=== PATIENT | male | born 1960 | race American Indian/Alaskan Native ===

== ENCOUNTER 2016-12-14 02:53 | Inpatient (IN) | payer OTHER ==
[2016-12-14] MEDS ORDERED: D50W (25GM) IV ONE ×6 (04:00→11:00)
[2016-12-14 04:47] LABS: Basophils % (Auto) 0.6 % (0.0-1.8); Hematocrit 39.7 % (35.5-45.6); Hemoglobin 13.3 gm/dl (11.8-15.2); Mean Corpuscular HGB Conc 34 % (32-34); Mean Corpuscular Hemoglobin 31 pg (28-32); Mean Corpuscular Volume 92 fl (84-94); Platelet Count 100 K/mm3 (140-440); Red Cell Distribution Width 12.9 % (13.2-15.2)
[2016-12-14 05:03] LABS: Alanine Aminotransferase 97 units/L (7-56); Albumin 4.2 g/dL (3.9-5); Albumin/Globulin Ratio 1.2 %; Alkaline Phosphatase 64 units/L (35-129); Anion Gap 17 mmol/L; BUN/Creatinine Ratio 17.14; Blood Urea Nitrogen 12 mg/dL (9-20); Calcium 9.1 mg/dL (8.4-10.2); Carbon Dioxide 26 mmol/L (22-30); Chloride 97.9 mmol/L (98-107); Glucose 283 mg/dL (75-100); Lipase 20 units/L (13-60); Potassium 3.3 mmol/L (3.6-5.0); Sodium 138 mmol/L (137-145); Total Protein 7.8 g/dL (6.3-8.2)
[2016-12-14] MEDS ORDERED: K-DUR PO ONE (06:15)
[2016-12-14] MEDS ORDERED: NACL 0.9% 1000 ML 1,000 ML IV ONE (06:30)
[2016-12-14] MEDS ORDERED: MORPHINE IV ONE (06:30)
--- NOTE | 2016-12-14 06:38 | Emergency Department Report ---
HPI - General Chief Complaint: Abdominal Pain Time Seen by Provider: 12/14/16 06:14 - HPI HPI: This is a 56-year-old -[place] male who presents to the emergency department with complaint of generalized abdominal pain has been going on for the past few weeks, "since I left the cancer center." The patient has some paperwork from the cancer center that shows that he has a PSA of 8 and is currently being worked up for possible prostate cancer. He says he has not yet been diagnosed with that. He has a past medical history of hepatitis C, insulin dependent diabetes and HIV. Patient presented with some mild hypoglycemia and was given an amp of D50. He denies any significant nausea, vomiting. He denies any problems with bowel or bladder, numbness or paresthesias, fever. He used to be on oxycodone for pain medication for his generalized abdominal discomfort. No recent travel or sick contacts at home. ED Past Medical Hx - Past Medical History Previous Medical History?: Yes Hx Diabetes: Yes Hx Liver Disease: Yes (hep C, hepatomegaly) Hx HIV: Yes - Surgical History Past Surgical History?: No - Social History Smoking Status: Light Tobacco Smoker Substance Use Type: Alcohol - Medications Home Medications: Home Medications Medication Instructions Recorded Confirmed Last Taken Type Unobtainable 12/14/16 12/14/16 Unknown History ED Review of Systems ROS: Stated complaint: STOMACH PAIN Other details as noted in HPI Comment: All other systems reviewed and negative Constitutional: denies: chills, fever Eyes: denies: eye pain, eye discharge, vision change ENT: denies: ear pain, throat pain Respiratory: denies: cough, shortness of breath, wheezing Cardiovascular: denies: chest pain, palpitations Gastrointestinal: abdominal pain. denies: nausea, diarrhea Genitourinary: denies: urgency, dysuria Musculoskeletal: denies: back pain, joint swelling, arthralgia Skin: denies: rash, lesions Neurological: denies: headache, weakness, paresthesias Physical Exam - Physical Exam Vital Signs: Vital Signs 12/14/16 12/14/16 12/14/16 03:43 05:20 05:26 Temperature 98.1 F Pulse Rate 73 71 Respiratory 18 14 9 L Rate Blood Pressure 96/63 134/73 O2 Sat by Pulse 98 95 99 Oximetry 12/14/16 12/14/16 05:30 06:00 Temperature Pulse Rate 76 76 Respiratory 9 L 16 Rate Blood Pressure 107/61 118/62 O2 Sat by Pulse 99 99 Oximetry Physical Exam: GENERAL: The patient is well-developed well-nourished. HEENT: Normocephalic. Atraumatic. Extraocular motions are intact. Patient has moist mucous membranes. Pupils equal reactive to light bilaterally. NECK: Supple. Trachea is midline. CHEST/LUNGS: Clear to auscultation. There is no respiratory distress noted. HEART/CARDIOVASCULAR: Regular. There is no tachycardia. There is no gallop rub or murmur. ABDOMEN: Abdomen is soft. Generalized tenderness to palpation of the abdomen. No guarding rebound tenderness. Patient has normal bowel sounds. There is no abdominal distention. SKIN: There is no rash. There is no edema. There is no diaphoresis. NEURO: The patient is awake, alert, and oriented. The patient is cooperative. The patient has no focal neurologic deficits. The patient has normal speech. MUSCULOSKELETAL: There is no tenderness or deformity. There is no limitation range of motion. There is no evidence of acute injury. ED Course Vital Signs 12/14/16 12/14/16 12/14/16 03:43 05:20 05:26 Temperature 98.1 F Pulse Rate 73 71 Respiratory 18 14 9 L Rate Blood Pressure 96/63 134/73 O2 Sat by Pulse 98 95 99 Oximetry 12/14/16 12/14/16 05:30 06:00 Temperature Pulse Rate 76 76 Respiratory 9 L 16 Rate Blood Pressure 107/61 118/62 O2 Sat by Pulse 99 99 Oximetry ED Medical Decision Making - Lab Data Result diagrams: 12/14/16 04:21 12/14/16 04:21 - Radiology Data Radiology results: report reviewed PROCEDURE: CT ABDOMEN PELVIS W CON TECHNIQUE: Computerized axial tomography of the abdomen and pelvis was performed after the IV injection of iodinated nonionic contrast. HISTORY: Abd pain COMPARISON: No prior studies are available for comparison. FINDINGS: Visualized lower thorax: Suspect mild COPD with minimal dependent atelectasis.. Liver: Moderately enlarged liver with diffuse fatty infiltration and areas of Edd transhepatic attenuation differences may reflect areas of fatty infiltration and sparing. No focal definitive lesions suspected at this time. Streak artifact related to EKG leads. Spleen: Mildly enlarged spleen. Gallbladder and biliary system: Moderately distended gallbladder without significant wall thickening. Common hepatic duct mildly prominent at 9 millimeters. Distal common bile duct 4 millimeters distal pancreatic duct 3 millimeters. Possible medium attenuated sludge material distal common bile duct with indeterminate sub millimeter calculus near the ampulla axial 57 through 60. Consider MRCP if warranted.. Pancreas: Normal. Adrenals: Normal. Kidneys: Normal. GI tract: No oral contrast. Diffuse stool content consistent with constipation. Much crowding of the bowel.. Indeterminate thickening of the distal sigmoid and rectal region with infiltrative pathology not excludable. This is indeterminate due to incomplete distension and no oral contrast. Possible normal caliber appendix obscured by large bowel no convincing evidence of acute appendicitis.. Difficult bowel evaluation due to extensive stool content paucity of mesenteric adipose tissue and particularly the lack of oral contrast. An underlying infiltrative pathologic process including malignancy is not excludable. Defer to colonoscopy or followup study with oral contrast. There is apparent spasm of the proximal sigmoid colon. There is sigmoid diverticulosis with possible thickening of the bowel in that location. Somewhat cobblestone appearance of the sigmoid colon with redundant distal sigmoid. Sigmoid colitis or minimal diverticulitis not entirely excludable. Followup advised as warranted Lymph nodes and mesentery: Mild pre portal adenopathy with scattered mild retroperitoneal adenopathy suspected in the 1-1.5 centimeter range retroperitoneum pre celiac below the renal veins periaortic. Vasculature: Arterial atherosclerosis ulcerative plaque formation in the right internal iliac artery. Bladder: Significantly distended bladder. Reproductive organs: Normal. Peritoneum: No free fluid. Musculoskeletal structures: Moderate degenerative changes of the hips. Mild osteitis pubis. Moderate sacroiliitis. Severe disc disease at the L3-4 level degeneration. Moderate broad disc bulging and degeneration at L4-5. Moderate broad disc bulge L5-S1. Defer to MRI lumbar spine evaluation. Other: None. IMPRESSION: Distended gallbladder with possible sludge accumulation in the distal common bile duct and tiny 1 millimeter calcification near the ampulla. Consider MRCP evaluation. Limited bowel evaluation as described. Diffuse constipation. Possible sigmoid cobblestone thickening and mucosal colitis. Sigmoid diverticulosis moderate bilateral sacroiliitis. Normal caliber appendix McBurney's point. Consider followup examination with oral contrast. Mild adenopathy as described EXAM: US ABDOMEN LIMITED HISTORY: RUQ abd pain TECHNIQUE: Ultrasound of the right upper quadrant. PRIORS: None FINDINGS: Normal appearance of the pancreas. Proximal aorta is nonaneurysmal. Proximal IVC appears normal. Right kidney measures 10.9 x 4.3 x 5.8 cm. Right renal cortex measures 1.3 cm. There are 2 right renal calculi, largest is 5.1 mm in the upper pole. 4.2 mm calculus in the lower pole. Homogeneous-appearing liver. No liver lesion identified. Gallbladder appears normal. Common bile duct is dilated measuring 8.8 mm. No intrahepatic biliary tree dilatation. IMPRESSION: 1. Dilated common bile duct. Recommend MRCP. 2. Renal calculi. - Medical Decision Making 56-year-old male with history of HIV, hepatitis C and elevated PSA with possible new prostate cancer presents with prolonged abdominal discomfort. His labs show some mild transaminitis and he went from having hypoglycemia to hyperglycemia and back to hypoglycemia again while being in the emergency department. Abdominal ultrasound shows concern for biliary ductal dilatation but there is no signs of cholecystitis. No cholelithiasis but concern for gallbladder sludge. Due to his history a CT of the abdomen and pelvis with IV contrast was also done and it just confirmed the ductal dilation. However the patient continues to have discomfort, has labile blood sugar, and the plan will be to admit the patient to the hospital for further evaluation, pain control. Patient accepted for admission by the hospitalist. - Differential Diagnosis malignancy, colitis, diverticulitis, cholecystitis, cholangitis, hepatitis Critical Care Time: No Critical care attestation.: If time is entered above; I have spent that time in minutes in the direct care of this critically ill patient, excluding procedure time. ED Disposition Clinical Impression: Common bile duct dilatation, Hypoglycemia Abdominal pain Qualifiers: Abdominal location: generalized Qualified Code(s): R10.84 - Generalized abdominal pain Disposition: OP ADMITTED IP TO THIS HOSP Is pt being admited?: Yes Condition: Stable Referrals: PRIMARY CARE, [Primary Care Provider] - 3-5 Days Time of Disposition: 12:22
[2016-12-14] MEDS ORDERED: NACL ONE (06:43)
--- NOTE | 2016-12-14 08:17 | Cat Scan Report ---
FINAL REPORT PROCEDURE: CT ABDOMEN PELVIS W CON TECHNIQUE: Computerized axial tomography of the abdomen and pelvis was performed after the IV injection of iodinated nonionic contrast. HISTORY: Abd pain COMPARISON: No prior studies are available for comparison. FINDINGS: Visualized lower thorax: Suspect mild COPD with minimal dependent atelectasis.. Liver: Moderately enlarged liver with diffuse fatty infiltration and areas of Edd transhepatic attenuation differences may reflect areas of fatty infiltration and sparing. No focal definitive lesions suspected at this time. Streak artifact related to EKG leads. Spleen: Mildly enlarged spleen. Gallbladder and biliary system: Moderately distended gallbladder without significant wall thickening. Common hepatic duct mildly prominent at 9 millimeters. Distal common bile duct 4 millimeters distal pancreatic duct 3 millimeters. Possible medium attenuated sludge material distal common bile duct with indeterminate sub millimeter calculus near the ampulla axial 57 through 60. Consider MRCP if warranted.. Pancreas: Normal. Adrenals: Normal. Kidneys: Normal. GI tract: No oral contrast. Diffuse stool content consistent with constipation. Much crowding of the bowel.. Indeterminate thickening of the distal sigmoid and rectal region with infiltrative pathology not excludable. This is indeterminate due to incomplete distension and no oral contrast. Possible normal caliber appendix obscured by large bowel no convincing evidence of acute appendicitis.. Difficult bowel evaluation due to extensive stool content paucity of mesenteric adipose tissue and particularly the lack of oral contrast. An underlying infiltrative pathologic process including malignancy is not excludable. Defer to colonoscopy or followup study with oral contrast. There is apparent spasm of the proximal sigmoid colon. There is sigmoid diverticulosis with possible thickening of the bowel in that location. Somewhat cobblestone appearance of the sigmoid colon with redundant distal sigmoid. Sigmoid colitis or minimal diverticulitis not entirely excludable. Followup advised as warranted Lymph nodes and mesentery: Mild pre portal adenopathy with scattered mild retroperitoneal adenopathy suspected in the 1-1.5 centimeter range retroperitoneum pre celiac below the renal veins periaortic. Vasculature: Arterial atherosclerosis ulcerative plaque formation in the right internal iliac artery. Bladder: Significantly distended bladder. Reproductive organs: Normal. Peritoneum: No free fluid. Musculoskeletal structures: Moderate degenerative changes of the hips. Mild osteitis pubis. Moderate sacroiliitis. Severe disc disease at the L3-4 level degeneration. Moderate broad disc bulging and degeneration at L4-5. Moderate broad disc bulge L5-S1. Defer to MRI lumbar spine evaluation. Other: None. IMPRESSION: Distended gallbladder with possible sludge accumulation in the distal common bile duct and tiny 1 millimeter calcification near the ampulla. Consider MRCP evaluation. Limited bowel evaluation as described. Diffuse constipation. Possible sigmoid cobblestone thickening and mucosal colitis. Sigmoid diverticulosis moderate bilateral sacroiliitis. Normal caliber appendix McBurney's point. Consider followup examination with oral contrast. Mild adenopathy as described Followup advised as warranted
--- NOTE | 2016-12-14 09:57 | Ultrasound Report ---
FINAL REPORT EXAM: US ABDOMEN LIMITED HISTORY: RUQ abd pain TECHNIQUE: Ultrasound of the right upper quadrant. PRIORS: None FINDINGS: Normal appearance of the pancreas. Proximal aorta is nonaneurysmal. Proximal IVC appears normal. Right kidney measures 10.9 x 4.3 x 5.8 cm. Right renal cortex measures 1.3 cm. There are 2 right renal calculi, largest is 5.1 mm in the upper pole. 4.2 mm calculus in the lower pole. Homogeneous-appearing liver. No liver lesion identified. Gallbladder appears normal. Common bile duct is dilated measuring 8.8 mm. No intrahepatic biliary tree dilatation. IMPRESSION: 1. Dilated common bile duct. Recommend MRCP. 2. Renal calculi.
[2016-12-14 10:11] LABS: Bilirubin,Urine NEG (Negative); Blood,Urine MOD (Negative); Ketones,Urine NEG (Negative); Leukocyte Esterase,Urine NEG (Negative); Mucus,Urine FEW /HPF; Nitrite,Urine NEG (Negative); Urobilinogen,Urine < 2.0 mg/dL (<2.0)
--- NOTE | 2016-12-14 11:18 | History and Physical Report ---
<ANGELICA VOSS S - Last Filed: 12/14/16 13:58> History of Present Illness Date of examination: 12/14/16 Date of admission: 12/14/16 Chief complaint: Abdominal Pain History of present illness: 56-year-old -German male presented to the ED via EMS from home with complaints of sharp abdomen pain that started over a week ago and got worse yesterday. Patient reported the pain is constant and nothing aggravates it or relieves it, its there all the time. Patient also reported his last bowel movement was yesterday morning and it was normal. Patient denies fever, chills , nausea, vomiting, bleeding. Patient also reported he has been to a cancer Center and he was told that his PSA level is 8 and he is being worked up for prostate cancer. Patient verbalized he has a history of hepatitis C with hepatomegaly and he is NOT on any medicine for it. In addition, he verbalized, HIV positive and he takes his med every day. Patient's PMHX: Diabetes, Hep C ( hepatomegaly), HIV positive and smoker. Past History Past Medical History: diabetes, hepatitis (Hep C with Hepatomegaly), HIV/AIDS Past Surgical History: No surgical history Social history: single, Lives alone (at a Facility), smoking, alcohol abuse, full code Family history: other (Pt verbalized he does not know) Medications and Allergies Allergies Allergy/AdvReac Type Severity Reaction Status Date / Time No Known Allergies Allergy Unverified 12/14/16 03:43 Home Medications Medication Instructions Recorded Confirmed Last Taken Type Unobtainable 12/14/16 12/14/16 Unknown History Review of Systems Constitutional: no fever, no chills, no sweats Ears, nose, mouth and throat: no nasal congestion, no headache Cardiovascular: no chest pain, no palpitations, no shortness of breath Respiratory: no cough with sputum, no congestion, no wheezing Gastrointestinal: abdominal pain, no nausea, no vomiting, no diarrhea, no constipation Genitourinary Male: no dysuria, no hematuria Rectal: no pain Musculoskeletal: no low back pain, no leg numbness/tingling Neurological: no seizures, no tremors, no headaches Psychiatric: depression, no anxiety, no suicidal ideation Endocrine: no fatigue Exam - Constitutional Vitals: Temp Pulse Resp BP Pulse Ox 98.1 F 82 16 118/62 98 12/14/16 03:43 12/14/16 07:00 12/14/16 07:00 12/14/16 07:00 12/14/16 07:00 General appearance: Present: no acute distress Results - Labs CBC & Chem 7: 12/14/16 04:21 12/14/16 04:21 Labs: Laboratory Last Values WBC 6.0 K/mm3 (4.5-11.0) 12/14/16 04:21 RBC 4.30 M/mm3 (3.65-5.03) 12/14/16 04:21 Hgb 13.3 gm/dl (11.8-15.2) 12/14/16 04:21 Hct 39.7 % (35.5-45.6) 12/14/16 04:21 MCV 92 fl (84-94) 12/14/16 04:21 MCH 31 pg (28-32) 12/14/16 04:21 MCHC 34 % (32-34) 12/14/16 04:21 RDW 12.9 % (13.2-15.2) L 12/14/16 04:21 Plt Count 100 K/mm3 (140-440) L 12/14/16 04:21 Lymph % (Auto) 45.9 % (13.4-35.0) H 12/14/16 04:21 [place] % (Auto) 6.5 % (0.0-7.3) 12/14/16 04:21 Eos % (Auto) 1.0 % (0.0-4.3) 12/14/16 04:21 Baso % (Auto) 0.6 % (0.0-1.8) 12/14/16 04:21 Lymph # 2.8 K/mm3 (1.2-5.4) 12/14/16 04:21 [place] # 0.4 K/mm3 (0.0-0.8) 12/14/16 04:21 Eos # 0.1 K/mm3 (0.0-0.4) 12/14/16 04:21 Baso # 0.0 K/mm3 (0.0-0.1) 12/14/16 04:21 Seg Neutrophils % 46.0 % (40.0-70.0) 12/14/16 04:21 Seg Neutrophils # 2.8 K/mm3 (1.8-7.7) 12/14/16 04:21 Sodium 138 mmol/L (137-145) 12/14/16 04:21 Potassium 3.3 mmol/L (3.6-5.0) L 12/14/16 04:21 Chloride 97.9 mmol/L (98-107) L 12/14/16 04:21 Carbon Dioxide 26 mmol/L (22-30) 12/14/16 04:21 Anion Gap 17 mmol/L 12/14/16 04:21 BUN 12 mg/dL (9-20) 12/14/16 04:21 Creatinine 0.7 mg/dL (0.8-1.5) L 12/14/16 04:21 Estimated GFR > 60 ml/min 12/14/16 04:21 BUN/Creatinine Ratio 17.14 % 12/14/16 04:21 Glucose 283 mg/dL (75-100) H 12/14/16 04:21 POC Glucose 52 (70-105) L 12/14/16 10:43 Lactic Acid 0.70 mmol/L (0.7-2.0) 12/14/16 04:21 Calcium 9.1 mg/dL (8.4-10.2) 12/14/16 04:21 Total Bilirubin 0.60 mg/dL (0.1-1.2) 12/14/16 04:21 AST 86 units/L (5-40) H 12/14/16 04:21 ALT 97 units/L (7-56) H 12/14/16 04:21 Alkaline Phosphatase 64 units/L (35-129) 12/14/16 04:21 Ammonia 19.0 umol/L (25-60) L 12/14/16 04:21 Total Protein 7.8 g/dL (6.3-8.2) 12/14/16 04:21 Albumin 4.2 g/dL (3.9-5) 12/14/16 04:21 Albumin/Globulin Ratio 1.2 % 12/14/16 04:21 Lipase 20 units/L (13-60) 12/14/16 04:21 Urine Color Yellow (Yellow) 12/14/16 09:42 Urine Turbidity Clear (Clear) 12/14/16 09:42 Urine pH 5.0 (5.0-7.0) 12/14/16 09:42 Ur Specific [place] 1.042 (1.003-1.030) H 12/14/16 09:42 Urine Protein 30 mg/dl mg/dL (Negative) 12/14/16 09:42 Urine Glucose (UA) >=500 mg/dL (Negative) 12/14/16 09:42 Urine Ketones Neg mg/dL (Negative) 12/14/16 09:42 Urine Blood Mod (Negative) 12/14/16 09:42 Urine Nitrite Neg (Negative) 12/14/16 09:42 Urine Bilirubin Neg (Negative) 12/14/16 09:42 Urine Urobilinogen < 2.0 mg/dL (<2.0) 12/14/16 09:42 Ur Leukocyte Esterase Neg (Negative) 12/14/16 09:42 Urine WBC (Auto) 4.0 /HPF (0.0-6.0) 12/14/16 09:42 Urine RBC (Auto) 22.0 /HPF (0.0-6.0) 12/14/16 09:42 Urine Mucus Few /HPF 12/14/16 09:42 Distended gallbladder with possible sludge accumulation in the distal common bile duct and tiny 1 millimeter calcification near the ampulla. Consider MRCP evaluation. Limited bowel evaluation as described. Diffuse constipation. Possible sigmoid cobblestone thickening and mucosal colitis. Sigmoid diverticulosis moderate bilateral sacroiliitis. Normal caliber appendix McBurney's point. Consider followup examination with oral contrast. Mild adenopathy as described - Imaging and Cardiology CT scan - abdomen: report reviewed Assessment and Plan Assessment and plan: 56-year-old -German male presented to the ED via EMS from home with complaints of sharp abdomen pain that started over a week ago and got worse yesterday. Patient reported the pain (8 of 10 on scale 0/10) is constant and nothing aggravates it or relieves it, it was there all the time. Patient also reported his last bowel movement was yesterday morning and it was normal. Patient denies fever, chills, nausea, vomiting, bleeding. Patient also reported he has been to a cancer Center and he was told that his PSA level is 8 and he is being worked up for prostate cancer. Patient verbalized he has a history of hepatitis C with hepatomegaly and he is NOT on any medicine for it. In addition, he verbalized, HIV positive and he takes his med every day. Patient's PMHX: Diabetes, Hep C (hepatomegaly), HIV positive and smoker. On exam, patient stated he felt his blood sugar is low, fingerstick resulted BG 52 and 1 amp of D50 given. Pt stated his pain is better (2-3 of 10 on scale 0/10) since receiving morphine while in the ED. Patient denies fever, chills, headache , dizziness, chest pain, difficulty breathing, nausea, vomiting. 1. Acute Biliary Colic - CT ABD/pelvis with contrast, ABD ultrasound obtained in the ED, Admit Pt to med/surg, pain medicine ordered when necessary, supportive care provided 2. DM - Pt currently Hypoglycemic, D50 given and D5 NS IVF ordered, monitor accu-checks, hypoglycemic/hyperglycemic protocol 3. Hypokalemia- Replete Potassium, recheck electrolytes 4. Malnutrition - BMI 16.5 - Consult [employer] 5. Thrombocytopenia - No heparin or Lovenox and will recheck Platelets count tomorrow 6. HIV - continue with home medications 7. Hepatitis C - ??? Pt did not complete a 6 month treatment and not currently on any medications 8. DVT prophylaxis- SCDs ordered Advance Directives: Yes VTE prophylaxis?: Mechanical Contraindication Mechanical VTE Prophylaxis: Contraindicated Plan of care discussed with patient/family: Yes <LEMUEL BARKER - Last Filed: 12/14/16 14:15> History of Present Illness Date of admission: 12/14/16 11:30 Medications and Allergies Active Meds: Active Medications Acetaminophen (Tylenol) 650 mg PO Q4H PRN PRN Reason: Pain MILD(1-3)/Fever >100.5/DUNN Bisacodyl (Dulcolax) 10 mg NE QDAY PRN PRN Reason: Constipation unrelieved by MOM Hydromorphone HCl (Dilaudid) 1 mg IV Q3H PRN PRN Reason: Pain , Severe (7-10) Dextrose/Sodium Chloride (D5ns) 1,000 mls @ 75 mls/hr IV DIRECT LANCE Magnesium Hydroxide (Milk Of Magnesia) 30 ml PO Q4H PRN PRN Reason: Constipation Ondansetron HCl (Zofran) 4 mg IV Q8H PRN PRN Reason: N/V unrelieved by Reglan Exam - Constitutional Vitals: Temp Pulse Resp BP Pulse Ox 98.1 F 77 16 128/78 98 12/14/16 03:43 12/14/16 11:33 12/14/16 11:33 12/14/16 11:33 12/14/16 11:33 Results - Labs CBC & Chem 7: 12/14/16 04:21 12/14/16 04:21 Labs: Laboratory Last Values WBC 6.0 K/mm3 (4.5-11.0) 12/14/16 04:21 RBC 4.30 M/mm3 (3.65-5.03) 12/14/16 04:21 Hgb 13.3 gm/dl (11.8-15.2) 12/14/16 04:21 Hct 39.7 % (35.5-45.6) 12/14/16 04:21 MCV 92 fl (84-94) 12/14/16 04:21 MCH 31 pg (28-32) 12/14/16 04:21 MCHC 34 % (32-34) 12/14/16 04:21 RDW 12.9 % (13.2-15.2) L 12/14/16 04:21 Plt Count 100 K/mm3 (140-440) L 12/14/16 04:21 Lymph % (Auto) 45.9 % (13.4-35.0) H 12/14/16 04:21 [place] % (Auto) 6.5 % (0.0-7.3) 12/14/16 04:21 Eos % (Auto) 1.0 % (0.0-4.3) 12/14/16 04:21 Baso % (Auto) 0.6 % (0.0-1.8) 12/14/16 04:21 Lymph # 2.8 K/mm3 (1.2-5.4) 12/14/16 04:21 [place] # 0.4 K/mm3 (0.0-0.8) 12/14/16 04:21 Eos # 0.1 K/mm3 (0.0-0.4) 12/14/16 04:21 Baso # 0.0 K/mm3 (0.0-0.1) 12/14/16 04:21 Seg Neutrophils % 46.0 % (40.0-70.0) 12/14/16 04:21 Seg Neutrophils # 2.8 K/mm3 (1.8-7.7) 12/14/16 04:21 Sodium 138 mmol/L (137-145) 12/14/16 04:21 Potassium 3.3 mmol/L (3.6-5.0) L 12/14/16 04:21 Chloride 97.9 mmol/L (98-107) L 12/14/16 04:21 Carbon Dioxide 26 mmol/L (22-30) 12/14/16 04:21 Anion Gap 17 mmol/L 12/14/16 04:21 BUN 12 mg/dL (9-20) 12/14/16 04:21 Creatinine 0.7 mg/dL (0.8-1.5) L 12/14/16 04:21 Estimated GFR > 60 ml/min 12/14/16 04:21 BUN/Creatinine Ratio 17.14 % 12/14/16 04:21 Glucose 283 mg/dL (75-100) H 12/14/16 04:21 POC Glucose 197 (70-105) H 12/14/16 11:58 Lactic Acid 0.70 mmol/L (0.7-2.0) 12/14/16 04:21 Calcium 9.1 mg/dL (8.4-10.2) 12/14/16 04:21 Total Bilirubin 0.60 mg/dL (0.1-1.2) 12/14/16 04:21 AST 86 units/L (5-40) H 12/14/16 04:21 ALT 97 units/L (7-56) H 12/14/16 04:21 Alkaline Phosphatase 64 units/L (35-129) 12/14/16 04:21 Ammonia 19.0 umol/L (25-60) L 12/14/16 04:21 Total Protein 7.8 g/dL (6.3-8.2) 12/14/16 04:21 Albumin 4.2 g/dL (3.9-5) 12/14/16 04:21 Albumin/Globulin Ratio 1.2 % 12/14/16 04:21 Lipase 20 units/L (13-60) 12/14/16 04:21 Urine Color Yellow (Yellow) 12/14/16 09:42 Urine Turbidity Clear (Clear) 12/14/16 09:42 Urine pH 5.0 (5.0-7.0) 12/14/16 09:42 Ur Specific [place] 1.042 (1.003-1.030) H 12/14/16 09:42 Urine Protein 30 mg/dl mg/dL (Negative) 12/14/16 09:42 Urine Glucose (UA) >=500 mg/dL (Negative) 12/14/16 09:42 Urine Ketones Neg mg/dL (Negative) 12/14/16 09:42 Urine Blood Mod (Negative) 12/14/16 09:42 Urine Nitrite Neg (Negative) 12/14/16 09:42 Urine Bilirubin Neg (Negative) 12/14/16 09:42 Urine Urobilinogen < 2.0 mg/dL (<2.0) 12/14/16 09:42 Ur Leukocyte Esterase Neg (Negative) 12/14/16 09:42 Urine WBC (Auto) 4.0 /HPF (0.0-6.0) 12/14/16 09:42 Urine RBC (Auto) 22.0 /HPF (0.0-6.0) 12/14/16 09:42 Urine Mucus Few /HPF 12/14/16 09:42 Assessment and Plan Assessment and plan: Patient seen and examined. I believe the CT scan finding are incidential and not really clinically supported, no localized abd pain, no jaundice, not obstructive, no cholangitis, etc... He is very cachetic. He has been off HIV meds more than 1 month. His main issue seems to be severe malnutrition and FTT/ unintentional weight loss and noncompliance and this probable prostate cancer. I ordered MRCP and await GI evaluation-Dr. Barker
[2016-12-14] MEDS ORDERED: ZOFRAN IV PRN (11:30)
[2016-12-14] MEDS ORDERED: MILK OF MAGNESIA PO PRN (11:30)
[2016-12-14] MEDS ORDERED: TYLENOL PO PRN (11:30)
[2016-12-14] MEDS ORDERED: DULCOLAX PR PRN (11:30)
[2016-12-14] MEDS ORDERED: LOVENOX SUB-Q SCH (12:00)
[2016-12-14] MEDS ORDERED: D50W (25GM) IV PRN (14:09)
[2016-12-14] MEDS ORDERED: D5NS 1,000 ML IV SCH (15:00)
[2016-12-14] MEDS: NOVOLOG SUB-Q SCH ×2 (17:26→22:39)
--- NOTE | 2016-12-14 18:06 | Gastroenterology Consultation ---
History of Present Illness - Reason for Consult Consult date: 12/14/16 Abdominal Pain Requesting physician: ANGELICA VOSS - History of Present Illness The patient is a 56 yo male who is new to the area as of the last 2 months. For the last 1 year (per his report) he has been battling chronic abdominal pain. He was recently referred to [facility], and was told he has an elevated PSA (8) and an enlarged spleen. He denies having a PCP, and gets his HIV meds through [facility]. His CD4 is >500 by his report. He has chronic diffuse abdominal pain, without any relief except with narcotics. However, during the interview he was watching TV and eating dinner vigorously without any obvious distress. He denies any prior abdominal surgeries. He admits to constipation ( seen on the CT scan) and has a BM about every 2-3 days, often with straining. There is very rarely a trace of BRBPR. He has never had a colonoscopy. He has a hx of HCV but it was never treated; he denies EtOH overuse or drug use but is a smoker. There is no family hx of abdominal cancer or cirrhosis. The CT and US films are reviewed. Past History Past Medical History: diabetes, hepatitis (Hep C with Hepatomegaly), HIV/AIDS ( Per patient, CD4>500) Past Surgical History: No surgical history Social history: single, Lives alone (at a Facility), smoking, alcohol abuse, full code Family history: other (Pt verbalized he does not know) Medications and Allergies Allergies Allergy/AdvReac Type Severity Reaction Status Date / Time No Known Allergies Allergy Unverified 12/14/16 03:43 Home Medications Medication Instructions Recorded Confirmed Last Taken Type Unobtainable 12/14/16 12/14/16 Unknown History Active Meds: Active Medications Acetaminophen (Tylenol) 650 mg PO Q4H PRN PRN Reason: Pain MILD(1-3)/Fever >100.5/DUNN Bisacodyl (Dulcolax) 10 mg MT QDAY PRN PRN Reason: Constipation unrelieved by MOM Dextrose (D50w (25gm)) 50 ml IV PRN PRN PRN Reason: Hypoglycemia Hydromorphone HCl (Dilaudid) 1 mg IV Q3H PRN PRN Reason: Pain , Severe (7-10) Dextrose/Sodium Chloride (D5ns) 1,000 mls @ 75 mls/hr IV DIRECT LANCE Last Admin: 12/14/16 16:01 Dose: 75 mls/hr Insulin Aspart (Novolog) 0 units SUB-Q ACHS LANCE PRN Reason: Protocol Last Admin: 12/14/16 17:26 Dose: 5 units Magnesium Hydroxide (Milk Of Magnesia) 30 ml PO Q4H PRN PRN Reason: Constipation Ondansetron HCl (Zofran) 4 mg IV Q8H PRN PRN Reason: N/V unrelieved by Reglan Review of Systems - Review of Systems All systems: negative (as noted in the HPI.) Exam - Constitutional Vital Signs: Temp Pulse Resp BP Pulse Ox 98.1 F 68 18 124/73 99 12/14/16 15:00 12/14/16 15:00 12/14/16 15:00 12/14/16 15:00 12/14/16 15:00 General appearance: no acute distress - EENT Eyes: PERRL, EOM intact ENT: hearing intact, clear oral mucosa, no thrush - Neck Neck: supple, normal ROM - Respiratory Respiratory effort: normal Respiratory: bilateral: CTA - Cardiovascular Rhythm: regular Heart Sounds: Present: S1 & S2 Extremities: no ischemia, No edema - Gastrointestinal General gastrointestinal: Present: soft, tender (Subjective guarding), non- distended - Integumentary Integumentary: Present: clear, warm, dry - Neurologic Neurological: alert and oriented x3 - Labs CBC & Chem 7: 12/14/16 04:21 12/14/16 04:21 Lab Results: Laboratory Results - last 24 hr 12/14/16 12/14/16 11:58 15:39 POC Glucose 197 H 411 H Assessment and Plan - Patient Problems (1) Hepatitis C Current Visit: Yes Status: Acute Qualifiers: Viral hepatitis chronicity: V Hepatic coma status: H Plan to address problem: - Will check VL and genotype. - Consider treatment as an outpatient if patient compliant with follow up. (2) HIV (human immunodeficiency virus infection) Current Visit: Yes Status: Acute Plan to address problem: - Will get baseline VL and CD4. (3) Abnormal LFTs Current Visit: Yes Status: Acute Plan to address problem: - Pattern more consistent with Hep C than Gallstones. - Will check MRCP and Hepatitis labs. - ERCP only if confirmed by MRCP. (4) Abdominal pain Current Visit: Yes Status: Acute Qualifiers: Abdominal location: generalized Plan to address problem: - CT scan consistent with moderately severe constipation, and possible abnormal mucosa of colon. - Will start clears in AM, and plan colonoscopy on Friday. - ERCP with removal of stones if confirmed by ERCP (but higher risk; suspect early cirrhosis based on labs).
[2016-12-14] MEDS: SENOKOT S PO SCH (21:35)
[2016-12-15 05:48] LABS: Hemoglobin 12.5 gm/dl (11.8-15.2); Mean Corpuscular HGB Conc 34 % (32-34); Mean Corpuscular Hemoglobin 31 pg (28-32); Mean Corpuscular Volume 93 fl (84-94); Red Cell Distribution Width 12.7 % (13.2-15.2); White Blood Count 4.2 K/mm3 (4.5-11.0)
[2016-12-15 06:04] LABS: Platelet Count 78 K/mm3 (140-440)
[2016-12-15 06:05] LABS: Anion Gap 16 mmol/L; BUN/Creatinine Ratio 14.28; Blood Urea Nitrogen 10 mg/dL (9-20); Calcium 8.6 mg/dL (8.4-10.2); Carbon Dioxide 24 mmol/L (22-30); Sodium 138 mmol/L (137-145); Total Protein 6.5 g/dL (6.3-8.2)
[2016-12-15 06:14] LABS: Potassium 4.4 mmol/L (3.6-5.0)
[2016-12-15 06:57] LABS: Alanine Aminotransferase 78 units/L (7-56); Albumin 3.6 g/dL (3.9-5); Albumin/Globulin Ratio 1.2 %; Alkaline Phosphatase 61 units/L (35-129); Glucose 352 mg/dL (75-100)
--- NOTE | 2016-12-15 07:34 | Progress Note ---
Assessment and Plan Assessment and plan: 56-year-old -[place] male with hx of HIV, DM, Hepatitis C, hepatomegaly , Tobacco abuse, Chronic constipation, presented to the ED via EMS from home with complaints of sharp abdomen pain that started over a week ago and got worse yesterday. Although on further evaluation appears to have chronic pain in the abdomen only relieved by Opioids. No aggravating symptoms noted, has 2-3 BM daily AND tolerates diet fine. Noted minimal BRBPR and has not had colonoscopy. Imaging study concerning for dilated CBD and mildly distended Gallbladder, constipation. Patient also reported he has been to a cancer Center and he was told that his PSA level is 8 and he is being worked up for prostate cancer Patient denies fever, chills, nausea, vomiting, bleeding. He reports complaince with his HAART therapy * Abdominal pain with Transaminitis, Dilated CBD POSSIBLE Cholelithasis, early cirrhosis * Moderate Protein calorie Malnutrition with cachexia * HIV * Uncontrolled DM * Moderate to severe constipation * Hepatitis C PLAN: * GI input noted, MRCP pending, possible ERCP. plan for Colonoscopy on Friday * Adjust insulin therapy for better control, STOP D5W. pt tolerating PO. * Med rec pending. discussed with nursing to update. * pain control * Monitor LFT * Stool softeners-Cautioned patient on pain meds * DVT/GI prophy * VL and genotype for HEP C pending. Recommend outpatient therapy and follow up * Basline VL and CD4 count pending. * Plan of care discussed with patient in detail and he verbalized understanding. History Interval history: Patient seen and examined today in no acute distress continues to have abdominal pain which he states is chronic. He denies any chest pain, nausea vomiting diarrhea. No Other adverse event reported by nursing staff Hospitalist Physical - Physical exam Narrative exam: VITAL SIGNS: Reviewed. GENERAL: The patient appeared well nourished and normally developed. Vital signs as documented. HEAD: No signs of head trauma. EYES: Pupils are equal. Extraocular motions intact. EARS: Hearing grossly intact. MOUTH: Oropharynx is normal. NECK: No adenopathy, no JVD. CHEST: Chest with clear breath sounds bilaterally. No wheezes, rales, or rhonchi. CARDIAC: Regular rate and rhythm. S1 and S2, without murmurs, gallops, or rubs. VASCULAR: No Edema. Peripheral pulses normal and equal in all extremities. ABDOMEN: Soft, generalized tenderness. No sign of distention. No rebound or guarding, and no masses palpated. Bowel Sounds normal. MUSCULOSKELETAL: Good range of motion of all major joints. Extremities without clubbing, cyanosis or edema. NEUROLOGIC EXAM: Alert and oriented x 3. No focal sensory or strength deficits. Speech normal. Follows commands. PSYCHIATRIC: Mood normal. SKIN: No rash or lesions. - Constitutional Vitals: Temp Pulse Resp BP Pulse Ox 98.0 F 70 18 121/69 99 12/15/16 00:00 12/15/16 00:00 12/15/16 00:00 12/15/16 00:00 12/15/16 00:00 General appearance: Present: no acute distress Results - Labs CBC & Chem 7: 12/15/16 05:13 12/15/16 05:13 Labs: Laboratory Last Values WBC 4.2 K/mm3 (4.5-11.0) L 12/15/16 05:13 RBC 4.00 M/mm3 (3.65-5.03) 12/15/16 05:13 Hgb 12.5 gm/dl (11.8-15.2) 12/15/16 05:13 Hct 37.0 % (35.5-45.6) 12/15/16 05:13 MCV 93 fl (84-94) 12/15/16 05:13 MCH 31 pg (28-32) 12/15/16 05:13 MCHC 34 % (32-34) 12/15/16 05:13 RDW 12.7 % (13.2-15.2) L 12/15/16 05:13 Plt Count 78 K/mm3 (140-440) L 12/15/16 05:13 Lymph % (Auto) 45.9 % (13.4-35.0) H 12/14/16 04:21 [place] % (Auto) 6.5 % (0.0-7.3) 12/14/16 04:21 Eos % (Auto) 1.0 % (0.0-4.3) 12/14/16 04:21 Baso % (Auto) 0.6 % (0.0-1.8) 12/14/16 04:21 Lymph # 2.8 K/mm3 (1.2-5.4) 12/14/16 04:21 [place] # 0.4 K/mm3 (0.0-0.8) 12/14/16 04:21 Eos # 0.1 K/mm3 (0.0-0.4) 12/14/16 04:21 Baso # 0.0 K/mm3 (0.0-0.1) 12/14/16 04:21 Seg Neutrophils % 46.0 % (40.0-70.0) 12/14/16 04:21 Seg Neutrophils # 2.8 K/mm3 (1.8-7.7) 12/14/16 04:21 Sodium 138 mmol/L (137-145) 12/15/16 05:13 Potassium 4.4 mmol/L (3.6-5.0) D 12/15/16 05:13 Chloride 102.0 mmol/L (98-107) 12/15/16 05:13 Carbon Dioxide 24 mmol/L (22-30) 12/15/16 05:13 Anion Gap 16 mmol/L 12/15/16 05:13 BUN 10 mg/dL (9-20) 12/15/16 05:13 Creatinine 0.7 mg/dL (0.8-1.5) L 12/15/16 05:13 Estimated GFR > 60 ml/min 12/15/16 05:13 BUN/Creatinine Ratio 14.28 % 12/15/16 05:13 Glucose 352 mg/dL (75-100) H 12/15/16 05:13 POC Glucose 314 (70-105) H 12/14/16 21:35 Hemoglobin A1c 14.2 % (4-6) H 12/14/16 04:21 Lactic Acid 0.70 mmol/L (0.7-2.0) 12/14/16 04:21 Calcium 8.6 mg/dL (8.4-10.2) 12/15/16 05:13 Total Bilirubin 0.50 mg/dL (0.1-1.2) 12/15/16 05:13 AST 64 units/L (5-40) H 12/15/16 05:13 ALT 78 units/L (7-56) H 12/15/16 05:13 Alkaline Phosphatase 61 units/L (35-129) 12/15/16 05:13 Ammonia 19.0 umol/L (25-60) L 12/14/16 04:21 Total Protein 6.5 g/dL (6.3-8.2) 12/15/16 05:13 Albumin 3.6 g/dL (3.9-5) L 12/15/16 05:13 Albumin/Globulin Ratio 1.2 % 12/15/16 05:13 Lipase 20 units/L (13-60) 12/14/16 04:21 Urine Color Yellow (Yellow) 12/14/16 09:42 Urine Turbidity Clear (Clear) 12/14/16 09:42 Urine pH 5.0 (5.0-7.0) 12/14/16 09:42 Ur Specific [place] 1.042 (1.003-1.030) H 12/14/16 09:42 Urine Protein 30 mg/dl mg/dL (Negative) 12/14/16 09:42 Urine Glucose (UA) >=500 mg/dL (Negative) 12/14/16 09:42 Urine Ketones Neg mg/dL (Negative) 12/14/16 09:42 Urine Blood Mod (Negative) 12/14/16 09:42 Urine Nitrite Neg (Negative) 12/14/16 09:42 Urine Bilirubin Neg (Negative) 12/14/16 09:42 Urine Urobilinogen < 2.0 mg/dL (<2.0) 12/14/16 09:42 Ur Leukocyte Esterase Neg (Negative) 12/14/16 09:42 Urine WBC (Auto) 4.0 /HPF (0.0-6.0) 12/14/16 09:42 Urine RBC (Auto) 22.0 /HPF (0.0-6.0) 12/14/16 09:42 Urine Mucus Few /HPF 12/14/16 09:42
[2016-12-15] MEDS: NOVOLOG SUB-Q SCH ×4 (08:00→22:51)
--- NOTE | 2016-12-15 09:26 | Gastroenterology Progress Note ---
Assessment and Plan - Patient Problems (1) Hepatitis C Current Visit: Yes Status: Acute Qualifiers: Viral hepatitis chronicity: V Hepatic coma status: H Plan to address problem: - Will check VL and genotype. - Consider treatment as an outpatient if patient compliant with follow up. (2) HIV (human immunodeficiency virus infection) Current Visit: Yes Status: Acute Plan to address problem: - Will get baseline VL and CD4. (3) Abnormal LFTs Current Visit: Yes Status: Acute Plan to address problem: - Pattern more consistent with Hep C than Gallstones and improved today. - Will check MRCP and Hepatitis labs. - ERCP only if confirmed by MRCP. (4) Abdominal pain Current Visit: Yes Status: Acute Qualifiers: Abdominal location: generalized Qualified Code(s): R10.84 - Generalized abdominal pain Plan to address problem: - CT scan consistent with moderately severe constipation, and possible abnormal mucosa of colon. - Will start clears today, and plan colonoscopy on Friday. - ERCP with removal of stones if confirmed by ERCP (but higher risk; suspect early cirrhosis based on labs). Subjective Date of service: 12/15/16 Principal diagnosis: Abnormal CT, Elevated LFTs Interval history: The patient is tolerating his liquid diet without N/V. He has chronic abdominal pain without acute change. He has not yet had his MRI. No F/C noted overnight. Objective - Constitutional Vitals: Temp Pulse Resp BP Pulse Ox 98.5 F 68 16 125/77 97 12/15/16 08:46 12/15/16 08:46 12/15/16 08:46 12/15/16 08:46 12/15/16 08:46 General appearance: no acute distress - EENT Eyes: PERRL, EOM intact ENT: hearing intact - Respiratory Respiratory effort: normal Respiratory: bilateral: CTA - Cardiovascular Rhythm: regular Heart Sounds: Present: S1 & S2 - Gastrointestinal General gastrointestinal: Present: soft, non-tender, non-distended - Labs CBC & Chem 7: 12/15/16 05:13 12/15/16 05:13 Labs: Laboratory Results - last 24 hr 12/14/16 12/14/16 12/14/16 11:58 15:39 21:35 WBC RBC Hgb Hct MCV MCH MCHC RDW Plt Count Sodium Potassium Chloride Carbon Dioxide Anion Gap BUN Creatinine Estimated GFR BUN/Creatinine Ratio Glucose POC Glucose 197 H 411 H 314 H Calcium Total Bilirubin AST ALT Alkaline Phosphatase Total Protein Albumin Albumin/Globulin Ratio 12/15/16 12/15/16 05:13 05:13 WBC 4.2 L RBC 4.00 Hgb 12.5 Hct 37.0 MCV 93 MCH 31 MCHC 34 RDW 12.7 L Plt Count 78 L Sodium 138 Potassium 4.4 D Chloride 102.0 Carbon Dioxide 24 Anion Gap 16 BUN 10 Creatinine 0.7 L Estimated GFR > 60 BUN/Creatinine Ratio 14.28 Glucose 352 H POC Glucose Calcium 8.6 Total Bilirubin 0.50 AST 64 H ALT 78 H Alkaline Phosphatase 61 Total Protein 6.5 Albumin 3.6 L Albumin/Globulin Ratio 1.2
[2016-12-15] MEDS ORDERED: LOVENOX SUB-Q SCH (10:00)
[2016-12-15] MEDS ORDERED: GOLYTELY PO ONE (10:30)
--- NOTE | 2016-12-15 15:52 | Magnetic Resonance Report ---
FINAL REPORT EXAM: MR ABDOMEN MRCP HISTORY: choledolithiasis TECHNIQUE: MRI abdomen without contrast MRCP PRIORS: Correlated with prior CT abdomen and pelvis and prior abdominal ultrasound of December 14, 2016 FINDINGS: No focal signal abnormality is identified within the liver parenchyma gallbladder is nondistended. No pericholecystic fluid or evidence for edema pattern. No evidence for cholelithiasis the common bile duct is minimally prominent in size centrally measuring 0.59 centimeters measuring 0.35 centimeters distally. Distal duct has a smooth tapered appearance. No filling defects are observed. Pancreatic duct does not appear dilated. No evidence for intrahepatic biliary dilatation. IMPRESSION: No evidence for biliary obstructive process. No evidence for choledocholithiasis or cholelithiasis.
[2016-12-15] MEDS: DILAUDID IV PRN (20:10)
[2016-12-15] MEDS: SENOKOT S PO SCH (22:52)
[2016-12-16 07:35] LABS: Calcium 8.9 mg/dL (8.4-10.2); Chloride 99.1 mmol/L (98-107); Hematocrit 37.2 % (35.5-45.6); Hemoglobin 12.4 gm/dl (11.8-15.2); Mean Corpuscular HGB Conc 34 % (32-34); Mean Corpuscular Hemoglobin 31 pg (28-32); Mean Corpuscular Volume 93 fl (84-94); Potassium 4.8 mmol/L (3.6-5.0); Red Blood Count 3.98 M/mm3 (3.65-5.03); Red Cell Distribution Width 12.7 % (13.2-15.2); Sodium 136 mmol/L (137-145); White Blood Count 5.2 K/mm3 (4.5-11.0)
--- NOTE | 2016-12-16 07:38 | Discharge Summary ---
Providers - Providers Date of Admission: 12/14/16 11:30 Date of discharge: 12/16/16 Attending physician: GREG NARAYANAN MD 12/14/16 13:43 Consult to Dietitian/Nutrition [CONS] Routine Physician Instructions: Reason For Exam: Reason for Consult: Nutrition Recommendations Reason for Consult: Poor oral intake Primary care physician: BIOM[facility] TE[facility] Hospitalization Reason for admission: abdominal pain Condition: Stable Hospital course: 56-year-old -Finnish male with hx of HIV, DM, Hepatitis C, hepatomegaly , Tobacco abuse, Chronic constipation, presented to the ED via EMS from home with complaints of sharp abdomen pain that started over a week ago and got worse yesterday. Although on further evaluation appears to have chronic pain in the abdomen only relieved by Opioids. No aggravating symptoms noted, has 2-3 BM daily AND tolerates diet fine. Noted minimal BRBPR and has not had colonoscopy. Imaging study concerning for dilated CBD and mildly distended Gallbladder, constipation. Patient also reported he has been to a cancer Center and he was told that his PSA level is 8 and he is being worked up for prostate cancer Patient denies fever, chills, nausea, vomiting, bleeding. He reports compliance with his HAART therapy. MRCP was negative patient is for colonoscopy today findings showed There was a silver-anal lesion ~5 mm in size (unclear etiology, possibly HPV related, condyloma acuminatum, infectious, r/o malignancy ). Multiple biopsies were obtained. patient to follow with GI for pathology report and he is aware of this. lab findings and concern for early cirrhosis was discussed with the patient. Also the patient is to follow up with GI for VL and Genotype Hep C. His blood glucose was managed and we did advise strongly due to the constipation to cut down on opioids use. Risk of opioid abuse discussed in detail and patient verbalized understanding. Patient is unsure of the medications he takes, and the facility where he gets it from was closed. 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 GENERAL: The patient appeared well nourished and normally developed. Vital signs as documented. HEAD: No signs of head trauma. EYES: Pupils are equal. Extraocular motions intact. EARS: Hearing grossly intact. MOUTH: Oropharynx is normal. NECK: No adenopathy, no JVD. CHEST: Chest with clear breath sounds bilaterally. No wheezes, rales, or rhonchi. CARDIAC: Regular rate and rhythm. S1 and S2, without murmurs, gallops, or rubs. VASCULAR: No Edema. Peripheral pulses normal and equal in all extremities. ABDOMEN: Soft, generalized tenderness. No sign of distention. No rebound or guarding, and no masses palpated. Bowel Sounds normal. MUSCULOSKELETAL: Good range of motion of all major joints. Extremities without clubbing, cyanosis or edema. NEUROLOGIC EXAM: Alert and oriented x 3. No focal sensory or strength deficits. Speech normal. Follows commands. PSYCHIATRIC: Mood normal. SKIN: No rash or lesions. - Constitutional Vitals: Temp Pulse Resp BP Pulse Ox 97.9 F 68 18 138/86 98 12/15/16 23:00 12/15/16 23:00 12/15/16 23:00 12/15/16 23:00 12/15/16 23:00 Plan Activity: advance as tolerated, fall precautions Diet: diabetic, other (increase fiber) Additional Instructions: follow with PCP and GI for pending labs. Follow up with: PRIMARY MD LEIGH [Primary Care Provider] - 3-5 Days RADHA CANDELARIA MD [Staff Physician] - 14 Days Prescriptions: Sennosides/Docusate [Senokot S] 2 tab PO QHS #30 tablet
--- NOTE | 2016-12-16 07:48 | Anesthesia Consultation ---
<MARGARET WALTERS - Last Filed: 12/16/16 07:48> Anesthesia Consult and Med Hx Date of service: 12/16/16 - Pre-Operative Health Status ASA Pre-Surgery Classification: ASA3 Proposed Anesthetic Plan: MAC - Pulmonary Hx Smoking: Yes Hx Pneumonia: No - Endocrine Hx Renal Disease: Yes (kidney stones) Hx Liver Disease: Yes (hep C, hepatomegaly) Hx Insulin Dependent Diabetes: Yes (uncontrolled) - Hematic Hx Anemia: Yes (HIV +) - Other Systems Hx Alcohol Use: Yes Hx Cancer: Yes (prostate cancer, last level 8, no treatment or meds for condition) - Additional Comments Anesthesia Medical History Comments: Dilated common bile duct. <DOM SMITH - Last Filed: 12/16/16 12:03> Anesthesia Consult and Med Hx - Airway ROM Head & Neck: Adequate Mental/Hyoid Distance: Adequate Mallampati Class: Class II Intubation Access Assessment: Probably Good - Pulmonary Exam CTA: Yes - Cardiac Exam Cardiac Exam: RRR
[2016-12-16 08:05] LABS: Platelet Count 86 K/mm3 (140-440)
[2016-12-16 08:09] LABS: Alanine Aminotransferase 82 units/L (7-56); Albumin 3.6 g/dL (3.9-5); Albumin/Globulin Ratio 1.1 %; Alkaline Phosphatase 58 units/L (35-129); Anion Gap 16 mmol/L; Blood Urea Nitrogen 9 mg/dL (9-20); Carbon Dioxide 26 mmol/L (22-30); Glucose 261 mg/dL (75-100)
[2016-12-16] MEDS: NOVOLOG SUB-Q SCH ×5 (08:22→22:22)
[2016-12-16] MEDS ORDERED: WATER FOR IRRIG STERILE IR ONE ×2 (08:53→11:37)
[2016-12-16] MEDS ORDERED: WATER FOR IRRIG STERILE ONE ×3 (08:53→13:44)
--- NOTE | 2016-12-16 09:13 | Admit Criteria Form ---
Admission Criteria Documentation: ABDOMINAL PAIN Clinical Indications for Admission to Inpatient Care (Place 'X' for any and all applicable criteria): Admission is indicated for ANY ONE of the following(1)(2)(3)(4)(5): [X]I. Inpatient admission required rather than observation care (Also use Abdominal Pain: Observation Care, as appropriate) because of ANY ONE of the following: [X]a) Severe pain requiring acute inpatient management [ ]b) Identification of etiology/finding that requires inpatient care (eg, aortic dissection, free air) [ ]c) Absent bowel sounds with complete ileus(6) [ ]d) Suspected toxic megacolon [ ]e) Severe electrolyte abnormalities requiring inpatient care [ ]f) High fever or infection requiring inpatient admission as indicated by ANY ONE of following(7)(8): [ ] i) Appropriate outpatient or observational care antimicrobial treatment unavailable, not effective, or not feasible [ ] ii) Documented bacteremia [ ] iii) Temperature > 104.9 degrees F (oral) [ ] iv) T >103.1 F (oral) or < 96.8 F(rectal) that does not respond to all emergency treatment measures [ ]g) Signs of intestinal obstruction [B] [ ]h) Hemodynamic instability [ ]i) IV fluid to replace significant ongoing losses (greater than 3 L/m2 per day) (12)(13) [ ]j) Percutaneous or open drainage (eg, abscess, biliary tract ) procedures [ ]k) Parenteral nutrition regimen that must be implemented on inpatient basis [X]l) Other condition,treatment or monitoring requiring inpatient admission. [ ]II. Peritoneal signs present [ ]III. Surgery needed that cannot be performed on an ambulatory basis. [ ]IV. Evaluation requires patient to not eat or drink for extended period ( eg, more than 24 hours). [ ]V. Contraindications and/or Inappropriate clinical situations for Observational Care in patients with abdominal pain, when ANY ONE of the following is required: [ ]a) Thorough evaluation is required to prevent catastrophic events due to delays in diagnosing (e.g.Mesenteric ischemia) 1,3 [ ]b) Patient with severe pathology or with chronic symptoms unlikely to improve in the ED stay (3) [ ]. General contraindications and/or Inappropriate clinical situations for Observational Care in patients with abdominal pain, when ANY ONE of the following is required: [ ]a) Prediction of prolongation of LOS based on ANY ONE of the following may be considered as a contraindication for observational care 2, 3, 4, 5, 6, 7, 8, 9, 10, 11 [ ]i) Age > 65 yrs. [ ]ii) Patient arriving by ambulance [ ]iii) Patient with high acuity [ ]iv) Patient requiring vital sign monitoring [ ]v) Patient on IV medication [ ]b) Systolic blood pressures 180mmHg 3,12 [ ]c) Patient with altered mental status including delirium and other alteration of consciousness, (3) [ ]d) Patient whose discharge disposition will be to a halfway home or rehabilitation home should not be managed in Emergency Department Observation Unit. CMS rule requires 3 days hospital stay before such placement.3,13 [ ]e) Patient with failure to thrive due to broad array of etiologies 3,16,17 [ ]f) Inability to ambulate 3,14 Extended stay beyond goal length of stay may be needed for(2)(3): [ ]a) Persistent abdominal pain with suspected intra-abdominal process [ ]b) Diagnosed condition requiring continued stay (e.g., pancreatitis, complicated diverticulitis) [ ]c) Surgery (e.g., colectomy) The original [employer] content created by [employer] has been revised. The portions of the content which have been revised are identified through the use of italic text or in bold, and [facility] has neither reviewed nor approved the modified material.All other unmodified content is copyright [employer]. Please see references footnoted in the original [employer] edition 2016 Admission Criteria Met: Yes
[2016-12-16] MEDS ORDERED: XYLOCAINE MPF 2% ONE (11:00)
[2016-12-16] MEDS ORDERED: NACL 0.9% 1000 ML 1,000 ML IV SCH (12:00)
--- NOTE | 2016-12-16 12:04 | Anesthesia Day of Surgery ---
Anesthesia Day of Surgery - Day of Surgery Patient Examined: Yes Patient H&P Reviewed: Yes Patient is NPO: Yes
[2016-12-16] MEDS ORDERED: DIPRIVAN 10 MG/ML IV ONE ×2 (12:06)
--- NOTE | 2016-12-16 14:01 | Post Operative Note ---
Pre-op diagnosis: abd pain, abnormal CT scan Post-op diagnosis: other (poor prep, silver-anal lesions (condylomata) Findings: Colonoscopy with biopsies: poor prep throughout the colon, no obvious mucosal abnormalities in the colon however. There was a silver-anal lesion ~5 mm in size (unclear etiology, possibly HPV related, condyloma acuminatum, infectious, r/o malignancy). Multiple biopsies were obtained. Procedure: colonoscopy with biopsies Anesthesia: [facility] [place] Surgeon: SHAHANA MURRAY Estimated blood loss: minimal Pathology: list (Jar A - silver-anal lesioni biopsies) Specimen disposition: to lab Condition: stable Disposition: same day
--- NOTE | 2016-12-16 15:00 | Post Anesthesia Evaluation ---
- Post Anesthesia Evaluation Patient Participated: Yes Airway Patent: Yes Stable Respiratory Function: Yes Nausea/Vomiting: No Temp > 96.8F: Yes Pain Manageable: Yes Adequeate Hydration: Yes Anesthesia Complications: No Block Receding Appropriately: Not Applicable Patient on Ventilator: No
[2016-12-16] MEDS ORDERED: NOVOLOG SUB-Q ONE (18:58)
[2016-12-16] MEDS: DILAUDID IV PRN (19:31)
--- NOTE | 2016-12-16 19:49 | Operative Report ---
PROCEDURE: Colonoscopy. PREOPERATIVE DIAGNOSES: Abdominal pain, abnormal CT findings. POSTOPERATIVE DIAGNOSES: Poor prep, perianal lesion (~5 mm in size) ANESTHESIA: Monitored anesthesia care. COMPLICATIONS: No immediate complications. ESTIMATED BLOOD LOSS: Minimal. DESCRIPTION OF PROCEDURE: After consent was obtained, the patient was placed in left lateral decubitus position. The Fujinon colonoscope was inserted through the anus and advanced into the cecum without difficulty. The quality of the prep was poor. The views of the mucosa were fair/inadequate in various parts of the colon due to solid stool. The patient tolerated the procedure well. FINDINGS: 1. There was a perianal lesion approximately 5 mm in size of unclear etiology. Multiple biopsies were obtained to evaluate for possible infectious or malignant process (HPV, condylomata lesion, rule out malignancy). 2. Large internal hemorrhoids. 3. Poor prep throughout the colon with solid stool in multiple segments of the colon. The procedure was completed; however, the views were limited in certain areas due to the quality of the prep. No obvious mucosal abnormalities or significant lesions seen, although views were suboptimal. IMPRESSION: 1. Perianal lesion of unclear etiology. Multiple biopsies were obtained. 2. Large internal hemorrhoids. 3. Poor prep throughout the colon. No obvious significant mucosal findings or mass lesion seen, although views were limited due to the quality of the prep. RECOMMENDATIONS: 1. Followup pathology. 2. Follow up in GI clinic in 2-3 weeks after discharge. 3. Will need repeat colonoscopy as outpatient in approximately 2 months due to the quality of the prep. 4. Follow up with Infectious Disease for treatment of HIV and viral hepatitis. JOB# [id number] GLEN/ARTUR MCINTYRE
[2016-12-16] MEDS: SENOKOT S PO SCH (22:23)
[2016-12-17 06:01] LABS: Hemoglobin 12.8 gm/dl (11.8-15.2); Mean Corpuscular HGB Conc 34 % (32-34); Mean Corpuscular Hemoglobin 31 pg (28-32); Mean Corpuscular Volume 93 fl (84-94); Red Blood Count 4.07 M/mm3 (3.65-5.03); Red Cell Distribution Width 12.9 % (13.2-15.2); White Blood Count 5.5 K/mm3 (4.5-11.0)
[2016-12-17 06:06] LABS: Platelet Count 96 K/mm3 (140-440)
[2016-12-17] MEDS: NOVOLOG SUB-Q SCH ×2 (07:03→12:11)
[2016-12-17 08:18] VITALS: BP 117/75
[2016-12-17] MEDS ORDERED: XYLOCAINE MPF 2% ONE (09:45)
--- NOTE | 2016-12-17 10:54 | Event Note ---
Date: 12/17/16 Patient was seen and examined. Patient did not leave the hospital due to the following reason: "12/16/16 23:55 - Nurse Note by YANETH FERRARI Num: [id number] : 1960 Patient Age: [address] Campbell regarding pt d/c but refusing to leave tonight states there is no one at home to open the door . Room mate will not be back home until AM. Dr. Campbell gave okay to stay the night and leave in the morning.pt was notified. " Physical Exam unchanged Requesting narcotics ?Drug seeker vs true Cancer pains Has appointment on December 26, 2016 with [facility] Please see discharge summary dated 12/16/16
[2016-12-17] MEDS ORDERED: PERCOCET 5/325 PO PRN (13:32)
[2016-12-18 08:53] LABS: HIV-1 RNA QN PCR 3.78 Log cps/mL (<1.30)
== END 2016-12-17 14:15 | disposition home or self-care (01) | DRG 432 ==
LOC: ED 02:53 → 3A 11:30
PROVIDERS: ADMIT Internal Medicine; ATTEND Internal Medicine
PROC: 0DBP8ZX Excision of Rectum, Via Natural or Artificial Opening Endoscopic, Diagnostic (ICD-10-PCS; principal; 2016-12-16)
DX: K74.60 Unspecified cirrhosis of liver (principal); B20 Human immunodeficiency virus [HIV] disease; Z68.1 Body mass index [BMI] 19.9 or less, adult; E44.0 Moderate protein-calorie malnutrition; R64 Cachexia; K80.50 Calculus of bile duct without cholangitis or cholecystitis without obstruction; E87.6 Hypokalemia; Z60.2 Problems related to living alone; F10.10 Alcohol abuse, uncomplicated; F17.200 Nicotine dependence, unspecified, uncomplicated; D69.6 Thrombocytopenia, unspecified; F32.9 Major depressive disorder, single episode, unspecified; E11.649 Type 2 diabetes mellitus with hypoglycemia without coma; B19.20 Unspecified viral hepatitis C without hepatic coma; G89.29 Other chronic pain; R74.0 Nonspecific elevation of levels of transaminase and lactic acid dehydrogenase [LDH]; E11.65 Type 2 diabetes mellitus with hyperglycemia; K59.00 Constipation, unspecified; Z87.442 Personal history of urinary calculi; Z85.46 Personal history of malignant neoplasm of prostate; K64.8 Other hemorrhoids; K62.9 Disease of anus and rectum, unspecified
CPT/HCPCS: 36415; 74177; 74181; 76705; 80053; 81001; 82024; 82140; 82962; 83036; 83690; 85025; 85027; 87517; 87536; 87902; 88305; 96361; 96372; 96374; 96375; 96376; 99285; 99406; J1170; J1815; J2270; J2704; J7030; J7042; Q9967

== ENCOUNTER 2017-01-21 16:06 | Inpatient (IN) | payer OTHER ==
--- NOTE | 2017-01-21 18:04 | Emergency Department Report ---
Entered by KASSANDRA GAMINO, acting as scribe for JENNA DORANTES PA. Chief Complaint: Skin/Abscess/Foreign Body Stated Complaint: SORES ON BACK Time Seen by Provider: 01/21/17 16:56 - HPI History of Present Illness: 56 year old male with PMHx of DM and HIV presents to the ED with c/o back sores occured 2 days ago. Patient reports back swelling and pain and chronic abd pain but denies nausea and vomiting. Patient is currently IDDM. - ROS Review of Systems: Reports abd pain and back pain. Denies nausea and vomiting. - Exam Vital Signs: Vital Signs 01/21/17 16:30 Temperature 99.8 F H Pulse Rate 105 H Respiratory 18 Rate Blood Pressure 111/79 O2 Sat by Pulse 97 Oximetry Physical Exam: Constitutional: Non toxic appearing, NAD. Cardiovascular: Normal rate and rhythm with normal S1/S2 sounds. Respiratory: No respiratory distress. Lung sounds clear to auscultation bilaterally. Abdomen: Soft, nontender, and nondistended. Positive bowel sounds. No hepatosplenomegaly was noted. No guarding or rebound tenderness, negative Skin: 10cm ulcerated mass left scapular region. MSE screening note: Focused history and physical exam performed. Due to findings the following was ordered: ED Disposition for MSE Condition: Stable This documentation as recorded by the scribe,KASSANDRA GAMINO,accurately reflects the service I personally performed and the decisions made by JOSE E nelson OYINLOLA A, PA.
[2017-01-21 19:06] LABS: Basophils % (Auto) 0.4 % (0.0-1.8); Eosinophils % (Auto) 0.1 % (0.0-4.3); Hematocrit 40.4 % (35.5-45.6); Hemoglobin 13.5 gm/dl (11.8-15.2); Mean Corpuscular HGB Conc 34 % (32-34); Mean Corpuscular Hemoglobin 30 pg (28-32); Mean Corpuscular Volume 90 fl (84-94); Red Blood Count 4.47 M/mm3 (3.65-5.03); Red Cell Distribution Width 12.8 % (13.2-15.2)
[2017-01-21 19:09] LABS: Anion Gap 20 mmol/L; BUN/Creatinine Ratio 21.42; Blood Urea Nitrogen 15 mg/dL (9-20); Calcium 9.4 mg/dL (8.4-10.2); Carbon Dioxide 26 mmol/L (22-30); Chloride 86.4 mmol/L (98-107); Glucose 426 mg/dL (75-100); Potassium 4.1 mmol/L (3.6-5.0); Sodium 128 mmol/L (137-145)
[2017-01-21 19:34] LABS: Bilirubin,Urine NEG (Negative); Blood,Urine LG (Negative); Ketones,Urine NEG (Negative); Leukocyte Esterase,Urine MOD (Negative); Mucus,Urine FEW /HPF; Nitrite,Urine POS (Negative); Protein,Urine <15 mg/dL mg/dL (Negative)
[2017-01-21 19:34] LABS: Platelet Count 261 K/mm3 (140-440)
--- NOTE | 2017-01-22 08:48 | Emergency Department Report ---
ED General Adult HPI - General Chief complaint: Skin/Abscess/Foreign Body Stated complaint: SORES ON BACK Time Seen by Provider: 01/21/17 17:52 Source: patient Mode of arrival: Wheelchair Limitations: No Limitations - History of Present Illness Initial comments: Patient has history of HIV and is apparently noncompliant with all his medication. He is an insulin-dependent diabetic and not taking that at least for the last few days. I am not sure about his domicile status. However, he has had a draining abscess of his subscapular area for quite some time now. He states he has pus on his jacket from there. He has not recently been to the hospital he states. He does not report taking his temperature but he states he has had some chills. -: Gradual, week(s) Location: back Radiation: non-radiation Quality: aching, other (draining) Consistency: intermittent Improves with: none Worsens with: none Associated Symptoms: fever/chills - Related Data Home Medications Medication Instructions Recorded Confirmed Last Taken Abacavir/Dolutegravir/Lamivudi 1 each PO DAILY 01/22/17 01/22/17 01/20/17 [Triumeq Tablet] Aspirin [Adult Low Dose Aspirin EC] 81 mg PO DAILY 01/22/17 01/22/17 01/20/17 Gabapentin [Neurontin] 400 mg PO Q8HR 01/22/17 01/22/17 01/20/17 Previous Rx's Medication Instructions Recorded Last Taken Type Insulin Lispro [HumaLOG VIAL] 1 dose SQ AC #1 vial 12/17/16 01/20/17 Rx Insulin NPH/Regular [Novolin 70/30] 10 unit SUB-Q Q12H #100 units 12/17/1601/20 Rx Allergies Allergy/AdvReac Type Severity Reaction Status Date / Time No Known Allergies Allergy Unverified 12/14/16 03:43 ED Review of Systems ROS: Stated complaint: SORES ON BACK Other details as noted in HPI Constitutional: weakness Eyes: denies: eye pain, eye discharge, vision change ENT: denies: ear pain, throat pain Respiratory: denies: cough, shortness of breath, wheezing Cardiovascular: denies: chest pain, palpitations Endocrine: no symptoms reported Gastrointestinal: denies: abdominal pain, nausea, diarrhea Genitourinary: denies: urgency, dysuria Musculoskeletal: back pain. denies: joint swelling, arthralgia Skin: denies: rash, lesions Neurological: denies: headache, weakness, paresthesias Psychiatric: denies: anxiety, depression Hematological/Lymphatic: denies: easy bleeding, easy bruising ED Past Medical Hx - Past Medical History Previous Medical History?: Yes Hx Diabetes: Yes Hx Liver Disease: Yes (hep C, hepatomegaly) Hx Renal Disease: Yes (kidney stones) Hx HIV: Yes - Surgical History Past Surgical History?: No - Social History Smoking Status: Former Smoker Substance Use Type: Alcohol, Prescribed - Medications Home Medications: Home Medications Medication Instructions Recorded Confirmed Last Taken Type Insulin Lispro [HumaLOG VIAL] 1 dose SQ AC #1 vial 12/17/16 01/22/17 01/20/17 Rx Insulin NPH/Regular [Novolin 70/30] 10 unit SUB-Q Q12H #100 units 12/17/1601/2201/20/17 Rx Abacavir/Dolutegravir/Lamivudi 1 each PO DAILY 01/22/17 01/22/17 01/20/17 History [Triumeq Tablet] Aspirin [Adult Low Dose Aspirin EC] 81 mg PO DAILY 01/22/17 01/22/17 01/20/17 History Gabapentin [Neurontin] 400 mg PO Q8HR 01/22/17 01/22/17 01/20/17 History ED Physical Exam - General Limitations: No Limitations General appearance: cachectic - Head Head exam: Present: atraumatic, normocephalic - Eye Eye exam: Present: normal appearance. Absent: scleral icterus - ENT ENT exam: Present: normal exam, mucous membranes moist - Neck Neck exam: Present: normal inspection. Absent: tenderness, meningismus - Respiratory Respiratory exam: Present: normal lung sounds bilaterally. Absent: respiratory distress - Cardiovascular Cardiovascular Exam: Present: regular rate, normal rhythm. Absent: systolic murmur, diastolic murmur, rubs, gallop - GI/Abdominal GI/Abdominal exam: Present: soft, normal bowel sounds. Absent: distended, tenderness, guarding, rebound, rigid - Rectal Rectal exam: Present: deferred - Extremities Exam Extremities exam: Present: normal inspection, pedal edema. Absent: tenderness, joint swelling, calf tenderness - Back Exam Back exam: Present: other (the patient has a large draining abscess of the right subscapular area. It is indurated. It is fluctuant.) - Neurological Exam Neurological exam: Present: alert, oriented X3, CN II-XII intact. Absent: motor sensory deficit - Psychiatric Psychiatric exam: Present: normal mood, flat affect - Skin Skin exam: Present: warm, dry, intact, normal color, other (abscess back as above). Absent: rash ED Course Vital Signs 01/21/17 01/22/17 01/22/17 16:30 02:39 11:15 Temperature 99.8 F H 98.6 F 98.5 F Pulse Rate 105 H 101 H 91 H Respiratory 18 18 18 Rate Blood Pressure 111/79 128/79 Blood Pressure 124/85 [Right] O2 Sat by Pulse 97 99 98 Oximetry 01/22/17 11:55 Temperature Pulse Rate Respiratory 18 Rate Blood Pressure Blood Pressure [Right] O2 Sat by Pulse Oximetry - Reevaluation(s) Reevaluation #1: The patient was begun on Zosyn and vancomycin. He is admitted to the hospitalist service by Dr. Hensley further care and evaluation in stable condition. 01/22/17 13:40 Reevaluation #2: Patient is given IV fluid and insulin. He is not in DKA. He was started on Zosyn and vancomycin. He was admitted to the hospitalist service for further care and evaluation. He does need surgical consult for drainage of abscess. I will remind hospitalist of this. 01/22/17 13:51 ED Medical Decision Making - Lab Data Result diagrams: 01/21/17 18:11 01/22/17 09:43 Laboratory Results - last 24 hr 01/21/17 01/21/17 01/21/17 16:26 18:11 18:11 WBC 12.0 H RBC 4.47 Hgb 13.5 Hct 40.4 MCV 90 MCH 30 MCHC 34 RDW 12.8 L Plt Count 261 Lymph % (Auto) 9.8 L [place] % (Auto) 6.4 Eos % (Auto) 0.1 Baso % (Auto) 0.4 Lymph # 1.2 [place] # 0.8 Eos # 0.0 Baso # 0.1 Seg Neutrophils % 83.3 H Seg Neutrophils # 10.0 H VBG pH Sodium 128 L Potassium 4.1 Chloride 86.4 L Carbon Dioxide 26 Anion Gap 20 BUN 15 Creatinine 0.7 L Estimated GFR > 60 BUN/Creatinine Ratio 21.42 Glucose 426 H POC Glucose 393 H Calcium 9.4 Urine Color Urine Turbidity Urine pH Ur Specific [place] Urine Protein Urine Glucose (UA) Urine Ketones Urine Blood Urine Nitrite Urine Bilirubin Urine Urobilinogen Ur Leukocyte Esterase Urine WBC (Auto) Urine RBC (Auto) Urine Mucus 01/21/17 01/21/17 18:11 18:36 WBC RBC Hgb Hct MCV MCH MCHC RDW Plt Count Lymph % (Auto) [place] % (Auto) Eos % (Auto) Baso % (Auto) Lymph # [place] # Eos # Baso # Seg Neutrophils % Seg Neutrophils # VBG pH 7.371 Sodium Potassium Chloride Carbon Dioxide Anion Gap BUN Creatinine Estimated GFR BUN/Creatinine Ratio Glucose POC Glucose Calcium Urine Color Yellow Urine Turbidity Clear Urine pH 6.0 Ur Specific [place] 1.026 Urine Protein <15 mg/dl Urine Glucose (UA) >=500 Urine Ketones Neg Urine Blood Lg Urine Nitrite Pos Urine Bilirubin Neg Urine Urobilinogen 2.0 Ur Leukocyte Esterase Mod Urine WBC (Auto) 35.0 H Urine RBC (Auto) 2.0 Urine Mucus Few Laboratory Results - last 24 hr 01/21/17 01/21/17 01/21/17 16:26 18:11 18:11 WBC 12.0 H RBC 4.47 Hgb 13.5 Hct 40.4 MCV 90 MCH 30 MCHC 34 RDW 12.8 L Plt Count 261 Lymph % (Auto) 9.8 L [place] % (Auto) 6.4 Eos % (Auto) 0.1 Baso % (Auto) 0.4 Lymph # 1.2 [place] # 0.8 Eos # 0.0 Baso # 0.1 Seg Neutrophils % 83.3 H Seg Neutrophils # 10.0 H PT INR APTT VBG pH Sodium 128 L Potassium 4.1 Chloride 86.4 L Carbon Dioxide 26 Anion Gap 20 BUN 15 Creatinine 0.7 L Estimated GFR > 60 BUN/Creatinine Ratio 21.42 Glucose 426 H POC Glucose 393 H Ketones Quantitative Lactic Acid Calcium 9.4 Magnesium Total Bilirubin Direct Bilirubin Indirect Bilirubin AST ALT Alkaline Phosphatase Total Protein Albumin Albumin/Globulin Ratio Urine Color Urine Turbidity Urine pH Ur Specific [place] Urine Protein Urine Glucose (UA) Urine Ketones Urine Blood Urine Nitrite Urine Bilirubin Urine Urobilinogen Ur Leukocyte Esterase Urine WBC (Auto) Urine RBC (Auto) Urine Mucus Blood Type Antibody Screen CHARLI Antibody Screen 01/21/17 01/21/17 01/22/17 18:11 18:36 09:43 WBC RBC Hgb Hct MCV MCH MCHC RDW Plt Count Lymph % (Auto) [place] % (Auto) Eos % (Auto) Baso % (Auto) Lymph # [place] # Eos # Baso # Seg Neutrophils % Seg Neutrophils # PT INR APTT VBG pH 7.371 Sodium 128 L Potassium 4.2 Chloride 87.4 L Carbon Dioxide 25 Anion Gap 20 BUN 13 Creatinine 0.9 Estimated GFR > 60 BUN/Creatinine Ratio 14.44 Glucose 634 H* POC Glucose Ketones Quantitative Lactic Acid Calcium 8.9 Magnesium 1.80 Total Bilirubin 0.70 Direct Bilirubin 0.4 H Indirect Bilirubin 0.3 AST 32 ALT 34 Alkaline Phosphatase 101 Total Protein 8.4 H Albumin 3.5 L Albumin/Globulin Ratio 0.7 Urine Color Yellow Urine Turbidity Clear Urine pH 6.0 Ur Specific [place] 1.026 Urine Protein <15 mg/dl Urine Glucose (UA) >=500 Urine Ketones Neg Urine Blood Lg Urine Nitrite Pos Urine Bilirubin Neg Urine Urobilinogen 2.0 Ur Leukocyte Esterase Mod Urine WBC (Auto) 35.0 H Urine RBC (Auto) 2.0 Urine Mucus Few Blood Type Antibody Screen CHARLI Antibody Screen 01/22/17 01/22/17 01/22/17 09:43 09:44 10:55 WBC RBC Hgb Hct MCV MCH MCHC RDW Plt Count Lymph % (Auto) [place] % (Auto) Eos % (Auto) Baso % (Auto) Lymph # [place] # Eos # Baso # Seg Neutrophils % Seg Neutrophils # PT 14.5 INR 1.07 APTT 29.0 VBG pH Sodium Potassium Chloride Carbon Dioxide Anion Gap BUN Creatinine Estimated GFR BUN/Creatinine Ratio Glucose POC Glucose Ketones Quantitative Negative Lactic Acid Calcium Magnesium Total Bilirubin Direct Bilirubin Indirect Bilirubin AST ALT Alkaline Phosphatase Total Protein Albumin Albumin/Globulin Ratio Urine Color Urine Turbidity Urine pH Ur Specific [place] Urine Protein Urine Glucose (UA) Urine Ketones Urine Blood Urine Nitrite Urine Bilirubin Urine Urobilinogen Ur Leukocyte Esterase Urine WBC (Auto) Urine RBC (Auto) Urine Mucus Blood Type A POSITIVE Antibody Screen TNR CHARLI Antibody Screen Negative 01/22/17 10:55 WBC RBC Hgb Hct MCV MCH MCHC RDW Plt Count Lymph % (Auto) [place] % (Auto) Eos % (Auto) Baso % (Auto) Lymph # [place] # Eos # Baso # Seg Neutrophils % Seg Neutrophils # PT INR APTT VBG pH Sodium Potassium Chloride Carbon Dioxide Anion Gap BUN Creatinine Estimated GFR BUN/Creatinine Ratio Glucose POC Glucose Ketones Quantitative Lactic Acid 1.80 Calcium Magnesium Total Bilirubin Direct Bilirubin Indirect Bilirubin AST ALT Alkaline Phosphatase Total Protein Albumin Albumin/Globulin Ratio Urine Color Urine Turbidity Urine pH Ur Specific [place] Urine Protein Urine Glucose (UA) Urine Ketones Urine Blood Urine Nitrite Urine Bilirubin Urine Urobilinogen Ur Leukocyte Esterase Urine WBC (Auto) Urine RBC (Auto) Urine Mucus Blood Type Antibody Screen CHARLI Antibody Screen - Radiology Data Radiology results: report reviewed interpreted by me: Chest x-ray no acute process Critical care attestation.: If time is entered above; I have spent that time in minutes in the direct care of this critically ill patient, excluding procedure time. ED Disposition Clinical Impression: Abscess of back, HIV (human immunodeficiency virus infection), Hyperglycemia due to type 1 diabetes mellitus, Abscess of back, Hyponatremia, Hypochloremia, Cachexia associated with AIDS Hepatitis C Qualifiers: Viral hepatitis chronicity: chronic Hepatic coma status: without hepatic coma Qualified Code(s): B18.2 - Chronic viral hepatitis C Disposition: OP ADMIT IP TO THIS HOSP Is pt being admited?: Yes Does the pt Need Aspirin: No Condition: Stable Time of Disposition: 13:53
[2017-01-22] MEDS ORDERED: NACL 0.9% 1000 ML 1,000 ML IV ONE (08:54)
[2017-01-22] MEDS ORDERED: ZOSYN/NS 3.375GM/50ML 3.375 GM/50 ML BAG IV SCH (09:00)
[2017-01-22] MEDS ORDERED: VANCOMYCIN PHARMACY TO DOSE IV SCH ×3 (09:00→10:00)
--- NOTE | 2017-01-22 09:39 | XRay Report ---
AP CHEST: HISTORY: Hypertension AP view of the chest demonstrates a normal mediastinal and cardiac contour with clear lungs and normal bony and soft tissue structures. IMPRESSION: Unremarkable AP chest.
[2017-01-22] MEDS ORDERED: VANCOMYCIN VIAL IV ONE (09:45)
[2017-01-22] MEDS ORDERED: DULCOLAX PR PRN (09:48)
[2017-01-22] MEDS ORDERED: MILK OF MAGNESIA PO PRN (09:48)
[2017-01-22] MEDS ORDERED: D50W (25GM) IV PRN (09:53)
[2017-01-22] MEDS ORDERED: VANCOMYCIN/NS 1 GM/250 ML 1 GM/250 ML BAG IV ONE ×2 (10:00→11:36)
--- NOTE | 2017-01-22 10:04 | History and Physical Report ---
History of Present Illness Date of examination: 01/22/17 Date of admission: 01/22/17 Chief complaint: Back abscess History of present illness: Patient is a 56-year-old male with history of HIV, diabetes, hepatitis C, who reports that he recently moved down to [place] 3 months ago and in the last 3 days had noticed a growth on his back which appeared to be draining. It causes significant pain about 10 over 10 in intensity limited his movements and today before he was able to make it to the hospital. He reported some subjective fever at home. He is not sure of what medication he takes he knows that he gets them from a [facility] prior to moving to [place]. He apparently has not been taking these medications. He denies any chest pain, nausea vomiting or diarrhea. He denies any blurry vision. He reports that he has lost significant weight. And is currently being worked up for cancer and has planned follow-up with [place] [facility]. ROS Constitutional: Subjective fever, Reports weight loss, fatigue or weight loss. Skin: No rash. Eyes: No recent vision problems or eye pain. ENT: No congestion, ear pain, or sore throat. Endocrine: No thyroid problems. Cardiovascular: No chest pain. Respiratory: No cough, shortness of breath, congestion, or wheezing. Gastrointestinal: No abdominal pain, nausea, vomiting, or diarrhea. Genitourinary: No dysuria. Musculoskeletal: SUBSCAPULAR ABSCESS No joint swelling. Neurologic: No seizures. Hematologic: No unusual bruising or bleeding. Psychiatric: No psychiatric problems, hallucinations or depression. All other systems reviewed and otherwise negative. Past History Past Medical History: diabetes, hepatitis (c), HIV/AIDS, other (Hepatitis c) Past Surgical History: No surgical history Social history: smoking, other Family history: no significant family history Medications and Allergies Allergies Allergy/AdvReac Type Severity Reaction Status Date / Time No Known Allergies Allergy Unverified 12/14/16 03:43 Home Medications Medication Instructions Recorded Confirmed Last Taken Type Insulin Lispro [HumaLOG VIAL] 1 dose SQ AC #1 vial 12/17/16 01/22/17 01/20/17 Rx Insulin NPH/Regular [Novolin 70/30] 10 unit SUB-Q Q12H #100 units 12/17/1601/2201/20/17 Rx Abacavir/Dolutegravir/Lamivudi 1 each PO DAILY 01/22/17 01/22/17 01/20/17 History [Triumeq Tablet] Aspirin [Adult Low Dose Aspirin EC] 81 mg PO DAILY 01/22/17 01/22/17 01/20/17 History Gabapentin [Neurontin] 400 mg PO Q8HR 01/22/17 01/22/17 01/20/17 History Active Meds: Active Medications Acetaminophen (Tylenol) 650 mg PO Q4H PRN PRN Reason: Pain MILD(1-3)/Fever >100.5/DUNN Bisacodyl (Dulcolax) 10 mg KS QDAY PRN PRN Reason: Constipation unrelieved by MOM Dextrose (D50w (25gm)) 50 ml IV PRN PRN PRN Reason: Hypoglycemia Hydromorphone HCl (Dilaudid) 0.25 mg IV Q4H PRN PRN Reason: Pain, Moderate (4-6) Piperacillin Sod/Tazobactam Sod (Zosyn/Ns 3.375gm/50ml) 3.375 gm in 50 mls @ 100 mls/hr IV Q6HR LANCE PRN Reason: Protocol Vancomycin HCl (Vancomycin/Ns 1 Gm/250 Ml) 1 gm in 250 mls @ 167.007 mls/hr IV ONCE ONE Stop: 01/22/17 11:29 Metronidazole (Flagyl 500 Mg/100 Ml) 500 mg in 100 mls @ 100 mls/hr IV Q8HR LANCE PRN Reason: Protocol Insulin Human Isoph/Insulin Regular (Novolin 70/30) 10 unit SUB-Q Q12H [facility] Insulin Human Regular (Novolin R) 0 units SUB-Q ACHS LANCE PRN Reason: Protocol Insulin Human Regular (Novolin R) 16 units SUB-Q ONCE ONE Stop: 01/22/17 09:54 Magnesium Hydroxide (Milk Of Magnesia) 30 ml PO Q4H PRN PRN Reason: Constipation Morphine Sulfate (Morphine) 2 mg IV Q4H PRN PRN Reason: Pain, Moderate (4-6) Ondansetron HCl (Zofran) 4 mg IV Q8H PRN PRN Reason: N/V unrelieved by Reglan Sodium Chloride (Nacl 0.9% 1000 Ml) 1,500 ml 30 ml/kg (1500 ml) IV ONCE ONE Stop: 01/22/17 09:46 Vancomycin HCl (Vancomycin Pharmacy To Dose) 1 each IV PKCONSULT LANCE PRN Reason: Protocol Vancomycin HCl (Vancomycin Pharmacy To Dose) 1 each IV PKCONSULT LANCE PRN Reason: Protocol Vancomycin HCl (Vancomycin Vial) 1,000 mg 20 mg/kg (1000 mg) IV ONCE ONE PRN Reason: Protocol Stop: 01/22/17 09:46 Vancomycin HCl (Vancomycin Pharmacy To Dose) 1 each IV PKCONSULT LANCE PRN Reason: Protocol Exam - Physical Exam Narrative exam: VITAL SIGNS: Reviewed. GENERAL: The patient appeared markedly cachectic, critically ill appearing.. Vital signs as documented. HEAD: No signs of head trauma. EYES: Pupils are equal. Extraocular motions intact. EARS: Hearing grossly intact. MOUTH: Oropharynx is normal. NECK: No adenopathy, no JVD. CHEST: Chest with clear breath sounds bilaterally. No wheezes, rales, or rhonchi. CARDIAC: Regular rate and rhythm. S1 and S2, without murmurs, gallops, or rubs. VASCULAR: No Edema. Peripheral pulses normal and equal in all extremities. ABDOMEN: Soft, without detectable tenderness. No sign of distention. No rebound or guarding, and no masses palpated. Bowel Sounds normal. MUSCULOSKELETAL: Good range of motion of all major joints. Extremities without clubbing, cyanosis or edema. NEUROLOGIC EXAM: Alert and oriented x 3. No focal sensory or strength deficits. Speech normal. Follows commands. PSYCHIATRIC: Mood normal. SKIN: Subscapular abscess with drainage. Chronic eschar surrounded. - Constitutional Vitals: Temp Pulse Resp BP Pulse Ox 98.6 F 101 H 18 128/79 99 01/22/17 02:39 01/22/17 02:39 01/22/17 02:39 01/22/17 02:39 01/22/17 02:39 Results - Labs CBC & Chem 7: 01/21/17 18:11 01/22/17 09:43 Labs: Laboratory Last Values WBC 12.0 K/mm3 (4.5-11.0) H 01/21/17 18:11 RBC 4.47 M/mm3 (3.65-5.03) 01/21/17 18:11 Hgb 13.5 gm/dl (11.8-15.2) 01/21/17 18:11 Hct 40.4 % (35.5-45.6) 01/21/17 18:11 MCV 90 fl (84-94) 01/21/17 18:11 MCH 30 pg (28-32) 01/21/17 18:11 MCHC 34 % (32-34) 01/21/17 18:11 RDW 12.8 % (13.2-15.2) L 01/21/17 18:11 Plt Count 261 K/mm3 (140-440) 01/21/17 18:11 Lymph % (Auto) 9.8 % (13.4-35.0) L 01/21/17 18:11 [place] % (Auto) 6.4 % (0.0-7.3) 01/21/17 18:11 Eos % (Auto) 0.1 % (0.0-4.3) 01/21/17 18:11 Baso % (Auto) 0.4 % (0.0-1.8) 01/21/17 18:11 Lymph # 1.2 K/mm3 (1.2-5.4) 01/21/17 18:11 [place] # 0.8 K/mm3 (0.0-0.8) 01/21/17 18:11 Eos # 0.0 K/mm3 (0.0-0.4) 01/21/17 18:11 Baso # 0.1 K/mm3 (0.0-0.1) 01/21/17 18:11 Seg Neutrophils % 83.3 % (40.0-70.0) H 01/21/17 18:11 Seg Neutrophils # 10.0 K/mm3 (1.8-7.7) H 01/21/17 18:11 VBG pH 7.371 (7.320-7.420) 01/21/17 18:11 Sodium 128 mmol/L (137-145) L 01/21/17 18:11 Potassium 4.1 mmol/L (3.6-5.0) 01/21/17 18:11 Chloride 86.4 mmol/L (98-107) L 01/21/17 18:11 Carbon Dioxide 26 mmol/L (22-30) 01/21/17 18:11 Anion Gap 20 mmol/L 01/21/17 18:11 BUN 15 mg/dL (9-20) 01/21/17 18:11 Creatinine 0.7 mg/dL (0.8-1.5) L 01/21/17 18:11 Estimated GFR > 60 ml/min 01/21/17 18:11 BUN/Creatinine Ratio 21.42 % 01/21/17 18:11 Glucose 426 mg/dL (75-100) H 01/21/17 18:11 POC Glucose 393 (70-105) H 01/21/17 16:26 Calcium 9.4 mg/dL (8.4-10.2) 01/21/17 18:11 Urine Color Yellow (Yellow) 01/21/17 18:36 Urine Turbidity Clear (Clear) 01/21/17 18:36 Urine pH 6.0 (5.0-7.0) 01/21/17 18:36 Ur Specific Check 1.026 (1.003-1.030) 01/21/17 18:36 Urine Protein <15 mg/dl mg/dL (Negative) 01/21/17 18:36 Urine Glucose (UA) >=500 mg/dL (Negative) 01/21/17 18:36 Urine Ketones Neg mg/dL (Negative) 01/21/17 18:36 Urine Blood Lg (Negative) 01/21/17 18:36 Urine Nitrite Pos (Negative) 01/21/17 18:36 Urine Bilirubin Neg (Negative) 01/21/17 18:36 Urine Urobilinogen 2.0 mg/dL (<2.0) 01/21/17 18:36 Ur Leukocyte Esterase Mod (Negative) 01/21/17 18:36 Urine WBC (Auto) 35.0 /HPF (0.0-6.0) H 01/21/17 18:36 Urine RBC (Auto) 2.0 /HPF (0.0-6.0) 01/21/17 18:36 Urine Mucus Few /HPF 01/21/17 18:36 - Imaging and Cardiology Chest x-ray: image reviewed (no acute pathology) Assessment and Plan Assessment and plan: Patient is a 56-year-old male with history of HIV, diabetes, hepatitis C, who reports that he recently moved down to [place] 3 months ago and in the last 3 days had noticed a growth on his back which appeared to be draining. It causes significant pain about 10 over 10 in intensity limited his movements and today before he was able to make it to the hospital. He reported some subjective fever at home. He is not sure of what medication he takes he knows that he gets them from a [facility] prior to moving to [place]. He apparently has not been taking these medications. He denies any chest pain, nausea vomiting or diarrhea. He denies any blurry vision. He reports that he has lost significant weight. And is currently being worked up for cancer and has planned follow-up with [place] [facility]. -Subscapular abscess -Sepsis secondary to subscapular abscess -Uncontrolled DM -Hyperosmolar hyperglycemic state -Pseudo-Hyponatremia likely secondary to elevated blood sugar -HIV/AIDS -Hepatitis C chronic -Acute cystitis -severe protein calorie malnutrition PLAN: -check cultures, urine cultures wound care cultures, -consult ID, Surgery for possible dbridement -Sepsis protocol. Liters of IV fluids -Vanc and zosyn, flagyl -insulin with sliding scale, accucheck -cd4 count -Resume home medications -Nutrition consult -pain control -DVT and GI prophylaxis -Plan of care discussed with the patient in detail Advance Directives: Yes Plan of care discussed with patient/family: Yes
[2017-01-22 10:06] LABS: INR 1.07 (0.87-1.13)
[2017-01-22 10:11] LABS: Alanine Aminotransferase 34 units/L (7-56); Albumin 3.5 g/dL (3.9-5); Albumin/Globulin Ratio 0.7 %; Alkaline Phosphatase 101 units/L (35-129); Anion Gap 20 mmol/L; BUN/Creatinine Ratio 14.44; Bilirubin,Direct 0.4 mg/dL (0-0.2); Bilirubin,Indirect 0.3 mg/dL; Blood Urea Nitrogen 13 mg/dL (9-20); Calcium 8.9 mg/dL (8.4-10.2); Carbon Dioxide 25 mmol/L (22-30); Chloride 87.4 mmol/L (98-107); Potassium 4.2 mmol/L (3.6-5.0); Sodium 128 mmol/L (137-145); Total Protein 8.4 g/dL (6.3-8.2)
[2017-01-22] MEDS ORDERED: DILAUDID ONE (10:11)
[2017-01-22 10:32] LABS: Glucose 634 mg/dL (75-100)
[2017-01-22] MEDS ORDERED: NACL 0.9% 1000 ML IV ONE (11:00)
--- NOTE | 2017-01-22 11:02 | Admit Criteria Form ---
Admission Criteria Documentation: GENERAL ADMISSION CRITERIA (Place 'X' for any and all applicable criteria): Admission is indicated for ANY ONE of the following: [ ]I. Hemodynamic instability as indicated by ANY ONE of the following(1)(2) (3)(4)(5): [ ]a) Vital sign abnormality not readily corrected by appropriate treatment within 12 to 24 hours indicated by ANY ONE of the following: [ ]i) Hypotension [ ]ii) Symptomatic Tachycardia unresponsive to treatment (eg , analgesia, fluids, sedation as indicated) [ ]iii) Orthostatic vital sign changes unresponsive to treatment (eg, fluids) [ ]b) Vital sign abnormality that is severe indicated by ANY ONE of the following: [ ]i) Inadequate perfusion indicated by ANY ONE of the following: [ ]1) Lactic acidosis (greater than 2 mmol/L) [ ]2) New abnormal capillary refill (greater than 3 seconds) [ ]3) Other metabolic acidosis (arterial pH less than 7.35) not otherwise explained [ ]4) Reduced urine output [ ]5) Altered mental status [ ]6) Myocardial Ischemia [ ]v) Mean arterial pressure[A] less than 60 mm Hg [ ]vi) Mean arterial pressure[A] less than 70 mm Hg after 30 minutes of appropriate treatment (eg, fluid resuscitation) [ ]vii) IV inotropic or vasopressor medication required to maintain adequate blood pressure or perfusion [ ]viii) Sustained heart rate greater than 120 beats per minute in adult or child 6 years or older[B]] [ ]II. Hypertension requiring inpatient treatment as indicated by ANY ONE of the following(6)(7)(8): [ ]a) SBP greater than 220 mm Hg or DBP greater than 120 mm Hg despite treatment [ ]b) SBP greater than 140 mm Hg or DBP greater than 100 mm Hg with evidence of acute end organ damage as indicated by ANY ONE of the following: [ ]i) Encephalopathy [ ]ii) Acute renal failure as indicated by new onset of ANY ONE of the following(9)(10)(11)(12)(13): [ ]1) A 3-fold rise in serum creatinine from baseline [ ]2) Serum creatinine greater than 4 mg/dL ( 354 micromoles/L) with acute rise greater than 0.5 mg/dL (44.2 micromoles/L) [ ]3) Reduction of more than 75% in estimated glomerular filtration rate from baseline [ ]4) Estimated glomerular filtration rate less than 35 mL/min/1.73m2 (0.59 mL/sec/1.73m2) in child up to 18 years of age [ ]5) Cessation of urine output indicated by ALL of the following: [ ]A. Adequate volume status [ ]B. Inadequate urine output as indicated by ANY ONE of the following: [ ]a. Urine output less than 0.3 mL/kg/hr for 24 hours [ ]b. Anuria (urine output less than 0.1 mL/kg/hr) for 12 hours [ ]iii) Aortic dissection [ ]iv) Myocardial ischemia [ ]v) Left ventricular heart failure [ ]vi) Retinal hemorrhage [ ]vii) Other significant finding [ ]c) Hypertension in child requiring inpatient treatment as indicated by ALL of the following(14)(15)(16): [ ]i) Outpatient treatment not effective, not available, or not appropriate [ ]ii) SBP or DBP greater than 95th percentile for age [ ]iii) Evidence of acute end organ damage as indicated by ANY ONE of the following: [ ]1) Altered mental status [ ]2) Acute renal failure as indicated by new onset of ANY ONE of the following(9)(10)(11)(12)(13): [ ]A. A 3-fold rise in serum creatinine from baseline [ ]B. Serum creatinine greater than 4 mg/dL (354 micromoles/L) with acute rise greater than 0.5 mg/dL (44.2 micromoles/L) [ ]C. Reduction of more than 75% in estimated glomerular filtration rate from baseline [ ]D. Estimated glomerular filtration rate less than 35 mL/min/1.73m2 (0.59 mL/sec/1.73m2)in child up to 18 years of age [ ]E. Cessation of urine output indicated by ALL of the following: [ ]a. Adequate volume status [ ]b. Inadequate urine output as indicated by ANY ONE of the following: [ ]1) Urine output less than 0.3 mL/kg/hr for 24 hours [ ]2) Anuria (urine output less than 0.1 mL/kg/hr) for 12 hours [ ]3) Severe headache [ ]4) Visual disturbance [ ]5) Retinal hemorrhage [ ]6) Other significant finding [ ]III. Acute cardiac or peripheral ischemia as indicated by ANY ONE of the following: [ ]a) Acute coronary syndrome(17)(18) [ ]b) Acute peripheral ischemia (eg, pulseless, cool, mottled, or cyanotic extremity)(19) [ ]IV. Cardiac arrhythmias or findings of immediate concern indicated by ANY ONE of the following(20)(21): [ ]a) Heart rhythms that are inherently dangerous or unstable indicated by ANY ONE of the following(22)(23)(24): [ ]i) Resuscitated ventricular fibrillation or cardiac arrest [ ]ii) Ventricular escape rhythm [ ]iii) Sustained ventricular tachycardia (30 seconds or more of ventricular rhythm at greater than 100 beats per minute) [ ]iv) Nonsustained ventricular tachycardia and ANY ONE of the following: [ ]1) Suspected cardiac ischemia as cause or consequence of ventricular tachycardia [ ]2) In setting of acute myocarditis [ ]b) Unstable cardiac conduction defects indicated by ANY ONE of the following(24)(25)(26): [ ]i) Type II second-degree atrioventricular block [ ]ii) Third-degree atrioventricular block [ ]iii) New-onset left bundle branch block with suspected myocardial ischemia [ ]c) Any heart rhythm and ANY ONE of the following(22)(23)(27)(28)( 29): [ ] i) Continuous long-term ECG monitoring needed (eg, initiation of drug requiring monitoring for more than 24 hours) [ ] ii) Patient has automatic implanted cardioverter defibrillator that is repeatedly firing, malfunctioning, or in need of immediate adjustment of settings beyond the scope of ambulatory or observation care. [ ]d) Heart rhythms of concern due to ANY ONE of the following: [ ]i) Hypotension [ ]ii) Respiratory distress [ ]iii) Association with other significant symptoms (eg, bradycardia with syncope or ongoing dizziness, supraventricular tachycardia with chest pain) (27)(28) (30) [ ] V. Severe heart failure as indicated by ANY ONE of the following ( 31)(32): [ ]a) Respiratory distress [ ]b) Hypotension [ ]c) Anasarca (refractory to outpatient therapy) [ ]d) Cardiac arrhythmias of immediate concern [ ]e) Myocardial ischemia [ ]. Respiratory abnormalities, including ANY ONE of the following(33)(34) (35)(36): [ ]a) Respiratory rate greater than 30 breaths per minute unresponsive to treatment [A] [ ]b) New saturation of arterial oxygen less than 90% [ ]c) New partial pressure of carbon dioxide greater than 44 mm Hg ( 5.9 kPa) [ ]d) Supplemental oxygen or respiratory treatments needed that are new or not performable at other levels of care [ ]e) New-onset cyanosis [ ]f) Inability to protect airway [ ]g) Chronic lung disease with severe deterioration (not responsive to emergency and observation care treatment as appropriate) as indicated by ANY ONE of the following(34)(36 ): [ ]i) SaO2 5% below baseline in patient with chronic hypoxemia [ ]ii) New requirement for supplemental oxygen to keep SaO2 at baseline or acceptable level [ ]iii) Required supplemental oxygen performable only in acute inpatient setting [ ]iv) Severe airflow or ventilation abnormalities [ ]v) Previously mobile patient unable to walk between rooms [ ]vi Inability to eat or sleep due to dyspnea [ ]vii) Rapid rate of exacerbation onset [ ]viii) Altered mental status ]VII. Severe airflow or ventilation abnormalities (not responsive to emergency and observation care treatment as appropriate) as indicated by ANY ONE of the following(33)(34)(35)(37): [ ]a) PCO2 greater than 42 mm Hg (5.6 kPa) and pH less than 7.35 (new ) [ ]b) Documented PCO2 increased more than 5 mm Hg (0.7 kPa) from disease baseline [ ]c) Airflow measurements [B] less than 60% of previous best or predicted (eg, peak expiratory flow rate less than 300 L/minute) despite intensive emergent treatment [C] [ ]d) Required respiratory treatments that are performable only in acute inpatient setting [ ]VIII. Impending or actual respiratory arrest ( Also use Respiratory Failure GRG for severe respiratory disease and long-term mechanical ventilation patients) [ ]IX. Neurologic abnormalities, including ANY ONE of the following: [ ]a) New findings that suggest ANY ONE of the following: [ ]i) WAIST CUTTER infection(38) [ ]ii) Cerebral bleeding, ischemia, or vasospasm(39)(40) [ ]iii) Increased intracranial pressure, hydrocephalus, or cerebral edema(41)(42)(43) [ ]iv) Spinal cord injury(44) [ ]b) Uncontrolled seizures(45) [ ]c) New-onset coma (eg, [place] coma scale score less than 9) or unexplained abnormal mental status (eg, [place] coma scale score less than 14) [D](41)(46)(47) [ ]X. New-onset severe neurologic findings requiring inpatient care; examples include(42)(48)(49): [ ]a) Papilledema [ ]b) Cerebral edema [ ]c) Mass effect on CT scan [ ]XI. Suspected acute intra-abdominal process with peritoneal signs, abdominal mass, or similar findings (50)(51)(52) [ ]XII. Severe physiologic disorder remaining after emergency or observation level care (as appropriate) as indicated by ANY ONE of the following (53): [ ]a) Significant dehydration [ ]b) Diabetic ketoacidosis [ ]c) Hyperglycemic hyperosmolar state (eg, osmolality greater than 320 mOsm/kg (mmol/kg) [ ]d) Hypoglycemia [ ]e) Other (new) acid-base disorder with pH less than 7.35 or greater than 7.5(54) [ ]f) Thyroid storm (55) [ ]g) Myxedema coma (55) [ ]XIII. Abdominal abnormalities with ANY ONE of the following(56)(57): [ ]a) Absent bowel sounds with complete ileus [ ]b) Signs of intestinal obstruction or peritonitis [E] [ ]c) Nausea and vomiting that cannot be controlled with outpatient or observation care [ ]XIV. Acute renal failure as indicated by new onset of ANY ONE of the following(9)(10)(11)(12)(13): [ ]a) A 3-fold rise in serum creatinine from baseline [ ]b) Serum creatinine greater than 4 mg/dL (354 micromoles/L) with acute rise greater than 0.5 mg/dL (44.2 micromoles/L) [ ]c) Reduction of more than 75% in estimated glomerular filtration rate from baseline [ ]d) Estimated glomerular filtration rate less than 35 mL/min/ 1.73m2 (0.59 mL/sec/1.73m2) in child up to 18 years of age [ ]e) Cessation of urine output indicated by ALL of the following: [ ]i) Adequate volume status [ ]ii) Inadequate urine output as indicated by ANY ONE of the following: [ ]1) Urine output less than 0.3 mL/kg/hr for 24 hours [ ]2) Anuria (urine output less than 0.1 mL/kg/hr) for 12 hours [ ]XV. Significant uremic complications as indicated by ANY ONE of the following(58)(59)(60): [ ]a) Outpatient therapy is ineffective or not feasible for ANY ONE of the following: [ ]i) Severe heart failure [ ]ii) Severehypertension [ ]iii) Pleural effusion [ ]iv) Pericarditis or pericardial effusion [ ]b) Cardiac arrhythmias of immediate concern [ ]c) Intractable nausea or vomiting [ ]d) Recurrent seizures [ ]e) Encephalopathy [ ]f) Bleeding abnormalities (eg, platelet dysfunction) with active (eg, gastrointestinal) bleeding [ ]g) Dialysis indicated before long-term access or ambulatory arrangements can be made [ ]h) Significant metabolic or electrolyte abnormalities (eg, severe acidosis or hyperkalemia) [ ]XVI. High fever or other high-risk infection situation as indicated by ANY ONE of the following(61)(62)(63)(64): [ ]a) Outpatient and observation care antimicrobial treatment unavailable, not effective, or not appropriate [ ]b) Documented bacteremia [ ]c) Temperature greater than 40.5 degrees C (104.9 degrees F) ( oral) [ ]d) Temperature greater than 39.5 degrees C (103.1 degrees F) ( oral) or less than 36 degrees C (96.8 degrees F) (rectal) that does not respond to e treatment and observation care [ ] XVII. Temperature less than 95 degrees F (35 degrees C)(rectal)(65) [ ] XVIII. Severe nutritional abnormalities as indicated by ALL of the following (66)(67): [ ]a) Inability to tolerate or establish sufficient oral or other enteral nutrition in outpatient setting [ ]b) Parenteral nutrition regimen need that must be implemented on inpatient basis [ X] XIX. Severe electrolyte abnormalities indicated by ALL of the following(68 )(69)(70): [X]a) Electrolytes and associated findings are not as expected for patient baseline or acceptable treatment effects. [X ]b) Severe abnormalities indicated by ANY ONE of the following: [X ]i) Sodium less than 130 mEq/L (mmol/L) (new) [ ]ii)Sodium less than 135 mEq/L (mmol/L) with ANY ONE of the following: [ ]1) Uncorrectable (to near normal or chronic baseline) after trial of outpatient and emergency treatment [ ]2) Altered mental status [ ]3) Seizures [ ]4) Severe medical etiology requiring inpatient management (eg, heart failure, hypovolemia) [ ]iii) Sodium greater than 155 mEq/L (mmol/L) [ ]iv) Sodium greater than 150 mEq/L (mmol/L) with ANY ONE of the following: [ ]1) Uncorrectable (to near normal or chronic baseline) with outpatient and emergency treatment [ ]2) Altered mental status [ ]3) Seizures [ ]4) Severe medical etiology (eg, hypovolemia, diabetes insipidus) [ ]v) Potassium less than 2.5 mEq/L (mmol/L) despite outpatient and emergency treatment [ ]vi) Potassium less than 3 mEq/L (mmol/L) with ANY ONE of the following: [ ]1) Weakness [ ]2) Cardiac abnormality (eg, arrhythmia, conduction disturbance) [ ]3) Cardiac ischemia [ ]4) Ileus [ ]5) Ongoing medical cause requiring inpatient management (eg, acute renal wasting or SIADH) [ ]6) Other severe symptoms [ ]vii) Potassium greater than 6.5 mEq/L (mmol/L) [ ]viii) Potassium greater than 5 mEq/L (mmol/L) with ANY ONE of the following: [ ]1) Uncorrectable (to near normal or chronic baseline) with outpatient and emergency treatment [ ]2) Severe ECG findings [F] [ ]3) Acute worsening of renal failure (creatinine greater than 2.5 mg/dL (221 micromoles/L) or significant elevation for age and size) [ ]4) Severe weakness [ ]5) Severe medical etiology (eg, hemolysis, infection, drug overdose) [ ]ix) Calcium less than 7 mg/dL (1.75 mmol/L) despite outpatient and emergency treatment (72) [ ]x) Calcium less than 8 mg/dL (2 mmol/L) with significant symptoms or findings; examples include(72): [ ]1) Altered mental status [ ]2) Muscle spasms [ ]3) Seizures [ ]4) Breathing difficulty [ ]5) Cardiac abnormality (eg, arrhythmia or conduction disturbance) [ ]xi) Calcium greater than 14 mg/dL (3.5 mmol/L)(72) [ ]xii) Calcium greater than 12 mg/dL (3 mmol/L) with ANY ONE of the following(72): [ ]1) Uncorrectable (to near normal or chronic baseline) with outpatient and emergency treatment [ ]2) Significant dehydration or hypovolemia as indicated by ALL of the following(70)(73)(74): [ ]A. Not resolved with initial treatments [ ]B. Clinically significant dehydration as indicated by ANY ONE of the following: [ ]a. Vomiting refractory to outpatient treatment (ie, precluding oral rehydration) [ ]b. Inability to drink [ ]c. Hypernatremia or other electrolyte abnormality unable to be corrected with outpatient and emergency treatment [ ]d. Failure to remain hydrated with outpatient therapy [ ]e. Reduced urine output [ ]f. Hypotension [ ]g. Serious cause for dehydration requiring acute hospitalization (eg, bowel obstruction, increased intracranial pressure, infectious cause) [ ]h. Child with ANY ONE of the following(75): [ ]1) Severe abdominal tenderness [ ]2) Adequate care not available at home [ ]3) Severe dehydration ( greater than 9% loss of body weight) [ ]4) Significant symptoms or findings; examples include: [ ]A. Altered mental status [ ]B. Cardiac abnormality (eg, arrhythmia, conduction disturbance) [ ]C. Malignant etiology requiring inpatient treatment [ ]xiii) Phosphorus less than 1 mg/dL (0.32 mmol/L) [ ]xiv) Phosphorus less than 1.5 mg/dL (0.48 mmol/L) with ANY ONE of the following: [ ]1) Patient unresponsive to outpatient and emergency treatment [ ]2) Significant symptoms or findings; examples include: [ ]A. Weakness [ ]B. Altered mental status [ ]C. Breathing difficulty [ ]D. Seizures [ ]E. Rhabdomyolysis [ ]xv) Phosphorus greater than 10 mg/dL (3.2 mmol/L) [ ]xvi) Phosphorus greater than 4.5 mg/dL (1.45 mmol/L) (new) with ANY ONE of the following: [ ]1) Severe medical etiology (eg, crush injury, acute renal failure) [ ]2) Associated hypocalcemia with significant findings; examples include: [ ]A. Neurologic symptoms [ ]B. Altered mental status [ ]C. Muscle spasms [ ]D. Seizures [ ]E. Breathing difficulty [ ]F. Cardiac abnormality (eg, arrhythmia, conduction disturbance) [ ]xvii) Magnesium less than 1 mg/dL (0.41 mmol/L) [ ]xviii) Magnesium less than 1.5 mg/dL (0.62 mmol/L) with ANY ONE of the following: [ ]1) Patient unresponsive to outpatient and emergency treatment [ ]2) Associated hypocalcemia with significant findings; examples include: [ ]A. Altered mental status [ ]B. Muscle spasms [ ]C. Seizures [ ]D. Breathing difficulty [ ]E. Cardiac abnormality (eg, arrhythmia , conduction disturbance) [ ]3) Associated hypokalemia (potassium less than 3 mEq/L (mmol/L)) with risk of arrhythmia [ ]xix) Magnesium greater than 4 mEq/L (2 mmol/L) [ ]xx) Magnesium greater than 2.5 mEq/L (1.25 mmol/L) with significant symptoms or findings; examples include: [ ]1) Weakness [ ]2) Altered mental status [ ]3) Cardiac abnormality (eg, arrhythmia, conduction disturbance) [ ]4) Breathing difficulty [ ]5) Severe medical etiology (eg, renal failure, hypovolemia) [ ]xxi) Uric acid greater than 20 mg/dL (1190 micromoles/L)(76) [ ]xxii) Uric acid greater than 8 mg/dL (476 micromoles/L) with significant symptoms or findings of tumor lysis syndrome; examples include(76): [ ]1) Creatinine greater than 1.5 times upper limit of normal [ ]2) Cardiac abnormality (eg, arrhythmia, conduction disturbance) [ ]3) Seizure [ ]XX. Acute blood loss causing significant abnormality as indicated by ANY ONE of the following(77)(78): [ ]a) Hemoglobin less than 10 g/dL (100 g/L) (not baseline) [ ]b) Hematocrit less than 30% (0.30) (not baseline) [ ]c) Repeat hematocrit decreased more than 2% (0.02) [ ]d) Uncontrolled bleeding [ ]XXI. Severe anemia indicated by ANY ONE of the following(78)(79): [ ]a) Altered mental status [ ]b) Chest pain [ ]c) Exertional dyspnea [ ]d) Syncope [ ]e) Other findings suggesting inadequate perfusion [ ]f) Treatment with transfusion or volume replacement is ineffective at resolving ANY ONE of the following [G]: [ ]i) Tachycardia for age [ ]ii) Orthostatic vital sign changes as indicated by ANY ONE of the following(80): [ ]1) Fall in SBP of 20 mm Hg or more 1 to 3 minutes after patient sits or stands from recumbent position [ ]2) Fall in DBP of 10 mm Hg or more 1 to 3 minutes after patient sits or stands from recumbent position [ ]XXII. High-risk low platelet count as indicated by ANY ONE of the following( 81)(82): [ ]a) Severe or life-threatening bleeding (eg, intracranial, major gastrointestinal, or extensive mucosal bleeding), with any reduced platelet count [ ]b) Platelet count less than 20,000/mm3 (20 x109/L) with any active bleeding [ ]c) Platelet count less than 10,000/mm3 (10 x109/L) with minor purpura or petechiae [ ]d) Platelet count less than 5000/mm3 (5 x109/L) [ ]e) Low platelet count with hemolytic anemia [ ]XXIII. Disseminated intravascular coagulation(77)(83) [ ]XXIV. Severe adverse drug or systemic toxin reaction requiring inpatient treatment; examples include(84)(85): [ ]a) Serotonin syndrome(86) [ ]b) Neuroleptic malignant syndrome(86) [ ]c) Cholinergic syndrome with severe symptoms (eg, bronchorrhea, weakness, mental status changes, seizures) [ ]d) Sympathetic syndrome with severe symptoms (eg, seizures, mental status changes, cardiac dysrhythmias) [ ]e) Anticholinergic syndrome [ ]XXV. Severe pain requiring acute inpatient management as indicated by ALL of the following (87)(88)(89): [ ]a) Continuous or frequent (eg, every 2 to 4 hours) parenteral analgesics required [H] [ ]b) Rapid improvement expected from treatment or acute intervention (eg, surgery, anesthesia procedure) [ ]XXVI.Severe behavioral health issues judged unmanageable at a lower level of care (eg, residential) in a patient who is ANY ONE of the following(91) [ ]a) Acutely suicidal [ ]b) A danger to self (eg, self-mutilating or suicidal behavior) [ ]c) A danger to others (eg, assaultive or homicidal behavior) [ ]d) Incapacitated because of grave disability (eg, inability to provide for self at lower level of care) (92) [ ]XXVII. Inpatient monitoring needed; examples include(1)(3)(87)(93)(94)(95)(96 ): [ ]a) Vital signs, neurologic signs, or vascular checks more frequently than every 4 hours [ ]b) Cardiac or respiratory monitoring beyond the scope (eg, over 24 hours) of observation care [ ]c) Pulmonary artery catheter monitoring [ ]d) Suspected compartment syndrome(97) (98) [ ]e) Cerebral bleeding, hydrocephalus, or vasospasm monitoring [ ]f) Increased intracranial pressure or cerebral edema monitoring [ ]g) monitoring [ ]XXVIII. Treatment requiring inpatient care; examples include: [ ]a) IV fluid to replace significant ongoing losses (greater than 3 L/m2 per day)(53) [ ]b) High concentration oxygen (greater than 40%)(33)(99)(100) [ ]c) Frequent respiratory therapy (more frequently than every 4 hours) to maintain airflow rates greater than 60% of baseline(33)(99)(100) [ ]d) Epidural analgesia(87) [ ]e) IV anticoagulation, vasoactive, or antiarrhythmic medication(19 )(23) [ ]f) Acute thrombolytics (generally require 24 hours of observation )(101)(102) [ ]XXIX. Emergency procedures needed; examples include: [ ]a) Emergency inpatient surgery [ ]b) Temporary pacemaker placement(103) [ ]c) Chest tube placement with active evacuation (eg, suction, drainage)(104) [ ]d) Emergent cardioversion(105) [ ]e) Emergent cardiac or vascular procedures (eg, cardiac catheterization, angioplasty) (17)(18) [ ]f) Emergent dialysis access placement and institution(10)(106) [ ]g) Emergent pericardiocentesis(107) [ ]h) Emergent plasmapheresis or leukapheresis(83) [ ]i) Emergent tracheostomy The original [employer] content created by [employer] has been revised. The portions of the content which have been revised are identified through the use of italic text or in bold, and [employer] has neither reviewed nor approved the modified material. All other unmodified content is copyright [employer]. Please see references footnoted in the original [employer] edition 2016 Admission Criteria Met: Yes
[2017-01-22] MEDS ORDERED: NACL 0.9% 1000 ML 1,000 ML ONE (11:36)
[2017-01-22] MEDS ORDERED: MORPHINE ONE (11:40)
[2017-01-22] MEDS ORDERED: MORPHINE IV ONE ×2 (11:40)
[2017-01-22] MEDS ORDERED: NACL 0.9% 500 ML 500 ML ONE (14:56)
[2017-01-22] MEDS: FLAGYL 500 MG/100 ML 500 MG/100 ML BAG IV SCH (15:05)
[2017-01-22] MEDS: DILAUDID IV PRN (15:51)
[2017-01-22] MEDS ORDERED: NACL 0.9% 1000 ML 2,000 ML IV ONE (16:00)
[2017-01-22] MEDS: NACL 0.9% 1000 ML 1,000 ML IV SCH (18:22)
[2017-01-22] MEDS: MORPHINE IV PRN ×2 (18:29→22:33)
[2017-01-22] MEDS: ZOSYN/NS 4.5GM/100ML 4.5 GM/100 ML VIAL IV SCH ×2 (22:18→22:19)
[2017-01-22] MEDS: TYLENOL PO PRN (22:20)
[2017-01-22] MEDS: NEURONTIN PO SCH (22:21)
[2017-01-23] MEDS: FLAGYL 500 MG/100 ML 500 MG/100 ML BAG IV SCH ×4 (00:02→22:11)
[2017-01-23] MEDS: DILAUDID IV PRN ×4 (01:35→18:55)
[2017-01-23] MEDS: VANCOMYCIN/NS 1 GM/250 ML 1 GM/250 ML BAG IV SCH ×2 (01:37→11:35)
[2017-01-23] MEDS: BENADRYL IV PRN ×3 (02:54→09:52)
[2017-01-23] MEDS: MORPHINE IV PRN ×4 (03:05→18:35)
[2017-01-23] MEDS: NACL 0.9% 1000 ML 1,000 ML IV SCH ×3 (06:17→16:15)
[2017-01-23] MEDS: ZOSYN/NS 4.5GM/100ML 4.5 GM/100 ML VIAL IV SCH ×2 (06:18→13:10)
[2017-01-23] MEDS: NEURONTIN PO SCH ×3 (07:13→22:10)
--- NOTE | 2017-01-23 08:01 | Progress Note ---
Assessment and Plan Assessment and plan: Patient is a 56-year-old male with history of HIV, diabetes, hepatitis C, who reports that he recently moved down to [place] 3 months ago and in the last 3 days had noticed a growth on his back which appeared to be draining. It causes significant pain about 10 over 10 in intensity limited his movements and today before he was able to make it to the hospital. He reported some subjective fever at home. He is not sure of what medication he takes he knows that he gets them from a [employer] prior to moving to [place]. He apparently has not been taking these medications. He denies any chest pain, nausea vomiting or diarrhea. He denies any blurry vision. He reports that he has lost significant weight. And is currently being worked up for cancer and has planned follow-up with [place] [facility]. -Subscapular abscess -Sepsis secondary to subscapular abscess-Still Febrile. -Uncontrolled DM -Hyperosmolar hyperglycemic state -Pseudo-Hyponatremia likely secondary to elevated blood sugar -HIV/AIDS -Hepatitis C chronic -Acute cystitis -severe protein calorie malnutrition PLAN: -check cultures, urine cultures wound care cultures, -Planned for surgery debridement today -ID input appreciated. -Sepsis protocol. Continue supportive care with fluids. -Vanc and zosyn, flagyl -insulin with sliding scale, accucheck- continue tight control -cd4 count -Resume home medications -Nutrition consult -pain control -DVT and GI prophylaxis -Plan of care discussed with the patient in detail -Discussed with surgeon and also infectious disease. History Interval history: Patient seen and examined this morning. Remains with fever. Denies any cough, nausea vomiting or diarrhea. He does report persistent pain of the subscapular area where the abscess is located. No other adverse event reported by nursing staff Hospitalist Physical - Physical exam Narrative exam: VITAL SIGNS: Reviewed. GENERAL: The patient appeared markedly cachectic, in no acute distress. Vital signs as documented. HEAD: No signs of head trauma. EYES: Pupils are equal. Extraocular motions intact. EARS: Hearing grossly intact. MOUTH: Oropharynx is normal. NECK: No adenopathy, no JVD. CHEST: Chest with clear breath sounds bilaterally. No wheezes, rales, or rhonchi. CARDIAC: Regular rate and rhythm. S1 and S2, without murmurs, gallops, or rubs. VASCULAR: No Edema. Peripheral pulses normal and equal in all extremities. ABDOMEN: Soft, without detectable tenderness. No sign of distention. No rebound or guarding, and no masses palpated. Bowel Sounds normal. MUSCULOSKELETAL: Good range of motion of all major joints. Extremities without clubbing, cyanosis or edema. NEUROLOGIC EXAM: Alert and oriented x 3. No focal sensory or strength deficits. Speech normal. Follows commands. PSYCHIATRIC: Mood normal. SKIN: Subscapular abscess with drainage. Chronic eschar surrounded. - Constitutional Vitals: Temp Pulse Resp BP Pulse Ox 100 F H 92 H 20 116/75 98 01/23/17 07:00 01/23/17 07:00 01/23/17 07:00 01/23/17 07:00 01/23/17 07:00 Results - Labs CBC & Chem 7: 01/23/17 07:26 01/23/17 07:26 Labs: Laboratory Last Values WBC 12.0 K/mm3 (4.5-11.0) H 01/21/17 18:11 RBC 4.47 M/mm3 (3.65-5.03) 01/21/17 18:11 Hgb 13.5 gm/dl (11.8-15.2) 01/21/17 18:11 Hct 40.4 % (35.5-45.6) 01/21/17 18:11 MCV 90 fl (84-94) 01/21/17 18:11 MCH 30 pg (28-32) 01/21/17 18:11 MCHC 34 % (32-34) 01/21/17 18:11 RDW 12.8 % (13.2-15.2) L 01/21/17 18:11 Plt Count 261 K/mm3 (140-440) 01/21/17 18:11 Lymph % (Auto) 9.8 % (13.4-35.0) L 01/21/17 18:11 Owen % (Auto) 6.4 % (0.0-7.3) 01/21/17 18:11 Eos % (Auto) 0.1 % (0.0-4.3) 01/21/17 18:11 Baso % (Auto) 0.4 % (0.0-1.8) 01/21/17 18:11 Lymph # 1.2 K/mm3 (1.2-5.4) 01/21/17 18:11 Owen # 0.8 K/mm3 (0.0-0.8) 01/21/17 18:11 Eos # 0.0 K/mm3 (0.0-0.4) 01/21/17 18:11 Baso # 0.1 K/mm3 (0.0-0.1) 01/21/17 18:11 Seg Neutrophils % 83.3 % (40.0-70.0) H 01/21/17 18:11 Seg Neutrophils # 10.0 K/mm3 (1.8-7.7) H 01/21/17 18:11 PT 14.5 Sec. (12.2-14.9) 01/22/17 09:44 INR 1.07 (0.87-1.13) 01/22/17 09:44 APTT 29.0 Sec. (24.2-36.6) 01/22/17 09:44 VBG pH 7.371 (7.320-7.420) 01/21/17 18:11 Sodium 128 mmol/L (137-145) L 01/22/17 09:43 Potassium 4.2 mmol/L (3.6-5.0) 01/22/17 09:43 Chloride 87.4 mmol/L (98-107) L 01/22/17 09:43 Carbon Dioxide 25 mmol/L (22-30) 01/22/17 09:43 Anion Gap 20 mmol/L 01/22/17 09:43 BUN 13 mg/dL (9-20) 01/22/17 09:43 Creatinine 0.9 mg/dL (0.8-1.5) 01/22/17 09:43 Estimated GFR > 60 ml/min 01/22/17 09:43 BUN/Creatinine Ratio 14.44 % 01/22/17 09:43 Glucose 634 mg/dL (75-100) H* 01/22/17 09:43 POC Glucose 113 (70-105) H 01/23/17 05:18 Ketones Quantitative Negative (Negative) 01/22/17 09:43 Lactic Acid 1.20 mmol/L (0.7-2.0) 01/22/17 18:25 Calcium 8.9 mg/dL (8.4-10.2) 01/22/17 09:43 Magnesium 1.80 mg/dL (1.7-2.3) 01/22/17 09:43 Total Bilirubin 0.70 mg/dL (0.1-1.2) 01/22/17 09:43 Direct Bilirubin 0.4 mg/dL (0-0.2) H 01/22/17 09:43 Indirect Bilirubin 0.3 mg/dL 01/22/17 09:43 AST 32 units/L (5-40) 01/22/17 09:43 ALT 34 units/L (7-56) 01/22/17 09:43 Alkaline Phosphatase 101 units/L (35-129) 01/22/17 09:43 Total Protein 8.4 g/dL (6.3-8.2) H 01/22/17 09:43 Albumin 3.5 g/dL (3.9-5) L 01/22/17 09:43 Albumin/Globulin Ratio 0.7 % 01/22/17 09:43 Urine Color Yellow (Yellow) 01/21/17 18:36 Urine Turbidity Clear (Clear) 01/21/17 18:36 Urine pH 6.0 (5.0-7.0) 01/21/17 18:36 Ur Specific [place] 1.026 (1.003-1.030) 01/21/17 18:36 Urine Protein <15 mg/dl mg/dL (Negative) 01/21/17 18:36 Urine Glucose (UA) >=500 mg/dL (Negative) 01/21/17 18:36 Urine Ketones Neg mg/dL (Negative) 01/21/17 18:36 Urine Blood Lg (Negative) 01/21/17 18:36 Urine Nitrite Pos (Negative) 01/21/17 18:36 Urine Bilirubin Neg (Negative) 01/21/17 18:36 Urine Urobilinogen 2.0 mg/dL (<2.0) 01/21/17 18:36 Ur Leukocyte Esterase Mod (Negative) 01/21/17 18:36 Urine WBC (Auto) 35.0 /HPF (0.0-6.0) H 01/21/17 18:36 Urine RBC (Auto) 2.0 /HPF (0.0-6.0) 01/21/17 18:36 Urine Mucus Few /HPF 01/21/17 18:36 Blood Type A POSITIVE 01/22/17 10:55 Antibody Screen TNR 01/22/17 10:55 CHARLI Antibody Screen Negative 01/22/17 10:55
[2017-01-23 08:12] LABS: Red Blood Count 3.66 M/mm3 (3.65-5.03); White Blood Count 8.9 K/mm3 (4.5-11.0)
[2017-01-23 08:13] LABS: Basophils % (Auto) 0.3 % (0.0-1.8); Eosinophils % (Auto) 0.9 % (0.0-4.3); Hematocrit 33.6 % (35.5-45.6); Hemoglobin 11.3 gm/dl (11.8-15.2); Mean Corpuscular HGB Conc 34 % (32-34); Mean Corpuscular Hemoglobin 31 pg (28-32); Mean Corpuscular Volume 92 fl (84-94); Platelet Count 160 K/mm3 (140-440); Red Cell Distribution Width 12.8 % (13.2-15.2)
[2017-01-23 08:26] LABS: Anion Gap 15 mmol/L; Blood Urea Nitrogen 9 mg/dL (9-20); Calcium 8.1 mg/dL (8.4-10.2); Carbon Dioxide 26 mmol/L (22-30); Chloride 98.1 mmol/L (98-107); Glucose 116 mg/dL (75-100); Potassium 3.8 mmol/L (3.6-5.0); Sodium 135 mmol/L (137-145)
--- NOTE | 2017-01-23 08:40 | Consultation ---
History of Present Illness - Reason for Consult Consult date: 01/23/17 Back Abscess Requesting physician: GREG NARAYANAN - History of Present Illness Mr. Cabrera is a 57-year-old man with HIV infection, chronic HCV and diabetes mellitus who is admitted for evaluation and treatment of a large upper back lesion, which has been draining purulent fluid. He recently relocated to [place] and is followed for HIV management at [facility]. He says his most recent CD4 > 500. The left, subscapular abscess has been evaluated elsewhere and reportedly ruled out for malignancy. Superficial wound cultures are positive for growth of Staph aureus. Here he is prescribed empiric Vancomycin and Zosyn and an incision and drainage procedure is scheduled for today. ID consultation is requested for further treatment recommendations. Past History Past Medical History: diabetes, hepatitis (c), HIV/AIDS, other (Hepatitis c) Past Surgical History: No surgical history Social history: smoking, other Family history: no significant family history Medications and Allergies Allergies Allergy/AdvReac Type Severity Reaction Status Date / Time No Known Allergies Allergy Unverified 12/14/16 03:43 Home Medications Medication Instructions Recorded Confirmed Last Taken Type Insulin Lispro [HumaLOG VIAL] 1 dose SQ AC #1 vial 12/17/16 01/22/17 01/20/17 Rx Insulin NPH/Regular [Novolin 70/30] 10 unit SUB-Q Q12H #100 units 12/17/1601/2201/20/17 Rx Abacavir/Dolutegravir/Lamivudi 1 each PO DAILY 01/22/17 01/22/17 01/20/17 History [Triumeq Tablet] Aspirin [Adult Low Dose Aspirin EC] 81 mg PO DAILY 01/22/17 01/22/17 01/20/17 History Gabapentin [Neurontin] 400 mg PO Q8HR 01/22/17 01/22/17 01/20/17 History Active Meds: Active Medications Abacavir Sulfate (Ziagen) 600 mg PO QDAY [facility] Acetaminophen (Tylenol) 650 mg PO Q4H PRN PRN Reason: Pain MILD(1-3)/Fever >100.5/DUNN Last Admin: 01/22/17 22:20 Dose: 650 mg Aspirin (Halfprin Ec) 81 mg PO DAILY [facility] Bisacodyl (Dulcolax) 10 mg VT QDAY PRN PRN Reason: Constipation unrelieved by MOM Dextrose (D50w (25gm)) 50 ml IV PRN PRN PRN Reason: Hypoglycemia Diphenhydramine HCl (Benadryl) 25 mg IV Q8H PRN PRN Reason: Itching Last Admin: 01/23/17 03:05 Dose: 25 mg Gabapentin (Neurontin) 400 mg PO Q8HR [facility] Last Admin: 01/23/17 07:13 Dose: Not Given Hydromorphone HCl (Dilaudid) 0.25 mg IV Q4H PRN PRN Reason: Pain , Severe (7-10) Last Admin: 01/23/17 01:35 Dose: 0.25 mg Metronidazole (Flagyl 500 Mg/100 Ml) 500 mg in 100 mls @ 100 mls/hr IV Q8HR [facility] PRN Reason: Protocol Last Admin: 01/23/17 07:12 Dose: 100 mls/hr Piperacillin Sod/Tazobactam Sod (Zosyn/Ns 4.5gm/100ml) 4.5 gm in 100 mls @ 200 mls/hr IV Q8HR [facility] PRN Reason: Protocol Last Admin: 01/23/17 06:18 Dose: 200 mls/hr Vancomycin HCl (Vancomycin/Ns 1 Gm/250 Ml) 1 gm in 250 mls @ 166.667 mls/hr IV Q12H [facility] Last Admin: 01/23/17 01:37 Dose: 166.667 mls/hr Sodium Chloride (Nacl 0.9% 1000 Ml) 1,000 mls @ 250 mls/hr IV DIRECT [facility] Last Admin: 01/23/17 06:17 Dose: 250 mls/hr Insulin Human Isoph/Insulin Regular (Novolin 70/30) 10 unit SUB-Q BIDDIAB [facility] Last Admin: 01/23/17 08:25 Dose: Not Given Insulin Human Regular (Novolin R) 0 units SUB-Q ACHS [facility] PRN Reason: Protocol Last Admin: 01/23/17 08:24 Dose: Not Given Lamivudine (Epivir) 300 mg PO QDAY [facility] Magnesium Hydroxide (Milk Of Magnesia) 30 ml PO Q4H PRN PRN Reason: Constipation Morphine Sulfate (Morphine) 2 mg IV Q4H PRN PRN Reason: Pain, Moderate (4-6) Last Admin: 01/23/17 07:09 Dose: 2 mg Ondansetron HCl (Zofran) 4 mg IV Q8H PRN PRN Reason: N/V unrelieved by Len Vancomycin HCl (Vancomycin Pharmacy To Dose) 1 each IV PKCONSULT [facility] PRN Reason: Protocol Review of Systems All systems: negative Constitutional: weight loss, no fever, no sweats, no weakness Cardiovascular: no chest pain, no palpitations Respiratory: no cough, no hemoptysis, no shortness of breath, no congestion Gastrointestinal: no abdominal pain, no nausea, no vomiting, no diarrhea Genitourinary Male: no dysuria Integumentary: rash, pruritis, boils (current back abscess) Neurological: no headaches Physical Examination - Constitutional Vitals: Vital Signs Temp Pulse Resp BP Pulse Ox 100 F H 92 H 20 116/75 98 01/23/17 07:00 01/23/17 07:00 01/23/17 07:00 01/23/17 07:00 01/23/17 07:00 Temperature -Last 24 Hours Temperature 100 F Temperature 101.2 F Temperature 100.7 F Temperature 98.3 F Temperature 98.5 F General appearance: Present: no acute distress, cachectic, other (non-toxic appearance) - EENT Eyes: Absent: scleral icterus, conjunctival injection - Neck Neck: Present: supple - Respiratory Respiratory effort: normal Respiratory: bilateral: CTA - Cardiovascular Rhythm: regular Heart Sounds: Present: S1 & S2 - Extremities Extremities: No edema - Abdominal General gastrointestinal: Present: soft, non-distended - Integumentary Integumentary: Present: rash (hyperpigmented nodular lesions throughout torso; very large fluctuant and drainage mass at left upper back near scapula, marked purulence, no odor, surrounding rim of erythema) - Psychiatric Psychiatric: appropriate mood/affect - Neurologic Neurologic: no focal deficits, moves all extremities Results - Labs CBC & Chem 7: 01/23/17 07:26 01/23/17 07:26 Labs: Abnormal lab results 01/22/17 01/22/17 01/22/17 Range/Units 13:31 15:37 21:42 Hgb (11.8-15.2) gm/dl RDW (13.2-15.2) % Jones % (Auto) (0.0-7.3) % Seg Neutrophils % (40.0-70.0) % Sodium (137-145) mmol/L Creatinine (0.8-1.5) mg/dL Glucose (75-100) mg/dL POC Glucose 115 H 280 H (70-105) Lactic Acid 2.50 H* (0.7-2.0) mmol/L Calcium (8.4-10.2) mg/dL 01/23/17 01/23/17 01/23/17 Range/Units 01:59 05:18 07:26 Hgb 11.3 L (11.8-15.2) gm/dl RDW 12.8 L (13.2-15.2) % Jones % (Auto) 7.4 H (0.0-7.3) % Seg Neutrophils % 77.1 H (40.0-70.0) % Sodium (137-145) mmol/L Creatinine (0.8-1.5) mg/dL Glucose (75-100) mg/dL POC Glucose 281 H 113 H (70-105) Lactic Acid (0.7-2.0) mmol/L Calcium (8.4-10.2) mg/dL 01/23/17 Range/Units 07:26 Hgb (11.8-15.2) gm/dl RDW (13.2-15.2) % Jones % (Auto) (0.0-7.3) % Seg Neutrophils % (40.0-70.0) % Sodium 135 L D (137-145) mmol/L Creatinine 0.6 L (0.8-1.5) mg/dL Glucose 116 H (75-100) mg/dL POC Glucose (70-105) Lactic Acid (0.7-2.0) mmol/L Calcium 8.1 L (8.4-10.2) mg/dL Microbiology 01/23/17 11:00 Back Wound Culture - Preliminary 01/21/17 19:33 Peripheral/Venous Blood Culture - Preliminary Staphylococcus Aureus 01/22/17 12:05 Back Wound Culture - Preliminary Staphylococcus Aureus 01/22/17 Unknown Urine,Clean Catch Urine Culture - Preliminary 01/21/17 18:11 Peripheral/Venous Blood Culture - Preliminary NO GROWTH AFTER 24 HOURS - Imaging and Cardiology Chest x-ray: report reviewed (unremarkable AP chest) Assessment and Plan - Patient Problems (1) Abscess of back Current Visit: Yes Status: Acute Plan to address problem: 1. Abscess, perhaps from superinfection of prurigo nodularis. Less suspicion for mycetoma vs. cutaneous manifestation of HCV. 2. Continue Vancomycin +/- Zosyn pending further culture data. 3. Planned I&D today. (2) HIV (human immunodeficiency virus infection) Current Visit: Yes Status: Acute Plan to address problem: Continue components of Triumeq. (3) Prurigo nodularis Current Visit: Yes Status: Acute Plan to address problem: Continue HAART for continued immune reconstitution.
--- NOTE | 2017-01-23 09:51 | Consultation ---
History of Present Illness Consult date: 01/22/17 Reason for consult: other (Back abscess X 3 days) - History of present illness History of present illness: Recently moved to [place]. He has a 3 day h/o a tender, enlarging left back mass that has been draining. No fever or chills. He does have HIV, HTN, DM and HCV Past History Past Medical History: diabetes, hepatitis (c), HIV/AIDS, other (Hepatitis c) Past Surgical History: No surgical history Social history: smoking, other Family history: no significant family history Medications and Allergies Allergies Allergy/AdvReac Type Severity Reaction Status Date / Time No Known Allergies Allergy Unverified 12/14/16 03:43 Home Medications Medication Instructions Recorded Confirmed Last Taken Type Insulin Lispro [HumaLOG VIAL] 1 dose SQ AC #1 vial 12/17/16 01/22/17 01/20/17 Rx Insulin NPH/Regular [Novolin 70/30] 10 unit SUB-Q Q12H #100 units 12/17/1601/2201/20/17 Rx Abacavir/Dolutegravir/Lamivudi 1 each PO DAILY 01/22/17 01/22/17 01/20/17 History [Triumeq Tablet] Aspirin [Adult Low Dose Aspirin EC] 81 mg PO DAILY 01/22/17 01/22/17 01/20/17 History Gabapentin [Neurontin] 400 mg PO Q8HR 01/22/17 01/22/17 01/20/17 History Active Meds: Active Medications Abacavir Sulfate (Ziagen) 600 mg PO QDAY [facility] Acetaminophen (Tylenol) 650 mg PO Q4H PRN PRN Reason: Pain MILD(1-3)/Fever >100.5/DUNN Last Admin: 01/22/17 22:20 Dose: 650 mg Aspirin (Halfprin Ec) 81 mg PO DAILY [facility] Bisacodyl (Dulcolax) 10 mg DC QDAY PRN PRN Reason: Constipation unrelieved by MOM Dextrose (D50w (25gm)) 50 ml IV PRN PRN PRN Reason: Hypoglycemia Diphenhydramine HCl (Benadryl) 25 mg IV Q8H PRN PRN Reason: Itching Last Admin: 01/23/17 03:05 Dose: 25 mg Gabapentin (Neurontin) 400 mg PO Q8HR [facility] Last Admin: 01/23/17 07:13 Dose: Not Given Hydromorphone HCl (Dilaudid) 0.25 mg IV Q4H PRN PRN Reason: Pain , Severe (7-10) Last Admin: 01/23/17 01:35 Dose: 0.25 mg Metronidazole (Flagyl 500 Mg/100 Ml) 500 mg in 100 mls @ 100 mls/hr IV Q8HR [facility] PRN Reason: Protocol Last Admin: 01/23/17 07:12 Dose: 100 mls/hr Piperacillin Sod/Tazobactam Sod (Zosyn/Ns 4.5gm/100ml) 4.5 gm in 100 mls @ 200 mls/hr IV Q8HR [facility] PRN Reason: Protocol Last Admin: 01/23/17 06:18 Dose: 200 mls/hr Vancomycin HCl (Vancomycin/Ns 1 Gm/250 Ml) 1 gm in 250 mls @ 166.667 mls/hr IV Q12H [facility] Last Admin: 01/23/17 01:37 Dose: 166.667 mls/hr Sodium Chloride (Nacl 0.9% 1000 Ml) 1,000 mls @ 250 mls/hr IV DIRECT [facility] Last Admin: 01/23/17 06:17 Dose: 250 mls/hr Insulin Human Isoph/Insulin Regular (Novolin 70/30) 10 unit SUB-Q BIDDIAB [facility] Last Admin: 01/23/17 08:25 Dose: Not Given Insulin Human Regular (Novolin R) 0 units SUB-Q ACHS [facility] PRN Reason: Protocol Last Admin: 01/23/17 08:24 Dose: Not Given Lamivudine (Epivir) 300 mg PO QDAY [facility] Magnesium Hydroxide (Milk Of Magnesia) 30 ml PO Q4H PRN PRN Reason: Constipation Morphine Sulfate (Morphine) 2 mg IV Q4H PRN PRN Reason: Pain, Moderate (4-6) Last Admin: 01/23/17 07:09 Dose: 2 mg Ondansetron HCl (Zofran) 4 mg IV Q8H PRN PRN Reason: N/V unrelieved by Reglan Vancomycin HCl (Vancomycin Pharmacy To Dose) 1 each IV PKCONSULT [facility] PRN Reason: Protocol Review of Systems All systems: negative (for weight loss.) Exam Vital Signs Temp Pulse Resp BP Pulse Ox 99.8 F H 105 H 18 111/79 97 01/21/17 16:30 01/21/17 16:30 01/21/17 16:30 01/21/17 16:30 01/21/17 16:30 - General physical appearance Positive: no distress, cathetic - Eyes Positive: PERRL - ENT Positive: normal pinna - Neck Positive: no venous distension - Respiratory Positive: clear to percussion - Cardiovascular Rhythm: regular Heart Sounds: Present: S1 & S2. Absent: rub, click - Extremities Extremities: no ischemia, pulses symmetrical, No edema - Abdomen Abdomen: Present: soft, bowel sounds normal. Absent: tender, distended Hernia: none - Integumentary other (There is a 10 X 10 cm abscess of his left mid-thoracic back. This is draining a small amount of fluid.) - Neurologic Neurologic: alert and oriented to time, place and person, motor strength and sensation are grossly intact - Musculoskeletal normal gait, normal posture - Psychiatric Psychiatric: appropriate mood/affect, intact judgment & insight Results - Labs 01/23/17 07:26 01/23/17 07:26 Abnormal lab results 01/22/17 01/22/17 01/22/17 Range/Units 13:31 15:37 21:42 Hgb (11.8-15.2) gm/dl Hct (35.5-45.6) % RDW (13.2-15.2) % Wilcox % (Auto) (0.0-7.3) % Seg Neutrophils % (40.0-70.0) % Sodium (137-145) mmol/L Creatinine (0.8-1.5) mg/dL Glucose (75-100) mg/dL POC Glucose 115 H 280 H (70-105) Lactic Acid 2.50 H* (0.7-2.0) mmol/L Calcium (8.4-10.2) mg/dL 01/23/17 01/23/17 01/23/17 Range/Units 01:59 05:18 07:26 Hgb 11.3 L (11.8-15.2) gm/dl Hct 33.6 L D (35.5-45.6) % RDW 12.8 L (13.2-15.2) % Wilcox % (Auto) 7.4 H (0.0-7.3) % Seg Neutrophils % 77.1 H (40.0-70.0) % Sodium (137-145) mmol/L Creatinine (0.8-1.5) mg/dL Glucose (75-100) mg/dL POC Glucose 281 H 113 H (70-105) Lactic Acid (0.7-2.0) mmol/L Calcium (8.4-10.2) mg/dL 01/23/17 Range/Units 07:26 Hgb (11.8-15.2) gm/dl Hct (35.5-45.6) % RDW (13.2-15.2) % Wilcox % (Auto) (0.0-7.3) % Seg Neutrophils % (40.0-70.0) % Sodium 135 L D (137-145) mmol/L Creatinine 0.6 L (0.8-1.5) mg/dL Glucose 116 H (75-100) mg/dL POC Glucose (70-105) Lactic Acid (0.7-2.0) mmol/L Calcium 8.1 L (8.4-10.2) mg/dL Diabetes panel 01/23/17 Range/Units 07:26 Sodium 135 L D (137-145) mmol/L Potassium 3.8 (3.6-5.0) mmol/L Chloride 98.1 (98-107) mmol/L Carbon Dioxide 26 (22-30) mmol/L BUN 9 (9-20) mg/dL Creatinine 0.6 L (0.8-1.5) mg/dL Glucose 116 H (75-100) mg/dL Calcium 8.1 L (8.4-10.2) mg/dL Calcium panel 01/23/17 Range/Units 07:26 Calcium 8.1 L (8.4-10.2) mg/dL Pituitary panel 01/23/17 Range/Units 07:26 Sodium 135 L D (137-145) mmol/L Potassium 3.8 (3.6-5.0) mmol/L Chloride 98.1 (98-107) mmol/L Carbon Dioxide 26 (22-30) mmol/L BUN 9 (9-20) mg/dL Creatinine 0.6 L (0.8-1.5) mg/dL Glucose 116 H (75-100) mg/dL Calcium 8.1 L (8.4-10.2) mg/dL Adrenal panel 01/23/17 Range/Units 07:26 Sodium 135 L D (137-145) mmol/L Potassium 3.8 (3.6-5.0) mmol/L Chloride 98.1 (98-107) mmol/L Carbon Dioxide 26 (22-30) mmol/L BUN 9 (9-20) mg/dL Creatinine 0.6 L (0.8-1.5) mg/dL Glucose 116 H (75-100) mg/dL Calcium 8.1 L (8.4-10.2) mg/dL Assessment and Plan - Patient Problems (1) Abscess of back Current Visit: Yes Status: Acute Plan to address problem: 1) I&D tomorrow
[2017-01-23] MEDS: ZIAGEN PO SCH (10:00)
[2017-01-23] MEDS ORDERED: NON-FORMULARY (Abacavir/Dolutegravir/Lamivudi [Triumeq Tablet] 1 EACH) PO SCH (10:00)
[2017-01-23] MEDS: EPIVIR PO SCH (10:00)
[2017-01-23] MEDS: HALFPRIN EC PO SCH (10:00)
[2017-01-23] MEDS: TIVICAY (NF) PO SCH (10:00)
[2017-01-23] MEDS ORDERED: DILAUDID IV PRN (14:06)
--- NOTE | 2017-01-23 15:53 | Anesthesia Consultation ---
Anesthesia Consult and Med Hx Date of service: 01/23/17 - Airway Anesthetic Teeth Evaluation: Edentulous ROM Head & Neck: Adequate Mental/Hyoid Distance: Adequate Mallampati Class: Class II Intubation Access Assessment: Probably Good - Pulmonary Exam CTA: Yes - Cardiac Exam Cardiac Exam: RRR - Pre-Operative Health Status ASA Pre-Surgery Classification: ASA3 Proposed Anesthetic Plan: MAC - Pulmonary Hx Smoking: Yes Hx Asthma: No COPD: No Hx Pneumonia: No - Endocrine Hx Renal Disease: Yes (kidney stones) Hx End Stage Renal Disease: No Hx Liver Disease: Yes (hep C, hepatomegaly) Hx Insulin Dependent Diabetes: Yes (uncontrolled) - Hematic Hx Anemia: Yes (HIV +) - Other Systems Hx Alcohol Use: Yes Hx Cancer: No
--- NOTE | 2017-01-23 15:54 | Anesthesia Day of Surgery ---
Anesthesia Day of Surgery - Day of Surgery Patient Examined: Yes Patient H&P Reviewed: Yes Patient is NPO: Yes
[2017-01-23] MEDS ORDERED: ZOFRAN ONE (16:00)
[2017-01-23] MEDS ORDERED: XYLOCAINE MPF 2% ONE (16:21)
[2017-01-23] MEDS ORDERED: SUBLIMAZE ONE (16:21)
[2017-01-23] MEDS ORDERED: DIPRIVAN 10 MG/ML IV ONE (16:21)
[2017-01-23] MEDS ORDERED: VERSED ONE (16:22)
[2017-01-23] MEDS ORDERED: NACL 0.9% IR ONE (17:05)
[2017-01-23] MEDS ORDERED: NACL 0.9% 1000 ML 1,000 ML ONE (17:56)
--- NOTE | 2017-01-23 18:13 | Post Operative Note ---
Pre-op diagnosis: Left back abscess Post-op diagnosis: same Procedure: I&D of above Anesthesia: LCA Surgeon: ANTHONY ANGEL Estimated blood loss: 50-100ml Pathology: none Specimen disposition: to lab, other (Gram stain, C&S and cultures for Tb and fungus sent) Condition: stable Disposition: PACU
[2017-01-23] MEDS ORDERED: MORPHINE ONE ×2 (18:25→18:37)
[2017-01-24] MEDS: MORPHINE IV PRN ×4 (00:11→18:00)
[2017-01-24] MEDS: ZOFRAN IV PRN (00:11)
[2017-01-24 05:41] LABS: Hematocrit 31.6 % (35.5-45.6); Hemoglobin 10.5 gm/dl (11.8-15.2); Mean Corpuscular HGB Conc 33 % (32-34); Mean Corpuscular Hemoglobin 30 pg (28-32); Mean Corpuscular Volume 91 fl (84-94); Platelet Count 142 K/mm3 (140-440); Red Blood Count 3.49 M/mm3 (3.65-5.03); Red Cell Distribution Width 12.7 % (13.2-15.2); White Blood Count 6.2 K/mm3 (4.5-11.0)
[2017-01-24 06:03] LABS: Anion Gap 11 mmol/L; BUN/Creatinine Ratio 21.66; Blood Urea Nitrogen 13 mg/dL (9-20); Calcium 8.2 mg/dL (8.4-10.2); Carbon Dioxide 30 mmol/L (22-30); Chloride 98.9 mmol/L (98-107); Glucose 269 mg/dL (75-100); Potassium 3.8 mmol/L (3.6-5.0); Sodium 136 mmol/L (137-145)
[2017-01-24] MEDS: VANCOMYCIN/NS 1 GM/250 ML 1 GM/250 ML BAG IV SCH ×2 (09:51→13:53)
[2017-01-24] MEDS: FLAGYL 500 MG/100 ML 500 MG/100 ML BAG IV SCH (09:52)
[2017-01-24] MEDS: ZOSYN/NS 4.5GM/100ML 4.5 GM/100 ML VIAL IV SCH ×3 (09:53→13:53)
[2017-01-24] MEDS: NEURONTIN PO SCH ×3 (09:53→22:14)
[2017-01-24] MEDS: EPIVIR PO SCH (09:58)
[2017-01-24] MEDS: TIVICAY (NF) PO SCH (09:59)
[2017-01-24] MEDS: ZIAGEN PO SCH (09:59)
[2017-01-24] MEDS: HALFPRIN EC PO SCH (10:00)
--- NOTE | 2017-01-24 12:01 | Progress Note ---
<SAADIA DAMON - Last Filed: 01/24/17 14:47> Assessment and Plan Assessment and plan: Sepsis secondary to subscapular abscess-Still Febrile. S/P debridement Sepsis protocol. Follow urine cultures and wound care Started on empiric antibiotic vancomycin, and Zosyn and Flagyl Continue supportive care with IV fluids. Uncontrolled DM Accu-Chek before meals and at bedtime Sliding scale insulin/NovoLog Hyperosmolar hyperglycemic state Blood glucose improved with SQ insulin Pseudo-Hyponatremia likely secondary to elevated blood sugar Resolved HIV/AIDS Continue home antiviral pills Cd4 count Hepatitis C chronic Closely monitor liver enzyme discussed with patient to follow up with his PCP as outpatient. Severe protein calorie malnutrition Nutrition consult diet as tolerated DVT and GI prophylaxis Heparin History Interval history: Patient complaining back pain where the abscess was. He rated his pain level 4/ 10. He denies fever or chills. Hospitalist Physical - Constitutional Vitals: Temp Pulse Resp BP Pulse Ox 100.1 F H 83 18 102/55 99 01/24/17 08:00 01/24/17 08:00 01/24/17 08:00 01/24/17 08:00 01/24/17 08:00 General appearance: Present: no acute distress, cachectic, other (non-toxic appearance) - EENT Eyes: Present: PERRL ENT: hearing intact - Neck Neck: Present: supple - Respiratory Respiratory effort: normal Respiratory: bilateral: CTA - Cardiovascular Heart rate: 863 Rhythm: regular Heart Sounds: Present: S1 & S2 - Extremities Extremities: no ischemia Extremity abnormal: edema (to left upper arm and left leg), other Peripheral Pulses: within normal limits - Abdominal General gastrointestinal: soft, non-tender - Integumentary Integumentary: Present: clear (back abscess, left and upper extremity cellulitis ), warm, dry - Psychiatric Psychiatric: appropriate mood/affect - Neurologic Neurologic: CNII-XII intact - Allied Health Allied health notes reviewed: nursing Results - Labs CBC & Chem 7: 01/24/17 05:05 01/24/17 05:05 Labs: Laboratory Last Values WBC 6.2 K/mm3 (4.5-11.0) 01/24/17 05:05 RBC 3.49 M/mm3 (3.65-5.03) L 01/24/17 05:05 Hgb 10.5 gm/dl (11.8-15.2) L 01/24/17 05:05 Hct 31.6 % (35.5-45.6) L 01/24/17 05:05 MCV 91 fl (84-94) 01/24/17 05:05 MCH 30 pg (28-32) 01/24/17 05:05 MCHC 33 % (32-34) 01/24/17 05:05 RDW 12.7 % (13.2-15.2) L 01/24/17 05:05 Plt Count 142 K/mm3 (140-440) 01/24/17 05:05 Lymph % (Auto) 14.3 % (13.4-35.0) 01/23/17 07:26 [place] % (Auto) 7.4 % (0.0-7.3) H 01/23/17 07:26 Eos % (Auto) 0.9 % (0.0-4.3) 01/23/17 07:26 Baso % (Auto) 0.3 % (0.0-1.8) 01/23/17 07:26 Lymph # 1.3 K/mm3 (1.2-5.4) 01/23/17 07:26 [place] # 0.7 K/mm3 (0.0-0.8) 01/23/17 07:26 Eos # 0.1 K/mm3 (0.0-0.4) 01/23/17 07:26 Baso # 0.0 K/mm3 (0.0-0.1) 01/23/17 07:26 Seg Neutrophils % 77.1 % (40.0-70.0) H 01/23/17 07:26 Seg Neutrophils # 6.8 K/mm3 (1.8-7.7) 01/23/17 07:26 PT 14.5 Sec. (12.2-14.9) 01/22/17 09:44 INR 1.07 (0.87-1.13) 01/22/17 09:44 APTT 29.0 Sec. (24.2-36.6) 01/22/17 09:44 VBG pH 7.371 (7.320-7.420) 01/21/17 18:11 Sodium 136 mmol/L (137-145) L 01/24/17 05:05 Potassium 3.8 mmol/L (3.6-5.0) 01/24/17 05:05 Chloride 98.9 mmol/L (98-107) 01/24/17 05:05 Carbon Dioxide 30 mmol/L (22-30) 01/24/17 05:05 Anion Gap 11 mmol/L 01/24/17 05:05 BUN 13 mg/dL (9-20) 01/24/17 05:05 Creatinine 0.6 mg/dL (0.8-1.5) L 01/24/17 05:05 Estimated GFR > 60 ml/min 01/24/17 05:05 BUN/Creatinine Ratio 21.66 % 01/24/17 05:05 Glucose 269 mg/dL (75-100) H 01/24/17 05:05 POC Glucose 254 (70-105) H 01/24/17 06:11 Ketones Quantitative Negative (Negative) 01/22/17 09:43 Lactic Acid 1.20 mmol/L (0.7-2.0) 01/22/17 18:25 Calcium 8.2 mg/dL (8.4-10.2) L 01/24/17 05:05 Magnesium 1.80 mg/dL (1.7-2.3) 01/22/17 09:43 Total Bilirubin 0.70 mg/dL (0.1-1.2) 01/22/17 09:43 Direct Bilirubin 0.4 mg/dL (0-0.2) H 01/22/17 09:43 Indirect Bilirubin 0.3 mg/dL 01/22/17 09:43 AST 32 units/L (5-40) 01/22/17 09:43 ALT 34 units/L (7-56) 01/22/17 09:43 Alkaline Phosphatase 101 units/L (35-129) 01/22/17 09:43 Total Protein 8.4 g/dL (6.3-8.2) H 01/22/17 09:43 Albumin 3.5 g/dL (3.9-5) L 01/22/17 09:43 Albumin/Globulin Ratio 0.7 % 01/22/17 09:43 Urine Color Yellow (Yellow) 01/21/17 18:36 Urine Turbidity Clear (Clear) 01/21/17 18:36 Urine pH 6.0 (5.0-7.0) 01/21/17 18:36 Ur Specific Ross 1.026 (1.003-1.030) 01/21/17 18:36 Urine Protein <15 mg/dl mg/dL (Negative) 01/21/17 18:36 Urine Glucose (UA) >=500 mg/dL (Negative) 01/21/17 18:36 Urine Ketones Neg mg/dL (Negative) 01/21/17 18:36 Urine Blood Lg (Negative) 01/21/17 18:36 Urine Nitrite Pos (Negative) 01/21/17 18:36 Urine Bilirubin Neg (Negative) 01/21/17 18:36 Urine Urobilinogen 2.0 mg/dL (<2.0) 01/21/17 18:36 Ur Leukocyte Esterase Mod (Negative) 01/21/17 18:36 Urine WBC (Auto) 35.0 /HPF (0.0-6.0) H 01/21/17 18:36 Urine RBC (Auto) 2.0 /HPF (0.0-6.0) 01/21/17 18:36 Urine Mucus Few /HPF 01/21/17 18:36 Vancomycin Trough 3.3 ug/mL (5.0-20.0) L 01/24/17 10:32 Blood Type A POSITIVE 01/22/17 10:55 Antibody Screen TNR 01/22/17 10:55 CHARLI Antibody Screen Negative 01/22/17 10:55 <NEO SOLORIO - Last Filed: 01/24/17 18:01> Hospitalist Physical - Constitutional Vitals: Temp Pulse Resp BP Pulse Ox 99.6 F 83 18 114/65 99 01/24/17 15:44 01/24/17 15:44 01/24/17 15:44 01/24/17 15:44 01/24/17 08:00 Results - Labs CBC & Chem 7: 01/24/17 05:05 01/24/17 05:05 Labs: Laboratory Last Values WBC 6.2 K/mm3 (4.5-11.0) 01/24/17 05:05 RBC 3.49 M/mm3 (3.65-5.03) L 01/24/17 05:05 Hgb 10.5 gm/dl (11.8-15.2) L 01/24/17 05:05 Hct 31.6 % (35.5-45.6) L 01/24/17 05:05 MCV 91 fl (84-94) 01/24/17 05:05 MCH 30 pg (28-32) 01/24/17 05:05 MCHC 33 % (32-34) 01/24/17 05:05 RDW 12.7 % (13.2-15.2) L 01/24/17 05:05 Plt Count 142 K/mm3 (140-440) 01/24/17 05:05 Lymph % (Auto) 14.3 % (13.4-35.0) 01/23/17 07:26 [place] % (Auto) 7.4 % (0.0-7.3) H 01/23/17 07:26 Eos % (Auto) 0.9 % (0.0-4.3) 01/23/17 07:26 Baso % (Auto) 0.3 % (0.0-1.8) 01/23/17 07:26 Lymph # 1.3 K/mm3 (1.2-5.4) 01/23/17 07:26 [place] # 0.7 K/mm3 (0.0-0.8) 01/23/17 07:26 Eos # 0.1 K/mm3 (0.0-0.4) 01/23/17 07:26 Baso # 0.0 K/mm3 (0.0-0.1) 01/23/17 07:26 Seg Neutrophils % 77.1 % (40.0-70.0) H 01/23/17 07:26 Seg Neutrophils # 6.8 K/mm3 (1.8-7.7) 01/23/17 07:26 PT 14.5 Sec. (12.2-14.9) 01/22/17 09:44 INR 1.07 (0.87-1.13) 01/22/17 09:44 APTT 29.0 Sec. (24.2-36.6) 01/22/17 09:44 VBG pH 7.371 (7.320-7.420) 01/21/17 18:11 Sodium 136 mmol/L (137-145) L 01/24/17 05:05 Potassium 3.8 mmol/L (3.6-5.0) 01/24/17 05:05 Chloride 98.9 mmol/L (98-107) 01/24/17 05:05 Carbon Dioxide 30 mmol/L (22-30) 01/24/17 05:05 Anion Gap 11 mmol/L 01/24/17 05:05 BUN 13 mg/dL (9-20) 01/24/17 05:05 Creatinine 0.6 mg/dL (0.8-1.5) L 01/24/17 05:05 Estimated GFR > 60 ml/min 01/24/17 05:05 BUN/Creatinine Ratio 21.66 % 01/24/17 05:05 Glucose 269 mg/dL (75-100) H 01/24/17 05:05 POC Glucose 54 (70-105) L 01/24/17 11:22 Ketones Quantitative Negative (Negative) 01/22/17 09:43 Lactic Acid 1.20 mmol/L (0.7-2.0) 01/22/17 18:25 Calcium 8.2 mg/dL (8.4-10.2) L 01/24/17 05:05 Magnesium 1.80 mg/dL (1.7-2.3) 01/22/17 09:43 Total Bilirubin 0.70 mg/dL (0.1-1.2) 01/22/17 09:43 Direct Bilirubin 0.4 mg/dL (0-0.2) H 01/22/17 09:43 Indirect Bilirubin 0.3 mg/dL 01/22/17 09:43 AST 32 units/L (5-40) 01/22/17 09:43 ALT 34 units/L (7-56) 01/22/17 09:43 Alkaline Phosphatase 101 units/L (35-129) 01/22/17 09:43 Total Protein 8.4 g/dL (6.3-8.2) H 01/22/17 09:43 Albumin 3.5 g/dL (3.9-5) L 01/22/17 09:43 Albumin/Globulin Ratio 0.7 % 01/22/17 09:43 Urine Color Yellow (Yellow) 01/21/17 18:36 Urine Turbidity Clear (Clear) 01/21/17 18:36 Urine pH 6.0 (5.0-7.0) 01/21/17 18:36 Ur Specific [place] 1.026 (1.003-1.030) 01/21/17 18:36 Urine Protein <15 mg/dl mg/dL (Negative) 01/21/17 18:36 Urine Glucose (UA) >=500 mg/dL (Negative) 01/21/17 18:36 Urine Ketones Neg mg/dL (Negative) 01/21/17 18:36 Urine Blood Lg (Negative) 01/21/17 18:36 Urine Nitrite Pos (Negative) 01/21/17 18:36 Urine Bilirubin Neg (Negative) 01/21/17 18:36 Urine Urobilinogen 2.0 mg/dL (<2.0) 01/21/17 18:36 Ur Leukocyte Esterase Mod (Negative) 01/21/17 18:36 Urine WBC (Auto) 35.0 /HPF (0.0-6.0) H 01/21/17 18:36 Urine RBC (Auto) 2.0 /HPF (0.0-6.0) 01/21/17 18:36 Urine Mucus Few /HPF 01/21/17 18:36 Vancomycin Trough 3.3 ug/mL (5.0-20.0) L 01/24/17 10:32 Blood Type A POSITIVE 01/22/17 10:55 Antibody Screen TNR 01/22/17 10:55 CHARLI Antibody Screen Negative 01/22/17 10:55
[2017-01-24] MEDS: VANCOMYCIN 1,250 MG in NACL 0.9% 250ML 250 ML IV SCH ×2 (15:04→22:14)
--- NOTE | 2017-01-24 16:19 | Progress Note ---
Assessment and Plan 1) Wet to dry dressing changes 2) High protein diet 3) Can be discharged from a surgical perspective with f/u in Wound Clinic - Patient Problems (1) Abscess of back Current Visit: Yes Status: Acute Subjective Patient Reports: Positive: feels better Objective Vital Signs - 12hr 01/24/17 01/24/17 08:00 15:44 Temperature 100.1 F H 99.6 F Pulse Rate [ 83 83 Right Radial] Respiratory 18 18 Rate Blood Pressure 102/55 114/65 [Right Arm] O2 Sat by Pulse 99 Oximetry - Respiratory clear to auscultation - Abdomen PM_46_EXABD1 4, PM_46_EXABD1 6, PM_46_EXABD1 8 - Integumentary other (Dressing changed by Roger, the wound clinic nurse. The wound is clean per Roger.) - Labs 01/24/17 05:05 01/24/17 05:05 Diabetes panel 01/24/17 Range/Units 05:05 Sodium 136 L (137-145) mmol/L Potassium 3.8 (3.6-5.0) mmol/L Chloride 98.9 (98-107) mmol/L Carbon Dioxide 30 (22-30) mmol/L BUN 13 (9-20) mg/dL Creatinine 0.6 L (0.8-1.5) mg/dL Glucose 269 H (75-100) mg/dL Calcium 8.2 L (8.4-10.2) mg/dL Calcium panel 01/24/17 Range/Units 05:05 Calcium 8.2 L (8.4-10.2) mg/dL Pituitary panel 01/24/17 Range/Units 05:05 Sodium 136 L (137-145) mmol/L Potassium 3.8 (3.6-5.0) mmol/L Chloride 98.9 (98-107) mmol/L Carbon Dioxide 30 (22-30) mmol/L BUN 13 (9-20) mg/dL Creatinine 0.6 L (0.8-1.5) mg/dL Glucose 269 H (75-100) mg/dL Calcium 8.2 L (8.4-10.2) mg/dL Adrenal panel 01/24/17 Range/Units 05:05 Sodium 136 L (137-145) mmol/L Potassium 3.8 (3.6-5.0) mmol/L Chloride 98.9 (98-107) mmol/L Carbon Dioxide 30 (22-30) mmol/L BUN 13 (9-20) mg/dL Creatinine 0.6 L (0.8-1.5) mg/dL Glucose 269 H (75-100) mg/dL Calcium 8.2 L (8.4-10.2) mg/dL
--- NOTE | 2017-01-24 18:51 | Ultrasound Report ---
FINAL REPORT EXAM: US TESTICULAR DOPPLER COMP HISTORY: scrotal pain TECHNIQUE: Ultrasound scrotum PRIORS: None. FINDINGS: Right testicle is 3.9 x 1.9 x 3.1 centimeters. There is normal testicular echogenicity. There is normal vascular flow and waveform Doppler evaluation Right epididymis is unremarkable. Left testicle is 3.5 x 2.5 x 2.8 centimeters. There is normal echotexture. There is normal vascular flow on pulsed and color Doppler evaluation The left epididymis is enlarged and appears hyperemic. There is a hypodense 0.6 centimeter focus within the left epididymis Minimal fluid seen within left hemiscrotum IMPRESSION: Small left hydrocele and enlarged hyperemic left epididymis. Findings are most consistent with epididymitis.
[2017-01-24] MEDS: PERCOCET 5/325 PO PRN (20:19)
[2017-01-25] MEDS: ZOSYN/NS 4.5GM/100ML 4.5 GM/100 ML VIAL IV SCH ×4 (00:23→23:36)
[2017-01-25] MEDS: MORPHINE IV PRN (00:33)
[2017-01-25] MEDS: PERCOCET 5/325 PO PRN ×4 (05:33→23:37)
[2017-01-25] MEDS: NEURONTIN PO SCH ×3 (05:33→23:37)
[2017-01-25] MEDS: VANCOMYCIN 1,250 MG in NACL 0.9% 250ML 250 ML IV SCH ×2 (07:10→17:48)
[2017-01-25 08:35] LABS: Hematocrit 31.1 % (35.5-45.6); Hemoglobin 10.6 gm/dl (11.8-15.2); Mean Corpuscular HGB Conc 34 % (32-34); Mean Corpuscular Hemoglobin 31 pg (28-32); Mean Corpuscular Volume 90 fl (84-94); Platelet Count 151 K/mm3 (140-440); Red Blood Count 3.44 M/mm3 (3.65-5.03); White Blood Count 6.3 K/mm3 (4.5-11.0)
[2017-01-25 08:56] LABS: Blood Urea Nitrogen 6 mg/dL (9-20); Calcium 7.8 mg/dL (8.4-10.2); Carbon Dioxide 22 mmol/L (22-30); Glucose 300 mg/dL (75-100); Potassium 3.3 mmol/L (3.6-5.0); Sodium 134 mmol/L (137-145)
[2017-01-25 09:17] LABS: Anion Gap 15 mmol/L
[2017-01-25] MEDS: ZIAGEN PO SCH (10:09)
[2017-01-25] MEDS: TIVICAY (NF) PO SCH (10:10)
[2017-01-25] MEDS: HALFPRIN EC PO SCH (10:10)
[2017-01-25] MEDS: EPIVIR PO SCH (10:11)
--- NOTE | 2017-01-25 12:25 | Progress Note ---
Assessment and Plan Assessment and plan: Sepsis due to abscess. Continue vancomycin and Zosyn. ID Physician following. Abscess left upper back. Status post incision and drainage by surgeon yesterday. Wound culture growing MRSA. Continue vancomycin and Zosyn. patient will need wound care center as outpatient. Epididymitis. He complained of scrotal pain and swelling yesterday and testicle ultrasound showed epididymitis. Continue IV antibiotics. HIV/AIDs. Continue HAART Acute cystitis Hyperosmolar hyperglycemic state. Blood glucose elevated. We'll increase dose of Novolin 70/30 to 20 units twice a day. Hypokalemia. replace orally and recheck. Hyponatremia. Hepatitis C infection. malnutrition with BMI of 16.1 DVT prophylaxis with heparin. MRSA wound. Contact isolation Full code status History Interval history: back pain at site of abscess, scrotal pain and swelling for few days Hospitalist Physical - Physical exam Narrative exam: Gen Appearance: Not in acute distress, cachetic HEENT: normocephalic, atraumatic Neck: supple, no JVD Lungs: clear to auscultation bilaterally, no crackles or wheezes Heart: S1 and S2 regular, no murmurs or gallop Abdomen: Soft, non tender, non distended, normal bowel sounds, Extremity: No edema, no clubbing or cyanosis Neuro : Awake,alert,oriented, moves all ext Psych :calm back: Upper back large surgical wound afterabscess I and D : tender scrotum - Constitutional Vitals: Temp Pulse Resp BP Pulse Ox 98.4 F 88 18 120/75 99 01/25/17 08:00 01/25/17 08:00 01/25/17 08:00 01/25/17 08:00 01/25/17 08:00 General appearance: Present: no acute distress, cachectic, other (non-toxic appearance) Results - Labs CBC & Chem 7: 01/25/17 08:21 01/25/17 08:21 Labs: Laboratory Last Values WBC 6.3 K/mm3 (4.5-11.0) 01/25/17 08:21 RBC 3.44 M/mm3 (3.65-5.03) L 01/25/17 08:21 Hgb 10.6 gm/dl (11.8-15.2) L 01/25/17 08:21 Hct 31.1 % (35.5-45.6) L 01/25/17 08:21 MCV 90 fl (84-94) 01/25/17 08:21 MCH 31 pg (28-32) 01/25/17 08:21 MCHC 34 % (32-34) 01/25/17 08:21 RDW 13.0 % (13.2-15.2) L 01/25/17 08:21 Plt Count 151 K/mm3 (140-440) 01/25/17 08:21 Lymph % (Auto) 14.3 % (13.4-35.0) 01/23/17 07:26 [place] % (Auto) 7.4 % (0.0-7.3) H 01/23/17 07:26 Eos % (Auto) 0.9 % (0.0-4.3) 01/23/17 07:26 Baso % (Auto) 0.3 % (0.0-1.8) 01/23/17 07:26 Lymph # 1.3 K/mm3 (1.2-5.4) 01/23/17 07:26 [place] # 0.7 K/mm3 (0.0-0.8) 01/23/17 07:26 Eos # 0.1 K/mm3 (0.0-0.4) 01/23/17 07:26 Baso # 0.0 K/mm3 (0.0-0.1) 01/23/17 07:26 Seg Neutrophils % 77.1 % (40.0-70.0) H 01/23/17 07:26 Seg Neutrophils # 6.8 K/mm3 (1.8-7.7) 01/23/17 07:26 Abs Lymphs (Manual) 845 cells/uL (850-3900) L 01/22/17 09:35 PT 14.5 Sec. (12.2-14.9) 01/22/17 09:44 INR 1.07 (0.87-1.13) 01/22/17 09:44 APTT 29.0 Sec. (24.2-36.6) 01/22/17 09:44 VBG pH 7.371 (7.320-7.420) 01/21/17 18:11 Sodium 134 mmol/L (137-145) L 01/25/17 08:21 Potassium 3.3 mmol/L (3.6-5.0) L 01/25/17 08:21 Chloride 100.0 mmol/L (98-107) 01/25/17 08:21 Carbon Dioxide 22 mmol/L (22-30) D 01/25/17 08:21 Anion Gap 15 mmol/L 01/25/17 08:21 BUN 6 mg/dL (9-20) L 01/25/17 08:21 Creatinine 0.6 mg/dL (0.8-1.5) L 01/25/17 08:21 Estimated GFR > 60 ml/min 01/25/17 08:21 BUN/Creatinine Ratio 10.00 % 01/25/17 08:21 Glucose 300 mg/dL (75-100) H 01/25/17 08:21 POC Glucose 417 (70-105) H 01/25/17 12:02 Ketones Quantitative Negative (Negative) 01/22/17 09:43 Lactic Acid 1.20 mmol/L (0.7-2.0) 01/22/17 18:25 Calcium 7.8 mg/dL (8.4-10.2) L 01/25/17 08:21 Magnesium 1.80 mg/dL (1.7-2.3) 01/22/17 09:43 Total Bilirubin 0.70 mg/dL (0.1-1.2) 01/22/17 09:43 Direct Bilirubin 0.4 mg/dL (0-0.2) H 01/22/17 09:43 Indirect Bilirubin 0.3 mg/dL 01/22/17 09:43 AST 32 units/L (5-40) 01/22/17 09:43 ALT 34 units/L (7-56) 01/22/17 09:43 Alkaline Phosphatase 101 units/L (35-129) 01/22/17 09:43 Total Protein 8.4 g/dL (6.3-8.2) H 01/22/17 09:43 Albumin 3.5 g/dL (3.9-5) L 01/22/17 09:43 Albumin/Globulin Ratio 0.7 % 01/22/17 09:43 Urine Color Yellow (Yellow) 01/21/17 18:36 Urine Turbidity Clear (Clear) 01/21/17 18:36 Urine pH 6.0 (5.0-7.0) 01/21/17 18:36 Ur Specific [place] 1.026 (1.003-1.030) 01/21/17 18:36 Urine Protein <15 mg/dl mg/dL (Negative) 01/21/17 18:36 Urine Glucose (UA) >=500 mg/dL (Negative) 01/21/17 18:36 Urine Ketones Neg mg/dL (Negative) 01/21/17 18:36 Urine Blood Lg (Negative) 01/21/17 18:36 Urine Nitrite Pos (Negative) 01/21/17 18:36 Urine Bilirubin Neg (Negative) 01/21/17 18:36 Urine Urobilinogen 2.0 mg/dL (<2.0) 01/21/17 18:36 Ur Leukocyte Esterase Mod (Negative) 01/21/17 18:36 Urine WBC (Auto) 35.0 /HPF (0.0-6.0) H 01/21/17 18:36 Urine RBC (Auto) 2.0 /HPF (0.0-6.0) 01/21/17 18:36 Urine Mucus Few /HPF 01/21/17 18:36 Vancomycin Trough 3.3 ug/mL (5.0-20.0) L 01/24/17 10:32 Lymph Enumerat CD4/CD8 1.35 (0.86-5.00) 01/22/17 09:35 % CD3 Cells 86 % (57-85) H 01/22/17 09:35 Absolute CD3 Count 730 cells/uL (840-3060) L 01/22/17 09:35 % CD4 Cells 51 % (30-61) 01/22/17 09:35 Absolute CD4 Count 418 cells/uL (490-1740) L 01/22/17 09:35 % CD8 Cells 38 % (12-42) 01/22/17 09:35 Absolute CD8 Count 310 cells/uL (180-1170) 01/22/17 09:35 % CD19 Cells 9 % (6-29) 01/22/17 09:35 Absolute CD19 Count 78 cells/uL (110-660) L 01/22/17 09:35 Blood Type A POSITIVE 01/22/17 10:55 Antibody Screen TNR 01/22/17 10:55 CHARLI Antibody Screen Negative 01/22/17 10:55
[2017-01-25] MEDS: K-DUR PO SCH ×2 (13:51→17:08)
[2017-01-25] MEDS: NACL 0.9% 1000 ML 1,000 ML IV SCH (13:54)
[2017-01-25] MEDS: HEPARIN SUB-Q SCH ×2 (15:24→23:42)
[2017-01-26] MEDS: VANCOMYCIN 1,250 MG in NACL 0.9% 250ML 250 ML IV SCH ×4 (01:38→17:58)
[2017-01-26] MEDS: PERCOCET 5/325 PO PRN ×3 (04:57→17:59)
[2017-01-26] MEDS: ZOSYN/NS 4.5GM/100ML 4.5 GM/100 ML VIAL IV SCH (05:06)
[2017-01-26] MEDS: NEURONTIN PO SCH ×3 (05:07→21:53)
[2017-01-26] MEDS: HEPARIN SUB-Q SCH ×3 (05:14→21:55)
[2017-01-26 05:40] LABS: Hemoglobin 10.4 gm/dl (11.8-15.2); Mean Corpuscular HGB Conc 34 % (32-34); Mean Corpuscular Hemoglobin 31 pg (28-32); Mean Corpuscular Volume 91 fl (84-94); Platelet Count 144 K/mm3 (140-440); Red Blood Count 3.41 M/mm3 (3.65-5.03); Red Cell Distribution Width 12.9 % (13.2-15.2); White Blood Count 5.3 K/mm3 (4.5-11.0)
[2017-01-26 06:01] LABS: Anion Gap 16 mmol/L; BUN/Creatinine Ratio 11.66; Blood Urea Nitrogen 7 mg/dL (9-20); Calcium 7.7 mg/dL (8.4-10.2); Carbon Dioxide 22 mmol/L (22-30); Chloride 99.8 mmol/L (98-107); Glucose 290 mg/dL (75-100); Sodium 134 mmol/L (137-145)
--- NOTE | 2017-01-26 09:20 | Event Note ---
Date: 01/26/17 Chart is reviewed. Still awaiting final surgical culture data. There are 2 Staph aureus species isolated, a MRSA isolate from the back wound and a MSSA that appears to have contaminated both the blood and urine specimens. Although still awaiting final surgical culture data, anticipate a course of oral Clindamycin. While in-house awaiting final culture data, continue IV Vanccomycin with oral Clindamycin. I do not suspect MRSA bacteremia. The positive blood and urine culture is believed to represent specimen contamination.
--- NOTE | 2017-01-26 09:46 | Ultrasound Report ---
ULTRASOUND TESTICULAR DOPPLER COMPLETE History: Left scrotal pain, epididymitis. Technique: Trans-scrotal ultrasound with spectral doppler interrogation. Findings: Compared to 01/24/17 exam. The left epididymis remains enlarged and heterogeneous with increased flow on color Doppler consistent with left epididymitis. There is an approximate 1 cm area of decreased echogenicity within the left epididymis which may represent an early focal abscess. There is also increased color Doppler flow to the left testicle on today's exam which appears to be new since the exam 2 days ago. This is consistent with left orchitis. There is no evidence for testicular mass, calcifications or torsion. The right testes and epididymis are within normal limits. Spectral waveforms demonstrate arterial flow to both testes. A moderate left hydrocele is identified which is increased slightly as the previous exam. IMPRESSION: Left epididymoorchitis. Slight increase in left hydrocele since exam 2 days ago.
[2017-01-26] MEDS: ZIAGEN PO SCH (11:30)
[2017-01-26] MEDS: CLEOCIN PO SCH ×3 (11:30→21:54)
[2017-01-26] MEDS: HALFPRIN EC PO SCH (11:31)
[2017-01-26] MEDS: TYLENOL PO PRN (11:31)
[2017-01-26] MEDS: TIVICAY (NF) PO SCH (11:31)
[2017-01-26] MEDS: EPIVIR PO SCH (11:32)
--- NOTE | 2017-01-26 13:39 | Progress Note ---
Assessment and Plan Assessment and plan: Patient is a 56-year-old male with history of HIV, diabetes, hepatitis C, who reports that he recently moved down to [place] 3 months ago and in the last 3 days had noticed a growth on his back which appeared to be draining. It causes significant pain about 10 over 10 in intensity limited his movements and today before he was able to make it to the hospital. He reported some subjective fever at home. He is not sure of what medication he takes he knows that he gets them from a [facility] prior to moving to [place]. He apparently has not been taking these medications. He denies any chest pain, nausea vomiting or diarrhea. He denies any blurry vision. He reports that he has lost significant weight. And is currently being worked up for cancer and has planned follow-up with [place] [facility]. -Subscapular abscess S/P I/D -Epididymitis -Sepsis secondary to subscapular abscess -Uncontrolled DM -Hyperosmolar hyperglycemic state-Resolved -[id number] -HIV/AIDS -Hepatitis C chronic -Acute cystitis -Severe protein calorie malnutrition PLAN: -check cultures, urine cultures wound care cultures- Stap aureus growing from Wound and MSSA possible Contaminate. ID note, noted. AWAIT DATA -Continue IV vancomycin and clindamycin -Urology consulted -check testicular U/S -Adjust insulin with sliding scale For tighter control, accucheck -cd4 count NOTED -Continue home medications -Nutrition consult -pain control -DVT and GI prophylaxis -Plan of care discussed with the patient in detail History Interval history: Patient seen and examined this morning. No further seizure but reports continued tenderness in the testicle area. Denies any cough, nausea vomiting or diarrhea. Reports improvement in the pain of the subscapular area. No other adverse event reported by nursing staff Hospitalist Physical - Physical exam Narrative exam: VITAL SIGNS: Reviewed. GENERAL: The patient appeared markedly cachectic, in no acute distress. Vital signs as documented. HEAD: No signs of head trauma. EYES: Pupils are equal. Extraocular motions intact. EARS: Hearing grossly intact. MOUTH: Oropharynx is normal. NECK: No adenopathy, no JVD. CHEST: Chest with clear breath sounds bilaterally. No wheezes, rales, or rhonchi. CARDIAC: Regular rate and rhythm. S1 and S2, without murmurs, gallops, or rubs. VASCULAR: No Edema. Peripheral pulses normal and equal in all extremities. ABDOMEN: Soft, without detectable tenderness. No sign of distention. No rebound or guarding, and no masses palpated. Bowel Sounds normal. MUSCULOSKELETAL: Good range of motion of all major joints. Extremities without clubbing, cyanosis or edema. NEUROLOGIC EXAM: Alert and oriented x 3. No focal sensory or strength deficits. Speech normal. Follows commands. PSYCHIATRIC: Mood normal. : Tender, no erythema, no drainage. SKIN: WOUND DRESSING IN PLACE. NO overt drainage permeating the wound - Constitutional Vitals: Temp Pulse Resp BP Pulse Ox 98.5 F 79 20 123/75 99 01/26/17 07:57 01/26/17 07:57 01/26/17 11:57 01/26/17 07:57 01/26/17 07:57 General appearance: Present: no acute distress, cachectic, other (non-toxic appearance) Results - Labs CBC & Chem 7: 01/26/17 05:06 01/26/17 05:06 Labs: Laboratory Last Values WBC 5.3 K/mm3 (4.5-11.0) 01/26/17 05:06 RBC 3.41 M/mm3 (3.65-5.03) L 01/26/17 05:06 Hgb 10.4 gm/dl (11.8-15.2) L 01/26/17 05:06 Hct 31.0 % (35.5-45.6) L 01/26/17 05:06 MCV 91 fl (84-94) 01/26/17 05:06 MCH 31 pg (28-32) 01/26/17 05:06 MCHC 34 % (32-34) 01/26/17 05:06 RDW 12.9 % (13.2-15.2) L 01/26/17 05:06 Plt Count 144 K/mm3 (140-440) 01/26/17 05:06 Lymph % (Auto) 14.3 % (13.4-35.0) 01/23/17 07:26 [place] % (Auto) 7.4 % (0.0-7.3) H 01/23/17 07:26 Eos % (Auto) 0.9 % (0.0-4.3) 01/23/17 07:26 Baso % (Auto) 0.3 % (0.0-1.8) 01/23/17 07: Lymph # 1.3 K/mm3 (1.2-5.4) 01/23/17 07:26 [place] # 0.7 K/mm3 (0.0-0.8) 01/23/17 07:26 Eos # 0.1 K/mm3 (0.0-0.4) 01/23/17 07: Baso # 0.0 K/mm3 (0.0-0.1) 01/23/17 07:26 Seg Neutrophils % 77.1 % (40.0-70.0) H 01/23/17 07:26 Seg Neutrophils # 6.8 K/mm3 (1.8-7.7) 01/23/17 07:26 Abs Lymphs (Manual) 845 cells/uL (850-3900) L 01/22/17 09:35 PT 14.5 Sec. (12.2-14.9) 01/22/17 09:44 INR 1.07 (0.87-1.13) 01/22/17 09:44 APTT 29.0 Sec. (24.2-36.6) 01/22/17 09:44 VBG pH 7.371 (7.320-7.420) 01/21/17 18:11 Sodium 134 mmol/L (137-145) L 01/26/17 05:06 Potassium 4.0 mmol/L (3.6-5.0) D 01/26/17 05:06 Chloride 99.8 mmol/L (98-107) 01/26/17 05:06 Carbon Dioxide 22 mmol/L (22-30) 01/26/17 05:06 Anion Gap 16 mmol/L 01/26/17 05:06 BUN 7 mg/dL (9-20) L 01/26/17 05:06 Creatinine 0.6 mg/dL (0.8-1.5) L 01/26/17 05:06 Estimated GFR > 60 ml/min 01/26/17 05:06 BUN/Creatinine Ratio 11.66 % 01/26/17 05:06 Glucose 290 mg/dL (75-100) H 01/26/17 05:06 POC Glucose 357 (70-105) H 01/26/17 11:37 Ketones Quantitative Negative (Negative) 01/22/17 09:43 Lactic Acid 1.20 mmol/L (0.7-2.0) 01/22/17 18:25 Calcium 7.7 mg/dL (8.4-10.2) L 01/26/17 05:06 Magnesium 1.80 mg/dL (1.7-2.3) 01/22/17 09:43 Total Bilirubin 0.70 mg/dL (0.1-1.2) 01/22/17 09:43 Direct Bilirubin 0.4 mg/dL (0-0.2) H 01/22/17 09:43 Indirect Bilirubin 0.3 mg/dL 01/22/17 09:43 AST 32 units/L (5-40) 01/22/17 09:43 ALT 34 units/L (7-56) 01/22/17 09:43 Alkaline Phosphatase 101 units/L (35-129) 01/22/17 09:43 Total Protein 8.4 g/dL (6.3-8.2) H 01/22/17 09:43 Albumin 3.5 g/dL (3.9-5) L 01/22/17 09:43 Albumin/Globulin Ratio 0.7 % 01/22/17 09:43 Urine Color Yellow (Yellow) 01/21/17 18:36 Urine Turbidity Clear (Clear) 01/21/17 18:36 Urine pH 6.0 (5.0-7.0) 01/21/17 18:36 Ur Specific [place] 1.026 (1.003-1.030) 01/21/17 18:36 Urine Protein <15 mg/dl mg/dL (Negative) 01/21/17 18:36 Urine Glucose (UA) >=500 mg/dL (Negative) 01/21/17 18:36 Urine Ketones Neg mg/dL (Negative) 01/21/17 18:36 Urine Blood Lg (Negative) 01/21/17 18:36 Urine Nitrite Pos (Negative) 01/21/17 18:36 Urine Bilirubin Neg (Negative) 01/21/17 18:36 Urine Urobilinogen 2.0 mg/dL (<2.0) 01/21/17 18:36 Ur Leukocyte Esterase Mod (Negative) 01/21/17 18:36 Urine WBC (Auto) 35.0 /HPF (0.0-6.0) H 01/21/17 18:36 Urine RBC (Auto) 2.0 /HPF (0.0-6.0) 01/21/17 18:36 Urine Mucus Few /HPF 01/21/17 18:36 Vancomycin Trough 12.9 ug/mL (5.0-20.0) 01/25/17 16:04 Lymph Enumerat CD4/CD8 1.35 (0.86-5.00) 01/22/17 09:35 % CD3 Cells 86 % (57-85) H 01/22/17 09:35 Absolute CD3 Count 730 cells/uL (840-3060) L 01/22/17 09:35 % CD4 Cells 51 % (30-61) 01/22/17 09:35 Absolute CD4 Count 418 cells/uL (490-1740) L 01/22/17 09:35 % CD8 Cells 38 % (12-42) 01/22/17 09:35 Absolute CD8 Count 310 cells/uL (180-1170) 01/22/17 09:35 % CD19 Cells 9 % (6-29) 01/22/17 09:35 Absolute CD19 Count 78 cells/uL (110-660) L 01/22/17 09:35 Blood Type A POSITIVE 01/22/17 10:55 Antibody Screen TNR 01/22/17 10:55 CHARLI Antibody Screen Negative 01/22/17 10:55
[2017-01-26] MEDS: ZOFRAN IV PRN (21:54)
[2017-01-26] MEDS: MORPHINE IV PRN (21:54)
[2017-01-27] MEDS: VANCOMYCIN 1,250 MG in NACL 0.9% 250ML 250 ML IV SCH ×3 (00:40→18:13)
[2017-01-27] MEDS: HEPARIN SUB-Q SCH ×3 (06:07→21:23)
[2017-01-27] MEDS: NEURONTIN PO SCH ×3 (06:07→21:21)
[2017-01-27] MEDS: MORPHINE IV PRN ×3 (06:08→18:51)
--- NOTE | 2017-01-27 08:03 | Progress Note ---
Assessment and Plan Assessment and plan: Patient is a 56-year-old male with history of HIV, diabetes, hepatitis C, who reports that he recently moved down to [place] 3 months ago and in the last 3 days had noticed a growth on his back which appeared to be draining. It causes significant pain about 10 over 10 in intensity limited his movements and today before he was able to make it to the hospital. He reported some subjective fever at home. He is not sure of what medication he takes he knows that he gets them from a [facility] prior to moving to [place]. He apparently has not been taking these medications. He denies any chest pain, nausea vomiting or diarrhea. He denies any blurry vision. He reports that he has lost significant weight. And is currently being worked up for cancer and has planned follow-up with [place] [facility]. -Subscapular abscess S/P I/D- MRSA positive wound cultures. -Epididymitis-left, with Hydrocele -Sepsis secondary to subscapular abscess -Uncontrolled DM -Hyperosmolar hyperglycemic state-Resolved -Bilateral nephrolithiasis -Prurigo Nodularis -[id number] -HIV/AIDS -Hepatitis C chronic -Acute cystitis -Severe protein calorie malnutrition PLAN: -check cultures, urine cultures wound care cultures- MRSA in surgical cultures. -Continue IV vancomycin and clindamycin -Urology consulted, input noted, if no improvement will possibly need orchiectomy. -Twice a day clindamycin monotherapy with aggressive wound management and excellent glycemic control beneficial on discharge. Patient is homeless and this may complicate care. May need to remain on to wound care needs are reduced. -Continue to Adjust insulin with sliding scale For tighter control Increased 70/ 30 to 28 UNITS BID, accucheck -CD4 count NOTED -Continue home medications -Nutrition consult -pain control -DVT and GI prophylaxis -Plan of care discussed with the patient in detail History Interval history: Patient seen and examined this morning. No further seizure but still with continued tenderness in the testicle area. Denies any cough, nausea vomiting or diarrhea. Reports improvement in the pain of the subscapular area. No other adverse event reported by nursing staff Hospitalist Physical - Physical exam Narrative exam: VITAL SIGNS: Reviewed. GENERAL: The patient appeared markedly cachectic, in no acute distress. Vital signs as documented. HEAD: No signs of head trauma. EYES: Pupils are equal. Extraocular motions intact. EARS: Hearing grossly intact. MOUTH: Oropharynx is normal. NECK: No adenopathy, no JVD. CHEST: Chest with clear breath sounds bilaterally. No wheezes, rales, or rhonchi. CARDIAC: Regular rate and rhythm. S1 and S2, without murmurs, gallops, or rubs. VASCULAR: No Edema. Peripheral pulses normal and equal in all extremities. ABDOMEN: Soft, without detectable tenderness. No sign of distention. No rebound or guarding, and no masses palpated. Bowel Sounds normal. MUSCULOSKELETAL: Good range of motion of all major joints. Extremities without clubbing, cyanosis or edema. NEUROLOGIC EXAM: Alert and oriented x 3. No focal sensory or strength deficits. Speech normal. Follows commands. PSYCHIATRIC: Mood normal. : Tender, no erythema, no drainage. SKIN: WOUND DRESSING IN PLACE. NO overt drainage permeating the wound - Constitutional Vitals: Temp Pulse Resp BP Pulse Ox 98.5 F 87 18 123/74 99 01/27/17 00:00 01/27/17 00:00 01/27/17 00:00 01/27/17 00:00 01/27/17 00:00 General appearance: Present: no acute distress, cachectic, other (non-toxic appearance) Results - Labs CBC & Chem 7: 01/26/17 05:06 01/26/17 05:06 Labs: Laboratory Last Values WBC 5.3 K/mm3 (4.5-11.0) 01/26/17 05:06 RBC 3.41 M/mm3 (3.65-5.03) L 01/26/17 05:06 Hgb 10.4 gm/dl (11.8-15.2) L 01/26/17 05:06 Hct 31.0 % (35.5-45.6) L 01/26/17 05:06 MCV 91 fl (84-94) 01/26/17 05:06 MCH 31 pg (28-32) 01/26/17 05:06 MCHC 34 % (32-34) 01/26/17 05:06 RDW 12.9 % (13.2-15.2) L 01/26/17 05:06 Plt Count 144 K/mm3 (140-440) 01/26/17 05:06 Lymph % (Auto) 14.3 % (13.4-35.0) 01/23/17 07:26 [place] % (Auto) 7.4 % (0.0-7.3) H 01/23/17 07:26 Eos % (Auto) 0.9 % (0.0-4.3) 01/23/17 07:26 Baso % (Auto) 0.3 % (0.0-1.8) 01/23/17 07:26 Lymph # 1.3 K/mm3 (1.2-5.4) 01/23/17 07:26 [place] # 0.7 K/mm3 (0.0-0.8) 01/23/17 07:26 Eos # 0.1 K/mm3 (0.0-0.4) 01/23/17 07:26 Baso # 0.0 K/mm3 (0.0-0.1) 01/23/17 07:26 Seg Neutrophils % 77.1 % (40.0-70.0) H 01/23/17 07:26 Seg Neutrophils # 6.8 K/mm3 (1.8-7.7) 01/23/17 07:26 Abs Lymphs (Manual) 845 cells/uL (850-3900) L 01/22/17 09:35 PT 14.5 Sec. (12.2-14.9) 01/22/17 09:44 INR 1.07 (0.87-1.13) 01/22/17 09:44 APTT 29.0 Sec. (24.2-36.6) 01/22/17 09:44 VBG pH 7.371 (7.320-7.420) 01/21/17 18:11 Sodium 134 mmol/L (137-145) L 01/26/17 05:06 Potassium 4.0 mmol/L (3.6-5.0) D 01/26/17 05:06 Chloride 99.8 mmol/L (98-107) 01/26/17 05:06 Carbon Dioxide 22 mmol/L (22-30) 01/26/17 05:06 Anion Gap 16 mmol/L 01/26/17 05:06 BUN 7 mg/dL (9-20) L 01/26/17 05:06 Creatinine 0.6 mg/dL (0.8-1.5) L 01/26/17 05:06 Estimated GFR > 60 ml/min 01/26/17 05:06 BUN/Creatinine Ratio 11.66 % 01/26/17 05:06 Glucose 290 mg/dL (75-100) H 01/26/17 05:06 POC Glucose 200 (70-105) H 01/27/17 06:29 Ketones Quantitative Negative (Negative) 01/22/17 09:43 Lactic Acid 1.20 mmol/L (0.7-2.0) 01/22/17 18:25 Calcium 7.7 mg/dL (8.4-10.2) L 01/26/17 05:06 Magnesium 1.80 mg/dL (1.7-2.3) 01/22/17 09:43 Total Bilirubin 0.70 mg/dL (0.1-1.2) 01/22/17 09:43 Direct Bilirubin 0.4 mg/dL (0-0.2) H 01/22/17 09:43 Indirect Bilirubin 0.3 mg/dL 01/22/17 09:43 AST 32 units/L (5-40) 01/22/17 09:43 ALT 34 units/L (7-56) 01/22/17 09:43 Alkaline Phosphatase 101 units/L (35-129) 01/22/17 09:43 Total Protein 8.4 g/dL (6.3-8.2) H 01/22/17 09:43 Albumin 3.5 g/dL (3.9-5) L 01/22/17 09:43 Albumin/Globulin Ratio 0.7 % 01/22/17 09:43 Urine Color Yellow (Yellow) 01/21/17 18:36 Urine Turbidity Clear (Clear) 01/21/17 18:36 Urine pH 6.0 (5.0-7.0) 01/21/17 18:36 Ur Specific [place] 1.026 (1.003-1.030) 01/21/17 18:36 Urine Protein <15 mg/dl mg/dL (Negative) 01/21/17 18:36 Urine Glucose (UA) >=500 mg/dL (Negative) 01/21/17 18:36 Urine Ketones Neg mg/dL (Negative) 01/21/17 18:36 Urine Blood Lg (Negative) 01/21/17 18:36 Urine Nitrite Pos (Negative) 01/21/17 18:36 Urine Bilirubin Neg (Negative) 01/21/17 18:36 Urine Urobilinogen 2.0 mg/dL (<2.0) 01/21/17 18:36 Ur Leukocyte Esterase Mod (Negative) 01/21/17 18:36 Urine WBC (Auto) 35.0 /HPF (0.0-6.0) H 01/21/17 18:36 Urine RBC (Auto) 2.0 /HPF (0.0-6.0) 01/21/17 18:36 Urine Mucus Few /HPF 01/21/17 18:36 Vancomycin Trough 12.9 ug/mL (5.0-20.0) 01/25/17 16:04 Lymph Enumerat CD4/CD8 1.35 (0.86-5.00) 01/22/17 09:35 % CD3 Cells 86 % (57-85) H 01/22/17 09:35 Absolute CD3 Count 730 cells/uL (840-3060) L 01/22/17 09:35 % CD4 Cells 51 % (30-61) 01/22/17 09:35 Absolute CD4 Count 418 cells/uL (490-1740) L 01/22/17 09:35 % CD8 Cells 38 % (12-42) 01/22/17 09:35 Absolute CD8 Count 310 cells/uL (180-1170) 01/22/17 09:35 % CD19 Cells 9 % (6-29) 01/22/17 09:35 Absolute CD19 Count 78 cells/uL (110-660) L 01/22/17 09:35 Blood Type A POSITIVE 01/22/17 10:55 Antibody Screen TNR 01/22/17 10:55 CHARLI Antibody Screen Negative 01/22/17 10:55
--- NOTE | 2017-01-27 08:28 | Progress Note ---
Assessment and Plan Consult Mr. Cabrera is a 57-year-old gentleman with a history of gross hematuria with clots and swollen left scrotum. He's had intermittent fevers and chills. Ultrasound consistent with moderately severe left epididymitis. Long discussion was carried out with him he is not very compliant Medical history hepatitis, HIV Past surgical history denied Social history smoker family history unremarkable Review of systems Denies difficulty voiding denies dysuria intermittent fevers and chills and moderately severe left scrotal pain Physical exam He's awake he is in moderate discomfort he's in no distress tolerating a diet Abdomen soft there is some questionable distention in the lower abdomen He is not very cooperative Left hemiscrotum is swollen the skin is somewhat puckered around the scrotal fascia He does not allow full exam but there is clear tenderness around the left epididymis right testicle is mildly atrophic Digital rectal exam once again is poorly compliant but I don't feel any localized abscess or tenderness Impression moderately severe left epididymitis immunocompromised patient poorly compliant Obtain a CT scan abdomen and pelvis because of the hematuria IV antibiosis Suspect might need left orchiectomy as discussed with him We will try continued anti-biotics and local care for the time being pending the CT scan Subjective Date of service: 01/27/17 Principal diagnosis: left epididymitis Objective - Constitutional Vitals: Vital Signs - 12hr 01/26/17 01/27/17 22:00 00:00 Temperature 98.5 F Pulse Rate [ 87 Right Radial] Respiratory 20 18 Rate Blood Pressure 123/74 [Right Arm] O2 Sat by Pulse 99 Oximetry General appearance: Present: mild distress - Neck Neck: supple - Respiratory Respiratory effort: normal Extremities: no ischemia - Gastrointestinal General gastrointestinal: Present: soft, non-tender (? SupraPubic fullness) - Labs CBC & Chem 7: 01/26/17 05:06 01/26/17 05:06 Labs: Abnormal lab results 01/25/17 01/26/17 01/26/17 Range/Units 17:16 11:37 16:08 POC Glucose 226 H 357 H 244 H (70-105) 01/26/17 01/27/17 Range/Units 22:42 06:29 POC Glucose 234 H 200 H (70-105)
[2017-01-27] MEDS: TIVICAY (NF) PO SCH (09:44)
[2017-01-27] MEDS: ZIAGEN PO SCH (09:44)
[2017-01-27] MEDS: EPIVIR PO SCH (09:44)
[2017-01-27] MEDS: CLEOCIN PO SCH ×3 (09:45→21:21)
[2017-01-27] MEDS: HALFPRIN EC PO SCH (09:45)
[2017-01-27] MEDS ORDERED: NACL ONE (10:34)
--- NOTE | 2017-01-27 11:06 | Cat Scan Report ---
CT ABDOMEN PELVIS WITH AND WITHOUT CONTRAST HISTORY: Gross hematuria. TECHNIQUE: Helical CT before and after IV contrast. Sagittal and coronal reformatted images. FINDINGS: Compared to the CT abdomen pelvis with contrast dated 12/14/16. There are multiple, bilateral tiny renal calyceal stones in both kidneys. There are approximately 5 calyceal stones in the right kidney and 9 calyceal stones in the left kidney. The stones measure less than 3 mm in greatest dimension. No ureteral stones or bladder stones. There is a normal enhancement pattern both kidneys following IV contrast. The bladder is moderately distended but otherwise unremarkable. There is small to medium ascites throughout the abdomen. There may be very subtle surface nodularity to the liver which may represent early cirrhotic changes. The spleen is normal size measuring 11 cm. No varicosities are identified. The biliary system, pancreas, adrenal glands, aorta and bowel loops are unremarkable. The appendix is not confidently identified. Heart size is normal. The visualized lung bases are clear. Trace right pleural effusion. IMPRESSION: Bilateral renal calyceal stones as outlined above. No evidence for ureteral stones, hydronephrosis or renal mass. Mild ascites. This is a new finding since the CT performed 12/14/16. Trace right pleural effusion.
--- NOTE | 2017-01-27 14:08 | Progress Note ---
Assessment and Plan - Patient Problems (1) Abscess of back Current Visit: Yes Status: Acute Plan to address problem: 1. Continue Vancomycin and Clindamycin while in-house. 2. Clindamycin monotherapy at time of discharge with aggressive wound management and excellent glycemic control. 3. Patient is homeless and is anticipated to have much difficulty managing his wound care needs independently. He may have to remain until his wound care needs are reduced. (2) HIV (human immunodeficiency virus infection) Current Visit: Yes Status: Acute Plan to address problem: Continue HAART. OI prophylaxis is not indicated. (3) Prurigo nodularis Current Visit: Yes Status: Acute Plan to address problem: Continued HAART for immune reconstitution. Appears to be slowly resolving. (4) Bilateral nephrolithiasis Current Visit: Yes Status: Acute Plan to address problem: Being evaluated and treated per urologist. Subjective Date of service: 01/27/17 Principal diagnosis: left back abscess/ epididymitis Interval history: Remains afebrile. Completed CT abd/ pelv earlier this AM. Objective - Constitutional Vitals: Vital Signs Temp Pulse Resp BP Pulse Ox 99.2 F 84 18 138/76 93 01/27/17 08:51 01/27/17 08:51 01/27/17 08:51 01/27/17 08:51 01/27/17 08:51 Temperature -Last 24 Hours Temperature 99.2 F Temperature 98.5 F Temperature 98.4 F General appearance: Present: other (thin man, mild wasting) - EENT Eyes: no scleral icterus, no conjunctival injection ENT: edentulous - Respiratory Respiratory effort: normal Respiratory: bilateral: CTA, negative: rales - Cardiovascular Rhythm: regular Heart Sounds: Present: S1 & S2 Extremities: No edema - Gastrointestinal General gastrointestinal: Present: soft, non-tender, non-distended - Integumentary Integumentary: rash (large open wound at left sub-scapular area, packed with seropurulent drainage; unchanged hyperpigmented, resolving nodules throuhgout torso) - Neurologic Neurologic: no focal deficits, moves all extremities - Psychiatric Psychiatric: appropriate mood/affect - Labs CBC & Chem 7: 01/26/17 05:06 01/26/17 05:06 Labs: Abnormal lab results 01/26/17 01/26/17 01/27/17 Range/Units 16:08 22:42 06:29 POC Glucose 244 H 234 H 200 H (70-105) 01/27/17 Range/Units 12:04 POC Glucose 280 H (70-105) Microbiology 01/21/17 18:11 Peripheral/Venous Blood Culture - Final NO GROWTH AFTER 5 DAYS 01/23/17 Unknown Back Surgical Culture - Final Methicillin Resist S. Aureus 01/23/17 11:00 Back Wound Culture - Final Methicillin Resist S. Aureus 01/23/17 Unknown Back Anaerobic Culture - Preliminary 01/21/17 19:33 Peripheral/Venous Blood Culture - Final Staphylococcus Aureus 01/22/17 Unknown Urine,Clean Catch Urine Culture - Final Staphylococcus Aureus 01/22/17 12:05 Back Wound Culture - Final Methicillin Resist S. Aureus - Imaging and cardiology CT scan - abdomen: report reviewed (bilateral renal calcyceal calculi without hydronephrosis or urteral stone) CT scan - pelvis: report reviewed
[2017-01-27] MEDS: PERCOCET 5/325 PO PRN (16:42)
[2017-01-28] MEDS: PERCOCET 5/325 PO PRN ×2 (01:04→10:21)
[2017-01-28] MEDS: NACL 0.9% 1000 ML 1,000 ML IV SCH (01:10)
[2017-01-28] MEDS: VANCOMYCIN 1,250 MG in NACL 0.9% 250ML 250 ML IV SCH ×3 (03:04→17:27)
[2017-01-28 06:26] LABS: Hematocrit 28.1 % (35.5-45.6); Hemoglobin 9.7 gm/dl (11.8-15.2); Mean Corpuscular HGB Conc 35 % (32-34); Mean Corpuscular Hemoglobin 31 pg (28-32); Mean Corpuscular Volume 90 fl (84-94); Platelet Count 145 K/mm3 (140-440); Red Blood Count 3.12 M/mm3 (3.65-5.03); Red Cell Distribution Width 12.9 % (13.2-15.2); White Blood Count 4.3 K/mm3 (4.5-11.0)
[2017-01-28] MEDS: NEURONTIN PO SCH ×3 (07:05→21:47)
[2017-01-28] MEDS: MORPHINE IV PRN ×4 (07:05→21:46)
[2017-01-28] MEDS: HEPARIN SUB-Q SCH ×3 (07:17→21:47)
[2017-01-28 07:42] LABS: Anion Gap 20 mmol/L; BUN/Creatinine Ratio 13.33; Blood Urea Nitrogen 8 mg/dL (9-20); Calcium 8.3 mg/dL (8.4-10.2); Carbon Dioxide 23 mmol/L (22-30); Chloride 100.7 mmol/L (98-107); Glucose 286 mg/dL (75-100); Potassium 4.2 mmol/L (3.6-5.0); Sodium 139 mmol/L (137-145)
[2017-01-28] MEDS: CLEOCIN PO SCH ×3 (08:37→21:47)
[2017-01-28] MEDS: TIVICAY (NF) PO SCH (10:12)
[2017-01-28] MEDS: HALFPRIN EC PO SCH (10:12)
[2017-01-28] MEDS: EPIVIR PO SCH (10:13)
[2017-01-28] MEDS: ZIAGEN PO SCH (10:13)
--- NOTE | 2017-01-28 10:59 | Operative Report ---
Operative Report Operative Report: Date of operation: 01/23/2017 Preoperative diagnosis: Left upper back carbuncle Postoperative diagnosis: Same Operation: I&D/debridement of left upper back carbuncle. Surgeon: Brady Saini M.D. Findings: The carbuncle involved an area of approximately 7.5 x 7.5 cm. All of the purulent tracts were sharply debrided. Anesthesia: GETA EBL: 50 mL's There were no complications, drains or specimens. Aerobic and anaerobic cultures as well as cultures for fungus and TB were obtained from the purulent fluid. Description of procedure: Patient was intubated supine on his bed. He was then repositioned prone on the operating room table. His left upper back was prepped and draped in usual sterile manner. I made an incision through the middle of his carbuncle with the cutting current of the cautery. This revealed multiple small abscesses present. In order to get the infection under control, he was deemed necessary to excise all of the individual abscesses and this was accomplished with the Bovie. Once all of the abscesses were excised, hemostasis was obtained with the Bovie. The wound was irrigated with warm saline. The wound was packed open with saline moistened Kerlix roll followed by dry 4 x 4's and Medipore tape. Patient tolerated the procedure well. He was extubated in the operating room and was taken to the PACU in stable condition.
--- NOTE | 2017-01-28 12:41 | Progress Note ---
Assessment and Plan Assessment and plan: Patient is a 56-year-old male with history of HIV, diabetes, hepatitis C, who reports that he recently moved down to [place] 3 months ago and in the last 3 days had noticed a growth on his back which appeared to be draining. It causes significant pain about 10 over 10 in intensity limited his movements and today before he was able to make it to the hospital. He reported some subjective fever at home. He is not sure of what medication he takes he knows that he gets them from a [facility] prior to moving to [place]. He apparently has not been taking these medications. He denies any chest pain, nausea vomiting or diarrhea. He denies any blurry vision. He reports that he has lost significant weight. And is currently being worked up for cancer and has planned follow-up with [place] [facility]. Patient had an I/D of carbuncle, cultures growing MRSA and MSSA, ?contaminate. He also reported scrotal pain and diagnosed with epididymytis. This started prior to admission, he reports that he is not sexually active. His blood sugar remained on controlled but adjusted. He can be discharged once cleared by Urology. He needs close monitoring and also agressive wound care management and this can impair discharge as patient is homeless. -Subscapular abscess S/P I/D of carbuncle- MRSA positive wound cultures. -Epididymitis-left, with Hydrocele -Sepsis secondary to subscapular abscess -Uncontrolled DM -Hyperosmolar hyperglycemic state-Resolved -Bilateral nephrolithiasis -Prurigo Nodularis -Ivrzlj-Adhadaibrxbe-EKEBWDPI -HIV/AIDS -Hepatitis C chronic -Acute cystitis -Severe protein calorie malnutrition PLAN: -check cultures, urine cultures wound care cultures- MRSA in surgical cultures. -Continue IV vancomycin and PO clindamycin -Adjust pain control for better control -Urology consulted, input noted, if no improvement will possibly need orchiectomy. -Twice a day clindamycin monotherapy with aggressive wound management and excellent glycemic control beneficial on discharge. Patient is homeless and this may complicate care. May need to remain on to wound care needs are reduced. -Continue to Adjust insulin with sliding scale For tighter control Increased 70/ 30 to 28 UNITS BID, accucheck -Continue HAART therapy -Continue home medications -Nutrition consult AND INPUT NOTED -pain control -DVT and GI prophylaxis -Plan of care discussed with the patient in detail History Interval history: Patient seen and examined this morning. No further seizure but still with continued tenderness in the testicle area. Denies any cough, fever, nausea vomiting or diarrhea. Reports improvement in the pain of the subscapular area. No other adverse event reported by nursing staff Hospitalist Physical - Physical exam Narrative exam: VITAL SIGNS: Reviewed. GENERAL: The patient appeared markedly cachectic, in no acute distress. Vital signs as documented. HEAD: No signs of head trauma. EYES: Pupils are equal. Extraocular motions intact. EARS: Hearing grossly intact. MOUTH: Oropharynx is normal. NECK: No adenopathy, no JVD. CHEST: Chest with clear breath sounds bilaterally. No wheezes, rales, or rhonchi. CARDIAC: Regular rate and rhythm. S1 and S2, without murmurs, gallops, or rubs. VASCULAR: No Edema. Peripheral pulses normal and equal in all extremities. ABDOMEN: Soft, without detectable tenderness. No sign of distention. No rebound or guarding, and no masses palpated. Bowel Sounds normal. MUSCULOSKELETAL: Good range of motion of all major joints. Extremities without clubbing, cyanosis or edema. NEUROLOGIC EXAM: Alert and oriented x 3. No focal sensory or strength deficits. Speech normal. Follows commands. PSYCHIATRIC: Mood normal. : Tender, no erythema, no drainage. SKIN: WOUND DRESSING IN PLACE. NO overt drainage permeating the wound - Constitutional Vitals: Temp Pulse Resp BP Pulse Ox 97.1 F L 84 16 137/79 97 01/28/17 07:30 01/28/17 07:30 01/28/17 07:30 01/28/17 07:30 01/28/17 07:30 General appearance: Present: no acute distress, cachectic, other (non-toxic appearance) Results - Labs CBC & Chem 7: 01/28/17 06:13 01/28/17 06:13 Labs: Laboratory Last Values WBC 4.3 K/mm3 (4.5-11.0) L 01/28/17 06:13 RBC 3.12 M/mm3 (3.65-5.03) L 01/28/17 06:13 Hgb 9.7 gm/dl (11.8-15.2) L 01/28/17 06:13 Hct 28.1 % (35.5-45.6) L 01/28/17 06:13 MCV 90 fl (84-94) 01/28/17 06:13 MCH 31 pg (28-32) 01/28/17 06:13 MCHC 35 % (32-34) H 01/28/17 06:13 RDW 12.9 % (13.2-15.2) L 01/28/17 06:13 Plt Count 145 K/mm3 (140-440) 01/28/17 06:13 Lymph % (Auto) 14.3 % (13.4-35.0) 01/23/17 07:26 [place] % (Auto) 7.4 % (0.0-7.3) H 01/23/17 07:26 Eos % (Auto) 0.9 % (0.0-4.3) 01/23/17 07:26 Baso % (Auto) 0.3 % (0.0-1.8) 01/23/17 07:26 Lymph # 1.3 K/mm3 (1.2-5.4) 01/23/17 07:26 [place] # 0.7 K/mm3 (0.0-0.8) 01/23/17 07:26 Eos # 0.1 K/mm3 (0.0-0.4) 01/23/17 07:26 Baso # 0.0 K/mm3 (0.0-0.1) 01/23/17 07:26 Seg Neutrophils % 77.1 % (40.0-70.0) H 01/23/17 07:26 Seg Neutrophils # 6.8 K/mm3 (1.8-7.7) 01/23/17 07:26 Abs Lymphs (Manual) 845 cells/uL (850-3900) L 01/22/17 09:35 PT 14.5 Sec. (12.2-14.9) 01/22/17 09:44 INR 1.07 (0.87-1.13) 01/22/17 09:44 APTT 29.0 Sec. (24.2-36.6) 01/22/17 09:44 VBG pH 7.371 (7.320-7.420) 01/21/17 18:11 Sodium 139 mmol/L (137-145) 01/28/17 06:13 Potassium 4.2 mmol/L (3.6-5.0) 01/28/17 06:13 Chloride 100.7 mmol/L (98-107) 01/28/17 06:13 Carbon Dioxide 23 mmol/L (22-30) 01/28/17 06:13 Anion Gap 20 mmol/L 01/28/17 06:13 BUN 8 mg/dL (9-20) L 01/28/17 06:13 Creatinine 0.6 mg/dL (0.8-1.5) L 01/28/17 06:13 Estimated GFR > 60 ml/min 01/28/17 06:13 BUN/Creatinine Ratio 13.33 % 01/28/17 06:13 Glucose 286 mg/dL (75-100) H 01/28/17 06:13 POC Glucose 295 (70-105) H 01/28/17 06:26 Ketones Quantitative Negative (Negative) 01/22/17 09:43 Lactic Acid 1.20 mmol/L (0.7-2.0) 01/22/17 18:25 Calcium 8.3 mg/dL (8.4-10.2) L 01/28/17 06:13 Magnesium 1.80 mg/dL (1.7-2.3) 01/22/17 09:43 Total Bilirubin 0.70 mg/dL (0.1-1.2) 01/22/17 09:43 Direct Bilirubin 0.4 mg/dL (0-0.2) H 01/22/17 09:43 Indirect Bilirubin 0.3 mg/dL 01/22/17 09:43 AST 32 units/L (5-40) 01/22/17 09:43 ALT 34 units/L (7-56) 01/22/17 09:43 Alkaline Phosphatase 101 units/L (35-129) 01/22/17 09:43 Total Protein 8.4 g/dL (6.3-8.2) H 01/22/17 09:43 Albumin 3.5 g/dL (3.9-5) L 01/22/17 09:43 Albumin/Globulin Ratio 0.7 % 01/22/17 09:43 Urine Color Yellow (Yellow) 01/21/17 18:36 Urine Turbidity Clear (Clear) 01/21/17 18:36 Urine pH 6.0 (5.0-7.0) 01/21/17 18:36 Ur Specific [place] 1.026 (1.003-1.030) 01/21/17 18:36 Urine Protein <15 mg/dl mg/dL (Negative) 01/21/17 18:36 Urine Glucose (UA) >=500 mg/dL (Negative) 01/21/17 18:36 Urine Ketones Neg mg/dL (Negative) 01/21/17 18:36 Urine Blood Lg (Negative) 01/21/17 18:36 Urine Nitrite Pos (Negative) 01/21/17 18:36 Urine Bilirubin Neg (Negative) 01/21/17 18:36 Urine Urobilinogen 2.0 mg/dL (<2.0) 01/21/17 18:36 Ur Leukocyte Esterase Mod (Negative) 01/21/17 18:36 Urine WBC (Auto) 35.0 /HPF (0.0-6.0) H 01/21/17 18:36 Urine RBC (Auto) 2.0 /HPF (0.0-6.0) 01/21/17 18:36 Urine Mucus Few /HPF 01/21/17 18:36 Vancomycin Trough 12.9 ug/mL (5.0-20.0) 01/25/17 16:04 Lymph Enumerat CD4/CD8 1.35 (0.86-5.00) 01/22/17 09:35 % CD3 Cells 86 % (57-85) H 01/22/17 09:35 Absolute CD3 Count 730 cells/uL (840-3060) L 01/22/17 09:35 % CD4 Cells 51 % (30-61) 01/22/17 09:35 Absolute CD4 Count 418 cells/uL (490-1740) L 01/22/17 09:35 % CD8 Cells 38 % (12-42) 01/22/17 09:35 Absolute CD8 Count 310 cells/uL (180-1170) 01/22/17 09:35 % CD19 Cells 9 % (6-29) 01/22/17 09:35 Absolute CD19 Count 78 cells/uL (110-660) L 01/22/17 09:35 Blood Type A POSITIVE 01/22/17 10:55 Antibody Screen TNR 01/22/17 10:55 CHARLI Antibody Screen Negative 01/22/17 10:55
[2017-01-29] MEDS: NACL 0.9% 1000 ML 1,000 ML IV SCH (01:06)
[2017-01-29] MEDS: VANCOMYCIN 1,250 MG in NACL 0.9% 250ML 250 ML IV SCH ×3 (01:08→17:57)
[2017-01-29] MEDS: PERCOCET 5/325 PO PRN ×3 (01:12→18:07)
[2017-01-29] MEDS: HEPARIN SUB-Q SCH ×2 (05:30→13:10)
[2017-01-29] MEDS: MORPHINE IV PRN ×4 (05:30→20:56)
[2017-01-29] MEDS: NEURONTIN PO SCH ×3 (05:30→22:05)
[2017-01-29 06:07] LABS: Hemoglobin 10.5 gm/dl (11.8-15.2); Mean Corpuscular HGB Conc 34 % (32-34); Mean Corpuscular Hemoglobin 32 pg (28-32); Mean Corpuscular Volume 93 fl (84-94); Platelet Count 163 K/mm3 (140-440); Red Blood Count 3.35 M/mm3 (3.65-5.03); Red Cell Distribution Width 13.5 % (13.2-15.2); White Blood Count 5.4 K/mm3 (4.5-11.0)
[2017-01-29 06:10] LABS: BUN/Creatinine Ratio 11.33; Calcium 8.8 mg/dL (8.4-10.2); Potassium 4.5 mmol/L (3.6-5.0)
[2017-01-29] MEDS: CLEOCIN PO SCH ×3 (08:06→20:56)
[2017-01-29] MEDS: HALFPRIN EC PO SCH (10:05)
[2017-01-29] MEDS: ZIAGEN PO SCH (10:05)
[2017-01-29] MEDS: TIVICAY (NF) PO SCH (10:05)
[2017-01-29] MEDS: EPIVIR PO SCH (10:06)
--- NOTE | 2017-01-29 12:30 | Progress Note ---
Assessment and Plan Assessment and plan: Sepsis secondary to an infection -Patient is on antibiotics -Resolving Scapular abscess status post incision and drainage, MRSA positive wound culture -Continue his antibiotics Left Epididymitis, with hydrocele, bilateral nephrolithiasis - Patient showed improvement with IV antibiotics - Urology consulted, follow his recommendation Uncontrolled diabetes mellitus - Patient is on insulin, will adjust as needed HIV/AIDS with -Continue his his medications Chronic hep C - We'll advise him to have follow-up as an outpatient Seeded protein energy malnutrition - Nutrition consult appreciated DVT prophylaxis Plan of care discussed with the patient. History Interval history: Patient was seen and evaluated this morning, patient denied fever, the swelling in his testicle getting better. Hospitalist Physical - Physical exam Narrative exam: Not in cardiopulmonary distress. The patient appeared cachectic, chronically sick-looking. Vital signs as documented. Head exam is unremarkable. No scleral icterus . Neck is without jugular venous distension, thyromegaly, or carotid bruits. Lungs are clear to auscultation. Cardiac exam reveals regular rate and Rhythm. First and second heart sounds normal. No murmurs, rubs or gallops. Abdominal exam reveals normal bowel sounds, no masses, no organomegaly and no aortic enlargement. Extremities are nonedematous and both femoral and pedal pulses are normal. LUCINA: swlling of the left testis, tender to touch. Skin: Status post incision and drainage of abscess on the left subscapular area. Clean dressing. FREIGHT MANAGER: Alert and oriented 3. No focal weakness. - Constitutional Vitals: Temp Pulse Resp BP Pulse Ox 99.8 F H 85 20 146/70 98 01/29/17 08:00 01/29/17 08:00 01/29/17 08:00 01/29/17 08:00 01/29/17 08:00 General appearance: Present: no acute distress, cachectic, other (non-toxic appearance) Results - Labs CBC & Chem 7: 01/29/17 05:09 01/29/17 05:09 Labs: Laboratory Last Values WBC 5.4 K/mm3 (4.5-11.0) 01/29/17 05:09 RBC 3.35 M/mm3 (3.65-5.03) L 01/29/17 05:09 Hgb 10.5 gm/dl (11.8-15.2) L 01/29/17 05:09 Hct 31.0 % (35.5-45.6) L 01/29/17 05:09 MCV 93 fl (84-94) D 01/29/17 05:09 MCH 32 pg (28-32) 01/29/17 05:09 MCHC 34 % (32-34) 01/29/17 05:09 RDW 13.5 % (13.2-15.2) 01/29/17 05:09 Plt Count 163 K/mm3 (140-440) 01/29/17 05:09 Lymph % (Auto) 14.3 % (13.4-35.0) 01/23/17 07:26 [place] % (Auto) 7.4 % (0.0-7.3) H 01/23/17 07:26 Eos % (Auto) 0.9 % (0.0-4.3) 01/23/17 07:26 Baso % (Auto) 0.3 % (0.0-1.8) 01/23/17 07:26 Lymph # 1.3 K/mm3 (1.2-5.4) 01/23/17 07:26 [place] # 0.7 K/mm3 (0.0-0.8) 01/23/17 07:26 Eos # 0.1 K/mm3 (0.0-0.4) 01/23/17 07:26 Baso # 0.0 K/mm3 (0.0-0.1) 01/23/17 07:26 Seg Neutrophils % 77.1 % (40.0-70.0) H 01/23/17 07:26 Seg Neutrophils # 6.8 K/mm3 (1.8-7.7) 01/23/17 07:26 Abs Lymphs (Manual) 845 cells/uL (850-3900) L 01/22/17 09:35 PT 14.5 Sec. (12.2-14.9) 01/22/17 09:44 INR 1.07 (0.87-1.13) 01/22/17 09:44 APTT 29.0 Sec. (24.2-36.6) 01/22/17 09:44 VBG pH 7.371 (7.320-7.420) 01/21/17 18:11 Sodium 136 mmol/L (137-145) L 01/29/17 05:09 Potassium 4.5 mmol/L (3.6-5.0) 01/29/17 05:09 Chloride 98.0 mmol/L (98-107) 01/29/17 05:09 Carbon Dioxide 26 mmol/L (22-30) 01/29/17 05:09 Anion Gap 17 mmol/L 01/29/17 05:09 BUN 17 mg/dL (9-20) 01/29/17 05:09 Creatinine 1.5 mg/dL (0.8-1.5) D 01/29/17 05:09 Estimated GFR 59 ml/min 01/29/17 05:09 BUN/Creatinine Ratio 11.33 % 01/29/17 05:09 Glucose 298 mg/dL (75-100) H 01/29/17 05:09 POC Glucose 149 (70-105) H 01/29/17 12:16 Ketones Quantitative Negative (Negative) 01/22/17 09:43 Lactic Acid 1.20 mmol/L (0.7-2.0) 01/22/17 18:25 Calcium 8.8 mg/dL (8.4-10.2) 01/29/17 05:09 Magnesium 1.80 mg/dL (1.7-2.3) 01/22/17 09:43 Total Bilirubin 0.70 mg/dL (0.1-1.2) 01/22/17 09:43 Direct Bilirubin 0.4 mg/dL (0-0.2) H 01/22/17 09:43 Indirect Bilirubin 0.3 mg/dL 01/22/17 09:43 AST 32 units/L (5-40) 01/22/17 09:43 ALT 34 units/L (7-56) 01/22/17 09:43 Alkaline Phosphatase 101 units/L (35-129) 01/22/17 09:43 Total Protein 8.4 g/dL (6.3-8.2) H 01/22/17 09:43 Albumin 3.5 g/dL (3.9-5) L 01/22/17 09:43 Albumin/Globulin Ratio 0.7 % 01/22/17 09:43 Urine Color Yellow (Yellow) 01/21/17 18:36 Urine Turbidity Clear (Clear) 01/21/17 18:36 Urine pH 6.0 (5.0-7.0) 01/21/17 18:36 Ur Specific [place] 1.026 (1.003-1.030) 01/21/17 18:36 Urine Protein <15 mg/dl mg/dL (Negative) 01/21/17 18:36 Urine Glucose (UA) >=500 mg/dL (Negative) 01/21/17 18:36 Urine Ketones Neg mg/dL (Negative) 01/21/17 18:36 Urine Blood Lg (Negative) 01/21/17 18:36 Urine Nitrite Pos (Negative) 01/21/17 18:36 Urine Bilirubin Neg (Negative) 01/21/17 18:36 Urine Urobilinogen 2.0 mg/dL (<2.0) 01/21/17 18:36 Ur Leukocyte Esterase Mod (Negative) 01/21/17 18:36 Urine WBC (Auto) 35.0 /HPF (0.0-6.0) H 01/21/17 18:36 Urine RBC (Auto) 2.0 /HPF (0.0-6.0) 01/21/17 18:36 Urine Mucus Few /HPF 01/21/17 18:36 Vancomycin Trough 12.9 ug/mL (5.0-20.0) 01/25/17 16:04 Lymph Enumerat CD4/CD8 1.35 (0.86-5.00) 01/22/17 09:35 % CD3 Cells 86 % (57-85) H 01/22/17 09:35 Absolute CD3 Count 730 cells/uL (840-3060) L 01/22/17 09:35 % CD4 Cells 51 % (30-61) 01/22/17 09:35 Absolute CD4 Count 418 cells/uL (490-1740) L 01/22/17 09:35 % CD8 Cells 38 % (12-42) 01/22/17 09:35 Absolute CD8 Count 310 cells/uL (180-1170) 01/22/17 09:35 % CD19 Cells 9 % (6-29) 01/22/17 09:35 Absolute CD19 Count 78 cells/uL (110-660) L 01/22/17 09:35 Blood Type A POSITIVE 01/22/17 10:55 Antibody Screen TNR 01/22/17 10:55 CHARLI Antibody Screen Negative 01/22/17 10:55
[2017-01-29] MEDS: TYLENOL PO PRN (16:45)
[2017-01-30] MEDS: HEPARIN SUB-Q SCH ×4 (00:13→21:29)
[2017-01-30] MEDS: PERCOCET 5/325 PO PRN ×3 (00:42→17:28)
[2017-01-30] MEDS: NACL 0.9% 1000 ML 1,000 ML IV SCH (00:43)
[2017-01-30] MEDS: VANCOMYCIN 1,250 MG in NACL 0.9% 250ML 250 ML IV SCH (04:11)
[2017-01-30] MEDS: MORPHINE IV PRN ×4 (04:40→20:49)
[2017-01-30 05:32] LABS: Basophils % (Auto) 0.8 % (0.0-1.8); Eosinophils % (Auto) 1.2 % (0.0-4.3); Hematocrit 30.3 % (35.5-45.6); Hemoglobin 10.3 gm/dl (11.8-15.2); Mean Corpuscular HGB Conc 34 % (32-34); Mean Corpuscular Hemoglobin 31 pg (28-32); Mean Corpuscular Volume 92 fl (84-94); Platelet Count 137 K/mm3 (140-440); Red Blood Count 3.29 M/mm3 (3.65-5.03); Red Cell Distribution Width 13.7 % (13.2-15.2); White Blood Count 4.2 K/mm3 (4.5-11.0)
[2017-01-30 05:56] LABS: Albumin 2.8 g/dL (3.9-5); Albumin/Globulin Ratio 0.7 %; BUN/Creatinine Ratio 12.77; Bilirubin,Total 0.3 mg/dL (0.1-1.2); Calcium 8.7 mg/dL (8.4-10.2); Chloride 99.5 mmol/L (98-107); Potassium 4.9 mmol/L (3.6-5.0); Total Protein 7.1 g/dL (6.3-8.2)
[2017-01-30] MEDS: CLEOCIN PO SCH ×3 (08:42→20:48)
[2017-01-30] MEDS: NEURONTIN PO SCH ×3 (08:42→21:31)
[2017-01-30] MEDS: HALFPRIN EC PO SCH ×2 (08:42→10:28)
[2017-01-30] MEDS: EPIVIR PO SCH (10:52)
[2017-01-30] MEDS: ZIAGEN PO SCH (10:53)
[2017-01-30] MEDS: PEPCID PO SCH (10:53)
[2017-01-30] MEDS: TIVICAY (NF) PO SCH (10:53)
[2017-01-30 11:29] LABS: Bacteria,Urine 1+ /HPF (Negative); Bilirubin,Urine NEG (Negative); Blood,Urine NEG (Negative); Ketones,Urine NEG (Negative); Leukocyte Esterase,Urine NEG (Negative); Nitrite,Urine NEG (Negative); Protein,Urine <15 mg/dL mg/dL (Negative); Urobilinogen,Urine < 2.0 mg/dL (<2.0)
--- NOTE | 2017-01-30 12:26 | Progress Note ---
Assessment and Plan Assessment and plan: Sepsis secondary to an infection -Patient is on IV vancomycin and currently held because of high vanc trough -Patient has fever and repeat blood cultures pending, UA, will adjust the medications based on the results. Scapular abscess status post incision and drainage, MRSA positive wound culture -Continue clindamycin, will restart vancomycin when the vancomycin trough went down to normal Left Epididymitis, with hydrocele, bilateral nephrolithiasis - Patient showed improvement with IV antibiotics - Urology consulted, follow his recommendation Uncontrolled diabetes mellitus - Patient is on insulin, will adjust as needed HIV/AIDS with -Continue his his medications Chronic hep C - Needs follow-up as an outpatient Severe protein energy malnutrition - Nutrition consult appreciated and input implemented Acute kidney injury -Likely from medication, patient is on IV fluid and advised to increase his fluid intake DVT prophylaxis - Heparin Plan of care discussed with the patient. History Interval history: Patient was seen and evaluated this morning, patient denied fever, the swelling in his testicle getting better. Patient is complaining severe pain in the testis and back. Hospitalist Physical - Physical exam Narrative exam: Not in cardiopulmonary distress. The patient appeared cachectic, chronically sick-looking. Vital signs as documented. Head exam is unremarkable. No scleral icterus . Neck is without jugular venous distension, thyromegaly, or carotid bruits. Lungs are clear to auscultation. Cardiac exam reveals regular rate and Rhythm. First and second heart sounds normal. No murmurs, rubs or gallops. Abdominal exam reveals normal bowel sounds, no masses, no organomegaly and no aortic enlargement. Extremities are nonedematous and both femoral and pedal pulses are normal. LUCINA: swelling of the left testis, tender to touch. Skin: Status post incision and drainage of abscess on the left subscapular area. Clean dressing. No discharge from the wound. HAND QUILTER: Alert and oriented 3. No focal weakness. - Constitutional Vitals: Temp Pulse Resp BP Pulse Ox 99.0 F 86 18 125/72 97 01/30/17 09:47 01/30/17 09:47 01/30/17 09:47 01/30/17 09:47 01/29/17 23:10 General appearance: Present: no acute distress, cachectic, other (non-toxic appearance) Results - Labs CBC & Chem 7: 01/30/17 04:56 01/30/17 04:56 Labs: Laboratory Last Values WBC 4.2 K/mm3 (4.5-11.0) L 01/30/17 04:56 RBC 3.29 M/mm3 (3.65-5.03) L 01/30/17 04:56 Hgb 10.3 gm/dl (11.8-15.2) L 01/30/17 04:56 Hct 30.3 % (35.5-45.6) L 01/30/17 04:56 MCV 92 fl (84-94) 01/30/17 04:56 MCH 31 pg (28-32) 01/30/17 04:56 MCHC 34 % (32-34) 01/30/17 04:56 RDW 13.7 % (13.2-15.2) 01/30/17 04:56 Plt Count 137 K/mm3 (140-440) L 01/30/17 04:56 Lymph % (Auto) 18.5 % (13.4-35.0) 01/30/17 04:56 [place] % (Auto) 9.9 % (0.0-7.3) H 01/30/17 04:56 Eos % (Auto) 1.2 % (0.0-4.3) 01/30/17 04:56 Baso % (Auto) 0.8 % (0.0-1.8) 01/30/17 04:56 Lymph # 0.8 K/mm3 (1.2-5.4) L 01/30/17 04:56 [place] # 0.4 K/mm3 (0.0-0.8) 01/30/17 04:56 Eos # 0.1 K/mm3 (0.0-0.4) 01/30/17 04:56 Baso # 0.0 K/mm3 (0.0-0.1) 01/30/17 04:56 Seg Neutrophils % 69.6 % (40.0-70.0) 01/30/17 04:56 Seg Neutrophils # 2.9 K/mm3 (1.8-7.7) 01/30/17 04:56 Abs Lymphs (Manual) 845 cells/uL (850-3900) L 01/22/17 09:35 PT 14.5 Sec. (12.2-14.9) 01/22/17 09:44 INR 1.07 (0.87-1.13) 01/22/17 09:44 APTT 29.0 Sec. (24.2-36.6) 01/22/17 09:44 VBG pH 7.371 (7.320-7.420) 01/21/17 18:11 Sodium 137 mmol/L (137-145) 01/30/17 04:56 Potassium 4.9 mmol/L (3.6-5.0) 01/30/17 04:56 Chloride 99.5 mmol/L (98-107) 01/30/17 04:56 Carbon Dioxide 26 mmol/L (22-30) 01/30/17 04:56 Anion Gap 16 mmol/L 01/30/17 04:56 BUN 23 mg/dL (9-20) H 01/30/17 04:56 Creatinine 1.8 mg/dL (0.8-1.5) H 01/30/17 04:56 Estimated GFR 47 ml/min 01/30/17 04:56 BUN/Creatinine Ratio 12.77 % 01/30/17 04:56 Glucose 218 mg/dL (75-100) H 01/30/17 04:56 POC Glucose 386 (70-105) H 01/30/17 06:56 Ketones Quantitative Negative (Negative) 01/22/17 09:43 Lactic Acid 1.20 mmol/L (0.7-2.0) 01/22/17 18:25 Calcium 8.7 mg/dL (8.4-10.2) 01/30/17 04:56 Magnesium 1.80 mg/dL (1.7-2.3) 01/22/17 09:43 Total Bilirubin 0.30 mg/dL (0.1-1.2) 01/30/17 04:56 Direct Bilirubin 0.4 mg/dL (0-0.2) H 01/22/17 09:43 Indirect Bilirubin 0.3 mg/dL 01/22/17 09:43 AST 43 units/L (5-40) H 01/30/17 04:56 ALT 25 units/L (7-56) 01/30/17 04:56 Alkaline Phosphatase 104 units/L (35-129) 01/30/17 04:56 Total Protein 7.1 g/dL (6.3-8.2) 01/30/17 04:56 Albumin 2.8 g/dL (3.9-5) L 01/30/17 04:56 Albumin/Globulin Ratio 0.7 % 01/30/17 04:56 Urine Color [place] (Yellow) 01/30/17 11:00 Urine Turbidity Clear (Clear) 01/30/17 11:00 Urine pH 6.0 (5.0-7.0) 01/30/17 11:00 Ur Specific [place] 1.007 (1.003-1.030) 01/30/17 11:00 Urine Protein <15 mg/dl mg/dL (Negative) 01/30/17 11:00 Urine Glucose (UA) >=500 mg/dL (Negative) 01/30/17 11:00 Urine Ketones Neg mg/dL (Negative) 01/30/17 11:00 Urine Blood Neg (Negative) 01/30/17 11:00 Urine Nitrite Neg (Negative) 01/30/17 11:00 Urine Bilirubin Neg (Negative) 01/30/17 11:00 Urine Urobilinogen < 2.0 mg/dL (<2.0) 01/30/17 11:00 Ur Leukocyte Esterase Neg (Negative) 01/30/17 11:00 Urine WBC (Auto) 2.0 /HPF (0.0-6.0) 01/30/17 11:00 Urine RBC (Auto) 3.0 /HPF (0.0-6.0) 01/30/17 11:00 Urine Bacteria (Auto) 1+ /HPF (Negative) 01/30/17 11:00 Urine Mucus Few /HPF 01/21/17 18:36 Vancomycin Trough 49.4 ug/mL (5.0-20.0) H 01/29/17 15:51 Lymph Enumerat CD4/CD8 1.35 (0.86-5.00) 01/22/17 09:35 % CD3 Cells 86 % (57-85) H 01/22/17 09:35 Absolute CD3 Count 730 cells/uL (840-3060) L 01/22/17 09:35 % CD4 Cells 51 % (30-61) 01/22/17 09:35 Absolute CD4 Count 418 cells/uL (490-1740) L 01/22/17 09:35 % CD8 Cells 38 % (12-42) 01/22/17 09:35 Absolute CD8 Count 310 cells/uL (180-1170) 01/22/17 09:35 % CD19 Cells 9 % (6-29) 01/22/17 09:35 Absolute CD19 Count 78 cells/uL (110-660) L 01/22/17 09:35 Blood Type A POSITIVE 01/22/17 10:55 Antibody Screen TNR 01/22/17 10:55 CHARLI Antibody Screen Negative 01/22/17 10:55 Cr increased from 1.5 to 1.8
[2017-01-30] MEDS: TYLENOL PO PRN (22:39)
[2017-01-31] MEDS: NACL 0.9% 1000 ML 1,000 ML IV SCH ×2 (01:29→15:34)
[2017-01-31] MEDS: MORPHINE IV PRN ×5 (01:39→21:22)
[2017-01-31] MEDS: HEPARIN SUB-Q SCH ×3 (06:09→21:42)
[2017-01-31] MEDS: NEURONTIN PO SCH ×3 (06:09→21:23)
[2017-01-31] MEDS: PERCOCET 5/325 PO PRN ×2 (06:09→18:47)
[2017-01-31 06:17] LABS: Basophils % (Auto) 0.5 % (0.0-1.8); Eosinophils % (Auto) 1.3 % (0.0-4.3); Hematocrit 27.6 % (35.5-45.6); Hemoglobin 9.2 gm/dl (11.8-15.2); Mean Corpuscular HGB Conc 33 % (32-34); Mean Corpuscular Hemoglobin 31 pg (28-32); Mean Corpuscular Volume 93 fl (84-94); Platelet Count 132 K/mm3 (140-440); Red Blood Count 2.98 M/mm3 (3.65-5.03); Red Cell Distribution Width 13.8 % (13.2-15.2); White Blood Count 3.9 K/mm3 (4.5-11.0)
[2017-01-31 06:43] LABS: BUN/Creatinine Ratio 9.09; Calcium 8.1 mg/dL (8.4-10.2); Chloride 100.7 mmol/L (98-107); Potassium 4.9 mmol/L (3.6-5.0)
[2017-01-31] MEDS: HALFPRIN EC PO SCH (10:49)
[2017-01-31] MEDS: TIVICAY (NF) PO SCH (10:49)
[2017-01-31] MEDS: CLEOCIN PO SCH ×2 (10:49→14:15)
[2017-01-31] MEDS: PEPCID PO SCH (10:50)
[2017-01-31] MEDS: ZIAGEN PO SCH (10:50)
[2017-01-31] MEDS: EPIVIR PO SCH (10:50)
--- NOTE | 2017-01-31 11:10 | Consultation ---
History of Present Illness - History of Present Illness Thank you for consultation Patient was evaluated today Acute kidney injury in a patient who has multiple risk factors for underlying chronic kidney disease; needs further workup follow-up etiology of renal failure appears to be multifactorial given the timeframe appears very likely resulting from radiocontrast nephropathy Laurie still may have underlying chronic kidney disease, currently does have vancomycin toxicity Urinalysis did not show any white cells or any significant proteinuria/will check urine for eosinophils Vancomycin toxicity random level okay trough level was 49 Medical management with IV hydration follow-up of electrolytes avoid any form of nephrotoxic medications, renal ultrasonogram and labs will be ordered My assessment and recommendations are as follows admission creatinine was 0.9 sodium 128 with a blood sugar of 634 Poorly controlled diabetezs/admitted with sepsis-like picture currently on vancomycin has high trough levels; likely has vancomycin toxicity Hepatitis C: We'll check and follow-up with gastroenterology/ hepatology Protein calorie malnutrition multifactorial; albumin being an acute phase reactant can drop quickly consider checking prealbumin and follow dietitian evaluation recommended Bilateral nephrolithiasis, epididymitis, hydrocele to follow up with urology Educated about renal related questions all answered History of colon HIV, diabetes, hepatitis C We'll continue to follow and make recommendation from renal standpoint Past History Past Medical History: diabetes, hepatitis (c), HIV/AIDS, other (Hepatitis c) Past Surgical History: No surgical history Social history: smoking, other Family history: no significant family history Medications and Allergies Allergies Allergy/AdvReac Type Severity Reaction Status Date / Time No Known Allergies Allergy Unverified 12/14/16 03:43 Home Medications Medication Instructions Recorded Confirmed Last Taken Type Insulin Lispro [HumaLOG VIAL] 1 dose SQ AC #1 vial 12/17/16 01/22/17 01/20/17 Rx Insulin NPH/Regular [Novolin 70/30] 10 unit SUB-Q Q12H #100 units 12/17/1601/2201/20/17 Rx Abacavir/Dolutegravir/Lamivudi 1 each PO DAILY 01/22/17 01/22/17 01/20/17 History [Triumeq Tablet] Aspirin [Adult Low Dose Aspirin EC] 81 mg PO DAILY 01/22/17 01/22/17 01/20/17 History Gabapentin [Neurontin] 400 mg PO Q8HR 01/22/17 01/22/17 01/20/17 History Active Meds: Active Medications Abacavir Sulfate (Ziagen) 600 mg PO QDAY [facility] Last Admin: 01/31/17 10:50 Dose: 600 mg Acetaminophen (Tylenol) 650 mg PO Q4H PRN PRN Reason: Pain MILD(1-3)/Fever >100.5/DUNN Last Admin: 01/30/17 22:39 Dose: 650 mg Aspirin (Halfprin Ec) 81 mg PO DAILY [facility] Last Admin: 01/31/17 10:49 Dose: 81 mg Bisacodyl (Dulcolax) 10 mg OR QDAY PRN PRN Reason: Constipation unrelieved by MOM Clindamycin HCl (Cleocin) 300 mg PO TID [facility] Last Admin: 01/31/17 10:49 Dose: 300 mg Dextrose (D50w (25gm)) 50 ml IV PRN PRN PRN Reason: Hypoglycemia Diphenhydramine HCl (Benadryl) 25 mg IV Q8H PRN PRN Reason: Itching Last Admin: 01/23/17 09:52 Dose: 25 mg Famotidine (Pepcid) 20 mg PO QDAY [facility] Last Admin: 01/31/17 10:50 Dose: 20 mg Gabapentin (Neurontin) 400 mg PO Q8HR [facility] Last Admin: 01/31/17 06:09 Dose: 400 mg Heparin Sodium (Porcine) (Heparin) 5,000 unit SUB-Q Q8HR [facility] Last Admin: 01/31/17 06:09 Dose: Not Given Sodium Chloride (Nacl 0.9% 1000 Ml) 1,000 mls @ 75 mls/hr IV DIRECT [facility] Last Admin: 01/31/17 01:29 Dose: 75 mls/hr Insulin Human Isoph/Insulin Regular (Novolin 70/30) 22 unit SUB-Q BIDDIAB [facility] Last Admin: 01/31/17 08:31 Dose: 22 unit Insulin Human Regular (Novolin R) 0 units SUB-Q ACHS [facility] PRN Reason: Protocol Last Admin: 01/31/17 08:31 Dose: 4 units Lamivudine (Epivir) 300 mg PO QDAY [facility] Last Admin: 01/31/17 10:50 Dose: 300 mg Magnesium Hydroxide (Milk Of Magnesia) 30 ml PO Q4H PRN PRN Reason: Constipation Morphine Sulfate (Morphine) 3 mg IV Q4H PRN PRN Reason: Pain , Severe (7-10) Last Admin: 01/31/17 08:17 Dose: 3 mg Ondansetron HCl (Zofran) 4 mg IV Q8H PRN PRN Reason: N/V unrelieved by Len Last Admin: 01/26/17 21:54 Dose: 4 mg Oxycodone/Acetaminophen (Percocet 5/325) 2 tab PO Q6H PRN PRN Reason: Pain, Moderate (4-6) Last Admin: 01/31/17 06:09 Dose: 2 tab Vancomycin HCl (Vancomycin Pharmacy To Dose) 1 each IV PKCONSULT LANCE PRN Reason: Protocol Exam - Vital Signs Vital signs: Vital Signs Temp Pulse Resp BP Pulse Ox 99.8 F H 105 H 18 111/79 97 01/21/17 16:30 01/21/17 16:30 01/21/17 16:30 01/21/17 16:30 01/21/17 16:30 Results - Lab Results 01/31/17 05:20 01/31/17 05:20 Most recent lab results Calcium 8.1 mg/dL (8.4-10.2) L 01/31/17 05:20 Magnesium 1.80 mg/dL (1.7-2.3) 01/22/17 09:43
[2017-01-31 12:57] LABS: Uric Acid 4.6 mg/dL (3.5-7.6)
[2017-01-31] MEDS: TYLENOL PO PRN (14:18)
--- NOTE | 2017-01-31 15:07 | Progress Note ---
Assessment and Plan Assessment and plan: Patient is a 56-year-old man with a history of HIV, diabetes, hepatitis C, who reports that he recently moved down to [place] 3 months ago and he had noticed a growth on his back which appeared to be draining. He is not sure of what medication he takes he knows that he gets them from a [facility] prior to moving to [place]. He apparently has not been taking these medications. He denies any chest pain, nausea vomiting or diarrhea. He denies any blurry vision. He reports that he has lost significant weight. And is currently being worked up for cancer and has planned follow-up with [place] [facility]. Patient had an I /D of carbuncle, cultures growing MRSA and MSSA, ?contaminate. He also reported scrotal pain and diagnosed with epididymytis. This started prior to admission. 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 Vancomycin on hold due to high levels. Patient states he is homeless. History Interval history: Patient seen and examined. Follow up on skin infection. Overnight uneventful. No cp, sob, n/v or severe headaches. Imaging, old records, testing, labs, nursing notes reviewed. Hospitalist Physical - Physical exam Narrative exam: GEN: NAD thin frail, a/o x 3 HEENT: ncat, op moist Neck: no jvd CVS: rrr normal s1s2 Lungs/chest: cta b : circ penis with swelling tender scrotum GI: ntnd soft gbs Ext/Skin: from x 4 ext. upper back with large crater but good margin and no pus seen, good granulation tissue and edges. psy: calm Neuro: cn 2-12 grossly intact, nonfocal - Constitutional Vitals: Temp Pulse Resp BP Pulse Ox 100.0 F H 80 18 148/72 100 07/21/17 08:00 01/31/17 08:00 01/31/17 08:00 01/31/17 08:00 01/31/17 08:00 General appearance: Present: no acute distress, cachectic Results - Labs CBC & Chem 7: 01/31/17 05:20 01/31/17 05:20 Labs: Laboratory Last Values WBC 3.9 K/mm3 (4.5-11.0) L 01/31/17 05:20 RBC 2.98 M/mm3 (3.65-5.03) L 01/31/17 05:20 Hgb 9.2 gm/dl (11.8-15.2) L 01/31/17 05:20 Hct 27.6 % (35.5-45.6) L 01/31/17 05:20 MCV 93 fl (84-94) 01/31/17 05:20 MCH 31 pg (28-32) 01/31/17 05:20 MCHC 33 % (32-34) 01/31/17 05:20 RDW 13.8 % (13.2-15.2) 01/31/17 05:20 Plt Count 132 K/mm3 (140-440) L 01/31/17 05:20 Lymph % (Auto) 23.4 % (13.4-35.0) 01/31/17 05:20 [place] % (Auto) 9.4 % (0.0-7.3) H 01/31/17 05:20 Eos % (Auto) 1.3 % (0.0-4.3) 01/31/17 05:20 Baso % (Auto) 0.5 % (0.0-1.8) 01/31/17 05:20 Lymph # 0.9 K/mm3 (1.2-5.4) L 01/31/17 05:20 [place] # 0.4 K/mm3 (0.0-0.8) 01/31/17 05:20 Eos # 0.1 K/mm3 (0.0-0.4) 01/31/17 05:20 Baso # 0.0 K/mm3 (0.0-0.1) 01/31/17 05:20 Seg Neutrophils % 65.4 % (40.0-70.0) 01/31/17 05:20 Seg Neutrophils # 2.5 K/mm3 (1.8-7.7) 01/31/17 05:20 Abs Lymphs (Manual) 845 cells/uL (850-3900) L 01/22/17 09:35 PT 14.5 Sec. (12.2-14.9) 01/22/17 09:44 INR 1.07 (0.87-1.13) 01/22/17 09:44 APTT 29.0 Sec. (24.2-36.6) 01/22/17 09:44 VBG pH 7.371 (7.320-7.420) 01/21/17 18:11 Sodium 135 mmol/L (137-145) L 01/31/17 05:20 Potassium 4.9 mmol/L (3.6-5.0) 01/31/17 05:20 Chloride 100.7 mmol/L (98-107) 01/31/17 05:20 Carbon Dioxide 23 mmol/L (22-30) 01/31/17 05:20 Anion Gap 16 mmol/L 01/31/17 05:20 BUN 20 mg/dL (9-20) 01/31/17 05:20 Creatinine 2.2 mg/dL (0.8-1.5) H 01/31/17 05:20 Estimated GFR 38 ml/min 01/31/17 05:20 BUN/Creatinine Ratio 9.09 % 01/31/17 05:20 Glucose 216 mg/dL (75-100) H 01/31/17 05:20 POC Glucose 137 (70-105) H 01/31/17 12:10 Ketones Quantitative Negative (Negative) 01/22/17 09:43 Osmolality 291 Mosm/kg 01/31/17 12:06 Lactic Acid 1.20 mmol/L (0.7-2.0) 01/22/17 18:25 Uric Acid 4.6 mg/dL (3.5-7.6) 01/31/17 11:58 Calcium 8.1 mg/dL (8.4-10.2) L 01/31/17 05:20 Magnesium 1.80 mg/dL (1.7-2.3) 01/22/17 09:43 Total Bilirubin 0.30 mg/dL (0.1-1.2) 01/30/17 04:56 Direct Bilirubin 0.4 mg/dL (0-0.2) H 01/22/17 09:43 Indirect Bilirubin 0.3 mg/dL 01/22/17 09:43 AST 43 units/L (5-40) H 01/30/17 04:56 ALT 25 units/L (7-56) 01/30/17 04:56 Alkaline Phosphatase 104 units/L (35-129) 01/30/17 04:56 Total Creatine Kinase 60 units/L (55-170) 01/31/17 11:58 Total Protein 7.1 g/dL (6.3-8.2) 01/30/17 04:56 Albumin 2.8 g/dL (3.9-5) L 01/30/17 04:56 Albumin/Globulin Ratio 0.7 % 01/30/17 04:56 Urine Color Straw (Yellow) 01/30/17 11:00 Urine Turbidity Clear (Clear) 01/30/17 11:00 Urine pH 6.0 (5.0-7.0) 01/30/17 11:00 Ur Specific [place] 1.007 (1.003-1.030) 01/30/17 11:00 Urine Protein <15 mg/dl mg/dL (Negative) 01/30/17 11:00 Urine Glucose (UA) >=500 mg/dL (Negative) 01/30/17 11:00 Urine Ketones Neg mg/dL (Negative) 01/30/17 11:00 Urine Blood Neg (Negative) 01/30/17 11:00 Urine Nitrite Neg (Negative) 01/30/17 11:00 Urine Bilirubin Neg (Negative) 01/30/17 11:00 Urine Urobilinogen < 2.0 mg/dL (<2.0) 01/30/17 11:00 Ur Leukocyte Esterase Neg (Negative) 01/30/17 11:00 Urine WBC (Auto) 2.0 /HPF (0.0-6.0) 01/30/17 11:00 Urine RBC (Auto) 3.0 /HPF (0.0-6.0) 01/30/17 11:00 Urine Bacteria (Auto) 1+ /HPF (Negative) 01/30/17 11:00 Urine Mucus Few /HPF 01/21/17 18:36 Vancomycin Trough 49.4 ug/mL (5.0-20.0) H 01/29/17 15:51 Random Vancomycin 19.8 ug/mL (0-40.0) 01/31/17 05:20 Lymph Enumerat CD4/CD8 1.35 (0.86-5.00) 01/22/17 09:35 % CD3 Cells 86 % (57-85) H 01/22/17 09:35 Absolute CD3 Count 730 cells/uL (840-3060) L 01/22/17 09:35 % CD4 Cells 51 % (30-61) 01/22/17 09:35 Absolute CD4 Count 418 cells/uL (490-1740) L 01/22/17 09:35 % CD8 Cells 38 % (12-42) 01/22/17 09:35 Absolute CD8 Count 310 cells/uL (180-1170) 01/22/17 09:35 % CD19 Cells 9 % (6-29) 01/22/17 09:35 Absolute CD19 Count 78 cells/uL (110-660) L 01/22/17 09:35 Blood Type A POSITIVE 01/22/17 10:55 Antibody Screen TNR 01/22/17 10:55 CHARLI Antibody Screen Negative 01/22/17 10:55
[2017-01-31] MEDS ORDERED: VANCOMYCIN/NS 1 GM/250 ML 1 GM/250 ML BAG IV ONE ×2 (22:00)
[2017-02-01] MEDS: TYLENOL PO PRN ×3 (04:57→21:43)
[2017-02-01] MEDS: MORPHINE IV PRN ×4 (04:59→21:47)
[2017-02-01] MEDS: NACL 0.9% 1000 ML 1,000 ML IV SCH ×2 (05:00→18:56)
[2017-02-01] MEDS: NEURONTIN PO SCH ×3 (05:00→21:44)
[2017-02-01] MEDS: HEPARIN SUB-Q SCH (05:04)
[2017-02-01 05:47] LABS: Basophils % (Auto) 0.3 % (0.0-1.8); Hematocrit 30.1 % (35.5-45.6); Hemoglobin 10.1 gm/dl (11.8-15.2); Mean Corpuscular HGB Conc 34 % (32-34); Mean Corpuscular Hemoglobin 31 pg (28-32); Mean Corpuscular Volume 92 fl (84-94); Platelet Count 132 K/mm3 (140-440); Red Blood Count 3.28 M/mm3 (3.65-5.03); Red Cell Distribution Width 13.9 % (13.2-15.2); White Blood Count 5.4 K/mm3 (4.5-11.0)
[2017-02-01 06:26] LABS: BUN/Creatinine Ratio 10.95; Calcium 8.8 mg/dL (8.4-10.2); Chloride 96.2 mmol/L (98-107); Potassium 5.2 mmol/L (3.6-5.0)
--- NOTE | 2017-02-01 08:16 | Progress Note ---
Assessment and Plan - Patient Problems (1) Fever Current Visit: Yes Status: Acute Qualifiers: Fever type: F Encounter type: E Plan to address problem: 1. Will obtain ultrasound of right arm to r/o abscess or thrombophlebitis. 2. Send stool specimen for Cdiff. Clindamycin discontinued yesterday. (2) Abscess of back Current Visit: Yes Status: Acute Plan to address problem: Continue Vancomycin monotherapy and local wound care. Level is presently supratherapeutic. (3) Acute kidney injury Current Visit: Yes Status: Acute Plan to address problem: Renally adjust meds. ARV doses are appropriate for now. (4) HIV (human immunodeficiency virus infection) Current Visit: Yes Status: Acute Plan to address problem: Continue HAART. Subjective Date of service: 02/01/17 Principal diagnosis: left back abscess/ epididymitis Interval history: Patient has had high fevers, up to Tmax 103 deg F. Notes episodes of diarrhea, also right arm pain at IV site. Objective - Constitutional Vitals: Vital Signs Temp Pulse Resp BP Pulse Ox 100.4 F H 90 18 127/76 98 02/01/17 07:00 02/01/17 07:00 02/01/17 07:00 02/01/17 07:00 02/01/17 07:00 Temperature -Last 24 Hours Temperature 100.4 F Temperature 103 F Temperature 100.4 F Temperature 101.4 F General appearance: Present: no acute distress - EENT ENT: no thrush - Neck Neck: supple - Respiratory Respiratory effort: normal Respiratory: bilateral: CTA, negative: rales - Cardiovascular Rhythm: regular Heart Sounds: Present: S1 & S2 Extremity abnormal: edema (over right deltoid at IV site, no fluctuance, no increased warmth, no crepitus), erythema - Gastrointestinal General gastrointestinal: Present: soft, non-tender, non-distended - Integumentary Integumentary: erythema (large, packed wound at left upper back, clean base, no purulence) - Neurologic Neurologic: CNII-XII intact - Psychiatric Psychiatric: appropriate mood/affect - Labs CBC & Chem 7: 02/02/17 05:28 02/02/17 05:28 Labs: Abnormal lab results 01/31/17 01/31/17 01/31/17 Range/Units 12:10 16:37 21:41 RBC (3.65-5.03) M/mm3 Hgb (11.8-15.2) gm/dl Hct (35.5-45.6) % Plt Count (140-440) K/mm3 Lymph # (1.2-5.4) K/mm3 Seg Neutrophils % (40.0-70.0) % Sodium (137-145) mmol/L Potassium (3.6-5.0) mmol/L Chloride (98-107) mmol/L BUN (9-20) mg/dL Creatinine (0.8-1.5) mg/dL Glucose (75-100) mg/dL POC Glucose 137 H 211 H 58 L (70-105) Urine Creatinine (0.1-20.0) mg/dL Urine Total Protein (5-11.8) mg/dL 01/31/17 02/01/17 02/01/17 Range/Units 21:50 04:19 04:19 RBC 3.28 L (3.65-5.03) M/mm3 Hgb 10.1 L (11.8-15.2) gm/dl Hct 30.1 L (35.5-45.6) % Plt Count 132 L (140-440) K/mm3 Lymph # 0.9 L (1.2-5.4) K/mm3 Seg Neutrophils % 75.8 H (40.0-70.0) % Sodium 134 L (137-145) mmol/L Potassium 5.2 H (3.6-5.0) mmol/L Chloride 96.2 L (98-107) mmol/L BUN 23 H (9-20) mg/dL Creatinine 2.1 H (0.8-1.5) mg/dL Glucose 144 H (75-100) mg/dL POC Glucose (70-105) Urine Creatinine 35.3 H (0.1-20.0) mg/dL Urine Total Protein 12 H (5-11.8) mg/dL 02/01/17 Range/Units 06:31 RBC (3.65-5.03) M/mm3 Hgb (11.8-15.2) gm/dl Hct (35.5-45.6) % Plt Count (140-440) K/mm3 Lymph # (1.2-5.4) K/mm3 Seg Neutrophils % (40.0-70.0) % Sodium (137-145) mmol/L Potassium (3.6-5.0) mmol/L Chloride (98-107) mmol/L BUN (9-20) mg/dL Creatinine (0.8-1.5) mg/dL Glucose (75-100) mg/dL POC Glucose 167 H (70-105) Urine Creatinine (0.1-20.0) mg/dL Urine Total Protein (5-11.8) mg/dL Microbiology 01/29/17 17:09 Peripheral/Venous Blood Culture - Preliminary NO GROWTH AFTER 48 HOURS 01/29/17 17:04 Peripheral/Venous Blood Culture - Preliminary NO GROWTH AFTER 48 HOURS 01/23/17 Unknown Back AFB Smear Concentration - Final 01/23/17 Unknown Back Anaerobic Culture - Final 01/21/17 18:11 Peripheral/Venous Blood Culture - Final NO GROWTH AFTER 5 DAYS 01/23/17 Unknown Back Surgical Culture - Final Methicillin Resist S. Aureus 01/23/17 11:00 Back Wound Culture - Final Methicillin Resist S. Aureus 01/21/17 19:33 Peripheral/Venous Blood Culture - Final Staphylococcus Aureus 01/22/17 Unknown Urine,Clean Catch Urine Culture - Final Staphylococcus Aureus 01/22/17 12:05 Back Wound Culture - Final Methicillin Resist S. Aureus
[2017-02-01] MEDS: HALFPRIN EC PO SCH (09:09)
[2017-02-01] MEDS: PEPCID PO SCH (09:09)
[2017-02-01] MEDS: TIVICAY (NF) PO SCH (09:10)
[2017-02-01] MEDS: EPIVIR PO SCH (09:10)
[2017-02-01] MEDS: ZIAGEN PO SCH (09:11)
[2017-02-01] MEDS ORDERED: NON-FORMULARY (Dolutegravir 50 MG) PO SCH (10:00)
--- NOTE | 2017-02-01 11:17 | Progress Note ---
Subjective Principal diagnosis: left back abscess/ epididymitis Interval history: Patient was seen today for follow-up and multiple renal related issues Events of 24 hours vitals labs intake output medications were reviewed No complaints of any dysuria burning frequency or urgency of urination Vitals reviewed Gen.: No acute distress alert and pleasant HEENT oral mucosa moist Neck: Supple no JVD Chest: Clear to auscultation no crackles rales wheezes heart: Regular rate and rhythm Abdomen: Soft nontender Extremity dry skin no edema Assessment and plan Acute kidney injury likely appears to be multifactorial at this time creatinine appears to be stabilizing Continue with IV hydration at this time monitor serial labs avoid any nephrotoxic medications No acute emergent indication for renal replacement therapy Mild anemia multifactorial No evidence of any significant proteinuria at this time Mild hyperkalemia to monitor and follow Patient did receive appropriate counseling and education regarding renal related issues We'll continue to follow and make recommendation from renal standpoint Objective - Vital Signs Vital signs: Vital Signs - 12hr 02/01/17 02/01/17 02/01/17 04:57 04:59 05:00 Temperature 103 F H Pulse Rate [ 97 H Right Radial] Respiratory 18 18 20 Rate Blood Pressure 134/60 [Right Arm] O2 Sat by Pulse 98 Oximetry 02/01/17 02/01/17 07:00 08:00 Temperature 100.4 F H 102.8 F H Pulse Rate [ 90 94 H Right Radial] Respiratory 18 22 Rate Blood Pressure 127/76 112/55 [Right Arm] O2 Sat by Pulse 98 95 Oximetry - Lab 02/01/17 04:19 02/01/17 04:19 Most recent lab results Calcium 8.8 mg/dL (8.4-10.2) 02/01/17 04:19 Magnesium 1.80 mg/dL (1.7-2.3) 01/22/17 09:43 Urine Creatinine 35.3 mg/dL (0.1-20.0) H 01/31/17 21:50 Urine Sodium 132 mEq/L 01/31/17 21:50 Urine Total Protein 12 mg/dL (5-11.8) H 01/31/17 21:50
--- NOTE | 2017-02-01 12:10 | Progress Note ---
Assessment and Plan Assessment and plan: Patient is a 56-year-old man with a history of HIV, diabetes, hepatitis C, who reports that he recently moved down to [place] 3 months ago and he had noticed a growth on his back which appeared to be draining. He is not sure of what medication he takes he knows that he gets them from a [facility] prior to moving to [place]. He apparently has not been taking these medications. He denies any chest pain, nausea vomiting or diarrhea. He denies any blurry vision. He reports that he has lost significant weight. And is currently being worked up for cancer and has planned follow-up with [place] [facility]. Patient had an I /D of carbuncle, cultures growing MRSA and MSSA, ?contaminate. He also reported scrotal pain and diagnosed with epididymytis. This started prior to admission. Patient states he is homeless. 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 Follow up on skin infection. Overnight uneventful. No cp, sob, n/v or severe headaches. Imaging, old records, testing, labs, nursing notes reviewed. Hospitalist Physical - Physical exam Narrative exam: GEN: NAD thin frail, a/o x 3 HEENT: ncat, op moist Neck: no jvd CVS: rrr normal s1s2 Lungs/chest: cta b : circ penis with swelling tender scrotum GI: ntnd soft gbs Ext/Skin: from x 4 ext. upper back with large crater but good margin and no pus seen, good granulation tissue and edges. psy: calm Neuro: cn 2-12 grossly intact, nonfocal - Constitutional Vitals: Temp Pulse Resp BP Pulse Ox 102.8 F H 94 H 22 112/55 95 02/01/17 08:00 02/01/17 08:00 02/01/17 08:00 02/01/17 08:00 02/01/17 08:00 General appearance: Present: no acute distress, cachectic Results - Labs CBC & Chem 7: 02/01/17 04:19 02/01/17 04:19 Labs: Laboratory Last Values WBC 5.4 K/mm3 (4.5-11.0) 02/01/17 04:19 RBC 3.28 M/mm3 (3.65-5.03) L 02/01/17 04:19 Hgb 10.1 gm/dl (11.8-15.2) L 02/01/17 04:19 Hct 30.1 % (35.5-45.6) L 02/01/17 04:19 MCV 92 fl (84-94) 02/01/17 04:19 MCH 31 pg (28-32) 02/01/17 04:19 MCHC 34 % (32-34) 02/01/17 04:19 RDW 13.9 % (13.2-15.2) 02/01/17 04:19 Plt Count 132 K/mm3 (140-440) L 02/01/17 04:19 Lymph % (Auto) 16.8 % (13.4-35.0) 02/01/17 04:19 [place] % (Auto) 6.1 % (0.0-7.3) 02/01/17 04:19 Eos % (Auto) 1.0 % (0.0-4.3) 02/01/17 04:19 Baso % (Auto) 0.3 % (0.0-1.8) 02/01/17 04:19 Lymph # 0.9 K/mm3 (1.2-5.4) L 02/01/17 04:19 [place] # 0.3 K/mm3 (0.0-0.8) 02/01/17 04:19 Eos # 0.1 K/mm3 (0.0-0.4) 02/01/17 04:19 Baso # 0.0 K/mm3 (0.0-0.1) 02/01/17 04:19 Seg Neutrophils % 75.8 % (40.0-70.0) H 02/01/17 04:19 Seg Neutrophils # 4.1 K/mm3 (1.8-7.7) 02/01/17 04:19 Abs Lymphs (Manual) 845 cells/uL (850-3900) L 01/22/17 09:35 PT 14.5 Sec. (12.2-14.9) 01/22/17 09:44 INR 1.07 (0.87-1.13) 01/22/17 09:44 APTT 29.0 Sec. (24.2-36.6) 01/22/17 09:44 VBG pH 7.371 (7.320-7.420) 01/21/17 18:11 Sodium 134 mmol/L (137-145) L 02/01/17 04:19 Potassium 5.2 mmol/L (3.6-5.0) H 02/01/17 04:19 Chloride 96.2 mmol/L (98-107) L 02/01/17 04:19 Carbon Dioxide 25 mmol/L (22-30) 02/01/17 04:19 Anion Gap 18 mmol/L 02/01/17 04:19 BUN 23 mg/dL (9-20) H 02/01/17 04:19 Creatinine 2.1 mg/dL (0.8-1.5) H 02/01/17 04:19 Estimated GFR 40 ml/min 02/01/17 04:19 BUN/Creatinine Ratio 10.95 % 02/01/17 04:19 Glucose 144 mg/dL (75-100) H 02/01/17 04:19 POC Glucose 247 (70-105) H 02/01/17 11:48 Ketones Quantitative Negative (Negative) 01/22/17 09:43 Osmolality 291 Mosm/kg 01/31/17 12:06 Lactic Acid 1.20 mmol/L (0.7-2.0) 01/22/17 18:25 Uric Acid 4.6 mg/dL (3.5-7.6) 01/31/17 11:58 Calcium 8.8 mg/dL (8.4-10.2) 02/01/17 04:19 Magnesium 1.80 mg/dL (1.7-2.3) 01/22/17 09:43 Total Bilirubin 0.30 mg/dL (0.1-1.2) 01/30/17 04:56 Direct Bilirubin 0.4 mg/dL (0-0.2) H 01/22/17 09:43 Indirect Bilirubin 0.3 mg/dL 01/22/17 09:43 AST 43 units/L (5-40) H 01/30/17 04:56 ALT 25 units/L (7-56) 01/30/17 04:56 Alkaline Phosphatase 104 units/L (35-129) 01/30/17 04:56 Total Creatine Kinase 60 units/L (55-170) 01/31/17 11:58 Total Protein 7.1 g/dL (6.3-8.2) 01/30/17 04:56 Albumin 2.8 g/dL (3.9-5) L 01/30/17 04:56 Albumin/Globulin Ratio 0.7 % 01/30/17 04:56 Urine Color Straw (Yellow) 01/30/17 11:00 Urine Turbidity Clear (Clear) 01/30/17 11:00 Urine pH 6.0 (5.0-7.0) 01/30/17 11:00 Ur Specific [place] 1.007 (1.003-1.030) 01/30/17 11:00 Urine Protein <15 mg/dl mg/dL (Negative) 01/30/17 11:00 Urine Glucose (UA) >=500 mg/dL (Negative) 01/30/17 11:00 Urine Ketones Neg mg/dL (Negative) 01/30/17 11:00 Urine Blood Neg (Negative) 01/30/17 11:00 Urine Nitrite Neg (Negative) 01/30/17 11:00 Urine Bilirubin Neg (Negative) 01/30/17 11:00 Urine Urobilinogen < 2.0 mg/dL (<2.0) 01/30/17 11:00 Ur Leukocyte Esterase Neg (Negative) 01/30/17 11:00 Urine WBC (Auto) 2.0 /HPF (0.0-6.0) 01/30/17 11:00 Urine RBC (Auto) 3.0 /HPF (0.0-6.0) 01/30/17 11:00 Urine Bacteria (Auto) 1+ /HPF (Negative) 01/30/17 11:00 Urine Mucus Few /HPF 01/21/17 18:36 Urine Eosinophils None seen (None Seen) 01/31/17 21:50 Urine Creatinine 35.3 mg/dL (0.1-20.0) H 01/31/17 21:50 Urine Sodium 132 mEq/L 01/31/17 21:50 Urine Total Protein 12 mg/dL (5-11.8) H 01/31/17 21:50 Vancomycin Trough 49.4 ug/mL (5.0-20.0) H 01/29/17 15:51 Random Vancomycin 19.8 ug/mL (0-40.0) 01/31/17 05:20 Lymph Enumerat CD4/CD8 1.35 (0.86-5.00) 01/22/17 09:35 % CD3 Cells 86 % (57-85) H 01/22/17 09:35 Absolute CD3 Count 730 cells/uL (840-3060) L 01/22/17 09:35 % CD4 Cells 51 % (30-61) 01/22/17 09:35 Absolute CD4 Count 418 cells/uL (490-1740) L 01/22/17 09:35 % CD8 Cells 38 % (12-42) 01/22/17 09:35 Absolute CD8 Count 310 cells/uL (180-1170) 01/22/17 09:35 % CD19 Cells 9 % (6-29) 01/22/17 09:35 Absolute CD19 Count 78 cells/uL (110-660) L 01/22/17 09:35 Blood Type A POSITIVE 01/22/17 10:55 Antibody Screen TNR 01/22/17 10:55 CHARLI Antibody Screen Negative 01/22/17 10:55
--- NOTE | 2017-02-01 13:45 | Consultation ---
REQUESTING PHYSICIAN: Jeff Barker M.D. REASON FOR CONSULTATION: Management of acute renal failure in a patient whose baseline creatinine was around 0.6-0.8 upon admission. SOURCE OF INFORMATION: From the patient himself who is a very poor historian and current records are also reviewed. HISTORY OF PRESENTING ILLNESS: The patient is a 57-year-old, very thin built, -[place] male who has been admitted here with very poor appetite, not feeling well for approximately a week prior to arrival. The patient's creatinine was normal upon admission; however, he recently did receive a CT scan with contrast and also incidentally has been noted to have a vancomycin trough level of 49. The patient's creatinine has acutely increased to 1.8 range, prompting this consultation. The patient currently is being followed by Infectious Disease only. He does not have a regular physician and has never been told to have any form of chronic kidney disease, hematuria, proteinuria, etc. He has also known history of HIV as well as hepatitis C. Appetite is extremely poor almost for a week prior to arrival. PAST MEDICAL HISTORY: Significant for: 1. HIV. 2. Hepatitis C. 3. No prior history of kidney disease. CURRENT ALLERGIES: Reviewed. HOME MEDICATIONS AND PRESENT MEDICATIONS: Reviewed. SOCIAL HISTORY: The patient denies having any history of recreational drugs or substance. He is currently homeless. FAMILY HISTORY: Essentially negative for any renal-related disorder. REVIEW OF SYSTEMS: Positive for generalized weakness, fatigue, dry mouth. Appetite was very poor for a week prior to arrival. Occasional dizzy standing prior to arrival, has had some nausea. Also short of breath, currently all better. Review of other systems are negative. PHYSICAL EXAMINATION: GENERAL: The patient is a pleasant 57-year-old -[place] male who is very thin built, appears to have lost muscle mass as well as some temporal emaciation. Cachectic appearing male. VITAL SIGNS: Reviewed from this admission. HEENT: Normocephalic, atraumatic skull. Extraocular movements intact. The patient's oral mucosa is dry. NECK: Supple. CHEST: Clear to auscultation anteriorly and posteriorly. HEART: Regular rate and rhythm. S1, S2 heard. No S3, S4. ABDOMEN: Soft, nontender. EXTREMITIES: No edema. Dry skin. Peripheral pulses palpable. NEUROLOGICAL: The patient is alert, awake, pleasant, ambulating without any difficulty. Grossly unremarkable examination. DIAGNOSTIC DATA: Labs and x-rays are reviewed from this admission. Upon arrival, creatinine was 0.6-0.8 range and currently around 1.8. Currently, the patient is nonoliguric but the urine color is dark. ASSESSMENT AND PLAN: 1. Acute renal failure in a patient who is 57 years old, presented with uncontrolled diabetes, likely was volume depleted, received radiocontrast and is also incidentally vancomycin toxic. The patient likely has developed radiocontrast-associated nephropathy on top of which there might be some contribution from vancomycin toxicity. He may have underlying chronic kidney disease as he does have history of diabetes, which has been poorly controlled. 2. Volume depletion. The patient will benefit from IV hydration. His admission blood sugar was more than 600. 3. Pseudohyponatremia. I believe his sodium is completely normal upon arrival which was pseudohyponatremia due to elevated blood sugar. 4. Human immunodeficiency virus disease in a patient who also incidentally has hepatitis C. Both of these need to be treated to preserve renal function. Plan of care discussed with the patient. All questions were answered. Renal prognosis is guarded at this time. Obtain labs, basic imaging, maintain hydration, ultrasonogram, avoid excessive doses of vancomycin and educated about intake and output monitoring. The patient states that he has been making enough urine, increase oral intake of fluid. Hopefully, his renal function should start stabilizing and then subsequently normalize within the next 24-48 hours. If it worsens, the patient may require renal replacement therapy depending on degree of severity. All renal related questions were answered. The patient does have good understanding about the severity of his renal dysfunction and seems concerned. I have advised him to make an appointment to follow up in the office upon discharge as well. Thank you for consultation. I will continue to follow and make recommendations from renal standpoint. JOB# [id number] MIRI/ARTUR
[2017-02-02] MEDS: TYLENOL PO PRN ×3 (04:44→15:50)
[2017-02-02 05:44] LABS: Basophils % (Auto) 0.2 % (0.0-1.8); Eosinophils % (Auto) 0.6 % (0.0-4.3); Hematocrit 29.7 % (35.5-45.6); Mean Corpuscular HGB Conc 34 % (32-34); Mean Corpuscular Hemoglobin 30 pg (28-32); Mean Corpuscular Volume 90 fl (84-94); Platelet Count 137 K/mm3 (140-440); Red Blood Count 3.29 M/mm3 (3.65-5.03); White Blood Count 6.2 K/mm3 (4.5-11.0)
[2017-02-02] MEDS: NEURONTIN PO SCH ×3 (05:54→22:05)
[2017-02-02] MEDS: MORPHINE IV PRN ×3 (05:58→22:05)
[2017-02-02 06:05] LABS: Calcium 8.3 mg/dL (8.4-10.2); Chloride 96.8 mmol/L (98-107); Potassium 4.7 mmol/L (3.6-5.0)
[2017-02-02] MEDS: NACL 0.9% 1000 ML 1,000 ML IV SCH ×2 (09:02→14:42)
[2017-02-02] MEDS: PEPCID PO SCH (09:11)
[2017-02-02] MEDS: HALFPRIN EC PO SCH (09:11)
[2017-02-02] MEDS: ZIAGEN PO SCH (09:11)
[2017-02-02] MEDS: EPIVIR PO SCH (09:12)
[2017-02-02] MEDS: TIVICAY (NF) PO SCH (10:18)
--- NOTE | 2017-02-02 10:42 | Progress Note ---
Assessment and Plan Assessment and plan: Patient is a 56-year-old man with a history of HIV, diabetes, hepatitis C, who reports that he recently moved down to [place] 3 months ago and he had noticed a growth on his back which appeared to be draining. He is not sure of what medication he takes he knows that he gets them from a [facility] prior to moving to [place]. He apparently has not been taking these medications. He denies any chest pain, nausea vomiting or diarrhea. He denies any blurry vision. He reports that he has lost significant weight. And is currently being worked up for cancer and has planned follow-up with [place] [facility]. Patient had an I /D of carbuncle, cultures growing MRSA and MSSA, ?contaminate. He also reported scrotal pain and diagnosed with epididymytis. This started prior to admission. Patient states he is homeless. -Subscapular abscess S/P I/D of carbuncle- MRSA positive wound cultures, wound care to follow -Epididymitis-left, with Hydrocele: elevation advised -Sepsis secondary to subscapular abscess, poa: abx -Uncontrolled DM, Very labile, with episodes of hypoglycemia: ssi and ada diet -Hyperosmolar hyperglycemic state-Resolved -Bilateral nephrolithiasis: urology did evaluate, please their notes -Prurigo Nodularis, skin care -[id number] -HIV/AIDS: ID following -Hepatitis C chronic -Acute cystitis, treated with antibiotics -Severe protein calorie malnutrition: chief administrative officer follow up -DVT prophylaxis: Stop sq heparin due to drop in platelet counts in hemoglobin -Worsening ARF: renal is now following -High Fevers still present, I did notify and d/w infectious disease physician: Ordered cooling measures 02/02/2017: Still with high fevers, the back abscess status post I&D looks good but the left scrotum is more red, swollen and tender. I called and spoke to Dr. Camarena, urologist, and relied my concerns, will repeat testicular ultrasound rule out abscess, make him nothing by mouth after midnight and possible left orchiectomy tomorrow. It appears Cooling measures were not implemented, discussed with nursing. I started iv zosyn. History Interval history: Patient seen and examined. Follow up on skin infection. Overnight eventful with fevers. No cp, sob, n/v or severe headaches. Imaging, old records, testing , labs, nursing notes reviewed. He main complaint is left scrotal pains. Hospitalist Physical - Physical exam Narrative exam: GEN: NAD thin frail, a/o x 3 HEENT: ncat, op moist Neck: no jvd CVS: rrr normal s1s2 Lungs/chest: cta b : circ penis with swelling tender scrotum GI: ntnd soft gbs Ext/Skin: from x 4 ext. upper back with large crater but good margin and no pus seen, good granulation tissue and edges. psy: calm Neuro: cn 2-12 grossly intact, nonfocal - Constitutional Vitals: Temp Pulse Resp BP Pulse Ox 102.8 F H 87 20 127/69 95 02/02/17 08:00 02/02/17 08:00 02/02/17 08:00 02/02/17 08:00 02/02/17 08:00 General appearance: Present: no acute distress Results - Labs CBC & Chem 7: 02/02/17 05:28 02/02/17 05:28 Labs: Laboratory Last Values WBC 6.2 K/mm3 (4.5-11.0) 02/02/17 05:28 RBC 3.29 M/mm3 (3.65-5.03) L 02/02/17 05:28 Hgb 10.0 gm/dl (11.8-15.2) L 02/02/17 05:28 Hct 29.7 % (35.5-45.6) L 02/02/17 05:28 MCV 90 fl (84-94) 02/02/17 05:28 MCH 30 pg (28-32) 02/02/17 05:28 MCHC 34 % (32-34) 02/02/17 05:28 RDW 14.0 % (13.2-15.2) 02/02/17 05:28 Plt Count 137 K/mm3 (140-440) L 02/02/17 05:28 Lymph % (Auto) 20.4 % (13.4-35.0) 02/02/17 05:28 Mclennan % (Auto) 7.5 % (0.0-7.3) H 02/02/17 05:28 Eos % (Auto) 0.6 % (0.0-4.3) 02/02/17 05:28 Baso % (Auto) 0.2 % (0.0-1.8) 02/02/17 05:28 Lymph # 1.3 K/mm3 (1.2-5.4) 02/02/17 05:28 Mclennan # 0.5 K/mm3 (0.0-0.8) 02/02/17 05:28 Eos # 0.0 K/mm3 (0.0-0.4) 02/02/17 05:28 Baso # 0.0 K/mm3 (0.0-0.1) 02/02/17 05:28 Seg Neutrophils % 71.3 % (40.0-70.0) H 02/02/17 05:28 Seg Neutrophils # 4.5 K/mm3 (1.8-7.7) 02/02/17 05:28 Abs Lymphs (Manual) 845 cells/uL (850-3900) L 01/22/17 09:35 PT 14.5 Sec. (12.2-14.9) 01/22/17 09:44 INR 1.07 (0.87-1.13) 01/22/17 09:44 APTT 29.0 Sec. (24.2-36.6) 01/22/17 09:44 VBG pH 7.371 (7.320-7.420) 01/21/17 18:11 Sodium 134 mmol/L (137-145) L 02/02/17 05:28 Potassium 4.7 mmol/L (3.6-5.0) 02/02/17 05:28 Chloride 96.8 mmol/L (98-107) L 02/02/17 05:28 Carbon Dioxide 23 mmol/L (22-30) 02/02/17 05:28 Anion Gap 19 mmol/L 02/02/17 05:28 BUN 22 mg/dL (9-20) H 02/02/17 05:28 Creatinine 2.2 mg/dL (0.8-1.5) H 02/02/17 05:28 Estimated GFR 38 ml/min 02/02/17 05:28 BUN/Creatinine Ratio 10.00 % 02/02/17 05:28 Glucose 131 mg/dL (75-100) H 02/02/17 05:28 POC Glucose 141 (70-105) H 02/02/17 05:32 Ketones Quantitative Negative (Negative) 01/22/17 09:43 Osmolality 291 Mosm/kg 01/31/17 12:06 Lactic Acid 1.20 mmol/L (0.7-2.0) 01/22/17 18:25 Uric Acid 4.6 mg/dL (3.5-7.6) 01/31/17 11:58 Calcium 8.3 mg/dL (8.4-10.2) L 02/02/17 05:28 Magnesium 1.80 mg/dL (1.7-2.3) 01/22/17 09:43 Total Bilirubin 0.30 mg/dL (0.1-1.2) 01/30/17 04:56 Direct Bilirubin 0.4 mg/dL (0-0.2) H 01/22/17 09:43 Indirect Bilirubin 0.3 mg/dL 01/22/17 09:43 AST 43 units/L (5-40) H 01/30/17 04:56 ALT 25 units/L (7-56) 01/30/17 04:56 Alkaline Phosphatase 104 units/L (35-129) 01/30/17 04:56 Total Creatine Kinase 60 units/L (55-170) 01/31/17 11:58 Total Protein 7.1 g/dL (6.3-8.2) 01/30/17 04:56 Albumin 2.8 g/dL (3.9-5) L 01/30/17 04:56 Albumin/Globulin Ratio 0.7 % 01/30/17 04:56 Urine Color Straw (Yellow) 01/30/17 11:00 Urine Turbidity Clear (Clear) 01/30/17 11:00 Urine pH 6.0 (5.0-7.0) 01/30/17 11:00 Ur Specific [place] 1.007 (1.003-1.030) 01/30/17 11:00 Urine Protein <15 mg/dl mg/dL (Negative) 01/30/17 11:00 Urine Glucose (UA) >=500 mg/dL (Negative) 01/30/17 11:00 Urine Ketones Neg mg/dL (Negative) 01/30/17 11:00 Urine Blood Neg (Negative) 01/30/17 11:00 Urine Nitrite Neg (Negative) 01/30/17 11:00 Urine Bilirubin Neg (Negative) 01/30/17 11:00 Urine Urobilinogen < 2.0 mg/dL (<2.0) 01/30/17 11:00 Ur Leukocyte Esterase Neg (Negative) 01/30/17 11:00 Urine WBC (Auto) 2.0 /HPF (0.0-6.0) 01/30/17 11:00 Urine RBC (Auto) 3.0 /HPF (0.0-6.0) 01/30/17 11:00 Urine Bacteria (Auto) 1+ /HPF (Negative) 01/30/17 11:00 Urine Mucus Few /HPF 01/21/17 18:36 Urine Eosinophils None seen (None Seen) 01/31/17 21:50 Urine Creatinine 35.3 mg/dL (0.1-20.0) H 01/31/17 21:50 Urine Sodium 132 mEq/L 01/31/17 21:50 Urine Total Protein 12 mg/dL (5-11.8) H 01/31/17 21:50 Vancomycin Trough 49.4 ug/mL (5.0-20.0) H 01/29/17 15:51 Random Vancomycin 19.8 ug/mL (0-40.0) 01/31/17 05:20 Lymph Enumerat CD4/CD8 1.35 (0.86-5.00) 01/22/17 09:35 % CD3 Cells 86 % (57-85) H 01/22/17 09:35 Absolute CD3 Count 730 cells/uL (840-3060) L 01/22/17 09:35 % CD4 Cells 51 % (30-61) 01/22/17 09:35 Absolute CD4 Count 418 cells/uL (490-1740) L 01/22/17 09:35 % CD8 Cells 38 % (12-42) 01/22/17 09:35 Absolute CD8 Count 310 cells/uL (180-1170) 01/22/17 09:35 % CD19 Cells 9 % (6-29) 01/22/17 09:35 Absolute CD19 Count 78 cells/uL (110-660) L 01/22/17 09:35 Blood Type A POSITIVE 01/22/17 10:55 Antibody Screen TNR 01/22/17 10:55 CHARLI Antibody Screen Negative 01/22/17 10:55
--- NOTE | 2017-02-02 11:42 | Ultrasound Report ---
Testicular sonogram: Compared to 01/26/17 and 01/24/17. History: Testicular abscess. Findings: Right testes and epididymis appears normal. Normal color flow in the testes. Small right hydrocele. There is increased color flow noted at left testis without significant interval change suggestive of orchitis. No abscess. Enlarged left epididymis with increased color flow. Hypoechoic area at the left epididymis appears more heterogeneous however no significant interval change in size. Low level echoes within left hydrocele. Impression: Findings as detailed above. No significant interval change.
[2017-02-02] MEDS: ZOSYN/NS 4.5GM/100ML 4.5 GM/100 ML VIAL IV SCH ×2 (15:36→22:04)
[2017-02-03] MEDS: ZOSYN/NS 4.5GM/100ML 4.5 GM/100 ML VIAL IV SCH (05:48)
[2017-02-03] MEDS: NEURONTIN PO SCH ×3 (05:58→21:45)
[2017-02-03] MEDS ORDERED: VANCOMYCIN/NS 1 GM/250 ML 1 GM/250 ML BAG IV ONE ×2 (08:00→12:00)
--- NOTE | 2017-02-03 08:28 | Vascular Lab Report ---
RIGHT UPPER EXTREMITY VENOUS DUPLEX: REASON FOR EXAM: Swelling of the right upper extremity COMMENTS ON THE RIGHT: All arm deep veins visualized are freely compressible without evidence of internal echogenicity. The subclavian and internal jugular veins are free of thrombus. Flow is spontaneous and phasic throughout. Superficial thrombophlebitis noted in the right cephalic vein COMMENTS ON THE LEFT: The subclavian and internal jugular veins are free of thrombus. IMPRESSION: No evidence of acute or chronic deep venous thrombosis in the right upper extremity. Right upper extremity superficial thrombophlebitis
--- NOTE | 2017-02-03 09:14 | Progress Note ---
Assessment and Plan - Patient Problems (1) Fever Current Visit: Yes Status: Acute Qualifiers: Fever type: F Encounter type: E Plan to address problem: 1. Question source of thrombophlebitis vs. back abscess vs. problem, etc as source of fever. 2. Stool Cdiff requested. 3. IV removed from right arm. No evidence of septic thrombophlebitis. Nonetheless, continue Vancomycin as treatment of back abscess. (2) Thrombophlebitis following injection or infusion Current Visit: Yes Status: Acute Qualifiers: Encounter type: initial encounter Qualified Code(s): T81.72XA - Complication of vein following a procedure, not elsewhere classified, initial encounter Plan to address problem: 1. IV removed. 2. Warm compresses to right arm. (3) Abscess of back Current Visit: Yes Status: Acute Plan to address problem: 1. Continue Vancomycin and local wound care. (4) Acute kidney injury Current Visit: Yes Status: Acute Plan to address problem: 1. If no improvement in GFR over the next 1-2 days, will renally adjust ARVs. (5) HIV (human immunodeficiency virus infection) Current Visit: Yes Status: Acute Plan to address problem: 1. Continue HAART. (6) Diarrhea Current Visit: Yes Status: Acute Qualifiers: Diarrhea type: D Plan to address problem: 1. Will stop Zosyn. 2. Add probiotic and presumptive Flagyl. 3. Pending Cdiff study. Subjective Date of service: 02/03/17 Principal diagnosis: left back abscess/ fever Interval history: Remains febrile to > 102 deg F. Continues to have diarrhea with occasional stool incontinence. No new complaints. Objective - Constitutional Vitals: Vital Signs Temp Pulse Resp BP Pulse Ox 102.9 F H 81 18 114/55 96 02/03/17 08:54 02/03/17 08:54 02/03/17 08:54 02/03/17 08:54 02/03/17 08:54 Temperature -Last 24 Hours Temperature 102.9 F Temperature 102.8 F Temperature 102.8 F General appearance: Present: no acute distress - EENT Eyes: no conjunctival injection ENT: edentulous, no thrush - Neck Neck: supple - Respiratory Respiratory effort: normal Respiratory: bilateral: CTA - Cardiovascular Rhythm: regular Heart Sounds: Present: S1 & S2 Extremity abnormal: edema (mild induration at right deltoid with resolving ecchymoses, no expressable purulence) - Gastrointestinal General gastrointestinal: Present: soft, non-tender, non-distended, normal bowel sounds - Integumentary Integumentary: clear, no rash - Psychiatric Psychiatric: appropriate mood/affect - Labs CBC & Chem 7: 02/02/17 05:28 02/02/17 05:28 Labs: Abnormal lab results 02/02/17 02/02/17 02/02/17 Range/Units 12:15 16:29 21:23 POC Glucose 68 L 115 H 139 H (70-105) 02/03/17 Range/Units 05:07 POC Glucose 161 H (70-105) - Imaging and cardiology Other: report reviewed (RIGHT ARM ARTERIAL DOPPLER - superficial cephalic thrombophlebitis)
--- NOTE | 2017-02-03 09:59 | Progress Note ---
Assessment and Plan softer L epidid offered Left orch pt refused and wants to wait US noted continue antibiotics cancel surgery Subjective Date of service: 02/03/17 Principal diagnosis: left back abscess/ epididymitis Objective - Constitutional Vitals: Vital Signs - 12hr 02/02/17 02/02/17 02/03/17 23:00 23:05 08:54 Temperature 102.8 F H 102.8 F H 102.9 F H Pulse Rate [ 84 84 81 Right Radial] Respiratory 16 16 18 Rate Blood Pressure 119/59 119/59 114/55 [Right Arm] O2 Sat by Pulse 95 95 96 Oximetry General appearance: Present: no acute distress - Respiratory Respiratory effort: normal Extremities: no ischemia - Gastrointestinal General gastrointestinal: Present: non-distended - Genitourinary Male genitourinary: tender - Labs CBC & Chem 7: 02/02/17 05:28 02/02/17 05:28 Labs: Abnormal lab results 02/02/17 02/02/17 02/02/17 Range/Units 12:15 16:29 21:23 POC Glucose 68 L 115 H 139 H (70-105) 02/03/17 Range/Units 05:07 POC Glucose 161 H (70-105)
--- NOTE | 2017-02-03 10:19 | Progress Note ---
Subjective Principal diagnosis: left back abscess/ epididymitis Interval history: Patient was seen today for follow-up and multiple renal related issues Creatinine is currently 2.2 /status post-urology evaluation for scrotal swelling and hematuria Vitals reviewed Gen.: No acute distress alert and pleasant HEENT oral mucosa moist Neck: Supple no JVD Chest: Clear to auscultation no crackles rales wheezes heart: Regular rate and rhythm Abdomen: Soft nontender Extremity dry skin no edema Assessment and plan Acute kidney injury likely appears to be multifactorial at this time creatinine appears to be stabilizing/most likely due to radiocontrast nephropathy Creatinine is currently stable at 2 encourage oral hydration maintain IV hydration Anemia appears to be multifactorial Scrotal swelling noted to have changes of epididymitis currently being followed by urology No evidence of any significant proteinuria at this time Mild hyperkalemia to monitor and follow Patient did receive appropriate counseling and education regarding renal related issues We'll continue to follow and make recommendation from renal standpoint Objective - Vital Signs Vital signs: Vital Signs - 12hr 02/02/17 02/02/17 02/03/17 23:00 23:05 08:54 Temperature 102.8 F H 102.8 F H 102.9 F H Pulse Rate [ 84 84 81 Right Radial] Respiratory 16 16 18 Rate Blood Pressure 119/59 119/59 114/55 [Right Arm] O2 Sat by Pulse 95 95 96 Oximetry - Lab 02/02/17 05:28 02/02/17 05:28 Most recent lab results Calcium 8.3 mg/dL (8.4-10.2) L 02/02/17 05:28 Magnesium 1.80 mg/dL (1.7-2.3) 01/22/17 09:43 Urine Creatinine 35.3 mg/dL (0.1-20.0) H 01/31/17 21:50 Urine Sodium 132 mEq/L 01/31/17 21:50 Urine Total Protein 12 mg/dL (5-11.8) H 01/31/17 21:50
--- NOTE | 2017-02-03 10:33 | Progress Note ---
Assessment and Plan Assessment and plan: Patient is a 56-year-old man with a history of HIV, diabetes, hepatitis C, who reports that he recently moved down to [place] 3 months ago and he had noticed a growth on his back which appeared to be draining. He is not sure of what medication he takes he knows that he gets them from a [facility] prior to moving to [place]. He apparently has not been taking these medications. He denies any chest pain, nausea vomiting or diarrhea. He denies any blurry vision. He reports that he has lost significant weight. And is currently being worked up for prostate cancer and has planned follow-up with [facility]. Patient had an I/D of carbuncle, cultures growing MRSA and MSSA, ?contaminate. He also reported scrotal pain and diagnosed with epididymytis. This started prior to admission. Patient states he is homeless. 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 I called and spoke to Dr. Camarena, urologist, and relied my concerns, will repeat testicular ultrasound rule out abscess, make him nothing by mouth after midnight and possible left orchiectomy tomorrow. It appears Cooling measures were not implemented, discussed with nursing. I started iv zosyn. 02/03/17: Still with high fevers, Cooling measures done. Left testicles is less tender than yesterday. Repeat testicular ultrasound did not show gross abscesses. Urology has re-evaluated, no surgery, reevaluated in a couple days. General surgery reevaluation pending, I have reached out to medical staff to obtain Dr. Brady Saini's number. Patient had a ultrasound of the arm shows right upper treatment superficial thrombophlebitis which may be causing the fevers also, ID is following this. History Interval history: Patient seen and examined. Follow up on skin infection. Overnight eventful with fevers. No cp, sob, n/v or severe headaches. Imaging, old records, testing , labs, nursing notes reviewed. He main complaint is left scrotal pains but better. Hospitalist Physical - Physical exam Narrative exam: GEN: NAD thin frail, a/o x 3 HEENT: ncat, op moist Neck: no jvd CVS: rrr normal s1s2 Lungs/chest: cta b : circ penis with swelling tender scrotum GI: ntnd soft gbs Ext/Skin: from x 4 ext. upper back with large crater but good margin and no pus seen, good granulation tissue and edges. psy: calm Neuro: cn 2-12 grossly intact, nonfocal - Constitutional Vitals: Temp Pulse Resp BP Pulse Ox 102.9 F H 81 18 114/55 96 02/03/17 08:54 02/03/17 08:54 02/03/17 08:54 02/03/17 08:54 02/03/17 08:54 General appearance: Present: no acute distress Results - Labs CBC & Chem 7: 02/02/17 05:28 02/02/17 05:28 Labs: Laboratory Last Values WBC 6.2 K/mm3 (4.5-11.0) 02/02/17 05:28 RBC 3.29 M/mm3 (3.65-5.03) L 02/02/17 05:28 Hgb 10.0 gm/dl (11.8-15.2) L 02/02/17 05:28 Hct 29.7 % (35.5-45.6) L 02/02/17 05:28 MCV 90 fl (84-94) 02/02/17 05:28 MCH 30 pg (28-32) 02/02/17 05:28 MCHC 34 % (32-34) 02/02/17 05:28 RDW 14.0 % (13.2-15.2) 02/02/17 05:28 Plt Count 137 K/mm3 (140-440) L 02/02/17 05:28 Lymph % (Auto) 20.4 % (13.4-35.0) 02/02/17 05:28 [place] % (Auto) 7.5 % (0.0-7.3) H 02/02/17 05:28 Eos % (Auto) 0.6 % (0.0-4.3) 02/02/17 05:28 Baso % (Auto) 0.2 % (0.0-1.8) 02/02/17 05:28 Lymph # 1.3 K/mm3 (1.2-5.4) 02/02/17 05:28 [place] # 0.5 K/mm3 (0.0-0.8) 02/02/17 05:28 Eos # 0.0 K/mm3 (0.0-0.4) 02/02/17 05:28 Baso # 0.0 K/mm3 (0.0-0.1) 02/02/17 05:28 Seg Neutrophils % 71.3 % (40.0-70.0) H 02/02/17 05:28 Seg Neutrophils # 4.5 K/mm3 (1.8-7.7) 02/02/17 05:28 Abs Lymphs (Manual) 845 cells/uL (850-3900) L 01/22/17 09:35 PT 14.5 Sec. (12.2-14.9) 01/22/17 09:44 INR 1.07 (0.87-1.13) 01/22/17 09:44 APTT 29.0 Sec. (24.2-36.6) 01/22/17 09:44 VBG pH 7.371 (7.320-7.420) 01/21/17 18:11 Sodium 134 mmol/L (137-145) L 02/02/17 05:28 Potassium 4.7 mmol/L (3.6-5.0) 02/02/17 05:28 Chloride 96.8 mmol/L (98-107) L 02/02/17 05:28 Carbon Dioxide 23 mmol/L (22-30) 02/02/17 05:28 Anion Gap 19 mmol/L 02/02/17 05:28 BUN 22 mg/dL (9-20) H 02/02/17 05:28 Creatinine 2.2 mg/dL (0.8-1.5) H 02/02/17 05:28 Estimated GFR 38 ml/min 02/02/17 05:28 BUN/Creatinine Ratio 10.00 % 02/02/17 05:28 Glucose 131 mg/dL (75-100) H 02/02/17 05:28 POC Glucose 161 (70-105) H 02/03/17 05:07 Ketones Quantitative Negative (Negative) 01/22/17 09:43 Osmolality 291 Mosm/kg 01/31/17 12:06 Lactic Acid 1.20 mmol/L (0.7-2.0) 01/22/17 18:25 Uric Acid 4.6 mg/dL (3.5-7.6) 01/31/17 11:58 Calcium 8.3 mg/dL (8.4-10.2) L 02/02/17 05:28 Magnesium 1.80 mg/dL (1.7-2.3) 01/22/17 09:43 Total Bilirubin 0.30 mg/dL (0.1-1.2) 01/30/17 04:56 Direct Bilirubin 0.4 mg/dL (0-0.2) H 01/22/17 09:43 Indirect Bilirubin 0.3 mg/dL 01/22/17 09:43 AST 43 units/L (5-40) H 01/30/17 04:56 ALT 25 units/L (7-56) 01/30/17 04:56 Alkaline Phosphatase 104 units/L (35-129) 01/30/17 04:56 Total Creatine Kinase 60 units/L (55-170) 01/31/17 11:58 Total Protein 7.1 g/dL (6.3-8.2) 01/30/17 04:56 Albumin 2.8 g/dL (3.9-5) L 01/30/17 04:56 Albumin/Globulin Ratio 0.7 % 01/30/17 04:56 Urine Color Straw (Yellow) 01/30/17 11:00 Urine Turbidity Clear (Clear) 01/30/17 11:00 Urine pH 6.0 (5.0-7.0) 01/30/17 11:00 Ur Specific [place] 1.007 (1.003-1.030) 01/30/17 11:00 Urine Protein <15 mg/dl mg/dL (Negative) 01/30/17 11:00 Urine Glucose (UA) >=500 mg/dL (Negative) 01/30/17 11:00 Urine Ketones Neg mg/dL (Negative) 01/30/17 11:00 Urine Blood Neg (Negative) 01/30/17 11:00 Urine Nitrite Neg (Negative) 01/30/17 11:00 Urine Bilirubin Neg (Negative) 01/30/17 11:00 Urine Urobilinogen < 2.0 mg/dL (<2.0) 01/30/17 11:00 Ur Leukocyte Esterase Neg (Negative) 01/30/17 11:00 Urine WBC (Auto) 2.0 /HPF (0.0-6.0) 01/30/17 11:00 Urine RBC (Auto) 3.0 /HPF (0.0-6.0) 01/30/17 11:00 Urine Bacteria (Auto) 1+ /HPF (Negative) 01/30/17 11:00 Urine Mucus Few /HPF 01/21/17 18:36 Urine Eosinophils None seen (None Seen) 01/31/17 21:50 Urine Creatinine 35.3 mg/dL (0.1-20.0) H 01/31/17 21:50 Urine Sodium 132 mEq/L 01/31/17 21:50 Urine Total Protein 12 mg/dL (5-11.8) H 01/31/17 21:50 Vancomycin Trough 49.4 ug/mL (5.0-20.0) H 01/29/17 15:51 Random Vancomycin 7.2 ug/mL (0-40.0) 02/03/17 05:03 Lymph Enumerat CD4/CD8 1.35 (0.86-5.00) 01/22/17 09:35 % CD3 Cells 86 % (57-85) H 01/22/17 09:35 Absolute CD3 Count 730 cells/uL (840-3060) L 01/22/17 09:35 % CD4 Cells 51 % (30-61) 01/22/17 09:35 Absolute CD4 Count 418 cells/uL (490-1740) L 01/22/17 09:35 % CD8 Cells 38 % (12-42) 01/22/17 09:35 Absolute CD8 Count 310 cells/uL (180-1170) 01/22/17 09:35 % CD19 Cells 9 % (6-29) 01/22/17 09:35 Absolute CD19 Count 78 cells/uL (110-660) L 01/22/17 09:35 Blood Type A POSITIVE 01/22/17 10:55 Antibody Screen TNR 01/22/17 10:55 CHARLI Antibody Screen Negative 01/22/17 10:55
[2017-02-03] MEDS: PEPCID PO SCH (11:25)
[2017-02-03] MEDS: HALFPRIN EC PO SCH (11:25)
[2017-02-03] MEDS: TIVICAY (NF) PO SCH (11:26)
[2017-02-03] MEDS: EPIVIR PO SCH (11:28)
[2017-02-03] MEDS: ZIAGEN PO SCH (11:29)
[2017-02-03] MEDS: MORPHINE IV PRN ×3 (11:45→23:38)
[2017-02-03] MEDS ORDERED: ZOSYN/NS 2.25 GM/50ML 2.25 GM/50 ML BAG IV SCH (12:00)
--- NOTE | 2017-02-03 12:35 | Progress Note ---
Assessment and Plan Continue local wound care. Can f/u in [facility] if desired. I have nothing further to add and will therefore sign off. - Patient Problems (1) Abscess of back Current Visit: Yes Status: Acute Subjective Date of service: 02/03/17 Patient Reports: Positive: no new complaints Objective Vital Signs - 12hr 02/03/17 08:54 Temperature 102.9 F H Pulse Rate [ 81 Right Radial] Respiratory 18 Rate Blood Pressure 114/55 [Right Arm] O2 Sat by Pulse 96 Oximetry - Integumentary other (Back wound is very clean. There are no signs of infection.) - Labs 02/02/17 05:28 02/02/17 05:28
[2017-02-03] MEDS: TYLENOL PO PRN ×2 (13:18→18:55)
[2017-02-03] MEDS: LACTINEX PO SCH ×2 (18:54→21:45)
[2017-02-03] MEDS: FLAGYL PO SCH ×2 (18:55→21:45)
[2017-02-03] MEDS: NACL 0.9% 1000 ML 1,000 ML IV SCH (21:50)
[2017-02-04 05:34] LABS: Hematocrit 30.3 % (35.5-45.6); Hemoglobin 10.2 gm/dl (11.8-15.2); Mean Corpuscular HGB Conc 34 % (32-34); Mean Corpuscular Hemoglobin 31 pg (28-32); Mean Corpuscular Volume 92 fl (84-94); Platelet Count 144 K/mm3 (140-440)
[2017-02-04 05:54] LABS: BUN/Creatinine Ratio 8.75; Calcium 8.2 mg/dL (8.4-10.2); Chloride 94.5 mmol/L (98-107); Potassium 4.4 mmol/L (3.6-5.0)
[2017-02-04] MEDS: FLAGYL PO SCH ×3 (05:58→21:55)
[2017-02-04] MEDS: MORPHINE IV PRN ×3 (05:58→18:26)
[2017-02-04] MEDS: NEURONTIN PO SCH ×3 (05:58→21:55)
[2017-02-04] MEDS ORDERED: VANCOMYCIN/NS 1 GM/250 ML 1 GM/250 ML BAG IV ONE (09:00)
[2017-02-04] MEDS: EPIVIR PO SCH (10:02)
[2017-02-04] MEDS: LACTINEX PO SCH ×2 (10:02→21:56)
[2017-02-04] MEDS: PEPCID PO SCH (10:02)
[2017-02-04] MEDS: HALFPRIN EC PO SCH (10:03)
[2017-02-04] MEDS: ZIAGEN PO SCH (10:03)
[2017-02-04] MEDS: TIVICAY (NF) PO SCH (10:04)
--- NOTE | 2017-02-04 10:59 | Progress Note ---
Assessment and Plan Assessment and plan: Subscapular abscess S/P I/D of carbuncle- MRSA positive wound cultures, wound care to follow Epididymitis-left, with Hydrocele: elevation advised Repeat testicular ultrasound did not show gross abscesses. Sepsis secondary to subscapular abscess, poa. Continue IV antibiotics. Patient still with significant fevers. ID following. Acute kidney injury likely appears to be multifactorial at this time--sepsis, vasomotor nephropathy and radiocontrast nephropathy . The creatinine appears to be stabilizing. The creatinine is currently stable at 2 encourage oral hydration maintain IV hydration Diarrhea. Check C. difficile and stool studies. 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 Hospitalist Physical - Constitutional Vitals: Temp Pulse Resp BP Pulse Ox 102.7 F H 96 H 20 145/67 99 02/04/17 08:00 02/04/17 08:00 02/04/17 08:00 02/04/17 08:00 02/04/17 01:00 General appearance: Present: no acute distress - EENT Eyes: Present: PERRL, EOM intact ENT: hearing intact, clear oral mucosa, dentition normal - Neck Neck: Present: supple, normal ROM - Respiratory Respiratory effort: normal Respiratory: bilateral: CTA - Cardiovascular Rhythm: regular Heart Sounds: Present: S1 & S2. Absent: gallop, rub - Extremities Extremities: no ischemia, No edema, Full ROM - Abdominal General gastrointestinal: soft, non-tender, non-distended, normal bowel sounds - Integumentary Integumentary: Present: erythema (back dressing c/d/i) - Neurologic Neurologic: CNII-XII intact, moves all extremities Results - Labs CBC & Chem 7: 02/04/17 04:11 02/04/17 04:11 Labs: Laboratory Last Values WBC 6.0 K/mm3 (4.5-11.0) 02/04/17 04:11 RBC 3.30 M/mm3 (3.65-5.03) L 02/04/17 04:11 Hgb 10.2 gm/dl (11.8-15.2) L 02/04/17 04:11 Hct 30.3 % (35.5-45.6) L 02/04/17 04:11 MCV 92 fl (84-94) 02/04/17 04:11 MCH 31 pg (28-32) 02/04/17 04:11 MCHC 34 % (32-34) 02/04/17 04:11 RDW 14.0 % (13.2-15.2) 02/04/17 04:11 Plt Count 144 K/mm3 (140-440) 02/04/17 04:11 Lymph % (Auto) 20.4 % (13.4-35.0) 02/02/17 05:28 [place] % (Auto) 7.5 % (0.0-7.3) H 02/02/17 05:28 Eos % (Auto) 0.6 % (0.0-4.3) 02/02/17 05:28 Baso % (Auto) 0.2 % (0.0-1.8) 02/02/17 05:28 Lymph # 1.3 K/mm3 (1.2-5.4) 02/02/17 05:28 [place] # 0.5 K/mm3 (0.0-0.8) 02/02/17 05:28 Eos # 0.0 K/mm3 (0.0-0.4) 02/02/17 05:28 Baso # 0.0 K/mm3 (0.0-0.1) 02/02/17 05:28 Seg Neutrophils % 71.3 % (40.0-70.0) H 02/02/17 05:28 Seg Neutrophils # 4.5 K/mm3 (1.8-7.7) 02/02/17 05:28 Abs Lymphs (Manual) 845 cells/uL (850-3900) L 01/22/17 09:35 PT 14.5 Sec. (12.2-14.9) 01/22/17 09:44 INR 1.07 (0.87-1.13) 01/22/17 09:44 APTT 29.0 Sec. (24.2-36.6) 01/22/17 09:44 VBG pH 7.371 (7.320-7.420) 01/21/17 18:11 Sodium 131 mmol/L (137-145) L 02/04/17 04:11 Potassium 4.4 mmol/L (3.6-5.0) 02/04/17 04:11 Chloride 94.5 mmol/L (98-107) L 02/04/17 04:11 Carbon Dioxide 21 mmol/L (22-30) L 02/04/17 04:11 Anion Gap 20 mmol/L 02/04/17 04:11 BUN 21 mg/dL (9-20) H 02/04/17 04:11 Creatinine 2.4 mg/dL (0.8-1.5) H 02/04/17 04:11 Estimated GFR 34 ml/min 02/04/17 04:11 BUN/Creatinine Ratio 8.75 % 02/04/17 04:11 Glucose 83 mg/dL (75-100) 02/04/17 04:11 POC Glucose 114 (70-105) H 02/04/17 05:45 Ketones Quantitative Negative (Negative) 01/22/17 09:43 Osmolality 291 Mosm/kg 01/31/17 12:06 Lactic Acid 1.20 mmol/L (0.7-2.0) 01/22/17 18:25 Uric Acid 4.6 mg/dL (3.5-7.6) 01/31/17 11:58 Calcium 8.2 mg/dL (8.4-10.2) L 02/04/17 04:11 Magnesium 1.80 mg/dL (1.7-2.3) 01/22/17 09:43 Total Bilirubin 0.30 mg/dL (0.1-1.2) 01/30/17 04:56 Direct Bilirubin 0.4 mg/dL (0-0.2) H 01/22/17 09:43 Indirect Bilirubin 0.3 mg/dL 01/22/17 09:43 AST 43 units/L (5-40) H 01/30/17 04:56 ALT 25 units/L (7-56) 01/30/17 04:56 Alkaline Phosphatase 104 units/L (35-129) 01/30/17 04:56 Total Creatine Kinase 60 units/L (55-170) 01/31/17 11:58 Total Protein 7.1 g/dL (6.3-8.2) 01/30/17 04:56 Albumin 2.8 g/dL (3.9-5) L 01/30/17 04:56 Albumin/Globulin Ratio 0.7 % 01/30/17 04:56 Urine Color Straw (Yellow) 01/30/17 11:00 Urine Turbidity Clear (Clear) 01/30/17 11:00 Urine pH 6.0 (5.0-7.0) 01/30/17 11:00 Ur Specific [place] 1.007 (1.003-1.030) 01/30/17 11:00 Urine Protein <15 mg/dl mg/dL (Negative) 01/30/17 11:00 Urine Glucose (UA) >=500 mg/dL (Negative) 01/30/17 11:00 Urine Ketones Neg mg/dL (Negative) 01/30/17 11:00 Urine Blood Neg (Negative) 01/30/17 11:00 Urine Nitrite Neg (Negative) 01/30/17 11:00 Urine Bilirubin Neg (Negative) 01/30/17 11:00 Urine Urobilinogen < 2.0 mg/dL (<2.0) 01/30/17 11:00 Ur Leukocyte Esterase Neg (Negative) 01/30/17 11:00 Urine WBC (Auto) 2.0 /HPF (0.0-6.0) 01/30/17 11:00 Urine RBC (Auto) 3.0 /HPF (0.0-6.0) 01/30/17 11:00 Urine Bacteria (Auto) 1+ /HPF (Negative) 01/30/17 11:00 Urine Mucus Few /HPF 01/21/17 18:36 Urine Eosinophils None seen (None Seen) 01/31/17 21:50 Urine Creatinine 35.3 mg/dL (0.1-20.0) H 01/31/17 21:50 Urine Sodium 132 mEq/L 01/31/17 21:50 Urine Total Protein 12 mg/dL (5-11.8) H 01/31/17 21:50 Vancomycin Trough 49.4 ug/mL (5.0-20.0) H 01/29/17 15:51 Random Vancomycin 12.0 ug/mL (0-40.0) 02/04/17 04:11 Lymph Enumerat CD4/CD8 1.35 (0.86-5.00) 01/22/17 09:35 % CD3 Cells 86 % (57-85) H 01/22/17 09:35 Absolute CD3 Count 730 cells/uL (840-3060) L 01/22/17 09:35 % CD4 Cells 51 % (30-61) 01/22/17 09:35 Absolute CD4 Count 418 cells/uL (490-1740) L 01/22/17 09:35 % CD8 Cells 38 % (12-42) 01/22/17 09:35 Absolute CD8 Count 310 cells/uL (180-1170) 01/22/17 09:35 % CD19 Cells 9 % (6-29) 01/22/17 09:35 Absolute CD19 Count 78 cells/uL (110-660) L 01/22/17 09:35 Blood Type A POSITIVE 01/22/17 10:55 Antibody Screen TNR 01/22/17 10:55 CHARLI Antibody Screen Negative 01/22/17 10:55
[2017-02-04] MEDS: NACL 0.9% 1000 ML 1,000 ML IV SCH (11:52)
[2017-02-04] MEDS: PERCOCET 5/325 PO PRN ×2 (14:22→14:27)
--- NOTE | 2017-02-04 14:34 | Progress Note ---
Subjective Principal diagnosis: left back abscess/ fever Interval history: Patient was seen today for follow-up and multiple renal related issues status post-urology evaluation for scrotal swelling and hematuria he has also been noted to be febrile, currently being evaluated by surgery Anal function has been deteriorating. Current creatinine is around 2.4 Vitals reviewed Gen.: No acute distress alert and pleasant HEENT oral mucosa dry Neck: Supple no JVD Chest: Clear to auscultation no crackles rales wheezes heart: Regular rate and rhythm Abdomen: Soft nontender Extremity dry skin no edema Assessment and plan Acute kidney injury likely appears to be multifactorial at this time ,likely etiology appears to radiocontrast-induced acute tubular necrosis renal function is currently not improving Continue with supportive care hydration for now, patient was prerenal upon presentation and did receive radiocontrast which likely is contributing to acute tubular necrosis Mild hyponatremia which could be multifactorial Continue with IV as well as oral hydration Currently being followed by infectious disease for HIV status Scrotal swelling noted to have changes of epididymitis currently being followed by urology Patient did receive appropriate counseling and education regarding renal related issues We'll continue to follow and make recommendation from renal standpoint Objective - Vital Signs Vital signs: Vital Signs - 12hr 02/04/17 08:00 Temperature 102.7 F H Pulse Rate [ 96 H Right Radial] Respiratory 20 Rate Blood Pressure 145/67 [Right Arm] - Lab 02/04/17 04:11 02/04/17 04:11 Most recent lab results Calcium 8.2 mg/dL (8.4-10.2) L 02/04/17 04:11 Magnesium 1.80 mg/dL (1.7-2.3) 01/22/17 09:43 Urine Creatinine 35.3 mg/dL (0.1-20.0) H 01/31/17 21:50 Urine Sodium 132 mEq/L 01/31/17 21:50 Urine Total Protein 12 mg/dL (5-11.8) H 01/31/17 21:50
--- NOTE | 2017-02-04 16:58 | Event Note ---
Date: 02/04/17 Continued high fevers noted without new localizing complaints. Question if due to drug fever. Will change Vancomycin to oral Doxycycline. Monitor fever curve and renal function on alternate regimen. Keep Flagyl for now.
[2017-02-04] MEDS: VIBRAMYCIN PO SCH (21:55)
[2017-02-05] MEDS: MORPHINE IV PRN ×5 (00:54→22:03)
[2017-02-05] MEDS: FLAGYL PO SCH ×3 (05:24→22:02)
[2017-02-05] MEDS: NEURONTIN PO SCH ×3 (05:24→22:02)
[2017-02-05 05:34] LABS: Basophils % (Auto) 0.5 % (0.0-1.8); Eosinophils % (Auto) 3.4 % (0.0-4.3); Hematocrit 26.9 % (35.5-45.6); Hemoglobin 9.1 gm/dl (11.8-15.2); Mean Corpuscular HGB Conc 34 % (32-34); Mean Corpuscular Hemoglobin 31 pg (28-32); Mean Corpuscular Volume 90 fl (84-94); Platelet Count 149 K/mm3 (140-440); Red Blood Count 2.99 M/mm3 (3.65-5.03); Red Cell Distribution Width 13.9 % (13.2-15.2); White Blood Count 3.8 K/mm3 (4.5-11.0)
[2017-02-05 05:51] LABS: BUN/Creatinine Ratio 11.9
[2017-02-05] MEDS: PERCOCET 5/325 PO PRN ×2 (07:59→18:27)
--- NOTE | 2017-02-05 09:28 | Progress Note ---
Subjective Principal diagnosis: left back abscess/ epididymitis Interval history: Patient was seen today for follow-up and multiple renal related issues He is feeling better today alert awake ambulating Patient has been making plenty of urine but this has not been documented well Events of 24 hours vitals labs intake output medications were reviewed Vitals reviewed Gen.: No acute distress alert and pleasant HEENT oral mucosa moist Neck: Supple no JVD Chest: Clear to auscultation no crackles rales wheezes heart: Regular rate and rhythm Abdomen: Soft nontender Extremity dry skin no edema Assessment and plan Acute kidney injury: Mostly appears to be resulting from radiocontrast nephropathy patient likely has had acute tubular necrosis resulting from that upon admission his creatinine was fairly normal .it appears that his creatinine is now improving , maintain hydration follow-up on renal function, advised the patient to make an appointment upon discharge for follow-up on the renal function Abscess of the back currently being followed by infectious disease judicious antibiotic Advised him not to use any form of normal steroidal drugs, would not recommend any follow-up MERCY inhibitors or angiotensin receptor jhon He was fully counseled and educated regarding renal related issues and does have a good understanding Scrotal swelling noted to have changes of epididymitis currently being followed by urology No evidence of any significant proteinuria at this time Consider discharging once his creatinine is under 1.6 to follow-up in the office Mild hyperkalemia to monitor and follow, currently doing better Patient did receive appropriate counseling and education regarding renal related issues We'll continue to follow and make recommendation from renal standpoint Objective - Vital Signs Vital signs: Vital Signs - 12hr 02/04/17 02/05/17 23:00 08:00 Temperature 98.9 F 100.1 F H Pulse Rate [ 83 86 Right Radial] Respiratory 16 18 Rate Blood Pressure 121/74 125/67 [Right Arm] O2 Sat by Pulse 100 98 Oximetry - Lab 02/05/17 05:00 02/05/17 05:00 Most recent lab results Calcium 8.0 mg/dL (8.4-10.2) L 02/05/17 05:00 Magnesium 1.80 mg/dL (1.7-2.3) 01/22/17 09:43 Urine Creatinine 35.3 mg/dL (0.1-20.0) H 01/31/17 21:50 Urine Sodium 132 mEq/L 01/31/17 21:50 Urine Total Protein 12 mg/dL (5-11.8) H 01/31/17 21:50
[2017-02-05] MEDS: LACTINEX PO SCH ×2 (09:36→23:27)
[2017-02-05] MEDS: EPIVIR PO SCH (09:36)
[2017-02-05] MEDS: ZIAGEN PO SCH (09:36)
[2017-02-05] MEDS: PEPCID PO SCH (09:37)
[2017-02-05] MEDS: VIBRAMYCIN PO SCH ×2 (09:37→22:02)
[2017-02-05] MEDS: TIVICAY (NF) PO SCH (09:37)
[2017-02-05] MEDS: HALFPRIN EC PO SCH (09:37)
[2017-02-05] MEDS: NACL 0.9% 1000 ML 1,000 ML IV SCH (09:43)
--- NOTE | 2017-02-05 10:06 | Progress Note ---
Assessment and Plan Assessment and plan: Subscapular abscess S/P I/D of carbuncle- MRSA positive wound cultures, wound care to follow Epididymitis-left, with Hydrocele. Urology was consulted and signed off. Elevation is advised. Repeat testicular ultrasound did not show gross abscesses. Sepsis secondary to subscapular abscess, poa. Continue IV antibiotics. Patient still with significant fevers. ID following. Fever. ? drug fever. Antibiotics changed by ID. Acute kidney injury likely appears to be multifactorial at this time--sepsis, vasomotor nephropathy and radiocontrast nephropathy . The creatinine appears to be stabilizing. The creatinine is currently stable at 2. Continue to encourage oral hydration and maintain IV hydration as needed Diarrhea. Check C. difficile and stool studies. 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 No chest pain or shortness of breath. Hospitalist Physical - Constitutional Vitals: Temp Pulse Resp BP Pulse Ox 100.1 F H 86 18 125/67 98 02/05/17 08:00 02/05/17 08:00 02/05/17 08:00 02/05/17 08:00 02/05/17 08:00 General appearance: Present: no acute distress - EENT Eyes: Present: PERRL, EOM intact ENT: hearing intact, clear oral mucosa, dentition normal - Neck Neck: Present: supple, normal ROM - Respiratory Respiratory effort: normal Respiratory: bilateral: CTA - Cardiovascular Rhythm: regular Heart Sounds: Present: S1 & S2. Absent: gallop, rub - Extremities Extremities: no ischemia, No edema, Full ROM - Abdominal General gastrointestinal: soft, non-tender, non-distended, normal bowel sounds - Integumentary Integumentary: Present: clear, warm, dry - Neurologic Neurologic: CNII-XII intact, moves all extremities Results - Labs CBC & Chem 7: 02/05/17 05:00 02/05/17 05:00 Labs: Laboratory Last Values WBC 3.8 K/mm3 (4.5-11.0) L 02/05/17 05:00 RBC 2.99 M/mm3 (3.65-5.03) L 02/05/17 05:00 Hgb 9.1 gm/dl (11.8-15.2) L 02/05/17 05:00 Hct 26.9 % (35.5-45.6) L 02/05/17 05:00 MCV 90 fl (84-94) 02/05/17 05:00 MCH 31 pg (28-32) 02/05/17 05:00 MCHC 34 % (32-34) 02/05/17 05:00 RDW 13.9 % (13.2-15.2) 02/05/17 05:00 Plt Count 149 K/mm3 (140-440) 02/05/17 05:00 Lymph % (Auto) 22.0 % (13.4-35.0) 02/05/17 05:00 [place] % (Auto) 8.2 % (0.0-7.3) H 02/05/17 05:00 Eos % (Auto) 3.4 % (0.0-4.3) 02/05/17 05:00 Baso % (Auto) 0.5 % (0.0-1.8) 02/05/17 05:00 Lymph # 0.8 K/mm3 (1.2-5.4) L 02/05/17 05:00 [place] # 0.3 K/mm3 (0.0-0.8) 02/05/17 05:00 Eos # 0.1 K/mm3 (0.0-0.4) 02/05/17 05:00 Baso # 0.0 K/mm3 (0.0-0.1) 02/05/17 05:00 Seg Neutrophils % 65.9 % (40.0-70.0) 02/05/17 05:00 Seg Neutrophils # 2.5 K/mm3 (1.8-7.7) 02/05/17 05:00 Abs Lymphs (Manual) 845 cells/uL (850-3900) L 01/22/17 09:35 PT 14.5 Sec. (12.2-14.9) 01/22/17 09:44 INR 1.07 (0.87-1.13) 01/22/17 09:44 APTT 29.0 Sec. (24.2-36.6) 01/22/17 09:44 VBG pH 7.371 (7.320-7.420) 01/21/17 18:11 Sodium 131 mmol/L (137-145) L 02/05/17 05:00 Potassium 4.0 mmol/L (3.6-5.0) 02/05/17 05:00 Chloride 95.0 mmol/L (98-107) L 02/05/17 05:00 Carbon Dioxide 21 mmol/L (22-30) L 02/05/17 05:00 Anion Gap 19 mmol/L 02/05/17 05:00 BUN 25 mg/dL (9-20) H 02/05/17 05:00 Creatinine 2.1 mg/dL (0.8-1.5) H 02/05/17 05:00 Estimated GFR 40 ml/min 02/05/17 05:00 BUN/Creatinine Ratio 11.90 % 02/05/17 05:00 Glucose 112 mg/dL (75-100) H 02/05/17 05:00 POC Glucose 147 (70-105) H 02/05/17 06:16 Ketones Quantitative Negative (Negative) 01/22/17 09:43 Osmolality 291 Mosm/kg 01/31/17 12:06 Lactic Acid 1.20 mmol/L (0.7-2.0) 01/22/17 18:25 Uric Acid 4.6 mg/dL (3.5-7.6) 01/31/17 11:58 Calcium 8.0 mg/dL (8.4-10.2) L 02/05/17 05:00 Magnesium 1.80 mg/dL (1.7-2.3) 01/22/17 09:43 Total Bilirubin 0.30 mg/dL (0.1-1.2) 01/30/17 04:56 Direct Bilirubin 0.4 mg/dL (0-0.2) H 01/22/17 09:43 Indirect Bilirubin 0.3 mg/dL 01/22/17 09:43 AST 43 units/L (5-40) H 01/30/17 04:56 ALT 25 units/L (7-56) 01/30/17 04:56 Alkaline Phosphatase 104 units/L (35-129) 01/30/17 04:56 Total Creatine Kinase 60 units/L (55-170) 01/31/17 11:58 Total Protein 7.1 g/dL (6.3-8.2) 01/30/17 04:56 Albumin 2.8 g/dL (3.9-5) L 01/30/17 04:56 Albumin/Globulin Ratio 0.7 % 01/30/17 04:56 Urine Color Straw (Yellow) 01/30/17 11:00 Urine Turbidity Clear (Clear) 01/30/17 11:00 Urine pH 6.0 (5.0-7.0) 01/30/17 11:00 Ur Specific [place] 1.007 (1.003-1.030) 01/30/17 11:00 Urine Protein <15 mg/dl mg/dL (Negative) 01/30/17 11:00 Urine Glucose (UA) >=500 mg/dL (Negative) 01/30/17 11:00 Urine Ketones Neg mg/dL (Negative) 01/30/17 11:00 Urine Blood Neg (Negative) 01/30/17 11:00 Urine Nitrite Neg (Negative) 01/30/17 11:00 Urine Bilirubin Neg (Negative) 01/30/17 11:00 Urine Urobilinogen < 2.0 mg/dL (<2.0) 01/30/17 11:00 Ur Leukocyte Esterase Neg (Negative) 01/30/17 11:00 Urine WBC (Auto) 2.0 /HPF (0.0-6.0) 01/30/17 11:00 Urine RBC (Auto) 3.0 /HPF (0.0-6.0) 01/30/17 11:00 Urine Bacteria (Auto) 1+ /HPF (Negative) 01/30/17 11:00 Urine Mucus Few /HPF 01/21/17 18:36 Urine Eosinophils None seen (None Seen) 01/31/17 21:50 Urine Creatinine 35.3 mg/dL (0.1-20.0) H 01/31/17 21:50 Urine Sodium 132 mEq/L 01/31/17 21:50 Urine Total Protein 12 mg/dL (5-11.8) H 01/31/17 21:50 Vancomycin Trough 49.4 ug/mL (5.0-20.0) H 01/29/17 15:51 Random Vancomycin 5.6 ug/mL (0-40.0) 02/05/17 05:00 Lymph Enumerat CD4/CD8 1.35 (0.86-5.00) 01/22/17 09:35 % CD3 Cells 86 % (57-85) H 01/22/17 09:35 Absolute CD3 Count 730 cells/uL (840-3060) L 01/22/17 09:35 % CD4 Cells 51 % (30-61) 01/22/17 09:35 Absolute CD4 Count 418 cells/uL (490-1740) L 01/22/17 09:35 % CD8 Cells 38 % (12-42) 01/22/17 09:35 Absolute CD8 Count 310 cells/uL (180-1170) 01/22/17 09:35 % CD19 Cells 9 % (6-29) 01/22/17 09:35 Absolute CD19 Count 78 cells/uL (110-660) L 01/22/17 09:35 Blood Type A POSITIVE 01/22/17 10:55 Antibody Screen TNR 01/22/17 10:55 CHARLI Antibody Screen Negative 01/22/17 10:55
[2017-02-06] MEDS: MORPHINE IV PRN ×5 (05:37→22:10)
[2017-02-06] MEDS: FLAGYL PO SCH ×3 (05:38→21:56)
[2017-02-06] MEDS: NEURONTIN PO SCH ×3 (05:38→21:56)
[2017-02-06] MEDS: NACL 0.9% 1000 ML 1,000 ML IV SCH ×2 (05:39→11:17)
[2017-02-06 05:54] LABS: Basophils % (Auto) 0.7 % (0.0-1.8); Eosinophils % (Auto) 5.7 % (0.0-4.3); Hematocrit 26.9 % (35.5-45.6); Hemoglobin 9.1 gm/dl (11.8-15.2); Mean Corpuscular HGB Conc 34 % (32-34); Mean Corpuscular Hemoglobin 31 pg (28-32); Mean Corpuscular Volume 91 fl (84-94); Platelet Count 159 K/mm3 (140-440); Red Blood Count 2.95 M/mm3 (3.65-5.03); Red Cell Distribution Width 13.9 % (13.2-15.2); White Blood Count 3.4 K/mm3 (4.5-11.0)
[2017-02-06 06:09] LABS: BUN/Creatinine Ratio 14.44; Calcium 7.9 mg/dL (8.4-10.2); Chloride 100.3 mmol/L (98-107)
[2017-02-06] MEDS: TYLENOL PO PRN (09:24)
[2017-02-06] MEDS: PEPCID PO SCH (09:25)
[2017-02-06] MEDS: LACTINEX PO SCH ×2 (09:25→21:56)
[2017-02-06] MEDS: HALFPRIN EC PO SCH (09:25)
[2017-02-06] MEDS: VIBRAMYCIN PO SCH ×2 (09:25→21:56)
[2017-02-06] MEDS: TIVICAY (NF) PO SCH (09:25)
[2017-02-06] MEDS: EPIVIR PO SCH (09:25)
[2017-02-06] MEDS: ZIAGEN PO SCH (09:26)
--- NOTE | 2017-02-06 09:32 | Progress Note ---
Subjective Principal diagnosis: left back abscess/ epididymitis Interval history: Patient was seen today for follow-up and multiple renal related issues He still continues to have low-grade fever 100.3 Urine output has been good creatinine slowly improving around 1.8 today Patient has been voiding between 4 and 6 times per day Vitals reviewed Gen.: No acute distress alert and pleasant HEENT oral mucosa moist Neck: Supple no JVD Chest: Clear to auscultation no crackles rales wheezes heart: Regular rate and rhythm Abdomen: Soft nontender Extremity dry skin no edema Assessment and plan Acute kidney injury: Mostly appears to be resulting from radiocontrast nephropathy patient likely has had acute tubular necrosis resulting from that upon admission his creatinine was fairly normal .it appears that his creatinine is now improving , maintain hydration follow-up on renal function, advised the patient to make an appointment upon discharge for follow-up on the renal function, creatinine 1.8 02/06, will follow Abscess of the back currently being followed by infectious disease judicious antibiotic; still has low-grade fever 100.3 Advised him not to use any form of non-steroidal drugs BC Goody's powder MERCY inhibitors angiotensin receptor jhon All renal issues have been discussed with him Scrotal swelling noted to have changes of epididymitis currently being followed by urology No evidence of any significant proteinuria at this time/ Consider discharging once his creatinine is under 1.6 to follow-up in the office We'll continue to follow and make recommendation from renal standpoint Objective - Vital Signs Vital signs: Vital Signs - 12hr 02/05/17 02/06/17 23:00 08:00 Temperature 100.3 F H 100.3 F H Pulse Rate [ 89 87 Right Radial] Respiratory 16 20 Rate Blood Pressure 112/66 127/67 [Right Arm] O2 Sat by Pulse 95 97 Oximetry - Lab 02/06/17 04:48 02/06/17 04:48 Most recent lab results Calcium 7.9 mg/dL (8.4-10.2) L 02/06/17 04:48 Magnesium 1.80 mg/dL (1.7-2.3) 01/22/17 09:43 Urine Creatinine 35.3 mg/dL (0.1-20.0) H 01/31/17 21:50 Urine Sodium 132 mEq/L 01/31/17 21:50 Urine Total Protein 12 mg/dL (5-11.8) H 01/31/17 21:50
--- NOTE | 2017-02-06 11:02 | Progress Note ---
Assessment and Plan Assessment and plan: Subscapular abscess S/P I/D of carbuncle- MRSA positive wound cultures, wound care to follow Epididymitis-left, with Hydrocele. Urology was consulted and signed off. Elevation is advised. Repeat testicular ultrasound did not show gross abscesses. Sepsis secondary to subscapular abscess, poa. Continue IV antibiotics. Patient still with significant fevers. ID following. Fever. ? drug fever. Antibiotics changed by ID. Acute kidney injury likely appears to be multifactorial at this time--sepsis, vasomotor nephropathy and radiocontrast nephropathy . The creatinine appears to be stabilizing. The creatinine is currently stable at 2. Continue to encourage oral hydration and maintain IV hydration as needed Diarrhea. Check C. difficile and stool studies. 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 No chest pain or shortness of breath. Hospitalist Physical - Constitutional Vitals: Temp Pulse Resp BP Pulse Ox 100.3 F H 87 20 127/67 97 02/06/17 08:00 02/06/17 08:00 02/06/17 08:00 02/06/17 08:00 02/06/17 08:00 General appearance: Present: no acute distress - EENT Eyes: Present: PERRL, EOM intact ENT: hearing intact, clear oral mucosa, dentition normal - Neck Neck: Present: supple, normal ROM - Respiratory Respiratory effort: normal Respiratory: bilateral: CTA - Cardiovascular Rhythm: regular Heart Sounds: Present: S1 & S2. Absent: gallop, rub - Extremities Extremities: no ischemia, No edema, Full ROM - Abdominal General gastrointestinal: soft, non-tender, non-distended, normal bowel sounds - Integumentary Integumentary: Present: clear, warm, dry - Neurologic Neurologic: CNII-XII intact, moves all extremities Results - Labs CBC & Chem 7: 02/06/17 04:48 02/06/17 04:48 Labs: Laboratory Last Values WBC 3.4 K/mm3 (4.5-11.0) L 02/06/17 04:48 RBC 2.95 M/mm3 (3.65-5.03) L 02/06/17 04:48 Hgb 9.1 gm/dl (11.8-15.2) L 02/06/17 04:48 Hct 26.9 % (35.5-45.6) L 02/06/17 04:48 MCV 91 fl (84-94) 02/06/17 04:48 MCH 31 pg (28-32) 02/06/17 04:48 MCHC 34 % (32-34) 02/06/17 04:48 RDW 13.9 % (13.2-15.2) 02/06/17 04:48 Plt Count 159 K/mm3 (140-440) 02/06/17 04:48 Lymph % (Auto) 30.2 % (13.4-35.0) 02/06/17 04:48 [place] % (Auto) 10.4 % (0.0-7.3) H 02/06/17 04:48 Eos % (Auto) 5.7 % (0.0-4.3) H 02/06/17 04:48 Baso % (Auto) 0.7 % (0.0-1.8) 02/06/17 04:48 Lymph # 1.0 K/mm3 (1.2-5.4) L 02/06/17 04:48 [place] # 0.3 K/mm3 (0.0-0.8) 02/06/17 04:48 Eos # 0.2 K/mm3 (0.0-0.4) 02/06/17 04:48 Baso # 0.0 K/mm3 (0.0-0.1) 02/06/17 04:48 Seg Neutrophils % 53.0 % (40.0-70.0) 02/06/17 04:48 Seg Neutrophils # 1.8 K/mm3 (1.8-7.7) 02/06/17 04:48 Abs Lymphs (Manual) 845 cells/uL (850-3900) L 01/22/17 09:35 PT 14.5 Sec. (12.2-14.9) 01/22/17 09:44 INR 1.07 (0.87-1.13) 01/22/17 09:44 APTT 29.0 Sec. (24.2-36.6) 01/22/17 09:44 VBG pH 7.371 (7.320-7.420) 01/21/17 18:11 Sodium 135 mmol/L (137-145) L 02/06/17 04:48 Potassium 4.0 mmol/L (3.6-5.0) 02/06/17 04:48 Chloride 100.3 mmol/L (98-107) 02/06/17 04:48 Carbon Dioxide 21 mmol/L (22-30) L 02/06/17 04:48 Anion Gap 18 mmol/L 02/06/17 04:48 BUN 26 mg/dL (9-20) H 02/06/17 04:48 Creatinine 1.8 mg/dL (0.8-1.5) H 02/06/17 04:48 Estimated GFR 47 ml/min 02/06/17 04:48 BUN/Creatinine Ratio 14.44 % 02/06/17 04:48 Glucose 170 mg/dL (75-100) H 02/06/17 04:48 POC Glucose 207 (70-105) H 02/06/17 06:02 Ketones Quantitative Negative (Negative) 01/22/17 09:43 Osmolality 291 Mosm/kg 01/31/17 12:06 Lactic Acid 1.20 mmol/L (0.7-2.0) 01/22/17 18:25 Uric Acid 4.6 mg/dL (3.5-7.6) 01/31/17 11:58 Calcium 7.9 mg/dL (8.4-10.2) L 02/06/17 04:48 Magnesium 1.80 mg/dL (1.7-2.3) 01/22/17 09:43 Total Bilirubin 0.30 mg/dL (0.1-1.2) 01/30/17 04:56 Direct Bilirubin 0.4 mg/dL (0-0.2) H 01/22/17 09:43 Indirect Bilirubin 0.3 mg/dL 01/22/17 09:43 AST 43 units/L (5-40) H 01/30/17 04:56 ALT 25 units/L (7-56) 01/30/17 04:56 Alkaline Phosphatase 104 units/L (35-129) 01/30/17 04:56 Total Creatine Kinase 60 units/L (55-170) 01/31/17 11:58 Total Protein 7.1 g/dL (6.3-8.2) 01/30/17 04:56 Albumin 2.8 g/dL (3.9-5) L 01/30/17 04:56 Albumin/Globulin Ratio 0.7 % 01/30/17 04:56 Urine Color Straw (Yellow) 01/30/17 11:00 Urine Turbidity Clear (Clear) 01/30/17 11:00 Urine pH 6.0 (5.0-7.0) 01/30/17 11:00 Ur Specific [place] 1.007 (1.003-1.030) 01/30/17 11:00 Urine Protein <15 mg/dl mg/dL (Negative) 01/30/17 11:00 Urine Glucose (UA) >=500 mg/dL (Negative) 01/30/17 11:00 Urine Ketones Neg mg/dL (Negative) 01/30/17 11:00 Urine Blood Neg (Negative) 01/30/17 11:00 Urine Nitrite Neg (Negative) 01/30/17 11:00 Urine Bilirubin Neg (Negative) 01/30/17 11:00 Urine Urobilinogen < 2.0 mg/dL (<2.0) 01/30/17 11:00 Ur Leukocyte Esterase Neg (Negative) 01/30/17 11:00 Urine WBC (Auto) 2.0 /HPF (0.0-6.0) 01/30/17 11:00 Urine RBC (Auto) 3.0 /HPF (0.0-6.0) 01/30/17 11:00 Urine Bacteria (Auto) 1+ /HPF (Negative) 01/30/17 11:00 Urine Mucus Few /HPF 01/21/17 18:36 Urine Eosinophils None seen (None Seen) 01/31/17 21:50 Urine Creatinine 35.3 mg/dL (0.1-20.0) H 01/31/17 21:50 Urine Sodium 132 mEq/L 01/31/17 21:50 Urine Total Protein 12 mg/dL (5-11.8) H 01/31/17 21:50 Vancomycin Trough 49.4 ug/mL (5.0-20.0) H 01/29/17 15:51 Random Vancomycin 5.6 ug/mL (0-40.0) 02/05/17 05:00 Lymph Enumerat CD4/CD8 1.35 (0.86-5.00) 01/22/17 09:35 % CD3 Cells 86 % (57-85) H 01/22/17 09:35 Absolute CD3 Count 730 cells/uL (840-3060) L 01/22/17 09:35 % CD4 Cells 51 % (30-61) 01/22/17 09:35 Absolute CD4 Count 418 cells/uL (490-1740) L 01/22/17 09:35 % CD8 Cells 38 % (12-42) 01/22/17 09:35 Absolute CD8 Count 310 cells/uL (180-1170) 01/22/17 09:35 % CD19 Cells 9 % (6-29) 01/22/17 09:35 Absolute CD19 Count 78 cells/uL (110-660) L 01/22/17 09:35 Blood Type A POSITIVE 01/22/17 10:55 Antibody Screen TNR 01/22/17 10:55 CHARLI Antibody Screen Negative 01/22/17 10:55
--- NOTE | 2017-02-06 18:13 | Progress Note ---
Assessment and Plan - Patient Problems (1) Fever Current Visit: Yes Status: Acute Qualifiers: Fever type: F Encounter type: E Plan to address problem: Nearly resolved. Afebrile for > 24 hours with low-grade temps noted. (2) Thrombophlebitis following injection or infusion Current Visit: Yes Status: Acute Qualifiers: Encounter type: initial encounter Qualified Code(s): T81.72XA - Complication of vein following a procedure, not elsewhere classified, initial encounter Plan to address problem: Improved. (3) Abscess of back Current Visit: Yes Status: Acute Plan to address problem: Continue Doxycycline and local wound care. Anticipate a 14-21-day total course (including days of Vancomycin received previously). (4) Acute kidney injury Current Visit: Yes Status: Acute Plan to address problem: Improving, mary grace, since stopping Vancomycin. (5) HIV (human immunodeficiency virus infection) Current Visit: Yes Status: Acute Plan to address problem: Continue HAART. Will reorder Dolutegravir. Received today along with Abacavir and Lamivudine. (6) Diarrhea Current Visit: Yes Status: Acute Qualifiers: Diarrhea type: D Plan to address problem: Stool studies sent. Continue empiric Flagyl for now. Would continue for as long as patient is on Doxycycline or any other systemic antibiotic. Subjective Date of service: 02/06/17 Principal diagnosis: left back abscess/ epididymitis Interval history: Low-grade temp readings since stopping Vancomycin. Renal function and diarrhea are also improving. Objective - Constitutional Vitals: Vital Signs Temp Pulse Resp BP Pulse Ox 100.3 F H 87 20 127/67 97 02/06/17 08:00 02/06/17 08:00 02/06/17 08:00 02/06/17 08:00 02/06/17 08:00 Temperature -Last 24 Hours Temperature 100.3 F Temperature 100.3 F General appearance: Present: no acute distress, other (thin man) - EENT ENT: clear oral mucosa - Respiratory Respiratory effort: normal Respiratory: bilateral: CTA - Cardiovascular Rhythm: regular Heart Sounds: Present: S1 & S2 Extremities: No edema - Gastrointestinal General gastrointestinal: Present: soft, non-distended - Integumentary Integumentary: erythema (packed upper back wound, no drainage) - Neurologic Neurologic: moves all extremities - Psychiatric Psychiatric: appropriate mood/affect - Labs CBC & Chem 7: 02/06/17 04:48 02/06/17 04:48 Labs: Abnormal lab results 02/05/17 02/05/17 02/05/17 Range/Units 11:24 16:23 16:45 WBC (4.5-11.0) K/mm3 RBC (3.65-5.03) M/mm3 Hgb (11.8-15.2) gm/dl Hct (35.5-45.6) % [place] % (Auto) (0.0-7.3) % Eos % (Auto) (0.0-4.3) % Lymph # (1.2-5.4) K/mm3 Sodium (137-145) mmol/L Carbon Dioxide (22-30) mmol/L BUN (9-20) mg/dL Creatinine (0.8-1.5) mg/dL Glucose (75-100) mg/dL POC Glucose 290 H 59 L 67 L (70-105) Calcium (8.4-10.2) mg/dL 02/05/17 02/05/17 02/06/17 Range/Units 18:14 21:39 04:48 WBC (4.5-11.0) K/mm3 RBC (3.65-5.03) M/mm3 Hgb (11.8-15.2) gm/dl Hct (35.5-45.6) % [place] % (Auto) (0.0-7.3) % Eos % (Auto) (0.0-4.3) % Lymph # (1.2-5.4) K/mm3 Sodium 135 L (137-145) mmol/L Carbon Dioxide 21 L (22-30) mmol/L BUN 26 H (9-20) mg/dL Creatinine 1.8 H (0.8-1.5) mg/dL Glucose 170 H (75-100) mg/dL POC Glucose 135 H 148 H (70-105) Calcium 7.9 L (8.4-10.2) mg/dL 02/06/17 02/06/17 02/06/17 Range/Units 04:48 06:02 11:30 WBC 3.4 L (4.5-11.0) K/mm3 RBC 2.95 L (3.65-5.03) M/mm3 Hgb 9.1 L (11.8-15.2) gm/dl Hct 26.9 L (35.5-45.6) % [place] % (Auto) 10.4 H (0.0-7.3) % Eos % (Auto) 5.7 H (0.0-4.3) % Lymph # 1.0 L (1.2-5.4) K/mm3 Sodium (137-145) mmol/L Carbon Dioxide (22-30) mmol/L BUN (9-20) mg/dL Creatinine (0.8-1.5) mg/dL Glucose (75-100) mg/dL POC Glucose 207 H 65 L (70-105) Calcium (8.4-10.2) mg/dL 02/06/17 Range/Units 16:23 WBC (4.5-11.0) K/mm3 RBC (3.65-5.03) M/mm3 Hgb (11.8-15.2) gm/dl Hct (35.5-45.6) % [place] % (Auto) (0.0-7.3) % Eos % (Auto) (0.0-4.3) % Lymph # (1.2-5.4) K/mm3 Sodium (137-145) mmol/L Carbon Dioxide (22-30) mmol/L BUN (9-20) mg/dL Creatinine (0.8-1.5) mg/dL Glucose (75-100) mg/dL POC Glucose 110 H (70-105) Calcium (8.4-10.2) mg/dL Microbiology 02/04/17 18:09 Stool Stool for WBCs - Final NEGATIVE 01/29/17 17:09 Peripheral/Venous Blood Culture - Final NO GROWTH AFTER 5 DAYS 01/29/17 17:04 Peripheral/Venous Blood Culture - Final NO GROWTH AFTER 5 DAYS 01/23/17 Unknown Back AFB Smear Concentration - Final 01/23/17 Unknown Back Anaerobic Culture - Final 01/21/17 18:11 Peripheral/Venous Blood Culture - Final NO GROWTH AFTER 5 DAYS 01/23/17 Unknown Back Surgical Culture - Final Methicillin Resist S. Aureus 01/23/17 11:00 Back Wound Culture - Final Methicillin Resist S. Aureus 01/21/17 19:33 Peripheral/Venous Blood Culture - Final Staphylococcus Aureus 01/22/17 Unknown Urine,Clean Catch Urine Culture - Final Staphylococcus Aureus 01/22/17 12:05 Back Wound Culture - Final Methicillin Resist S. Aureus
[2017-02-07 04:58] LABS: Eosinophils % (Auto) 6.1 % (0.0-4.3); Hematocrit 27.6 % (35.5-45.6); Hemoglobin 9.4 gm/dl (11.8-15.2); Mean Corpuscular HGB Conc 34 % (32-34); Mean Corpuscular Hemoglobin 31 pg (28-32); Mean Corpuscular Volume 91 fl (84-94); Platelet Count 196 K/mm3 (140-440); Red Blood Count 3.04 M/mm3 (3.65-5.03); Red Cell Distribution Width 14.3 % (13.2-15.2); White Blood Count 3.1 K/mm3 (4.5-11.0)
[2017-02-07 05:16] LABS: BUN/Creatinine Ratio 15.33; Calcium 8.2 mg/dL (8.4-10.2); Chloride 101.3 mmol/L (98-107); Potassium 3.8 mmol/L (3.6-5.0)
[2017-02-07] MEDS: MORPHINE IV PRN (06:36)
[2017-02-07] MEDS: FLAGYL PO SCH ×2 (06:37→13:52)
[2017-02-07] MEDS: NEURONTIN PO SCH ×2 (06:37→13:52)
[2017-02-07] MEDS: PERCOCET 5/325 PO PRN (08:33)
[2017-02-07] MEDS: ZIAGEN PO SCH (09:14)
[2017-02-07] MEDS: EPIVIR PO SCH (09:14)
[2017-02-07] MEDS: TIVICAY (NF) PO SCH (09:14)
[2017-02-07] MEDS: PEPCID PO SCH (09:14)
[2017-02-07] MEDS: HALFPRIN EC PO SCH (09:15)
[2017-02-07] MEDS: VIBRAMYCIN PO SCH (09:15)
[2017-02-07] MEDS: LACTINEX PO SCH (09:15)
[2017-02-07] MEDS ORDERED: NON-FORMULARY (Dolutegravir 50 MG) PO SCH (10:00)
--- NOTE | 2017-02-07 10:19 | Progress Note ---
Subjective Principal diagnosis: left back abscess/ epididymitis Interval history: Patient was seen today for follow-up and multiple renal related issues Urine output has been good creatinine slowly improving around 1.5 today Patient has been voiding between 4 and 6 times per day Vitals reviewed Gen.: No acute distress alert and pleasant HEENT oral mucosa moist Neck: Supple no JVD Chest: Clear to auscultation no crackles rales wheezes heart: Regular rate and rhythm Abdomen: Soft nontender Extremity dry skin no edema Assessment and plan Acute kidney injury: Mostly appears to be resulting from radiocontrast nephropathy patient likely has had acute tubular necrosis resulting from that upon admission his creatinine was fairly normal. Creatinine better 1.5 maintain hydration follow-up on renal function Needs appointment upon discharge for follow-up on the renal function, creatinine 1.8 02/06, will follow Abscess of the back currently being followed by infectious disease judicious antibiotic Advised him not to use any form of non-steroidal drugs BC Goody's powder MERCY inhibitors angiotensin receptor jhon All renal issues have been discussed with him Scrotal swelling noted to have changes of epididymitis currently being followed by urology No evidence of any significant proteinuria at this time/ Consider discharging once his creatinine is under 1.6 to follow-up in the office We'll continue to follow and make recommendation from renal standpoint Objective - Vital Signs Vital signs: Vital Signs - 12hr 02/07/17 02/07/17 00:03 08:00 Temperature 99.5 F 99.2 F Pulse Rate [ 77 83 Right Radial] Respiratory 18 20 Rate Blood Pressure 137/71 125/72 [Right Arm] O2 Sat by Pulse 97 96 Oximetry - Lab 02/07/17 04:35 02/07/17 04:35 Most recent lab results Calcium 8.2 mg/dL (8.4-10.2) L 02/07/17 04:35 Magnesium 1.80 mg/dL (1.7-2.3) 01/22/17 09:43 Urine Creatinine 35.3 mg/dL (0.1-20.0) H 01/31/17 21:50 Urine Sodium 132 mEq/L 01/31/17 21:50 Urine Total Protein 12 mg/dL (5-11.8) H 01/31/17 21:50
--- NOTE | 2017-02-07 10:48 | Discharge Summary ---
Providers - Providers Date of Admission: 01/22/17 09:48 Date of discharge: 02/07/17 Attending physician: DEEDEE WHITE 01/22/17 09:53 Consult to Physician [CONS] Routine Consulting Provider: KHADRA FREITAS Reason For Exam: abscess- back Place consult to:: ID Notified:: Y If yes, spoke with:: LEFT MESSAGE ON OFFICE PHONE Time called:: 12:30 01/22/17 10:04 Consult to Dietitian/Nutrition [CONS] Routine Physician Instructions: Reason For Exam: Reason for Consult: Malnutrition Consult to Wound/ET Nurse [CONS] Routine Reason For Exam: wound eval 01/22/17 12:21 Consult to Physician [CONS] Routine Consulting Provider: ANTHONY SAINI Reason For Exam: back abcess Place consult to:: SURG Notified:: Y Was contact made?: Yes If yes, spoke with:: LASHAUN ILYA Time called:: 13:10 01/25/17 12:57 Consult to Physician [CONS] Urgent Consulting Provider: KHADRA FREITAS Reason For Exam: Positive wound culture Place consult to:: MD Onofre Notified:: via phone Phone number called:: [phone] Was contact made?: Yes If yes, spoke with:: MD Sanju Ortega Time called:: 12:55 Comment:: MD Onofre said "ok" 01/26/17 08:21 Consult to Physician [CONS] Routine Consulting Provider: CHICA TORRES Reason For Exam: Epididmytis Place consult to:: dr. torres Notified:: dr. ade russell Comment:: dr. ordaz called doctor torres 01/31/17 07:47 Consult to Physician [CONS] Routine Consulting Provider: JERRY HOTY Reason For Exam: Worsening Cr, ARF Place consult to:: Danny BOLAND Notified:: OFFICE Phone number called:: [phone] Was contact made?: Yes If yes, spoke with:: GABRIELA Time called:: 09:37 Comment:: CHARLENE COOK 02/02/17 12:40 Consult to Physician [CONS] Routine Consulting Provider: ANTHONY SAINI Reason For Exam: Re-evaluate abscess, pt known to you Place consult to:: Dr. Anthony Saini Notified:: office Phone number called:: [phone] Was contact made?: Yes If yes, spoke with:: ilya Time called:: 09:42 Primary care physician: SURVEYOR HYDROGRAPHIC Hospitalization Reason for admission: back abscess Condition: Stable Hospital course: Rick is a 57-year-old man with HIV infection, chronic HCV and diabetes mellitus who is admitted for evaluation and treatment of a large upper back lesion, which had been draining purulent fluid. He recently relocated to [place] and is followed for HIV management at [facility]. He says his most recent CD4 > 500. The left subscapular abscess was evaluated elsewhere and reportedly ruled out for malignancy. Superficial wound cultures were positive for growth of Staph aureus. Patient was started on IV Vancomycin and Zosyn. Patient was seen by infectious disease and general surgery consultation. General surgery treated the patient with incision and drainage procedure on 01/23/17. Antibiotics were changed to vancomycin and clindamycin. Unfortunately, patient have persistent fevers throughout hospitalization. Ultrasound of the right arm was obtained to rule out abscess or thrombophlebitis and stool studies because of diarrhea to check as a source for the fevers. The ultrasound as stool studies were found to be negative. Also, a potential source was felt to be scrotal cellulitis. Patient has some erythema and edema of the scrotum. Urology consultation and testicular ultrasound was obtained. Patient was found to have left epididymitis and was offered opportunity for left orchiectomy but the patient refused. Patient wanted to wait and to continue antibiotics because he felt symptoms were improving. Patient eventually defervesced and was felt to have her see maximal hospital benefit to be discharged home with doxycycline and local wound care. Other complications during hospital stay included acute kidney injury/ATN. Patient was seen by nephrology in consultation and etiology is felt to be secondary to radiocontrast nephropathy. The patient's creatinine resolved to a near-normal range of 1.5 with aggressive IV fluid hydration. Patient is felt to have received maximal hospital benefit. Dedicated discharge time 43 minutes Disposition: DC-01 TO HOME OR SELFCARE Time spent for discharge: 43 - Discharge Diagnoses (1) Sepsis Status: Acute Qualifiers: Sepsis type: S (2) Abscess of back Status: Acute (3) Acute kidney injury Status: Acute (4) Cachexia associated with AIDS Status: Acute (5) Diarrhea Status: Acute Qualifiers: Diarrhea type: D (6) Fever Status: Acute Qualifiers: Fever type: F Encounter type: E (7) HIV (human immunodeficiency virus infection) Status: Acute (8) Hepatitis C Status: Acute Qualifiers: Viral hepatitis chronicity: chronic Hepatic coma status: without hepatic coma Qualified Code(s): B18.2 - Chronic viral hepatitis C Core Measure Documentation - Palliative Care Palliative Care/ Comfort Measures: Not Applicable - Core Measures Any of the following diagnoses?: none Exam - Constitutional Vitals: Temp Pulse Resp BP Pulse Ox 99.2 F 83 20 125/72 96 02/07/17 08:00 02/07/17 08:00 02/07/17 08:00 02/07/17 08:00 02/07/17 08:00 General appearance: Present: no acute distress, well-nourished - EENT Eyes: Present: PERRL ENT: hearing intact, clear oral mucosa - Neck Neck: Present: supple, normal ROM - Respiratory Respiratory effort: normal Respiratory: bilateral: CTA - Cardiovascular Heart Sounds: Present: S1 & S2. Absent: rub, click - Extremities Extremities: pulses symmetrical, No edema Peripheral Pulses: within normal limits - Abdominal General gastrointestinal: Present: soft, non-tender, non-distended, normal bowel sounds Male genitourinary: Present: normal - Integumentary Integumentary: Present: clear, warm, dry - Musculoskeletal Musculoskeletal: gait normal, strength equal bilaterally - Psychiatric Psychiatric: appropriate mood/affect, intact judgment & insight - Neurologic Neurologic: CNII-XII intact, moves all extremities Plan Activity: no restrictions Weight Bearing Status: Full Weight Bearing Follow up with: PRIMARY LEIGH, [Primary Care Provider] - 3-5 Days KHADRA FREITAS MD [Staff Physician] - 7 Days TRAVIS HYDE MD [Staff Physician] - 7 Days ANTHONY SAINI MD [Staff Physician] - 7 Days RICHARD FLOWERS MD [Staff Physician] - 7 Days Prescriptions: Aspirin [Adult Low Dose Aspirin EC] 81 mg PO DAILY #30 tablet. Doxycycline [Vibramycin CAP] 100 mg PO BID #42 capsule Gabapentin [Neurontin] 400 mg PO Q8HR #90 capsule Insulin NPH/Regular [NovoLIN 70/30] 22 unit SUB-Q BIDDIAB #30 units metroNIDAZOLE [Flagyl TAB] 500 mg PO Q8HR #30 tablet oxyCODONE /ACETAMINOPHEN [Percocet 5/325 mg] 2 tab PO Q6H PRN #30 tablet PRN Reason: Pain, Moderate (4-6)
[2017-02-07 13:53] VITALS: BP 131/81
== END 2017-02-07 15:18 | disposition home or self-care (01) | DRG 974 ==
LOC: ED 16:06 → 3A 01-22 09:48 → 2B-SURG 01-22 11:17 → 3A 01-22 11:56
PROVIDERS: ADMIT Internal Medicine; ATTEND Hospitalist
PROC: 0W9K0ZZ Drainage of Upper Back, Open Approach (ICD-10-PCS; principal; 2017-01-23)
PROC: 0WBK0ZZ Excision of Upper Back, Open Approach (ICD-10-PCS; 2017-01-23)
DX: A41.9 Sepsis, unspecified organism (principal); B20 Human immunodeficiency virus [HIV] disease; E43 Unspecified severe protein-calorie malnutrition; N17.0 Acute kidney failure with tubular necrosis; N30.00 Acute cystitis without hematuria; Z68.1 Body mass index [BMI] 19.9 or less, adult; E87.1 Hypo-osmolality and hyponatremia; R64 Cachexia; L02.818 Cutaneous abscess of other sites; L02.212 Cutaneous abscess of back [any part, except buttock and flank]; F17.200 Nicotine dependence, unspecified, uncomplicated; K73.9 Chronic hepatitis, unspecified; Z91.19 Patient's noncompliance with other medical treatment and regimen; Z87.442 Personal history of urinary calculi; Z72.89 Other problems related to lifestyle; E10.65 Type 1 diabetes mellitus with hyperglycemia; E87.8 Other disorders of electrolyte and fluid balance, not elsewhere classified; N30.90 Cystitis, unspecified without hematuria; L28.1 Prurigo nodularis; N45.1 Epididymitis; E87.6 Hypokalemia; N20.0 Calculus of kidney; N18.9 Chronic kidney disease, unspecified; Z59.0 Homelessness; E86.9 Volume depletion, unspecified; D64.9 Anemia, unspecified; I80.9 Phlebitis and thrombophlebitis of unspecified site; R19.7 Diarrhea, unspecified; Z53.29 Procedure and treatment not carried out because of patient's decision for other reasons
CPT/HCPCS: 36415; 71010; 74178; 80048; 80053; 80074; 80202; 81001; 82010; 82024; 82140; 82550; 82570; 82805; 82962; 83735; 83930; 84156; 84300; 84550; 85007; 85025; 85027; 85610; 85730; 86850; 86900; 86901; 87040; 87045; 87075; 87076; 87086; 87102; 87116; 87186; 87220; 87493; 89050; 93975; 96361; 96365; 96372; 96375; 99285; J1170; J1200; J1644; J1815; J2250; J2270; J2405; J2543; J2704; J3010; J3370; J7030; J7040; J7050; Q9967

== ENCOUNTER 2017-10-21 13:15 | Inpatient (IN) | payer OTHER ==
[2017-10-21] MEDS ORDERED: D50W (25GM) Syringe IV PRN ×2 (14:51→20:11)
[2017-10-21] MEDS ORDERED: NACL 0.9% 1000 ML 1,000 ML IV ONE ×2 (14:52→14:53)
--- NOTE | 2017-10-21 15:09 | Emergency Department Report ---
ED General Adult HPI - General Chief complaint: Hyperglycemia Stated complaint: HIGH BLOOD SUGAR Time Seen by Provider: 10/21/17 14:45 Source: patient, EMS Mode of arrival: Stretcher Limitations: No Limitations - History of Present Illness Initial comments: Patient is a 57-year-old male long-term patient. Patient had history of HIV and diabetes. Patient brought by EMS for evaluation of hyperglycemia. his initial blood glucose is 650. Patient stated that he is unable to eat or drink for the last 3 days no appetite. Patient did not take his insulin and also for the last 3 days. Patient denied any fever but admits cough, no shortness of breath. - Related Data Home Medications Medication Instructions Recorded Confirmed Last Taken Abacavir/Dolutegravir/Lamivudi 1 each PO DAILY 01/22/17 10/21/17 01/20/17 [Triumeq Tablet] Insulin Lispro [HumaLOG VIAL] 45 unit SQ AC 10/21/17 10/21/17 Unknown Insulin NPH/Regular [NovoLIN 70/30] 25 unit SUB-Q BIDDIAB 10/21/17 10/21/17 Unknown Previous Rx's Medication Instructions Recorded Last Taken Type Aspirin [Adult Low Dose Aspirin EC] 81 mg PO DAILY #30 tablet. 02/07/17 Unknown Rx Doxycycline [Vibramycin CAP] 100 mg PO BID #42 capsule 02/07/17 Unknown Rx Gabapentin [Neurontin] 400 mg PO Q8HR #90 capsule 02/07/17 Unknown Rx metroNIDAZOLE [Flagyl TAB] 500 mg PO Q8HR #30 tablet 02/07/17 Unknown Rx Allergies Allergy/AdvReac Type Severity Reaction Status Date / Time No Known Allergies Allergy Unverified 12/14/16 03:43 ED Review of Systems ROS: Stated complaint: HIGH BLOOD SUGAR Other details as noted in HPI Comment: All other systems reviewed and negative Constitutional: denies: chills, fever Respiratory: cough. denies: orthopnea, shortness of breath, SOB with exertion, SOB at rest, wheezing Cardiovascular: denies: chest pain, palpitations Gastrointestinal: nausea. denies: abdominal pain, vomiting, diarrhea, constipation, hematemesis, melena, hematochezia ED Past Medical Hx - Past Medical History Hx Congestive Heart Failure: No Hx Diabetes: Yes Hx Liver Disease: Yes (hep C, hepatomegaly) Hx Renal Disease: Yes (kidney stones) Hx of Cancer: Yes (Prostate) Hx Asthma: No Hx COPD: No Hx HIV: Yes - Surgical History Past Surgical History?: Yes Additional Surgical History: Back sx - Social History Smoking Status: Current Some Day Smoker Substance Use Type: Alcohol, Cocaine, Marijuana - Medications Home Medications: Home Medications Medication Instructions Recorded Confirmed Last Taken Type Abacavir/Dolutegravir/Lamivudi 1 each PO DAILY 01/22/17 10/21/17 01/20/17 History [Triumeq Tablet] Aspirin [Adult Low Dose Aspirin EC] 81 mg PO DAILY #30 tablet. 02/07/17 Unknown Rx Doxycycline [Vibramycin CAP] 100 mg PO BID #42 capsule 02/07/17 10/21/17 Unknown Rx Gabapentin [Neurontin] 400 mg PO Q8HR #90 capsule 02/07/17 10/21/17 Unknown Rx metroNIDAZOLE [Flagyl TAB] 500 mg PO Q8HR #30 tablet 02/07/17 10/21/17 Unknown Rx Insulin Lispro [HumaLOG VIAL] 45 unit SQ AC 10/21/17 10/21/17 Unknown History Insulin NPH/Regular [NovoLIN 70/30] 25 unit SUB-Q BIDDIAB 10/21/17 10/21/17 Unknown History ED Physical Exam - General Limitations: No Limitations General appearance: alert, in no apparent distress - Head Head exam: Present: atraumatic, normocephalic - ENT ENT exam: Present: mucous membranes dry - Neck Neck exam: Present: normal inspection, full ROM. Absent: tenderness, meningismus, lymphadenopathy, thyromegaly - Respiratory Respiratory exam: Present: normal lung sounds bilaterally. Absent: respiratory distress, wheezes, rales, rhonchi, stridor, chest wall tenderness, accessory muscle use, decreased breath sounds, prolonged expiratory - Cardiovascular Cardiovascular Exam: Present: regular rate, normal rhythm, normal heart sounds - GI/Abdominal GI/Abdominal exam: Present: soft, normal bowel sounds. Absent: distended, tenderness, guarding, rebound, rigid, mass, bruit, pulsatile mass, hernia - Extremities Exam Extremities exam: Present: normal inspection, full ROM, normal capillary refill - Back Exam Back exam: Present: normal inspection, full ROM. Absent: tenderness, CVA tenderness (R), CVA tenderness (L) - Neurological Exam Neurological exam: Present: alert, oriented X3, CN II-XII intact, normal gait - Skin Skin exam: Present: warm, intact, normal color ED Course Vital Signs 10/21/17 10/21/17 14:00 15:14 Temperature 95.7 F L Pulse Rate 72 Respiratory 16 10 L Rate Blood Pressure 122/74 O2 Sat by Pulse 100 98 Oximetry - Reevaluation(s) Reevaluation #1: 10/21/17 16:58 Patient stated that he is feeling better. Asking for something to eat. 10/21/17 16:59 ED Medical Decision Making - Lab Data Result diagrams: 10/21/17 14:42 10/21/17 14:42 - EKG Data -: EKG Interpreted by Tn EKG shows normal: sinus rhythm Rate: normal - EKG Data Interpretation: no acute changes - Radiology Data Radiology results: report reviewed Referring Physician: MIRIAM ZEPEDA Patient Name: MOISÉS TAPIA Date of : 1960 Sex: Male Report Date: 2017-10-21 Report Status: [place] [address] XRay Report Signed Patient: MOISÉS TAPIA MR#: [id number] : 1960 Acct:[id number] Age/Sex: 57 / M ADM Date: 10/21/17 Loc: ED Attending Dr: Ordering Physician: MIRIAM ZEPEDA Date of Service: 10/21/17 Procedure(s): XR chest 1V ap Accession Number(s): [id number] cc: MIRIAM ZEPEDA Fluoro Time In Minutes: FINAL REPORT EXAM: XR CHEST 1V AP HISTORY: DKA/COUGH TECHNIQUE: AP portable view of the chest PRIORS: None. FINDINGS: Lines, tubes, and devices: N/A Lungs and pleura: Trachea is normal in position. There is a small 5 mm nodule in the right midlung zone overlying the posterior with right 5th rib. There is also nodular prominence of the lateral left hilar region measuring 1.0 cm, probably a vessel in cross-section. CT is recommended. Mild hyperinflation is noted. Lungs are otherwise clear of infiltrate, pleural effusion, vascular congestion, or pneumothorax. Cardiomediastinal silhouette: Cardiac and mediastinal silhouettes are unremarkable. Other: Bony structures are intact. IMPRESSION: Nodular density in the right midlung zone and nodular prominence of the left lateral hilar region. CT is recommended. Transcribed By: [facility] Dictated By: VERÓNICA CHRISTENSEN MD Electronically Authenticated By: VERÓNICA CHRISTENSEN MD Signed Date/Time: 10/21/171602 DD/ 02 TD/TT: 10/21/171602 - Medical Decision Making I discussed the patient was Dr. Lima, he agreed to admit the patient to his service. Critical Care Time: Yes Critical care time in (mins) excluding proc time.: 30 Critical care attestation.: If time is entered above; I have spent that time in minutes in the direct care of this critically ill patient, excluding procedure time. ED Disposition Clinical Impression: DKA (diabetic ketoacidoses) Disposition: OP ADMIT IP TO THIS HOSP Is pt being admited?: Yes Condition: Stable Instructions: Diabetic Ketoacidosis (ED) Referrals: PRIMARY CARE, [Primary Care Provider] - 3-5 Days
[2017-10-21 15:36] LABS: Hematocrit 35.1 % (35.5-45.6); Hemoglobin 11.3 gm/dl (11.8-15.2); Mean Corpuscular HGB Conc 32 % (32-34); Mean Corpuscular Hemoglobin 30 pg (28-32); Mean Corpuscular Volume 94 fl (84-94); Platelet Count 151 K/mm3 (140-440); Red Blood Count 3.75 M/mm3 (3.65-5.03); Red Cell Distribution Width 14.4 % (13.2-15.2)
[2017-10-21 15:39] LABS: Basophils % (Auto) 0.5 % (0.0-1.8); Eosinophils % (Auto) 0.2 % (0.0-4.3); Lymphocytes % (Auto) 18.2 % (13.4-35.0); Monocytes % (Auto) 3.4 % (0.0-7.3)
[2017-10-21 15:40] LABS: Lymphocytes # (Auto) 0.8 K/mm3 (1.2-5.4); Monocytes # (Auto) 0.1 K/mm3 (0.0-0.8)
[2017-10-21] MEDS: HumuLIN R 100 UNITS in NACL 0.9% 99 ML IV SCH (16:06)
--- NOTE | 2017-10-21 16:07 | XRay Report ---
FINAL REPORT EXAM: XR CHEST 1V AP HISTORY: DKA/COUGH TECHNIQUE: AP portable view of the chest PRIORS: None. FINDINGS: Lines, tubes, and devices: N/A Lungs and pleura: Trachea is normal in position. There is a small 5 mm nodule in the right midlung zone overlying the posterior with right 5th rib. There is also nodular prominence of the lateral left hilar region measuring 1.0 cm, probably a vessel in cross-section. CT is recommended. Mild hyperinflation is noted. Lungs are otherwise clear of infiltrate, pleural effusion, vascular congestion, or pneumothorax. Cardiomediastinal silhouette: Cardiac and mediastinal silhouettes are unremarkable. Other: Bony structures are intact. IMPRESSION: Nodular density in the right midlung zone and nodular prominence of the left lateral hilar region. CT is recommended.
[2017-10-21 17:34] LABS: Bacteria,Urine 1+ /HPF (Negative); Bilirubin,Urine NEG (Negative); Blood,Urine SM (Negative); Color,Urine Yellow (Yellow); Mucus,Urine FEW /HPF; Protein,Urine <15 mg/dL mg/dL (Negative); Urobilinogen,Urine < 2.0 mg/dL (<2.0)
[2017-10-21 17:52] LABS: Calcium 8.4 mg/dL (8.4-10.2)
[2017-10-21 19:44] LABS: Calcium 8.8 mg/dL (8.4-10.2)
[2017-10-21] MEDS ORDERED: SODIUM CHLORIDE FLUSH SYRINGE 10 ML IV PRN (20:06)
[2017-10-21] MEDS ORDERED: ZOFRAN IV PRN (20:06)
[2017-10-21] MEDS ORDERED: TYLENOL PO PRN (20:06)
--- NOTE | 2017-10-21 20:06 | History and Physical Report ---
History of Present Illness Date of examination: 10/21/17 Date of admission: 10/21/17 16:59 Chief complaint: CC :High blood glucose levels and Nausea for 1 day History of present illness: History of Present Illness: Patient is a 57-year-old male [facility] patient with history of HIV Hep C and diabetes brought by EMS for evaluation of hyperglycemia. His initial blood glucose is 650. Patient stated that he is unable to eat or drink for the last 3 days and no appetite. Patient did not take his insulin and also for the last 3 days. Patient denied any fever but admits cough, no shortness of breath.Also Nausea but no vomiting.No fever or chills.No altered sensorium.looks emaciated. Past Medical History Hx Diabetes: Yes Hx Liver Disease: Yes (hep C, hepatomegaly) Hx Renal Disease: Yes (kidney stones) Hx of Cancer: Yes (Prostate) Hx HIV: Yes Surgical History Past Surgical History?: Yes Additional Surgical History: Back surgery Social History Smoking Status: Current Some Day Smoker Substance Use Type: Alcohol, Cocaine, Marijuana Family history Htn Medications Home Medications: Home Medications Medication Instructions Recorded Confirmed Last Taken Type Abacavir/Dolutegravir/Lamivudi 1 each PO DAILY 01/22/17 10/21/17 01/20/17 History [Triumeq Tablet] Aspirin [Adult Low Dose Aspirin EC] 81 mg PO DAILY #30 tablet. 02/07/17 Unknown Rx Doxycycline [Vibramycin CAP] 100 mg PO BID #42 capsule 02/07/17 10/21/17 Unknown Rx Gabapentin [Neurontin] 400 mg PO Q8HR #90 capsule 02/07/17 10/21/17 Unknown Rx metroNIDAZOLE [Flagyl TAB] 500 mg PO Q8HR #30 tablet 02/07/17 10/21/17 Unknown Rx Insulin Lispro [HumaLOG VIAL] 45 unit SQ AC 10/21/17 10/21/17 Unknown History Insulin NPH/Regular [NovoLIN 70/30] 25 unit SUB-Q BIDDIAB 10/21/17 10/21/17 Unknown History Review of Systems ROS: Stated complaint: HIGH BLOOD SUGAR Other details as noted in HPI Comment: All other systems reviewed and negative Constitutional: denies: chills, fever Respiratory: cough. denies: orthopnea, shortness of breath, SOB with exertion, SOB at rest, wheezing Cardiovascular: denies: chest pain, palpitations Gastrointestinal: nausea. denies: abdominal pain, vomiting, diarrhea, constipation, hematemesis, melena, hematochezia 14 point ROS otherwise negative. Medications and Allergies Allergies Allergy/AdvReac Type Severity Reaction Status Date / Time No Known Allergies Allergy Unverified 12/14/16 03:43 Home Medications Medication Instructions Recorded Confirmed Last Taken Type Abacavir/Dolutegravir/Lamivudi 1 each PO DAILY 01/22/17 10/21/17 01/20/17 History [Triumeq Tablet] Aspirin [Adult Low Dose Aspirin EC] 81 mg PO DAILY #30 tablet. 02/07/17 Unknown Rx Doxycycline [Vibramycin CAP] 100 mg PO BID #42 capsule 02/07/17 10/21/17 Unknown Rx Gabapentin [Neurontin] 400 mg PO Q8HR #90 capsule 02/07/17 10/21/17 Unknown Rx metroNIDAZOLE [Flagyl TAB] 500 mg PO Q8HR #30 tablet 02/07/17 10/21/17 Unknown Rx Insulin Lispro [HumaLOG VIAL] 45 unit SQ AC 10/21/17 10/21/17 Unknown History Insulin NPH/Regular [NovoLIN 70/30] 25 unit SUB-Q BIDDIAB 10/21/17 10/21/17 Unknown History Active Meds: Active Medications Dextrose (D50w (25gm) Syringe) 0 ml IV PRN PRN PRN Reason: Hypoglycemia Insulin Human Regular 100 (units/ Sodium Chloride) 100 mls @ 1 mls/hr IV TITR LANCE; Protocol Last Titration: 10/21/17 19:00 Dose: 11 units/hr, 11 mls/hr Review of Systems All systems: negative Exam - Constitutional Vitals: Temp Pulse Resp BP Pulse Ox 97.8 F 73 11 L 111/66 100 10/21/17 20:01 10/21/17 17:30 10/21/17 18:17 10/21/17 17:30 10/21/17 18:17 General appearance: Present: no acute distress, well-nourished - EENT Eyes: Present: PERRL ENT: hearing intact, clear oral mucosa - Neck Neck: Present: supple, normal ROM - Respiratory Respiratory effort: normal Respiratory: bilateral: CTA - Cardiovascular Heart rate: 78 Rhythm: regular Heart Sounds: Present: S1 & S2. Absent: rub, click - Extremities Extremities: no ischemia, pulses intact, pulses symmetrical, No edema Peripheral Pulses: within normal limits - Abdominal General gastrointestinal: Present: soft, non-tender, non-distended, normal bowel sounds Male genitourinary: Present: normal - Rectal Rectal Exam: deferred - Integumentary Integumentary: Present: clear, warm, dry - Musculoskeletal Musculoskeletal: gait normal, strength equal bilaterally - Psychiatric Psychiatric: appropriate mood/affect, intact judgment & insight - Neurologic Neurologic: CNII-XII intact, moves all extremities - Allied Health Allied health notes reviewed: nursing, case management Results - Labs CBC & Chem 7: 10/21/17 14:42 10/22/17 04:03 Labs: Laboratory Last Values WBC 4.1 K/mm3 (4.5-11.0) L 10/21/17 14:42 RBC 3.75 M/mm3 (3.65-5.03) 10/21/17 14:42 Hgb 11.3 gm/dl (11.8-15.2) L 10/21/17 14:42 Hct 35.1 % (35.5-45.6) L 10/21/17 14:42 MCV 94 fl (84-94) 10/21/17 14:42 MCH 30 pg (28-32) 10/21/17 14:42 MCHC 32 % (32-34) 10/21/17 14:42 RDW 14.4 % (13.2-15.2) 10/21/17 14:42 Plt Count 151 K/mm3 (140-440) 10/21/17 14:42 Lymph % (Auto) 18.2 % (13.4-35.0) 10/21/17 14:42 [place] % (Auto) 3.4 % (0.0-7.3) 10/21/17 14:42 Eos % (Auto) 0.2 % (0.0-4.3) 10/21/17 14:42 Baso % (Auto) 0.5 % (0.0-1.8) 10/21/17 14:42 Lymph # 0.8 K/mm3 (1.2-5.4) L 10/21/17 14:42 [place] # 0.1 K/mm3 (0.0-0.8) 10/21/17 14:42 Eos # 0.0 K/mm3 (0.0-0.4) 10/21/17 14:42 Baso # 0.0 K/mm3 (0.0-0.1) 10/21/17 14:42 Seg Neutrophils % 77.7 % (40.0-70.0) H 10/21/17 14:42 Seg Neutrophils # 3.2 K/mm3 (1.8-7.7) 10/21/17 14:42 VBG pH 7.243 (7.320-7.420) L 10/21/17 14:42 Sodium 133 mmol/L (137-145) L 10/21/17 19:07 Potassium 4.7 mmol/L (3.6-5.0) 10/21/17 19:07 Chloride 97.6 mmol/L (98-107) L 10/21/17 19:07 Carbon Dioxide 14 mmol/L (22-30) L 10/21/17 19:07 Anion Gap 26 mmol/L 10/21/17 19:07 BUN 84 mg/dL (9-20) H 10/21/17 19:07 Creatinine 2.4 mg/dL (0.8-1.5) H 10/21/17 19:07 Estimated GFR 34 ml/min 10/21/17 19:07 BUN/Creatinine Ratio 35 % 10/21/17 19:07 Glucose 506 mg/dL (75-100) H* 10/21/17 19:07 POC Glucose 423 (70-105) H 10/21/17 19:50 Lactic Acid 0.80 mmol/L (0.7-2.0) 10/21/17 17:08 Calcium 8.8 mg/dL (8.4-10.2) 10/21/17 19:07 Urine Color Yellow (Yellow) 10/21/17 17:23 Urine Turbidity Clear (Clear) 10/21/17 17:23 Urine pH 5.0 (5.0-7.0) 10/21/17 17:23 Ur Specific [place] 1.016 (1.003-1.030) 10/21/17 17:23 Urine Protein <15 mg/dl mg/dL (Negative) 10/21/17 17:23 Urine Glucose (UA) >=500 mg/dL (Negative) 10/21/17 17:23 Urine Ketones Tr mg/dL (Negative) 10/21/17 17:23 Urine Blood Sm (Negative) 10/21/17 17:23 Urine Nitrite Neg (Negative) 10/21/17 17:23 Urine Bilirubin Neg (Negative) 10/21/17 17:23 Urine Urobilinogen < 2.0 mg/dL (<2.0) 10/21/17 17:23 Ur Leukocyte Esterase Neg (Negative) 10/21/17 17:23 Urine WBC (Auto) 1.0 /HPF (0.0-6.0) 10/21/17 17:23 Urine RBC (Auto) 1.0 /HPF (0.0-6.0) 10/21/17 17: U Epithel Cells (Auto) < 1.0 /HPF (0-13.0) 10/21/17 17: Urine Bacteria (Auto) 1+ /HPF (Negative) 10/21/17 17: Urine Mucus Few /HPF 10/21/17 17:23 Short CBC 10/21/17 Range/Units 14:42 WBC 4.1 L (4.5-11.0) K/mm3 Hgb 11.3 L (11.8-15.2) gm/dl Hct 35.1 L (35.5-45.6) % Plt Count 151 (140-440) K/mm3 BMP 10/21/17 10/21/17 10/21/17 14:42 17:08 19:07 Sodium 127 L 131 L 133 L Potassium 5.6 H 5.4 H 4.7 Chloride 88.3 L 96.5 L 97.6 L Carbon Dioxide 14 L 12 L 14 L BUN 86 H 85 H 84 H Creatinine 2.5 H 2.4 H 2.4 H Glucose 651 H* 602 H* 506 H* Calcium 9.0 8.4 8.8 10/21/17 10/21/17 10/21/17 21:20 21:29 23:07 Sodium 135 L 137 137 Potassium 4.3 4.1 4.0 Chloride 98.7 101.2 100.4 Carbon Dioxide 16 L 16 L 16 L BUN 80 H 79 H 80 H Creatinine 2.2 H 2.1 H 2.1 H Glucose 206 H 117 H 114 H Calcium 9.1 9.0 9.1 04/05/3110/22/17 10/22/17 00:54 03:24 04:03 Sodium 137 136 L 137 Potassium 4.2 4.3 3.9 Chloride 101.9 102.7 103.0 Carbon Dioxide 14 L 16 L 16 L BUN 76 H 75 H 73 H Creatinine 2.0 H 1.8 H 2.1 H Glucose 91 111 H 122 H Calcium 9.0 8.9 8.8 Urine 10/21/17 Range/Units 17:23 Urine Color Yellow (Yellow) Urine pH 5.0 (5.0-7.0) Ur Specific [place] 1.016 (1.003-1.030) Urine Protein <15 mg/dl (Negative) mg/dL Urine Glucose (UA) >=500 (Negative) mg/dL - Imaging and Cardiology Chest x-ray: report reviewed (Nodular density in Perihilar region.CT chest recommended) Assessment and Plan Assessment and plan: The high probability of a clinically significant, sudden or life threatening deterioration of the [Pulmonary, cadiac, renal] system(s) required my full and direct attention, intervention and personal management. The aggregate critical care time was [35] minutes. This time is in addition to time spent performing reported procedures but includes the following: [x] Data Review and interpretation [x] Patient assessment and monitoring of vital signs [x] Documentation [x] Medication orders and management Advance Directives: Yes (Full code) VTE prophylaxis?: Chemical - Patient Problems (1) DKA (diabetic ketoacidoses) Current Visit: Yes Status: Acute Qualifiers: Diabetes mellitus type: type 2 Plan to address problem: DKA protocol initiated with IV Insulin and IV fluids.Check A1c and adjust home insulin dosage.Patient not vomiting.NpO till tomorrow Lunch time and reevaluate. (2) Acute kidney injury Current Visit: No Status: Acute Plan to address problem: UIV fluids Nephrology consult (3) Cachexia associated with AIDS Current Visit: No Status: Acute Plan to address problem: Dietitian consult (4) HIV (human immunodeficiency virus infection) Current Visit: Yes Status: Chronic Plan to address problem: Patient on antiretrovirals (5) DVT prophylaxis Current Visit: Yes Status: Acute Plan to address problem: On Heparin
[2017-10-21] MEDS: PEPCID IV SCH (20:59)
[2017-10-21] MEDS: D5W/0.45% NACL/KCL 20 MEQ 20 MEQ/1,000 ML BAG IV SCH (20:59)
[2017-10-21] MEDS ORDERED: KCL 10MEQ/100ML 10 MEQ/100 ML BAG IV SCH ×2 (21:00)
[2017-10-21] MEDS ORDERED: HumuLIN R 100 UNITS in NACL 0.9% 99 ML IV SCH (21:00)
[2017-10-21] MEDS ORDERED: KCL 20MEQ/100ML 20 MEQ/100 ML BAG IV SCH (21:00)
[2017-10-21] MEDS ORDERED: SODIUM CHLORIDE FLUSH SYRINGE 10 ML IV NR (21:00)
[2017-10-21] MEDS: MORPHINE IV PRN (21:04)
[2017-10-21 21:53] LABS: Calcium 9.1 mg/dL (8.4-10.2)
[2017-10-21 21:56] LABS: Chol/HDL Ratio 5.6 %
[2017-10-21] MEDS: SODIUM CHLORIDE FLUSH SYRINGE 10 ML IV SCH (22:30)
[2017-10-21 23:37] LABS: Calcium 9.1 mg/dL (8.4-10.2)
[2017-10-22] MEDS: MORPHINE IV PRN ×2 (01:14→09:57)
[2017-10-22 04:08] LABS: Calcium 8.9 mg/dL (8.4-10.2)
[2017-10-22 04:36] LABS: Calcium 8.8 mg/dL (8.4-10.2)
[2017-10-22] MEDS: D5W/0.45% NACL/KCL 20 MEQ 20 MEQ/1,000 ML BAG IV SCH ×2 (05:43→21:24)
[2017-10-22] MEDS: HEPARIN SUB-Q SCH ×2 (09:56→21:24)
[2017-10-22] MEDS: ZIAGEN PO SCH (09:57)
[2017-10-22] MEDS ORDERED: NON-FORMULARY (Abacavir/Dolutegravir/Lamivudi [Triumeq Tablet] 1 EACH) PO SCH (10:00)
[2017-10-22] MEDS: SODIUM CHLORIDE FLUSH SYRINGE 10 ML IV SCH ×2 (10:16→23:17)
--- NOTE | 2017-10-22 11:05 | Consultation ---
History of Present Illness - Reason for Consult Consult date: 10/22/17 DKA Requesting physician: ANGELICA VOSS - History of Present Illness 57 y/o male with known Diabetes admitted with DKA Medications and Allergies Allergies Allergy/AdvReac Type Severity Reaction Status Date / Time No Known Allergies Allergy Unverified 12/14/16 03:43 Home Medications Medication Instructions Recorded Confirmed Last Taken Type Abacavir/Dolutegravir/Lamivudi 1 each PO DAILY 01/22/17 10/21/17 01/20/17 History [Triumeq Tablet] Aspirin [Adult Low Dose Aspirin EC] 81 mg PO DAILY #30 tablet. 02/07/17 Unknown Rx Doxycycline [Vibramycin CAP] 100 mg PO BID #42 capsule 02/07/17 10/21/17 Unknown Rx Gabapentin [Neurontin] 400 mg PO Q8HR #90 capsule 02/07/17 10/21/17 Unknown Rx metroNIDAZOLE [Flagyl TAB] 500 mg PO Q8HR #30 tablet 02/07/17 10/21/17 Unknown Rx Insulin Lispro [HumaLOG VIAL] 45 unit SQ AC 10/21/17 10/21/17 Unknown History Insulin NPH/Regular [NovoLIN 70/30] 25 unit SUB-Q BIDDIAB 10/21/17 10/21/17 Unknown History Active Meds: Active Medications Abacavir Sulfate (Ziagen) 600 mg PO DAILY [facility] Last Admin: 10/22/17 09:57 Dose: 600 mg Acetaminophen (Tylenol) 650 mg PO Q4H PRN PRN Reason: Pain MILD(1-3)/Fever >100.5/DUNN Aspirin (Halfprin Ec) 81 mg PO DAILY [facility] Dextrose (D50w (25gm) Syringe) 0 ml IV PRN PRN PRN Reason: Hypoglycemia Famotidine (Pepcid) 10 mg IV BID [facility] Last Admin: 10/21/17 20:59 Dose: 10 mg Gabapentin (Neurontin) 400 mg PO Q8HR [facility] Heparin Sodium (Porcine) (Heparin) 5,000 unit SUB-Q Q12HR [facility] Last Admin: 10/22/17 09:56 Dose: 5,000 unit Insulin Human Regular 100 (units/ Sodium Chloride) 100 mls @ 1 mls/hr IV TITR LANCE; Protocol Last Titration: 10/22/17 10:00 Dose: 6 units/hr, 6 mls/hr Potassium Chloride/Dextrose/Sod Cl (D5w/0.45% Nacl/Kcl 20 Meq) 20 meq in 1,000 mls @ 125 mls/hr IV DIRECT [facility] Last Admin: 10/22/17 05:43 Dose: 125 mls/hr Insulin Human Isoph/Insulin Regular (Humulin 70/30) 25 unit SUB-Q BIDDIAB [facility] Last Admin: 10/22/17 09:46 Dose: Not Given Lamivudine (Epivir) 100 mg PO DAILY [facility] Morphine Sulfate (Morphine) 2 mg IV Q4H PRN PRN Reason: Pain, Moderate (4-6) Last Admin: 10/22/17 09:57 Dose: 2 mg Ondansetron HCl (Zofran) 4 mg IV Q8H PRN PRN Reason: Nausea And Vomiting Sodium Chloride (Sodium Chloride Flush Syringe 10 Ml) 10 ml IV BID [facility] Last Admin: 10/22/17 10:16 Dose: Not Given Sodium Chloride (Sodium Chloride Flush Syringe 10 Ml) 10 ml IV PRN PRN PRN Reason: LINE FLUSH Sodium Chloride (Sodium Chloride Flush Syringe 10 Ml) 10 ml IV PRN NR Stop: 10/22/17 20:59 Exam - Constitutional Vitals: Temp Pulse Resp BP Pulse Ox 98.4 F 83 14 121/66 99 10/22/17 03:44 10/22/17 08:20 10/22/17 08:20 10/22/17 08:20 10/22/17 08:20 Results - Labs CBC & Chem 7: 10/21/17 14:42 10/22/17 06:51 Labs: Abnormal lab results 10/21/17 10/21/17 10/21/17 Range/Units 14:42 14:42 14:42 WBC 4.1 L (4.5-11.0) K/mm3 Hgb 11.3 L (11.8-15.2) gm/dl Hct 35.1 L (35.5-45.6) % Lymph # 0.8 L (1.2-5.4) K/mm3 Seg Neutrophils % 77.7 H (40.0-70.0) % VBG pH 7.243 L (7.320-7.420) Sodium 127 L (137-145) mmol/L Potassium 5.6 H (3.6-5.0) mmol/L Chloride 88.3 L (98-107) mmol/L Carbon Dioxide 14 L (22-30) mmol/L BUN 86 H (9-20) mg/dL Creatinine 2.5 H (0.8-1.5) mg/dL Glucose 651 H* (75-100) mg/dL POC Glucose (70-105) Hemoglobin A1c (4-6) % Magnesium (1.7-2.3) mg/dL Triglycerides (2-149) mg/dL LDL Cholesterol Direct (50-130) mg/dL HDL Cholesterol (40-59) mg/dL 10/21/17 10/21/17 10/21/17 Range/Units 14:46 16:13 17:08 WBC (4.5-11.0) K/mm3 Hgb (11.8-15.2) gm/dl Hct (35.5-45.6) % Lymph # (1.2-5.4) K/mm3 Seg Neutrophils % (40.0-70.0) % VBG pH (7.320-7.420) Sodium 131 L (137-145) mmol/L Potassium 5.4 H (3.6-5.0) mmol/L Chloride 96.5 L (98-107) mmol/L Carbon Dioxide 12 L (22-30) mmol/L BUN 85 H (9-20) mg/dL Creatinine 2.4 H (0.8-1.5) mg/dL Glucose 602 H* (75-100) mg/dL POC Glucose > 500 H > 500 H (70-105) Hemoglobin A1c (4-6) % Magnesium (1.7-2.3) mg/dL Triglycerides (2-149) mg/dL LDL Cholesterol Direct (50-130) mg/dL HDL Cholesterol (40-59) mg/dL 10/21/17 10/21/17 10/21/17 Range/Units 17:15 18:12 19:07 WBC (4.5-11.0) K/mm3 Hgb (11.8-15.2) gm/dl Hct (35.5-45.6) % Lymph # (1.2-5.4) K/mm3 Seg Neutrophils % (40.0-70.0) % VBG pH (7.320-7.420) Sodium 133 L (137-145) mmol/L Potassium (3.6-5.0) mmol/L Chloride 97.6 L (98-107) mmol/L Carbon Dioxide 14 L (22-30) mmol/L BUN 84 H (9-20) mg/dL Creatinine 2.4 H (0.8-1.5) mg/dL Glucose 506 H* (75-100) mg/dL POC Glucose 436 H 490 H (70-105) Hemoglobin A1c (4-6) % Magnesium (1.7-2.3) mg/dL Triglycerides (2-149) mg/dL LDL Cholesterol Direct (50-130) mg/dL HDL Cholesterol (40-59) mg/dL 10/21/17 10/21/17 10/21/17 Range/Units 19:24 19:50 20:55 WBC (4.5-11.0) K/mm3 Hgb (11.8-15.2) gm/dl Hct (35.5-45.6) % Lymph # (1.2-5.4) K/mm3 Seg Neutrophils % (40.0-70.0) % VBG pH (7.320-7.420) Sodium (137-145) mmol/L Potassium (3.6-5.0) mmol/L Chloride (98-107) mmol/L Carbon Dioxide (22-30) mmol/L BUN (9-20) mg/dL Creatinine (0.8-1.5) mg/dL Glucose (75-100) mg/dL POC Glucose 391 H 423 H 302 H (70-105) Hemoglobin A1c (4-6) % Magnesium (1.7-2.3) mg/dL Triglycerides (2-149) mg/dL LDL Cholesterol Direct (50-130) mg/dL HDL Cholesterol (40-59) mg/dL 10/21/17 10/21/17 10/21/17 Range/Units 21:20 21:20 21:29 WBC (4.5-11.0) K/mm3 Hgb (11.8-15.2) gm/dl Hct (35.5-45.6) % Lymph # (1.2-5.4) K/mm3 Seg Neutrophils % (40.0-70.0) % VBG pH (7.320-7.420) Sodium 135 L (137-145) mmol/L Potassium (3.6-5.0) mmol/L Chloride (98-107) mmol/L Carbon Dioxide 16 L (22-30) mmol/L BUN 80 H (9-20) mg/dL Creatinine 2.2 H (0.8-1.5) mg/dL Glucose 206 H (75-100) mg/dL POC Glucose (70-105) Hemoglobin A1c 16.3 H (4-6) % Magnesium 2.50 H (1.7-2.3) mg/dL Triglycerides 193 H (2-149) mg/dL LDL Cholesterol Direct 138 H (50-130) mg/dL HDL Cholesterol 35 L (40-59) mg/dL 10/21/17 10/21/17 10/21/17 Range/Units 21:29 22:07 22:58 WBC (4.5-11.0) K/mm3 Hgb (11.8-15.2) gm/dl Hct (35.5-45.6) % Lymph # (1.2-5.4) K/mm3 Seg Neutrophils % (40.0-70.0) % VBG pH (7.320-7.420) Sodium (137-145) mmol/L Potassium (3.6-5.0) mmol/L Chloride (98-107) mmol/L Carbon Dioxide 16 L (22-30) mmol/L BUN 79 H (9-20) mg/dL Creatinine 2.1 H (0.8-1.5) mg/dL Glucose 117 H (75-100) mg/dL POC Glucose 181 H 172 H (70-105) Hemoglobin A1c (4-6) % Magnesium (1.7-2.3) mg/dL Triglycerides (2-149) mg/dL LDL Cholesterol Direct (50-130) mg/dL HDL Cholesterol (40-59) mg/dL 10/21/17 10/22/17 10/22/17 Range/Units 23:07 00:14 00:54 WBC (4.5-11.0) K/mm3 Hgb (11.8-15.2) gm/dl Hct (35.5-45.6) % Lymph # (1.2-5.4) K/mm3 Seg Neutrophils % (40.0-70.0) % VBG pH (7.320-7.420) Sodium (137-145) mmol/L Potassium (3.6-5.0) mmol/L Chloride (98-107) mmol/L Carbon Dioxide 16 L 14 L (22-30) mmol/L BUN 80 H 76 H (9-20) mg/dL Creatinine 2.1 H 2.0 H (0.8-1.5) mg/dL Glucose 114 H (75-100) mg/dL POC Glucose 140 H (70-105) Hemoglobin A1c (4-6) % Magnesium (1.7-2.3) mg/dL Triglycerides (2-149) mg/dL LDL Cholesterol Direct (50-130) mg/dL HDL Cholesterol (40-59) mg/dL 10/22/17 10/22/17 10/22/17 Range/Units 01:22 03:11 03:24 WBC (4.5-11.0) K/mm3 Hgb (11.8-15.2) gm/dl Hct (35.5-45.6) % Lymph # (1.2-5.4) K/mm3 Seg Neutrophils % (40.0-70.0) % VBG pH (7.320-7.420) Sodium 136 L (137-145) mmol/L Potassium (3.6-5.0) mmol/L Chloride (98-107) mmol/L Carbon Dioxide 16 L (22-30) mmol/L BUN 75 H (9-20) mg/dL Creatinine 1.8 H (0.8-1.5) mg/dL Glucose 111 H (75-100) mg/dL POC Glucose 111 H 123 H (70-105) Hemoglobin A1c (4-6) % Magnesium (1.7-2.3) mg/dL Triglycerides (2-149) mg/dL LDL Cholesterol Direct (50-130) mg/dL HDL Cholesterol (40-59) mg/dL 10/22/17 10/22/17 10/22/17 Range/Units 04:02 04:03 05:02 WBC (4.5-11.0) K/mm3 Hgb (11.8-15.2) gm/dl Hct (35.5-45.6) % Lymph # (1.2-5.4) K/mm3 Seg Neutrophils % (40.0-70.0) % VBG pH (7.320-7.420) Sodium (137-145) mmol/L Potassium (3.6-5.0) mmol/L Chloride (98-107) mmol/L Carbon Dioxide 16 L (22-30) mmol/L BUN 73 H (9-20) mg/dL Creatinine 2.1 H (0.8-1.5) mg/dL Glucose 122 H (75-100) mg/dL POC Glucose 251 H 199 H (70-105) Hemoglobin A1c (4-6) % Magnesium (1.7-2.3) mg/dL Triglycerides (2-149) mg/dL LDL Cholesterol Direct (50-130) mg/dL HDL Cholesterol (40-59) mg/dL 10/22/17 10/22/17 10/22/17 Range/Units 05:44 06:51 08:47 WBC (4.5-11.0) K/mm3 Hgb (11.8-15.2) gm/dl Hct (35.5-45.6) % Lymph # (1.2-5.4) K/mm3 Seg Neutrophils % (40.0-70.0) % VBG pH (7.320-7.420) Sodium (137-145) mmol/L Potassium 3.2 L (3.6-5.0) mmol/L Chloride (98-107) mmol/L Carbon Dioxide 16 L (22-30) mmol/L BUN 70 H (9-20) mg/dL Creatinine 2.0 H (0.8-1.5) mg/dL Glucose 38 L* (75-100) mg/dL POC Glucose 274 H 155 H (70-105) Hemoglobin A1c (4-6) % Magnesium (1.7-2.3) mg/dL Triglycerides (2-149) mg/dL LDL Cholesterol Direct (50-130) mg/dL HDL Cholesterol (40-59) mg/dL 10/22/17 Range/Units 10:21 WBC (4.5-11.0) K/mm3 Hgb (11.8-15.2) gm/dl Hct (35.5-45.6) % Lymph # (1.2-5.4) K/mm3 Seg Neutrophils % (40.0-70.0) % VBG pH (7.320-7.420) Sodium (137-145) mmol/L Potassium (3.6-5.0) mmol/L Chloride (98-107) mmol/L Carbon Dioxide (22-30) mmol/L BUN (9-20) mg/dL Creatinine (0.8-1.5) mg/dL Glucose (75-100) mg/dL POC Glucose 185 H (70-105) Hemoglobin A1c (4-6) % Magnesium (1.7-2.3) mg/dL Triglycerides (2-149) mg/dL LDL Cholesterol Direct (50-130) mg/dL HDL Cholesterol (40-59) mg/dL Assessment and Plan 57 y/o male with DKA
[2017-10-22] MEDS: EPIVIR PO SCH (11:54)
[2017-10-22] MEDS: HALFPRIN EC PO SCH (11:54)
[2017-10-22] MEDS: PEPCID IV SCH ×2 (11:57→21:25)
[2017-10-22] MEDS: TIVICAY (NF) PO SCH (11:58)
[2017-10-22] MEDS ORDERED: K-DUR PO ONE (12:00)
[2017-10-22] MEDS: PERCOCET 5/325 PO PRN ×3 (12:39→23:24)
[2017-10-22] MEDS: HumuLIN R 100 UNITS in NACL 0.9% 99 ML IV SCH (14:04)
[2017-10-22 14:35] LABS: Albumin 3.5 g/dL (3.9-5); Calcium 8.6 mg/dL (8.4-10.2)
[2017-10-22 15:14] LABS: Calcium 8.7 mg/dL (8.4-10.2)
--- NOTE | 2017-10-22 16:47 | Progress Note ---
Assessment and Plan Assessment and plan: 57-year-old -[place] male with past medical history significant for insulin-dependent diabetes mellitus, HIV with cachexia was admitted yesterday to the ICU for the management of DKA DKA - Patient is being managed according to DKA protocol Diabetes mellitus with hyperglycemia Acute kidney injury - Continue on IV fluids and creatinine is trending down HIV-AIDS with cachexia - Patient restarted with his home medications Chronic lower leg pain - Pain control Severe malnutrition - Nutrition consult placed - We'll give him booster once he started mouth feeding History of chronic hep C and hep B Disposition - Continue ICU care The high probability of a clinically significant, sudden or life threatening deterioration of the [endocrine, renal] system(s) required my full and direct attention, intervention and personal management. The aggregate critical care time was [31] minutes. This time is in addition to time spent performing reported procedures but includes the following: [x] Data Review and interpretation [x] Patient assessment and monitoring of vital signs [x] Documentation [x] Medication orders and management History Interval history: Patient was seen and evaluated this morning, patient was concerned about why he is not getting food, have explained to him that he will start on diet after he is out of DKA. Hospitalist Physical - Physical exam Narrative exam: Not in cardiopulmonary distress. The patient is cachectic. Vital signs as documented. Head exam is unremarkable. No scleral icterus . Neck is without jugular venous distension, thyromegaly, or carotid bruits. Lungs are clear to auscultation. Cardiac exam reveals regular rate and Rhythm. First and second heart sounds normal. No murmurs, rubs or gallops. Abdominal exam reveals normal bowel sounds, no masses, no organomegaly and no aortic enlargement. Extremities are nonedematous and both femoral and pedal pulses are normal. [employer]: Alert and oriented 3. No focal weakness. - Constitutional Vitals: Temp Pulse Resp BP Pulse Ox 98.4 F 70 9 L 112/42 98 10/22/17 03:44 10/22/17 14:50 10/22/17 14:50 10/22/17 14:50 10/22/17 14:50 General appearance: Present: no acute distress, well-nourished Results - Labs CBC & Chem 7: 10/21/17 14:42 10/22/17 14:01 Labs: Laboratory Last Values WBC 4.1 K/mm3 (4.5-11.0) L 10/21/17 14:42 RBC 3.75 M/mm3 (3.65-5.03) 10/21/17 14:42 Hgb 11.3 gm/dl (11.8-15.2) L 10/21/17 14:42 Hct 35.1 % (35.5-45.6) L 10/21/17 14:42 MCV 94 fl (84-94) 10/21/17 14:42 MCH 30 pg (28-32) 10/21/17 14:42 MCHC 32 % (32-34) 10/21/17 14:42 RDW 14.4 % (13.2-15.2) 10/21/17 14:42 Plt Count 151 K/mm3 (140-440) 10/21/17 14:42 Lymph % (Auto) 18.2 % (13.4-35.0) 10/21/17 14:42 Wirt % (Auto) 3.4 % (0.0-7.3) 10/21/17 14:42 Eos % (Auto) 0.2 % (0.0-4.3) 10/21/17 14:42 Baso % (Auto) 0.5 % (0.0-1.8) 10/21/17 14:42 Lymph # 0.8 K/mm3 (1.2-5.4) L 10/21/17 14:42 Wirt # 0.1 K/mm3 (0.0-0.8) 10/21/17 14:42 Eos # 0.0 K/mm3 (0.0-0.4) 10/21/17 14:42 Baso # 0.0 K/mm3 (0.0-0.1) 10/21/17 14:42 Seg Neutrophils % 77.7 % (40.0-70.0) H 10/21/17 14:42 Seg Neutrophils # 3.2 K/mm3 (1.8-7.7) 10/21/17 14:42 VBG pH 7.243 (7.320-7.420) L 10/21/17 14:42 Sodium 141 mmol/L (137-145) 10/22/17 14:01 Potassium 4.0 mmol/L (3.6-5.0) D 10/22/17 14:01 Chloride 104.4 mmol/L (98-107) 10/22/17 14:01 Carbon Dioxide 15 mmol/L (22-30) L 10/22/17 14:01 Anion Gap 26 mmol/L 10/22/17 14:01 BUN 63 mg/dL (9-20) H 10/22/17 14:01 Creatinine 1.8 mg/dL (0.8-1.5) H 10/22/17 14:01 Estimated GFR 47 ml/min 10/22/17 14:01 BUN/Creatinine Ratio 35 % 10/22/17 14:01 Glucose 188 mg/dL (75-100) H 10/22/17 14:01 POC Glucose 185 (70-105) H 10/22/17 15:21 Hemoglobin A1c 16.3 % (4-6) H 10/21/17 21:20 Lactic Acid 0.80 mmol/L (0.7-2.0) 10/21/17 17:08 Calcium 8.6 mg/dL (8.4-10.2) 10/22/17 14:01 Phosphorus 4.50 mg/dL (2.5-4.5) 10/21/17 21:29 Magnesium 2.50 mg/dL (1.7-2.3) H 10/21/17 21: Total Bilirubin 0.50 mg/dL (0.1-1.2) 10/22/17 14:01 AST 80 units/L (5-40) H 10/22/17 14:01 ALT 51 units/L (7-56) 10/22/17 14:01 Alkaline Phosphatase 255 units/L (35-129) H 10/22/17 14:01 Total Protein 6.5 g/dL (6.3-8.2) 10/22/17 14:01 Albumin 3.5 g/dL (3.9-5) L 10/22/17 14:01 Albumin/Globulin Ratio 1.2 % 10/22/17 14:01 Triglycerides 193 mg/dL (2-149) H 10/21/17 21:29 Cholesterol 196 mg/dL (50-199) 10/21/17 21:29 LDL Cholesterol Direct 138 mg/dL (50-130) H 10/21/17 21:29 HDL Cholesterol 35 mg/dL (40-59) L 10/21/17 21:29 Cholesterol/HDL Ratio 5.60 % 10/21/17 21:29 Urine Color Yellow (Yellow) 10/21/17: Urine Turbidity Clear (Clear) 10/21/17: Urine pH 5.0 (5.0-7.0) 10/21/17: Ur Specific Bradshaw 1.016 (1.003-1.030) 10/21/17 Urine Protein <15 mg/dl mg/dL (Negative) 10/21/17 Urine Glucose (UA) >=500 mg/dL (Negative) 10/21/17 Urine Ketones Tr mg/dL (Negative) 10/21/17 Urine Blood Sm (Negative) 10/21/17 Urine Nitrite Neg (Negative) 10/21/17 Urine Bilirubin Neg (Negative) 10/21/17 Urine Urobilinogen < 2.0 mg/dL (<2.0) 10/21/17 Ur Leukocyte Esterase Neg (Negative) 10/21/17: Urine WBC (Auto) 1.0 /HPF (0.0-6.0) 10/21/17 Urine RBC (Auto) 1.0 /HPF (0.0-6.0) 10/21/17 U Epithel Cells (Auto) < 1.0 /HPF (0-13.0) 10/21/17 Urine Bacteria (Auto) 1+ /HPF (Negative) 10/21/17 Urine Mucus Few /HPF 10/21/17
[2017-10-22 17:41] LABS: Calcium 9.3 mg/dL (8.4-10.2)
[2017-10-22] MEDS ORDERED: D5/0.45NS 1,000 ML IV SCH (18:00)
[2017-10-22] MEDS: NEURONTIN PO SCH ×2 (18:50→21:24)
[2017-10-22 23:00] LABS: Calcium 8.9 mg/dL (8.4-10.2)
[2017-10-23] MEDS: D5W/0.45% NACL/KCL 20 MEQ 20 MEQ/1,000 ML BAG IV SCH (05:31)
[2017-10-23] MEDS: NEURONTIN PO SCH ×3 (06:39→23:04)
[2017-10-23] MEDS ORDERED: NACL 0.9% 1000 ML 1,000 ML ONE (08:00)
[2017-10-23] MEDS ORDERED: NACL 0.9% 500 ML 500 ML IV ONE (08:12)
[2017-10-23 09:47] LABS: Calcium 8.7 mg/dL (8.4-10.2)
[2017-10-23] MEDS: HEPARIN SUB-Q SCH ×2 (09:52→23:02)
[2017-10-23] MEDS: PERCOCET 5/325 PO PRN ×3 (09:53→23:03)
[2017-10-23] MEDS: TIVICAY (NF) PO SCH (09:54)
[2017-10-23] MEDS: PEPCID PO SCH (09:54)
[2017-10-23] MEDS: ZIAGEN PO SCH (09:55)
[2017-10-23] MEDS: SODIUM CHLORIDE FLUSH SYRINGE 10 ML IV SCH ×2 (09:55→23:05)
[2017-10-23] MEDS: HumaLOG SUB-Q SCH ×3 (13:17→23:05)
[2017-10-23] MEDS: HALFPRIN EC PO SCH (13:17)
[2017-10-23] MEDS: EPIVIR PO SCH (13:18)
--- NOTE | 2017-10-23 14:17 | Progress Note ---
Assessment and Plan 57 y/o male with DKA 1. Asked pharmacy to calculate total insulin requirements for the last 24 hours. Will then find dosing for long acting and start. patient is self-pay so will use 70/30 as this is likely more affordable without insurance. 2. Once long acting started, will stop drip and then feed patient. 3. If patient tolerates eating transition to the floor. Can have prandial insulin as well as sliding scale if needed. Subjective Date of service: 10/23/17 Interval history: no acute events. Anion GAP has closed. PER nursing, IMS did not want to place patient on long acting insulin. Objective - Constitutional Vitals: Vital Signs - 12hr 10/23/17 10/23/17 10/23/17 02:20 02:30 02:40 Temperature Pulse Rate 59 L 61 59 L Pulse Rate [ From Monitor] Respiratory 10 L 7 L 6 L Rate Blood Pressure 77/47 77/47 77/47 O2 Sat by Pulse 99 100 100 Oximetry 10/23/17 10/23/17 10/23/17 02:50 03:00 03:10 Temperature Pulse Rate 62 55 L 60 Pulse Rate [ From Monitor] Respiratory 9 L 9 L 10 L Rate Blood Pressure 77/47 92/57 92/57 O2 Sat by Pulse 100 100 100 Oximetry 10/23/17 10/23/17 10/23/17 03:20 03:30 03:40 Temperature Pulse Rate 59 L 58 L 58 L Pulse Rate [ From Monitor] Respiratory 8 L 6 L 9 L Rate Blood Pressure 92/57 92/57 92/57 O2 Sat by Pulse 100 99 99 Oximetry 10/23/17 10/23/17 10/23/17 03:50 04:00 04:10 Temperature Pulse Rate 58 L 58 L 58 L Pulse Rate [ 62 From Monitor] Respiratory 8 L 14 10 L Rate Blood Pressure 92/57 76/49 82/49 O2 Sat by Pulse 99 100 99 Oximetry 10/23/17 10/23/17 10/23/17 04:20 04:30 04:40 Temperature Pulse Rate 58 L 68 61 Pulse Rate [ From Monitor] Respiratory 7 L 9 L 12 Rate Blood Pressure 82/49 82/49 82/49 O2 Sat by Pulse 99 99 98 Oximetry 10/23/17 10/23/17 10/23/17 04:50 05:00 05:10 Temperature Pulse Rate 58 L 56 L 57 L Pulse Rate [ From Monitor] Respiratory 7 L 7 L 6 L Rate Blood Pressure 82/49 84/51 84/51 O2 Sat by Pulse 98 99 98 Oximetry 10/23/17 10/23/17 10/23/17 05:20 05:30 05:40 Temperature Pulse Rate 54 L 61 59 L Pulse Rate [ From Monitor] Respiratory 9 L 9 L 6 L Rate Blood Pressure 84/51 84/51 84/51 O2 Sat by Pulse 99 98 98 Oximetry 10/23/17 10/23/17 10/23/17 05:50 06:00 06:10 Temperature Pulse Rate 60 60 61 Pulse Rate [ 71 From Monitor] Respiratory 6 L 16 9 L Rate Blood Pressure 84/51 84/51 O2 Sat by Pulse 97 100 98 Oximetry 10/23/17 10/23/17 10/23/17 06:20 06:30 06:40 Temperature Pulse Rate 61 62 63 Pulse Rate [ From Monitor] Respiratory 7 L 5 L 11 L Rate Blood Pressure 87/57 87/57 87/57 O2 Sat by Pulse 98 98 98 Oximetry 10/23/17 10/23/17 10/23/17 06:50 07:00 07:10 Temperature Pulse Rate 60 58 L 59 L Pulse Rate [ From Monitor] Respiratory 7 L 8 L 6 L Rate Blood Pressure 87/57 86/48 79/47 O2 Sat by Pulse 100 100 100 Oximetry 10/23/17 10/23/17 10/23/17 07:20 07:30 07:40 Temperature Pulse Rate 58 L 58 L 59 L Pulse Rate [ From Monitor] Respiratory 5 L 6 L 5 L Rate Blood Pressure 79/47 79/47 79/47 O2 Sat by Pulse 100 100 99 Oximetry 10/23/17 10/23/17 10/23/17 07:48 07:50 08:00 Temperature 98.2 F Pulse Rate 59 L 61 Pulse Rate [ From Monitor] Respiratory 8 L 9 L Rate Blood Pressure 69/43 83/50 O2 Sat by Pulse 100 100 Oximetry 10/23/17 10/23/17 10/23/17 08:10 08:20 08:30 Temperature Pulse Rate 61 65 60 Pulse Rate [ From Monitor] Respiratory 11 L 13 9 L Rate Blood Pressure 83/50 103/66 103/66 O2 Sat by Pulse 100 96 98 Oximetry 10/23/17 10/23/17 08:40 11:40 Temperature 98.0 F Pulse Rate 63 Pulse Rate [ From Monitor] Respiratory 11 L Rate Blood Pressure 103/66 O2 Sat by Pulse 95 Oximetry - Labs CBC & Chem 7: 10/21/17 14:42 10/23/17 09:07 Labs: Abnormal lab results 10/22/17 10/22/17 10/22/17 Range/Units 14:01 14:01 15:21 Sodium (137-145) mmol/L Chloride (98-107) mmol/L Carbon Dioxide 11 L 15 L (22-30) mmol/L BUN 64 H 63 H (9-20) mg/dL Creatinine 1.7 H 1.8 H (0.8-1.5) mg/dL Glucose 195 H 188 H (75-100) mg/dL POC Glucose 185 H (70-105) AST 80 H (5-40) units/L Alkaline Phosphatase 255 H (35-129) units/L Albumin 3.5 L (3.9-5) g/dL 10/22/17 10/22/17 10/22/17 Range/Units 16:25 17:03 18:32 Sodium (137-145) mmol/L Chloride (98-107) mmol/L Carbon Dioxide 17 L (22-30) mmol/L BUN 65 H (9-20) mg/dL Creatinine 1.8 H (0.8-1.5) mg/dL Glucose (75-100) mg/dL POC Glucose 129 H 121 H (70-105) AST (5-40) units/L Alkaline Phosphatase (35-129) units/L Albumin (3.9-5) g/dL 10/22/17 10/22/17 10/22/17 Range/Units 19:39 20:41 21:44 Sodium (137-145) mmol/L Chloride (98-107) mmol/L Carbon Dioxide (22-30) mmol/L BUN (9-20) mg/dL Creatinine (0.8-1.5) mg/dL Glucose (75-100) mg/dL POC Glucose 196 H 187 H 119 H (70-105) AST (5-40) units/L Alkaline Phosphatase (35-129) units/L Albumin (3.9-5) g/dL 10/22/17 10/22/17 10/23/17 Range/Units 22:25 23:46 00:41 Sodium (137-145) mmol/L Chloride (98-107) mmol/L Carbon Dioxide 17 L (22-30) mmol/L BUN 55 H (9-20) mg/dL Creatinine 1.7 H (0.8-1.5) mg/dL Glucose (75-100) mg/dL POC Glucose 134 H 153 H (70-105) AST (5-40) units/L Alkaline Phosphatase (35-129) units/L Albumin (3.9-5) g/dL 10/23/17 10/23/17 10/23/17 Range/Units 01:48 02:30 04:44 Sodium (137-145) mmol/L Chloride (98-107) mmol/L Carbon Dioxide (22-30) mmol/L BUN (9-20) mg/dL Creatinine (0.8-1.5) mg/dL Glucose (75-100) mg/dL POC Glucose 154 H 120 H 143 H (70-105) AST (5-40) units/L Alkaline Phosphatase (35-129) units/L Albumin (3.9-5) g/dL 10/23/17 10/23/17 10/23/17 Range/Units 05:39 06:45 08:10 Sodium (137-145) mmol/L Chloride (98-107) mmol/L Carbon Dioxide (22-30) mmol/L BUN (9-20) mg/dL Creatinine (0.8-1.5) mg/dL Glucose (75-100) mg/dL POC Glucose 145 H 128 H 145 H (70-105) AST (5-40) units/L Alkaline Phosphatase (35-129) units/L Albumin (3.9-5) g/dL 10/23/17 10/23/17 10/23/17 Range/Units 09:07 10:15 11:34 Sodium 135 L (137-145) mmol/L Chloride 107.2 H (98-107) mmol/L Carbon Dioxide 16 L (22-30) mmol/L BUN 51 H (9-20) mg/dL Creatinine (0.8-1.5) mg/dL Glucose 105 H (75-100) mg/dL POC Glucose 171 H 259 H (70-105) AST (5-40) units/L Alkaline Phosphatase (35-129) units/L Albumin (3.9-5) g/dL
--- NOTE | 2017-10-23 17:28 | Progress Note ---
Assessment and Plan Assessment and plan: 57-year-old -[place] male with past medical history significant for insulin-dependent diabetes mellitus, HIV with cachexia was admitted yesterday to the ICU for the management of DKA DKA - Patient was managed according to DKA protocol Diabetes mellitus with hyperglycemia -On insulin 70/30 and SSI Hypotension - Given bolus of normal saline, monitor Acute kidney injury - Continue on IV fluids and creatinine is trending down HIV-AIDS with cachexia - Patient restarted with his home medications Chronic lower leg pain - Pain control Severe malnutrition - Nutrition consult placed - We'll give him booster once he started mouth feeding History of chronic hep C and hep B Disposition - Continue ICU care The high probability of a clinically significant, sudden or life threatening deterioration of the [endocrine, renal] system(s) required my full and direct attention, intervention and personal management. The aggregate critical care time was [31] minutes. This time is in addition to time spent performing reported procedures but includes the following: [x] Data Review and interpretation [x] Patient assessment and monitoring of vital signs [x] Documentation [x] Medication orders and management History Interval history: Patient was seen and evaluated this morning, patient was out of DKA but his blood pressure was low and given a bolus of fluid and currently continues on 100 ml per hour. Hospitalist Physical - Physical exam Narrative exam: Not in cardiopulmonary distress. The patient is cachectic. Vital signs as documented. Head exam is unremarkable. No scleral icterus . Neck is without jugular venous distension, thyromegaly, or carotid bruits. Lungs are clear to auscultation. Cardiac exam reveals regular rate and Rhythm. First and second heart sounds normal. No murmurs, rubs or gallops. Abdominal exam reveals normal bowel sounds, no masses, no organomegaly and no aortic enlargement. Extremities are nonedematous and both femoral and pedal pulses are normal. 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 No focal weakness. - Constitutional Vitals: Temp Pulse Resp BP Pulse Ox 97.4 F L 63 11 L 103/66 95 10/23/17 15:59 10/23/17 08:40 10/23/17 08:40 10/23/17 08:40 10/23/17 08:40 General appearance: Present: no acute distress, well-nourished Results - Labs CBC & Chem 7: 10/21/17 14:42 10/23/17 09:07 Labs: Laboratory Last Values WBC 4.1 K/mm3 (4.5-11.0) L 10/21/17 14:42 RBC 3.75 M/mm3 (3.65-5.03) 10/21/17 14:42 Hgb 11.3 gm/dl (11.8-15.2) L 10/21/17 14:42 Hct 35.1 % (35.5-45.6) L 10/21/17 14:42 MCV 94 fl (84-94) 10/21/17 14:42 MCH 30 pg (28-32) 10/21/17 14:42 MCHC 32 % (32-34) 10/21/17 14:42 RDW 14.4 % (13.2-15.2) 10/21/17 14:42 Plt Count 151 K/mm3 (140-440) 10/21/17 14:42 Lymph % (Auto) 18.2 % (13.4-35.0) 10/21/17 14:42 [place] % (Auto) 3.4 % (0.0-7.3) 10/21/17 14:42 Eos % (Auto) 0.2 % (0.0-4.3) 10/21/17 14:42 Baso % (Auto) 0.5 % (0.0-1.8) 10/21/17 14:42 Lymph # 0.8 K/mm3 (1.2-5.4) L 10/21/17 14:42 [place] # 0.1 K/mm3 (0.0-0.8) 10/21/17 14:42 Eos # 0.0 K/mm3 (0.0-0.4) 10/21/17 14:42 Baso # 0.0 K/mm3 (0.0-0.1) 10/21/17 14:42 Seg Neutrophils % 77.7 % (40.0-70.0) H 10/21/17 14:42 Seg Neutrophils # 3.2 K/mm3 (1.8-7.7) 10/21/17 14:42 VBG pH 7.243 (7.320-7.420) L 10/21/17 14:42 Sodium 135 mmol/L (137-145) L 10/23/17 09:07 Potassium 4.8 mmol/L (3.6-5.0) 10/23/17 09:07 Chloride 107.2 mmol/L (98-107) H 10/23/17 09:07 Carbon Dioxide 16 mmol/L (22-30) L 10/23/17 09:07 Anion Gap 17 mmol/L 10/23/17 09:07 BUN 51 mg/dL (9-20) H 10/23/17 09:07 Creatinine 1.5 mg/dL (0.8-1.5) 10/23/17 09:07 Estimated GFR 59 ml/min 10/23/17 09:07 BUN/Creatinine Ratio 34 % 10/23/17 09:07 Glucose 105 mg/dL (75-100) H 10/23/17 09:07 POC Glucose 264 (70-105) H 10/23/17 15:52 Hemoglobin A1c 16.3 % (4-6) H 10/21/17 21:20 Lactic Acid 0.80 mmol/L (0.7-2.0) 10/21/17 17:08 Calcium 8.7 mg/dL (8.4-10.2) 10/23/17 09:07 Phosphorus 2.50 mg/dL (2.5-4.5) D 10/23/17 09:07 Magnesium 2.00 mg/dL (1.7-2.3) 10/23/17 09:07 Total Bilirubin 0.50 mg/dL (0.1-1.2) 10/22/17 14:01 AST 80 units/L (5-40) H 10/22/17 14:01 ALT 51 units/L (7-56) 10/22/17 14:01 Alkaline Phosphatase 255 units/L (35-129) H 10/22/17 14:01 Total Protein 6.5 g/dL (6.3-8.2) 10/22/17 14:01 Albumin 3.5 g/dL (3.9-5) L 10/22/17 14:01 Albumin/Globulin Ratio 1.2 % 10/22/17 14:01 Triglycerides 193 mg/dL (2-149) H 10/21/17 21:29 Cholesterol 196 mg/dL (50-199) 10/21/17 21:29 LDL Cholesterol Direct 138 mg/dL (50-130) H 10/21/17: HDL Cholesterol 35 mg/dL (40-59) L 10/21/17: Cholesterol/HDL Ratio 5.60 % 10/21/17: Urine Color Yellow (Yellow) 10/21/17: Urine Turbidity Clear (Clear) 10/21/17: Urine pH 5.0 (5.0-7.0) 10/21/17: Ur Specific [place] 1.016 (1.003-1.030) 10/21/17 Urine Protein <15 mg/dl mg/dL (Negative) 10/21/17 Urine Glucose (UA) >=500 mg/dL (Negative) 10/21/17 Urine Ketones Tr mg/dL (Negative) 10/21/17 Urine Blood Sm (Negative) 10/21/17 Urine Nitrite Neg (Negative) 10/21/17 Urine Bilirubin Neg (Negative) 10/21/17 Urine Urobilinogen < 2.0 mg/dL (<2.0) 10/21/17: Ur Leukocyte Esterase Neg (Negative) 10/21/17: Urine WBC (Auto) 1.0 /HPF (0.0-6.0) 10/21/17 Urine RBC (Auto) 1.0 /HPF (0.0-6.0) 10/21/17 U Epithel Cells (Auto) < 1.0 /HPF (0-13.0) 10/21/17 Urine Bacteria (Auto) 1+ /HPF (Negative) 10/21/17 Urine Mucus Few /HPF 10/21/17
[2017-10-23] MEDS: NACL 0.9% 1000 ML 1,000 ML IV SCH (17:32)
[2017-10-24] MEDS: NACL 0.9% 1000 ML 1,000 ML IV SCH (02:34)
[2017-10-24] MEDS: PERCOCET 5/325 PO PRN ×3 (06:30→15:14)
[2017-10-24] MEDS: NEURONTIN PO SCH ×3 (06:31→22:25)
[2017-10-24] MEDS: HumaLOG SUB-Q SCH ×4 (08:00→22:26)
[2017-10-24] MEDS: HEPARIN SUB-Q SCH ×2 (10:24→22:25)
[2017-10-24] MEDS: PEPCID PO SCH (10:25)
[2017-10-24] MEDS: ZIAGEN PO SCH (10:25)
[2017-10-24] MEDS: EPIVIR PO SCH (10:25)
[2017-10-24] MEDS: HALFPRIN EC PO SCH (10:25)
[2017-10-24] MEDS: SODIUM CHLORIDE FLUSH SYRINGE 10 ML IV SCH ×2 (10:26→22:30)
--- NOTE | 2017-10-24 18:02 | Progress Note ---
Assessment and Plan Assessment and plan: 57-year-old -[place]ad[place] male with past medical history significant for insulin-dependent diabetes mellitus, HIV with cachexia was admitted yesterday to the ICU for the management of DKA DKA - Patient was managed according to DKA protocol Diabetes mellitus with hyperglycemia -On insulin 70/30 and SSI Hypotension - Given bolus of normal saline, monitor - Resolved Acute kidney injury - Continue on IV fluids and creatinine is trending down HIV-AIDS with cachexia - Patient restarted with his home medications Chronic lower leg pain - Pain control Severe malnutrition - Nutrition consult placed - We'll give him booster once he started mouth feeding History of chronic hep C and hep B Disposition -Transfer to the floor History Interval history: Patient was seen and evaluated this morning, patient was out of DKA and blood pressures normalized Hospitalist Physical - Physical exam Narrative exam: Not in cardiopulmonary distress. The patient is cachectic. Vital signs as documented. Head exam is unremarkable. No scleral icterus . Neck is without jugular venous distension, thyromegaly, or carotid bruits. Lungs are clear to auscultation. Cardiac exam reveals regular rate and Rhythm. First and second heart sounds normal. No murmurs, rubs or gallops. Abdominal exam reveals normal bowel sounds, no masses, no organomegaly and no aortic enlargement. Extremities are nonedematous and both femoral and pedal pulses are normal. 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 No focal weakness. - Constitutional Vitals: Temp Pulse Resp BP Pulse Ox 97.3 F L 89 14 92/52 89 10/24/17 12:00 10/24/17 14:50 10/24/17 14:50 10/24/17 14:50 10/24/17 14:30 General appearance: Present: no acute distress, well-nourished Results - Labs CBC & Chem 7: 10/21/17 14:42 10/23/17 09:07 Labs: Laboratory Last Values WBC 4.1 K/mm3 (4.5-11.0) L 10/21/17 14:42 RBC 3.75 M/mm3 (3.65-5.03) 10/21/17 14:42 Hgb 11.3 gm/dl (11.8-15.2) L 10/21/17 14:42 Hct 35.1 % (35.5-45.6) L 10/21/17 14:42 MCV 94 fl (84-94) 10/21/17 14:42 MCH 30 pg (28-32) 10/21/17 14:42 MCHC 32 % (32-34) 10/21/17 14:42 RDW 14.4 % (13.2-15.2) 10/21/17 14:42 Plt Count 151 K/mm3 (140-440) 10/21/17 14:42 Lymph % (Auto) 18.2 % (13.4-35.0) 10/21/17 14:42 [place] % (Auto) 3.4 % (0.0-7.3) 10/21/17 14:42 Eos % (Auto) 0.2 % (0.0-4.3) 10/21/17 14:42 Baso % (Auto) 0.5 % (0.0-1.8) 10/21/17 14:42 Lymph # 0.8 K/mm3 (1.2-5.4) L 10/21/17 14:42 [place] # 0.1 K/mm3 (0.0-0.8) 10/21/17 14:42 Eos # 0.0 K/mm3 (0.0-0.4) 10/21/17 14:42 Baso # 0.0 K/mm3 (0.0-0.1) 10/21/17 14:42 Seg Neutrophils % 77.7 % (40.0-70.0) H 10/21/17 14:42 Seg Neutrophils # 3.2 K/mm3 (1.8-7.7) 10/21/17 14:42 VBG pH 7.243 (7.320-7.420) L 10/21/17 14:42 Sodium 135 mmol/L (137-145) L 10/23/17 09:07 Potassium 4.8 mmol/L (3.6-5.0) 10/23/17 09:07 Chloride 107.2 mmol/L (98-107) H 10/23/17 09:07 Carbon Dioxide 16 mmol/L (22-30) L 10/23/17 09:07 Anion Gap 17 mmol/L 10/23/17 09:07 BUN 51 mg/dL (9-20) H 10/23/17 09:07 Creatinine 1.5 mg/dL (0.8-1.5) 10/23/17 09:07 Estimated GFR 59 ml/min 10/23/17 09:07 BUN/Creatinine Ratio 34 % 10/23/17 09:07 Glucose 105 mg/dL (75-100) H 10/23/17 09:07 POC Glucose 88 (70-105) 10/24/17 16:53 Hemoglobin A1c 16.3 % (4-6) H 10/21/17 21:20 Lactic Acid 0.80 mmol/L (0.7-2.0) 10/21/17 17:08 Calcium 8.7 mg/dL (8.4-10.2) 10/23/17 09:07 Phosphorus 2.50 mg/dL (2.5-4.5) D 10/23/17 09:07 Magnesium 2.00 mg/dL (1.7-2.3) 10/23/17 09:07 Total Bilirubin 0.50 mg/dL (0.1-1.2) 10/22/17 14:01 AST 80 units/L (5-40) H 10/22/17 14:01 ALT 51 units/L (7-56) 10/22/17 14:01 Alkaline Phosphatase 255 units/L (35-129) H 10/22/17 14:01 Total Protein 6.5 g/dL (6.3-8.2) 10/22/17 14:01 Albumin 3.5 g/dL (3.9-5) L 10/22/17 14:01 Albumin/Globulin Ratio 1.2 % 10/22/17 14:01 Triglycerides 193 mg/dL (2-149) H 10/21/17 21:29 Cholesterol 196 mg/dL (50-199) 10/21/17 21:29 LDL Cholesterol Direct 138 mg/dL (50-130) H 10/21/17 21:29 HDL Cholesterol 35 mg/dL (40-59) L 10/21/17 21:29 Cholesterol/HDL Ratio 5.60 % 10/21/17 21:29 Urine Color Yellow (Yellow) 10/21/17 17:23 Urine Turbidity Clear (Clear) 10/21/17 17:23 Urine pH 5.0 (5.0-7.0) 10/21/17 17:23 Ur Specific [place] 1.016 (1.003-1.030) 10/21/17: Urine Protein <15 mg/dl mg/dL (Negative) 10/21/17: Urine Glucose (UA) >=500 mg/dL (Negative) 10/21/17: Urine Ketones Tr mg/dL (Negative) 10/21/17: Urine Blood Sm (Negative) 10/21/17: Urine Nitrite Neg (Negative) 10/21/17: Urine Bilirubin Neg (Negative) 10/21/17: Urine Urobilinogen < 2.0 mg/dL (<2.0) 10/21/17: Ur Leukocyte Esterase Neg (Negative) 10/21/17: Urine WBC (Auto) 1.0 /HPF (0.0-6.0) 10/21/17: Urine RBC (Auto) 1.0 /HPF (0.0-6.0) 10/21/17: U Epithel Cells (Auto) < 1.0 /HPF (0-13.0) 10/21/17 Urine Bacteria (Auto) 1+ /HPF (Negative) 10/21/17 Urine Mucus Few /HPF 10/21/17:
[2017-10-24] MEDS: TIVICAY (NF) PO SCH (20:14)
[2017-10-25] MEDS: NACL 0.9% 1000 ML 1,000 ML IV SCH (03:54)
[2017-10-25] MEDS: PERCOCET 5/325 PO PRN ×3 (03:55→23:02)
[2017-10-25] MEDS: NEURONTIN PO SCH ×3 (06:39→23:02)
[2017-10-25 07:40] LABS: Basophils % (Auto) 0.3 % (0.0-1.8); Eosinophils % (Auto) 0.7 % (0.0-4.3); Hematocrit 26.5 % (35.5-45.6); Lymphocytes # (Auto) 0.8 K/mm3 (1.2-5.4); Lymphocytes % (Auto) 17.6 % (13.4-35.0); Mean Corpuscular HGB Conc 34 % (32-34); Mean Corpuscular Hemoglobin 31 pg (28-32); Mean Corpuscular Volume 92 fl (84-94); Monocytes # (Auto) 0.2 K/mm3 (0.0-0.8); Monocytes % (Auto) 4.4 % (0.0-7.3); Red Cell Distribution Width 15.1 % (13.2-15.2)
[2017-10-25 07:42] LABS: Platelet Count 51 K/mm3 (140-440)
[2017-10-25 08:03] LABS: Calcium 8.7 mg/dL (8.4-10.2)
[2017-10-25] MEDS: HumaLOG SUB-Q SCH ×4 (08:32→23:00)
[2017-10-25] MEDS: PEPCID PO SCH (10:27)
[2017-10-25] MEDS: HALFPRIN EC PO SCH (10:27)
[2017-10-25] MEDS: ZIAGEN PO SCH (10:28)
[2017-10-25] MEDS: TIVICAY (NF) PO SCH (10:28)
[2017-10-25] MEDS: EPIVIR PO SCH (10:29)
[2017-10-25] MEDS: SODIUM CHLORIDE FLUSH SYRINGE 10 ML IV SCH ×2 (10:45→22:00)
[2017-10-25] MEDS ORDERED: REGLAN IV PRN (14:45)
--- NOTE | 2017-10-25 14:50 | Progress Note ---
Assessment and Plan Assessment and plan: 57-year-old -Maldivian male with past medical history significant for insulin-dependent diabetes mellitus, HIV with cachexia was admitted yesterday to the ICU for the management of DKA DKA - Patient was managed according to DKA protocol Diabetes mellitus with hyperglycemia -On insulin 70/30 and SSI Hypotension - Given bolus of normal saline, monitor - Resolved Acute kidney injury - Creatinine is 1.7 this morning - Encourage increase fluid intake Gastroparesis - Symptomatic management HIV-AIDS with cachexia - Patient restarted with his home medications Chronic lower leg pain - Pain control Severe malnutrition - Nutrition consult placed - We'll give him booster once he started mouth feeding History of chronic hep C and hep B Disposition - Possible DC tomorrow History Interval history: Patient was seen and evaluated this morning, patient was out of DKA and blood pressures normalized, patient is complaining some mild abdominal pain, nausea and vomiting. Likely from gastroparesis. Hospitalist Physical - Physical exam Narrative exam: Not in cardiopulmonary distress. The patient is cachectic. Vital signs as documented. Head exam is unremarkable. No scleral icterus . Neck is without jugular venous distension, thyromegaly, or carotid bruits. Lungs are clear to auscultation. Cardiac exam reveals regular rate and Rhythm. First and second heart sounds normal. No murmurs, rubs or gallops. Abdominal exam reveals normal bowel sounds, no masses, no organomegaly and no aortic enlargement. Extremities are nonedematous and both femoral and pedal pulses are normal. HEALTH CARE SPECIALIST: Alert and oriented 3. No focal weakness. - Constitutional Vitals: Temp Pulse Resp BP Pulse Ox 98.0 F 79 18 90/53 97 10/25/17 07:40 10/25/17 07:40 10/25/17 11:43 10/25/17 07:40 10/25/17 07:40 General appearance: Present: no acute distress, well-nourished Results - Labs CBC & Chem 7: 10/25/17 06:57 10/25/17 06:57 Labs: Laboratory Last Values WBC 4.8 K/mm3 (4.5-11.0) 10/25/17 06:57 RBC 2.90 M/mm3 (3.65-5.03) L 10/25/17 06:57 Hgb 9.0 gm/dl (11.8-15.2) L 10/25/17 06:57 Hct 26.5 % (35.5-45.6) L 10/25/17 06:57 MCV 92 fl (84-94) 10/25/17 06:57 MCH 31 pg (28-32) 10/25/17 06:57 MCHC 34 % (32-34) 10/25/17 06:57 RDW 15.1 % (13.2-15.2) 10/25/17 06:57 Plt Count 51 K/mm3 (140-440) L 10/25/17 06:57 Lymph % (Auto) 17.6 % (13.4-35.0) 10/25/17 06:57 [place] % (Auto) 4.4 % (0.0-7.3) 10/25/17 06:57 Eos % (Auto) 0.7 % (0.0-4.3) 10/25/17 06:57 Baso % (Auto) 0.3 % (0.0-1.8) 10/25/17 06:57 Lymph # 0.8 K/mm3 (1.2-5.4) L 10/25/17 06:57 [place] # 0.2 K/mm3 (0.0-0.8) 10/25/17 06:57 Eos # 0.0 K/mm3 (0.0-0.4) 10/25/17 06:57 Baso # 0.0 K/mm3 (0.0-0.1) 10/25/17 06:57 Seg Neutrophils % 77.0 % (40.0-70.0) H 10/25/17 06:57 Seg Neutrophils # 3.7 K/mm3 (1.8-7.7) 10/25/17 06:57 VBG pH 7.243 (7.320-7.420) L 10/21/17 14:42 Sodium 139 mmol/L (137-145) 10/25/17 06:57 Potassium 5.2 mmol/L (3.6-5.0) H 10/25/17 06:57 Chloride 109.9 mmol/L (98-107) H 10/25/17 06:57 Carbon Dioxide 18 mmol/L (22-30) L 10/25/17 06:57 Anion Gap 16 mmol/L 10/25/17 06:57 BUN 33 mg/dL (9-20) H 10/25/17 06:57 Creatinine 1.7 mg/dL (0.8-1.5) H 10/25/17 06:57 Estimated GFR 51 ml/min 10/25/17 06:57 BUN/Creatinine Ratio 19 % 10/25/17 06:57 Glucose 301 mg/dL (75-100) H 10/25/17 06:57 POC Glucose 314 (70-105) H 10/25/17 05:49 Hemoglobin A1c 16.3 % (4-6) H 10/21/17 21:20 Lactic Acid 0.80 mmol/L (0.7-2.0) 10/21/17 17:08 Calcium 8.7 mg/dL (8.4-10.2) 10/25/17 06:57 Phosphorus 2.50 mg/dL (2.5-4.5) D 10/23/17 09:07 Magnesium 2.00 mg/dL (1.7-2.3) 10/23/17 09:07 Total Bilirubin 0.50 mg/dL (0.1-1.2) 10/22/17 14:01 AST 80 units/L (5-40) H 10/22/17 14:01 ALT 51 units/L (7-56) 10/22/17 14:01 Alkaline Phosphatase 255 units/L (35-129) H 10/22/17 14:01 Total Protein 6.5 g/dL (6.3-8.2) 10/22/17 14:01 Albumin 3.5 g/dL (3.9-5) L 10/22/17 14:01 Albumin/Globulin Ratio 1.2 % 10/22/17 14:01 Triglycerides 193 mg/dL (2-149) H 10/21/17 21:29 Cholesterol 196 mg/dL (50-199) 10/21/17 21:29 LDL Cholesterol Direct 138 mg/dL (50-130) H 10/21/17 21:29 HDL Cholesterol 35 mg/dL (40-59) L 10/21/17 21:29 Cholesterol/HDL Ratio 5.60 % 10/21/17 21:29 Urine Color Yellow (Yellow) 10/21/17 17:23 Urine Turbidity Clear (Clear) 10/21/17 17:23 Urine pH 5.0 (5.0-7.0) 10/21/17: Ur Specific [place] 1.016 (1.003-1.030) 10/21/17 Urine Protein <15 mg/dl mg/dL (Negative) 10/21/17 Urine Glucose (UA) >=500 mg/dL (Negative) 10/21/17 Urine Ketones Tr mg/dL (Negative) 10/21/17 Urine Blood Sm (Negative) 10/21/17 Urine Nitrite Neg (Negative) 10/21/17 Urine Bilirubin Neg (Negative) 10/21/17 Urine Urobilinogen < 2.0 mg/dL (<2.0) 10/21/17 Ur Leukocyte Esterase Neg (Negative) 10/21/17 Urine WBC (Auto) 1.0 /HPF (0.0-6.0) 10/21/17 Urine RBC (Auto) 1.0 /HPF (0.0-6.0) 10/21/17 U Epithel Cells (Auto) < 1.0 /HPF (0-13.0) 10/21/17 Urine Bacteria (Auto) 1+ /HPF (Negative) 10/21/17 Urine Mucus Few /HPF 10/21/17
[2017-10-26] MEDS: PERCOCET 5/325 PO PRN ×3 (03:38→23:05)
[2017-10-26] MEDS: NEURONTIN PO SCH ×3 (06:50→23:05)
[2017-10-26 07:24] LABS: Calcium 9.3 mg/dL (8.4-10.2)
[2017-10-26] MEDS ORDERED: KIONEX PR ONE (08:31)
[2017-10-26] MEDS: HumaLOG SUB-Q SCH ×4 (09:32→22:51)
[2017-10-26] MEDS: PEPCID PO SCH (09:34)
[2017-10-26] MEDS: HALFPRIN EC PO SCH (09:34)
[2017-10-26] MEDS: NACL 0.9% 1000 ML 1,000 ML IV SCH ×2 (09:34→22:48)
[2017-10-26] MEDS: ZIAGEN PO SCH (09:34)
[2017-10-26] MEDS: EPIVIR PO SCH (09:35)
[2017-10-26] MEDS: SODIUM CHLORIDE FLUSH SYRINGE 10 ML IV SCH (09:36)
[2017-10-26] MEDS: TIVICAY (NF) PO SCH (09:37)
--- NOTE | 2017-10-26 15:11 | Progress Note ---
Assessment and Plan Assessment and plan: 57-year-old -[place] male with past medical history significant for insulin-dependent diabetes mellitus, HIV with cachexia was admitted yesterday to the ICU for the management of DKA DKA - Patient was managed according to DKA protocol Diabetes mellitus with hyperglycemia -On insulin 70/30 and SSI Hypotension - Given bolus of normal saline, monitor - Resolved Acute kidney injury - Creatinine is 1.7 this morning - Encourage increase fluid intake Gastroparesis - Symptomatic management HIV-AIDS with cachexia - Patient restarted with his home medications Chronic lower leg pain - Pain control Severe malnutrition - Nutrition consult placed - We'll give him booster once he started mouth feeding History of chronic hep C and hep B Swelling of the Penis - Urology consulted Disposition - Possible DC tomorrow History Interval history: Patient was seen and evaluated this morning, patient was out of DKA and blood pressures normalized, patient is complaining swelling of the Penis. Hospitalist Physical - Physical exam Narrative exam: Not in cardiopulmonary distress. The patient is cachectic. Vital signs as documented. Head exam is unremarkable. No scleral icterus . Neck is without jugular venous distension, thyromegaly, or carotid bruits. Lungs are clear to auscultation. Cardiac exam reveals regular rate and Rhythm. First and second heart sounds normal. No murmurs, rubs or gallops. Abdominal exam reveals normal bowel sounds, no masses, no organomegaly and no aortic enlargement. Extremities are nonedematous and both femoral and pedal pulses are normal. 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 No focal weakness. - Constitutional Vitals: Temp Pulse Resp BP Pulse Ox 97.8 F 91 H 20 111/62 95 10/26/17 09:01 10/26/17 09:01 10/26/17 09:01 10/26/17 09:01 10/26/17 09:01 General appearance: Present: no acute distress, well-nourished Results - Labs CBC & Chem 7: 10/25/17 06:57 10/26/17 06:46 Labs: Laboratory Last Values WBC 4.8 K/mm3 (4.5-11.0) 10/25/17 06:57 RBC 2.90 M/mm3 (3.65-5.03) L 10/25/17 06:57 Hgb 9.0 gm/dl (11.8-15.2) L 10/25/17 06:57 Hct 26.5 % (35.5-45.6) L 10/25/17 06:57 MCV 92 fl (84-94) 10/25/17 06:57 MCH 31 pg (28-32) 10/25/17 06:57 MCHC 34 % (32-34) 10/25/17 06:57 RDW 15.1 % (13.2-15.2) 10/25/17 06:57 Plt Count 51 K/mm3 (140-440) L 10/25/17 06:57 Lymph % (Auto) 17.6 % (13.4-35.0) 10/25/17 06:57 [place] % (Auto) 4.4 % (0.0-7.3) 10/25/17 06:57 Eos % (Auto) 0.7 % (0.0-4.3) 10/25/17 06:57 Baso % (Auto) 0.3 % (0.0-1.8) 10/25/17 06:57 Lymph # 0.8 K/mm3 (1.2-5.4) L 10/25/17 06:57 [place] # 0.2 K/mm3 (0.0-0.8) 10/25/17 06:57 Eos # 0.0 K/mm3 (0.0-0.4) 10/25/17 06:57 Baso # 0.0 K/mm3 (0.0-0.1) 10/25/17 06:57 Seg Neutrophils % 77.0 % (40.0-70.0) H 10/25/17 06:57 Seg Neutrophils # 3.7 K/mm3 (1.8-7.7) 10/25/17 06:57 VBG pH 7.243 (7.320-7.420) L 10/21/17 14:42 Sodium 139 mmol/L (137-145) 10/26/17 06:46 Potassium 5.3 mmol/L (3.6-5.0) H 10/26/17 06:46 Chloride 109.0 mmol/L (98-107) H 10/26/17 06:46 Carbon Dioxide 18 mmol/L (22-30) L 10/26/17 06:46 Anion Gap 17 mmol/L 10/26/17 06:46 BUN 31 mg/dL (9-20) H 10/26/17 06:46 Creatinine 1.6 mg/dL (0.8-1.5) H 10/26/17 06:46 Estimated GFR 54 ml/min 10/26/17 06:46 BUN/Creatinine Ratio 19 % 10/26/17 06:46 Glucose 60 mg/dL (75-100) L 10/26/17 06:46 POC Glucose 167 (70-105) H 10/26/17 12:01 Hemoglobin A1c 16.3 % (4-6) H 10/21/17 21:20 Lactic Acid 0.80 mmol/L (0.7-2.0) 10/21/17 17:08 Calcium 9.3 mg/dL (8.4-10.2) 10/26/17 06:46 Phosphorus 2.50 mg/dL (2.5-4.5) D 10/23/17 09:07 Magnesium 2.00 mg/dL (1.7-2.3) 10/23/17 09:07 Total Bilirubin 0.50 mg/dL (0.1-1.2) 10/22/17 14:01 AST 80 units/L (5-40) H 10/22/17 14:01 ALT 51 units/L (7-56) 10/22/17 14:01 Alkaline Phosphatase 255 units/L (35-129) H 10/22/17 14:01 Total Protein 6.5 g/dL (6.3-8.2) 10/22/17 14:01 Albumin 3.5 g/dL (3.9-5) L 10/22/17 14:01 Albumin/Globulin Ratio 1.2 % 10/22/17 14:01 Triglycerides 193 mg/dL (2-149) H 10/21/17 21:29 Cholesterol 196 mg/dL (50-199) 10/21/17 21:29 LDL Cholesterol Direct 138 mg/dL (50-130) H 10/21/17 21:29 HDL Cholesterol 35 mg/dL (40-59) L 10/21/17 21:29 Cholesterol/HDL Ratio 5.60 % 10/21/17 21:29 Urine Color Yellow (Yellow) 10/21/17 17:23 Urine Turbidity Clear (Clear) 04/10/18 17:23 Urine pH 5.0 (5.0-7.0) 10/21/17 Ur Specific [place] 1.016 (1.003-1.030) 10/21/17 Urine Protein <15 mg/dl mg/dL (Negative) 10/21/17 Urine Glucose (UA) >=500 mg/dL (Negative) 10/21/17 Urine Ketones Tr mg/dL (Negative) 10/21/17 Urine Blood Sm (Negative) 10/21/17 Urine Nitrite Neg (Negative) 10/21/17 Urine Bilirubin Neg (Negative) 10/21/17 Urine Urobilinogen < 2.0 mg/dL (<2.0) 10/21/17 Ur Leukocyte Esterase Neg (Negative) 10/21/17 Urine WBC (Auto) 1.0 /HPF (0.0-6.0) 10/21/17 Urine RBC (Auto) 1.0 /HPF (0.0-6.0) 10/21/17 U Epithel Cells (Auto) < 1.0 /HPF (0-13.0) 10/21/17 Urine Bacteria (Auto) 1+ /HPF (Negative) 10/21/17 Urine Mucus Few /HPF 10/21/17
[2017-10-27] MEDS: NEURONTIN PO SCH ×3 (06:50→22:29)
[2017-10-27] MEDS: PERCOCET 5/325 PO PRN (06:50)
[2017-10-27] MEDS: HumaLOG SUB-Q SCH ×4 (08:49→22:49)
[2017-10-27] MEDS: PEPCID PO SCH (09:47)
[2017-10-27] MEDS: ZIAGEN PO SCH (09:47)
[2017-10-27] MEDS: HALFPRIN EC PO SCH (09:47)
[2017-10-27] MEDS: EPIVIR PO SCH (09:48)
[2017-10-27] MEDS: TIVICAY (NF) PO SCH (09:48)
[2017-10-27] MEDS: SODIUM CHLORIDE FLUSH SYRINGE 10 ML IV SCH ×3 (09:49→22:31)
--- NOTE | 2017-10-27 11:04 | Consultation ---
History of Present Illness - Reason for Consult Consult date: 10/27/17 Swelling of the Penis - History of Present Illness Patient is a 57-year-old male [facility] patient with history of HIV Hep C and diabetes brought by EMS for evaluation of hyperglycemia. His initial blood glucose is 650. Patient stated that he is unable to eat or drink for the last 3 days and no appetite. Patient did not take his insulin and also for the last 3 days. Patient denied any fever but admits cough, no shortness of breath.Also Nausea but no vomiting.No fever or chills.No altered sensorium.looks emaciated. circ + penoscrotal pain & swelling A/P penoscrotal pain & swelling doppler scrotal ultrasound Medications and Allergies Allergies Allergy/AdvReac Type Severity Reaction Status Date / Time No Known Allergies Allergy Unverified 12/14/16 03:43 Home Medications Medication Instructions Recorded Confirmed Last Taken Type Abacavir/Dolutegravir/Lamivudi 1 each PO DAILY 01/22/17 10/21/17 01/20/17 History [Triumeq Tablet] Aspirin [Adult Low Dose Aspirin EC] 81 mg PO DAILY #30 tablet. 02/07/17 Unknown Rx Doxycycline [Vibramycin CAP] 100 mg PO BID #42 capsule 02/07/17 10/21/17 Unknown Rx Gabapentin [Neurontin] 400 mg PO Q8HR #90 capsule 02/07/17 10/21/17 Unknown Rx metroNIDAZOLE [Flagyl TAB] 500 mg PO Q8HR #30 tablet 02/07/17 10/21/17 Unknown Rx Insulin Lispro [HumaLOG VIAL] 45 unit SQ AC 10/21/17 10/21/17 Unknown History Insulin NPH/Regular [NovoLIN 70/30] 25 unit SUB-Q BIDDIAB 10/21/17 10/21/17 Unknown History Active Meds: Active Medications Abacavir Sulfate (Ziagen) 600 mg PO DAILY [facility] Last Admin: 10/27/17 09:47 Dose: 600 mg Acetaminophen (Tylenol) 650 mg PO Q4H PRN PRN Reason: Pain MILD(1-3)/Fever >100.5/DUNN Aspirin (Halfprin Ec) 81 mg PO DAILY [facility] Last Admin: 10/27/17 09:47 Dose: 81 mg Dextrose (D50w (25gm) Syringe) 0 ml IV PRN PRN PRN Reason: Hypoglycemia Famotidine (Pepcid) 20 mg PO DAILY [facility] Last Admin: 10/27/17 09:47 Dose: 20 mg Gabapentin (Neurontin) 400 mg PO Q8HR [facility] Last Admin: 10/27/17 06:50 Dose: 400 mg Sodium Chloride (Nacl 0.9% 1000 Ml) 1,000 mls @ 100 mls/hr IV DIRECT [facility] Last Admin: 10/26/17 22:48 Dose: 100 mls/hr Insulin Human Isoph/Insulin Regular (Humulin 70/30) 12 unit SUB-Q BIDDIAB [facility] Last Admin: 10/27/17 08:46 Dose: 12 unit Insulin Human Lispro (Humalog) 0 unit SUB-Q ACHS [facility]; Protocol Last Admin: 10/27/17 08:49 Dose: Not Given Lamivudine (Epivir) 150 mg PO DAILY [facility] Last Admin: 10/27/17 09:48 Dose: 150 mg Metoclopramide HCl (Reglan) 10 mg IV Q6H PRN PRN Reason: Nausea And Vomiting Ondansetron HCl (Zofran) 4 mg IV Q8H PRN PRN Reason: Nausea And Vomiting Oxycodone/Acetaminophen (Percocet 5/325) 2 tab PO Q4H PRN PRN Reason: Pain, Moderate (4-6) Last Admin: 10/27/17 06:50 Dose: 2 tab Sodium Chloride (Sodium Chloride Flush Syringe 10 Ml) 10 ml IV BID [facility] Last Admin: 10/27/17 09:49 Dose: 10 ml Sodium Chloride (Sodium Chloride Flush Syringe 10 Ml) 10 ml IV PRN PRN PRN Reason: LINE FLUSH Exam - Constitutional Vitals: Temp Pulse Resp BP Pulse Ox 98.0 F 93 H 16 122/71 98 10/27/17 07:37 10/27/17 07:37 10/27/17 10:00 10/27/17 07:37 10/27/17 07:37 Results - Labs CBC & Chem 7: 10/25/17 06:57 10/26/17 06:46 Labs: Abnormal lab results 10/26/17 10/26/17 Range/Units 12:01 21:15 POC Glucose 167 H 195 H (70-105)
[2017-10-27] MEDS: NACL 0.9% 1000 ML 1,000 ML IV SCH (13:42)
--- NOTE | 2017-10-27 14:42 | Progress Note ---
Assessment and Plan Assessment and plan: 57-year-old -[place]i male with past medical history significant for insulin-dependent diabetes mellitus, HIV with cachexia was admitted to the ICU for the management of DKA DKA - Patient was managed according to DKA protocol - out of DKA Diabetes mellitus with hyperglycemia -On insulin 70/30 and SSI Hypotension - Resolved Acute kidney injury - Creatinine is 1.7 this morning - Encourage increase fluid intake Gastroparesis - Symptomatic management HIV-AIDS with cachexia - Patient restarted with his home medications Chronic lower leg pain - Pain control Severe malnutrition - Nutrition consult placed - We'll give him booster once he started mouth feeding History of chronic hep C and hep B Swelling of the Penis - Urology consulted and ordered US rectal bleeding : could be hemorrhoid, GI consult placed Disposition - Possible DC tomorrow after evaluation by GI and urology History Interval history: Patient was seen and evaluated this morning, patient was out of DKA and blood pressures normalized, patient is complaining swelling of the Penis and scrotum, rectal bleeding. Hospitalist Physical - Physical exam Narrative exam: Not in cardiopulmonary distress. The patient is cachectic. Vital signs as documented. Head exam is unremarkable. No scleral icterus . Neck is without jugular venous distension, thyromegaly, or carotid bruits. Lungs are clear to auscultation. Cardiac exam reveals regular rate and Rhythm. First and second heart sounds normal. No murmurs, rubs or gallops. Abdominal exam reveals normal bowel sounds, no masses, no organomegaly and no aortic enlargement. Extremities are nonedematous and both femoral and pedal pulses are normal. swelling of the penis and scrotum. UNDER TRIMMER: Alert and oriented 3. No focal weakness. - Constitutional Vitals: Temp Pulse Resp BP Pulse Ox 98.0 F 93 H 16 122/71 98 10/27/17 07:37 10/27/17 07:37 10/27/17 10:00 10/27/17 07:37 10/27/17 07:37 General appearance: Present: no acute distress, well-nourished Results - Labs CBC & Chem 7: 10/25/17 06:57 10/26/17 06:46 Labs: Laboratory Last Values WBC 4.8 K/mm3 (4.5-11.0) 10/25/17 06:57 RBC 2.90 M/mm3 (3.65-5.03) L 10/25/17 06:57 Hgb 9.0 gm/dl (11.8-15.2) L 10/25/17 06:57 Hct 26.5 % (35.5-45.6) L 10/25/17 06:57 MCV 92 fl (84-94) 10/25/17 06:57 MCH 31 pg (28-32) 10/25/17 06:57 MCHC 34 % (32-34) 10/25/17 06:57 RDW 15.1 % (13.2-15.2) 10/25/17 06:57 Plt Count 51 K/mm3 (140-440) L 10/25/17 06:57 Lymph % (Auto) 17.6 % (13.4-35.0) 10/25/17 06:57 [place] % (Auto) 4.4 % (0.0-7.3) 10/25/17 06:57 Eos % (Auto) 0.7 % (0.0-4.3) 10/25/17 06:57 Baso % (Auto) 0.3 % (0.0-1.8) 10/25/17 06:57 Lymph # 0.8 K/mm3 (1.2-5.4) L 10/25/17 06:57 [place] # 0.2 K/mm3 (0.0-0.8) 10/25/17 06:57 Eos # 0.0 K/mm3 (0.0-0.4) 10/25/17 06:57 Baso # 0.0 K/mm3 (0.0-0.1) 10/25/17 06:57 Seg Neutrophils % 77.0 % (40.0-70.0) H 10/25/17 06:57 Seg Neutrophils # 3.7 K/mm3 (1.8-7.7) 10/25/17 06:57 VBG pH 7.243 (7.320-7.420) L 10/21/17 14:42 Sodium 139 mmol/L (137-145) 10/26/17 06:46 Potassium 5.3 mmol/L (3.6-5.0) H 10/26/17 06:46 Chloride 109.0 mmol/L (98-107) H 10/26/17 06:46 Carbon Dioxide 18 mmol/L (22-30) L 10/26/17 06:46 Anion Gap 17 mmol/L 10/26/17 06:46 BUN 31 mg/dL (9-20) H 10/26/17 06:46 Creatinine 1.6 mg/dL (0.8-1.5) H 10/26/17 06:46 Estimated GFR 54 ml/min 10/26/17 06:46 BUN/Creatinine Ratio 19 % 10/26/17 06:46 Glucose 60 mg/dL (75-100) L 10/26/17 06:46 POC Glucose 61 (70-105) L 10/27/17 11:26 Hemoglobin A1c 16.3 % (4-6) H 10/21/17 21:20 Lactic Acid 0.80 mmol/L (0.7-2.0) 10/21/17 17:08 Calcium 9.3 mg/dL (8.4-10.2) 10/26/17 06:46 Phosphorus 2.50 mg/dL (2.5-4.5) D 10/23/17 09:07 Magnesium 2.00 mg/dL (1.7-2.3) 10/23/17 09:07 Total Bilirubin 0.50 mg/dL (0.1-1.2) 10/22/17 14:01 AST 80 units/L (5-40) H 10/22/17 14:01 ALT 51 units/L (7-56) 10/22/17 14:01 Alkaline Phosphatase 255 units/L (35-129) H 10/22/17 14:01 Total Protein 6.5 g/dL (6.3-8.2) 10/22/17 14:01 Albumin 3.5 g/dL (3.9-5) L 10/22/17 14:01 Albumin/Globulin Ratio 1.2 % 10/22/17 14:01 Triglycerides 193 mg/dL (2-149) H 10/21/17 21:29 Cholesterol 196 mg/dL (50-199) 10/21/17 21:29 LDL Cholesterol Direct 138 mg/dL (50-130) H 10/21/17 21:29 HDL Cholesterol 35 mg/dL (40-59) L 10/21/17 21:29 Cholesterol/HDL Ratio 5.60 % 10/21/17 21:29 Urine Color Yellow (Yellow) 10/21/17 17: Urine Turbidity Clear (Clear) 10/21/17 17: Urine pH 5.0 (5.0-7.0) 10/21/17: Ur Specific [place] 1.016 (1.003-1.030) 10/21/17: Urine Protein <15 mg/dl mg/dL (Negative) 10/21/17: Urine Glucose (UA) >=500 mg/dL (Negative) 10/21/17: Urine Ketones Tr mg/dL (Negative) 10/21/17: Urine Blood Sm (Negative) 10/21/17: Urine Nitrite Neg (Negative) 10/21/17: Urine Bilirubin Neg (Negative) 10/21/17: Urine Urobilinogen < 2.0 mg/dL (<2.0) 10/21/17 17: Ur Leukocyte Esterase Neg (Negative) 10/21/17: Urine WBC (Auto) 1.0 /HPF (0.0-6.0) 10/21/17: Urine RBC (Auto) 1.0 /HPF (0.0-6.0) 10/21/17: U Epithel Cells (Auto) < 1.0 /HPF (0-13.0) 10/21/17: Urine Bacteria (Auto) 1+ /HPF (Negative) 10/21/17: Urine Mucus Few /HPF 10/21/17:
--- NOTE | 2017-10-27 15:45 | Event Note ---
Date: 10/27/17 Came to see pt in consultation for rectal bleed. Pt off floor in U/S. Per RN, pt has had multiple brownish marcie-like BMs today with no evidence of lis GI bleed. Will see pt in AM.
--- NOTE | 2017-10-27 16:19 | Ultrasound Report ---
FINAL REPORT EXAM: US TESTICULAR DOPPLER COMP HISTORY: testes pain TECHNIQUE: Testicular ultrasound. PRIORS: None currently available. FINDINGS: RIGHT TESTICLE: 3.8 x 2.6 x 2.4 cm. Normal echotexture flow. No distinct lesions. LEFT TESTICLE: 4.3 x 2.0 x 2.4 cm. Normal echotexture and flow. No distinct lesions. Tiny bilateral hydroceles. Scrotal swelling identified. Hyperemia noted. No distinct fluid collection. Heterogeneous appearing left epididymis without hyperemia. Right epididymis is unremarkable. IMPRESSION: Scrotal swelling or possible cellulitis. No distinct fluid collection. Small bilateral hydroceles. Heterogeneous appearing left epididymis without hyperemia. Findings could be related to atypical epididymitis, vascular congestion, or prior trauma.
[2017-10-28] MEDS: PERCOCET 5/325 PO PRN ×3 (00:15→18:23)
[2017-10-28] MEDS: NEURONTIN PO SCH ×3 (07:06→21:23)
[2017-10-28] MEDS: HumaLOG SUB-Q SCH ×4 (08:39→23:55)
--- NOTE | 2017-10-28 08:46 | Progress Note ---
Subjective Date of service: 10/28/17 Interval history: Patient is a 57-year-old male long term patient with history of HIV Hep C and diabetes brought by EMS for evaluation of hyperglycemia. His initial blood glucose is 650. Patient stated that he is unable to eat or drink for the last 3 days and no appetite. Patient did not take his insulin and also for the last 3 days. Patient denied any fever but admits cough, no shortness of breath.Also Nausea but no vomiting.No fever or chills.No altered sensorium.looks emaciated. circ + penoscrotal pain & swelling scrotal us---edema, no abscess noted A/P penoscrotal pain & swelling (mild cellutitis) 10 days IV /oral abx no surgical intervention needed will sign off Objective - Constitutional Vitals: Vital Signs - 12hr 10/28/17 10/28/17 10/28/17 00:07 00:15 08:38 Temperature 99.2 F Pulse Rate 105 H Respiratory 20 18 18 Rate Blood Pressure 141/73 O2 Sat by Pulse 97 Oximetry - Labs CBC & Chem 7: 10/25/17 06:57 10/26/17 06:46 Labs: Abnormal lab results 10/26/17 10/27/17 10/27/17 Range/Units 16:34 11:26 21:46 POC Glucose 185 H 61 L 57 L (70-105) 10/27/17 10/27/17 10/28/17 Range/Units 22:29 23:20 05:11 POC Glucose 53 L 116 H 122 H (70-105)
--- NOTE | 2017-10-28 09:35 | Discharge Summary ---
Providers - Providers Date of Admission: 10/21/17 16:59 Attending physician: DEEDEE WHITE 10/21/17 20:11 Consult to Dietitian/Nutrition [CONS] Routine Physician Instructions: Reason For Exam: DKA Reason for Consult: Nutrition Recommendations Reason for Consult: Diet education 10/22/17 06:15 Consult to Wound/ET Nurse [CONS] Routine Reason For Exam: wound eval 10/26/17 14:59 Consult to Physician [CONS] Routine Comment: Consulting Provider: CAROLINA HART Physician Instructions: Reason For Exam: Swelling of the penis, with some ulceration 10/27/17 12:12 Consult to Physician [CONS] Routine Comment: Consulting Provider: SHAHANA MURRAY Physician Instructions: Reason For Exam: rectal bleeding Primary care physician: CASTING DIRECTOR Hospitalization Condition: Stable Exam - Constitutional Vitals: Temp Pulse Resp BP Pulse Ox 100.3 F H 99 H 18 114/63 97 10/28/17 07:51 10/28/17 07:51 10/28/17 08:38 10/28/17 07:51 10/28/17 07:51 Plan Follow up with: PRIMARY CAREMD [Primary Care Provider] - 3-5 Days
[2017-10-28] MEDS: TIVICAY (NF) PO SCH (10:24)
[2017-10-28] MEDS: EPIVIR PO SCH (10:24)
[2017-10-28] MEDS: ZIAGEN PO SCH (10:25)
[2017-10-28] MEDS: PEPCID PO SCH (10:25)
[2017-10-28] MEDS: SODIUM CHLORIDE FLUSH SYRINGE 10 ML IV SCH ×2 (10:25→23:56)
[2017-10-28] MEDS: HALFPRIN EC PO SCH (10:25)
--- NOTE | 2017-10-28 10:25 | Gastroenterology Consultation ---
<MEGHAN OCONNOR - Last Filed: 10/28/17 10:27> History of Present Illness - Reason for Consult Consult date: 10/28/17 rectal bleeding Requesting physician: MICHELLE GRAFF - History of Present Illness Patient is a 57 y/o male shelter resident with PMH of HIV, Hep C, DM, and substance abuse who was admitted for DKA. GI has been consulted for rectal bleeding. This am pt was resting in bed w/o acute distress. He reports rectal bleeding with scant amount of bright red blood after BMs x 3-4 days. No hematemesis or melena. Denies CP, SOB, dizziness, abd pain, N/V, diarrhea or constipation. Upon exam this morning, pt had light brown stool in his diaper with no evidence of bleeding. External hemorrhoids noted. Nursing reports several BMs yesterday and overnight with no signs of bleeding. Patient states he underwent a colonoscopy a couple of weeks ago while hospitalized at [facility] for similar symptoms but is unsure of result. He was previously seen by our group in consult 12/2016 and underwent a colonoscopy by Dr. Gutierrez that showed a perianal lesion (possibly condyloma acuminatum) with biopsy results negative for malignancy but no obvious mucosal abnormalities in the colon. No Fhx of colon CA. Past History Past Medical History: diabetes, hepatitis (C (no prior treatment)), other (HIV, prostate cancer, kidney stones) Past Surgical History: Other (back surgery) Social history: smoking, other (shelter resident, alcohol use, substance abuse (cocaine, marijuana)) Family history: no significant family history Medications and Allergies Allergies Allergy/AdvReac Type Severity Reaction Status Date / Time No Known Allergies Allergy Unverified 12/14/16 03:43 Home Medications Medication Instructions Recorded Confirmed Last Taken Type Abacavir/Dolutegravir/Lamivudi 1 each PO DAILY 01/22/17 10/21/17 01/20/17 History [Triumeq Tablet] Aspirin [Adult Low Dose Aspirin EC] 81 mg PO DAILY #30 tablet. 02/07/17 Unknown Rx Doxycycline [Vibramycin CAP] 100 mg PO BID #42 capsule 02/07/17 10/21/17 Unknown Rx Gabapentin [Neurontin] 400 mg PO Q8HR #90 capsule 02/07/17 10/21/17 Unknown Rx metroNIDAZOLE [Flagyl TAB] 500 mg PO Q8HR #30 tablet 02/07/17 10/21/17 Unknown Rx Insulin Lispro [HumaLOG VIAL] 45 unit SQ AC 10/21/17 10/21/17 Unknown History Insulin NPH/Regular [NovoLIN 70/30] 25 unit SUB-Q BIDDIAB 10/21/17 10/21/17 Unknown History Active Meds: Active Medications Abacavir Sulfate (Ziagen) 600 mg PO DAILY [facility] Last Admin: 10/27/17 09:47 Dose: 600 mg Acetaminophen (Tylenol) 650 mg PO Q4H PRN PRN Reason: Pain MILD(1-3)/Fever >100.5/DUNN Aspirin (Halfprin Ec) 81 mg PO DAILY [facility] Last Admin: 10/27/17 09:47 Dose: 81 mg Dextrose (D50w (25gm) Syringe) 0 ml IV PRN PRN PRN Reason: Hypoglycemia Famotidine (Pepcid) 20 mg PO DAILY [facility] Last Admin: 10/27/17 09:47 Dose: 20 mg Gabapentin (Neurontin) 400 mg PO Q8HR [facility] Last Admin: 10/28/17 07:06 Dose: Not Given Sodium Chloride (Nacl 0.9% 1000 Ml) 1,000 mls @ 100 mls/hr IV DIRECT [facility] Last Admin: 10/27/17 13:42 Dose: 100 mls/hr Insulin Human Isoph/Insulin Regular (Humulin 70/30) 12 unit SUB-Q BIDDIAB [facility] Last Admin: 10/28/17 08:40 Dose: 12 unit Insulin Human Lispro (Humalog) 0 unit SUB-Q [facility]; Protocol Last Admin: 10/28/17 08:39 Dose: Not Given Lamivudine (Epivir) 150 mg PO DAILY [facility] Last Admin: 10/27/17 09:48 Dose: 150 mg Metoclopramide HCl (Reglan) 10 mg IV Q6H PRN PRN Reason: Nausea And Vomiting Ondansetron HCl (Zofran) 4 mg IV Q8H PRN PRN Reason: Nausea And Vomiting Oxycodone/Acetaminophen (Percocet 5/325) 2 tab PO Q4H PRN PRN Reason: Pain, Moderate (4-6) Last Admin: 10/28/17 08:38 Dose: 2 tab Sodium Chloride (Sodium Chloride Flush Syringe 10 Ml) 10 ml IV BID [facility] Last Admin: 10/27/17 22:31 Dose: 10 ml Sodium Chloride (Sodium Chloride Flush Syringe 10 Ml) 10 ml IV PRN PRN PRN Reason: LINE FLUSH Review of Systems - Review of Systems All systems: negative Gastrointestinal: hematochezia Exam - Constitutional Vital Signs: Temp Pulse Resp BP Pulse Ox 100.3 F H 99 H 18 114/63 97 10/28/17 07:51 10/28/17 07:51 10/28/17 08:38 10/28/17 07:51 10/28/17 07:51 General appearance: no acute distress, other (thin appearing) - Respiratory Respiratory: bilateral: CTA (anterior) - Cardiovascular Rhythm: other (tachycardia) Heart Sounds: Present: S1 & S2 - Gastrointestinal General gastrointestinal: Present: soft, tender (mild genealized TTP), non- distended, normal bowel sounds Rectal Exam: hemorrhoids, stool brown - Neurologic Neurological: alert and oriented x3 - Labs CBC & Chem 7: 10/25/17 06:57 10/26/17 06:46 Lab Results: Laboratory Results - last 24 hr 10/26/17 10/27/17 10/27/17 16:34 11:26 16:28 POC Glucose 185 H 61 L 104 Lactic Acid 10/27/17 10/27/17 10/27/17 21:46 22:29 23:15 POC Glucose 57 L 53 L Lactic Acid 1.20 10/27/17 10/28/17 23:20 05:11 POC Glucose 116 H 122 H Lactic Acid Assessment and Plan 1.rectal bleeding -no active signs of bleeding yesterday or this am per nursing -pt with light brown stool in diaper this am with no blood (external hemorrhoids noted) -etiology-most likely anorectal in origin -pt reports recent colonoscopy at [facility] approximately 2 weeks ago (results unavailable) -colonoscopy 12/2016 showed a perianal lesion (possible HPV, condyloma acuminatum, infectious) with bx results negative for malignancy and no obvious mucosal abnormalities in the colon -no plans for a repeat colonoscopy at this time -start hydrocortisone suppositories -continue supportive care -no further GI recommendations, pt is okay to be d/c per a GI standpoint with outpatient follow up <CHALINO LAM R - Last Filed: 10/28/17 13:23> Medications and Allergies Active Meds: Active Medications Abacavir Sulfate (Ziagen) 600 mg PO DAILY [facility] Last Admin: 10/28/17 10:25 Dose: 600 mg Acetaminophen (Tylenol) 650 mg PO Q4H PRN PRN Reason: Pain MILD(1-3)/Fever >100.5/DUNN Aspirin (Halfprin Ec) 81 mg PO DAILY [facility] Last Admin: 10/28/17 10:25 Dose: 81 mg Dextrose (D50w (25gm) Syringe) 0 ml IV PRN PRN PRN Reason: Hypoglycemia Famotidine (Pepcid) 20 mg PO DAILY [facility] Last Admin: 10/28/17 10:25 Dose: 20 mg Gabapentin (Neurontin) 400 mg PO Q8HR [facility] Last Admin: 10/28/17 07:06 Dose: Not Given Hydrocortisone Acetate (Anucort-Hc) 25 mg ME Q12H PRN PRN Reason: Hemorrhoids Sodium Chloride (Nacl 0.9% 1000 Ml) 1,000 mls @ 100 mls/hr IV DIRECT [facility] Last Admin: 10/27/17 13:42 Dose: 100 mls/hr Levofloxacin/Dextrose (Levaquin 750mg/150ml) 750 mg in 150 mls @ 100 mls/hr IV Q48HR [facility]; Protocol Last Admin: 10/28/17 12:24 Dose: 100 mls/hr Insulin Human Isoph/Insulin Regular (Humulin 70/30) 12 unit SUB-Q BIDDIAB [facility] Last Admin: 10/28/17 08:40 Dose: 12 unit Insulin Human Lispro (Humalog) 0 unit SUB-Q ACHS [facility]; Protocol Last Admin: 10/28/17 12:20 Dose: Not Given Lamivudine (Epivir) 150 mg PO DAILY [facility] Last Admin: 10/28/17 10:24 Dose: 150 mg Metoclopramide HCl (Reglan) 10 mg IV Q6H PRN PRN Reason: Nausea And Vomiting Ondansetron HCl (Zofran) 4 mg IV Q8H PRN PRN Reason: Nausea And Vomiting Oxycodone/Acetaminophen (Percocet 5/325) 2 tab PO Q4H PRN PRN Reason: Pain, Moderate (4-6) Last Admin: 10/28/17 08:38 Dose: 2 tab Sodium Chloride (Sodium Chloride Flush Syringe 10 Ml) 10 ml IV BID [facility] Last Admin: 10/28/17 10:25 Dose: 10 ml Sodium Chloride (Sodium Chloride Flush Syringe 10 Ml) 10 ml IV PRN PRN PRN Reason: LINE FLUSH Exam - Constitutional Vital Signs: Temp Pulse Resp BP Pulse Ox 99.0 F 96 H 15 117/66 99 10/28/17 12:10 10/28/17 12:10 10/28/17 12:10 10/28/17 12:10 10/28/17 12:10 - Labs CBC & Chem 7: 10/25/17 06:57 10/26/17 06:46 Lab Results: Laboratory Results - last 24 hr 10/27/17 10/27/17 10/27/17 16:28 21:46 22:29 POC Glucose 104 57 L 53 L Lactic Acid 10/27/17 10/27/17 10/28/17 23:15 23:20 05:11 POC Glucose 116 H 122 H Lactic Acid 1.20 10/28/17 12:15 POC Glucose 127 H Lactic Acid Assessment and Plan Pt seen and examined. Cachectic. Will sign off.
--- NOTE | 2017-10-28 11:08 | Progress Note ---
Assessment and Plan Assessment and plan: Penile cellulitis. Initiate IV antibiotics of Levaquin daily. Consider ID consultation. Urology following. DKA - Patient was managed according to DKA protocol - out of DKA Diabetes mellitus with hyperglycemia -On insulin 70/30 and SSI Hypotension - Resolved Acute kidney injury/ARF on CKD - Continue to monitor creatinine. - Encourage increase fluid intake Gastroparesis - Symptomatic management HIV-AIDS with cachexia - Patient restarted with his home medications Chronic lower leg pain - Pain control Severe malnutrition - Nutrition consult placed - We'll give him boost once he started mouth feeding History of chronic hep C and hep B Rectal bleeding -pt reports recent colonoscopy at [place] approximately 2 weeks ago (results unavailable) -colonoscopy 12/2016 showed a perianal lesion (possible HPV, condyloma acuminatum, infectious) with bx results negative for malignancy and no obvious mucosal abnormalities in the colon -no plans for a repeat colonoscopy at this time -start hydrocortisone suppositories -continue supportive care -no further GI recommendations History Interval history: Patient complains of penile pain Hospitalist Physical - Constitutional Vitals: Temp Pulse Resp BP Pulse Ox 100.3 F H 99 H 18 114/63 97 10/28/17 07:51 10/28/17 07:51 10/28/17 08:38 10/28/17 07:51 10/28/17 07:51 General appearance: Present: no acute distress, well-nourished - EENT Eyes: Present: PERRL, EOM intact ENT: hearing intact, clear oral mucosa, dentition normal - Neck Neck: Present: supple, normal ROM - Respiratory Respiratory effort: normal Respiratory: bilateral: CTA - Cardiovascular Rhythm: regular Heart Sounds: Present: S1 & S2. Absent: gallop, rub - Extremities Extremities: no ischemia, No edema, Full ROM - Abdominal General gastrointestinal: soft, non-tender, non-distended, normal bowel sounds - Integumentary Integumentary: Present: clear, warm, dry - Neurologic Neurologic: CNII-XII intact, moves all extremities Results - Labs CBC & Chem 7: 10/25/17 06:57 10/26/17 06:46 Labs: Laboratory Last Values WBC 4.8 K/mm3 (4.5-11.0) 10/25/17 06:57 RBC 2.90 M/mm3 (3.65-5.03) L 10/25/17 06:57 Hgb 9.0 gm/dl (11.8-15.2) L 10/25/17 06:57 Hct 26.5 % (35.5-45.6) L 10/25/17 06:57 MCV 92 fl (84-94) 10/25/17 06:57 MCH 31 pg (28-32) 10/25/17 06:57 MCHC 34 % (32-34) 10/25/17 06:57 RDW 15.1 % (13.2-15.2) 10/25/17 06:57 Plt Count 51 K/mm3 (140-440) L 10/25/17 06:57 Lymph % (Auto) 17.6 % (13.4-35.0) 10/25/17 06:57 [place] % (Auto) 4.4 % (0.0-7.3) 10/25/17 06:57 Eos % (Auto) 0.7 % (0.0-4.3) 10/25/17 06:57 Baso % (Auto) 0.3 % (0.0-1.8) 10/25/17 06:57 Lymph # 0.8 K/mm3 (1.2-5.4) L 10/25/17 06:57 [place] # 0.2 K/mm3 (0.0-0.8) 10/25/17 06:57 Eos # 0.0 K/mm3 (0.0-0.4) 10/25/17 06:57 Baso # 0.0 K/mm3 (0.0-0.1) 10/25/17 06:57 Seg Neutrophils % 77.0 % (40.0-70.0) H 10/25/17 06:57 Seg Neutrophils # 3.7 K/mm3 (1.8-7.7) 10/25/17 06:57 VBG pH 7.243 (7.320-7.420) L 10/21/17 14:42 Sodium 139 mmol/L (137-145) 10/26/17 06:46 Potassium 5.3 mmol/L (3.6-5.0) H 10/26/17 06:46 Chloride 109.0 mmol/L (98-107) H 10/26/17 06:46 Carbon Dioxide 18 mmol/L (22-30) L 10/26/17 06:46 Anion Gap 17 mmol/L 10/26/17 06:46 BUN 31 mg/dL (9-20) H 10/26/17 06:46 Creatinine 1.6 mg/dL (0.8-1.5) H 10/26/17 06:46 Estimated GFR 54 ml/min 10/26/17 06:46 BUN/Creatinine Ratio 19 % 10/26/17 06:46 Glucose 60 mg/dL (75-100) L 10/26/17 06:46 POC Glucose 122 (70-105) H 10/28/17 05:11 Hemoglobin A1c 16.3 % (4-6) H 10/21/17 21:20 Lactic Acid 1.20 mmol/L (0.7-2.0) 10/27/17 23:15 Calcium 9.3 mg/dL (8.4-10.2) 10/26/17 06:46 Phosphorus 2.50 mg/dL (2.5-4.5) D 10/23/17 09:07 Magnesium 2.00 mg/dL (1.7-2.3) 10/23/17 09:07 Total Bilirubin 0.50 mg/dL (0.1-1.2) 10/22/17 14:01 AST 80 units/L (5-40) H 10/22/17 14:01 ALT 51 units/L (7-56) 10/22/17 14:01 Alkaline Phosphatase 255 units/L (35-129) H 10/22/17 14:01 Total Protein 6.5 g/dL (6.3-8.2) 10/22/17 14:01 Albumin 3.5 g/dL (3.9-5) L 10/22/17 14:01 Albumin/Globulin Ratio 1.2 % 10/22/17 14:01 Triglycerides 193 mg/dL (2-149) H 10/21/17 21:29 Cholesterol 196 mg/dL (50-199) 10/21/17 21:29 LDL Cholesterol Direct 138 mg/dL (50-130) H 10/21/17 21:29 HDL Cholesterol 35 mg/dL (40-59) L 10/21/17 21:29 Cholesterol/HDL Ratio 5.60 % 10/21/17 21:29 Urine Color Yellow (Yellow) 10/21/17 Urine Turbidity Clear (Clear) 10/21/17 Urine pH 5.0 (5.0-7.0) 10/21/17 Ur Specific [place] 1.016 (1.003-1.030) 10/21/17 Urine Protein <15 mg/dl mg/dL (Negative) 10/21/17 Urine Glucose (UA) >=500 mg/dL (Negative) 10/21/17 Urine Ketones Tr mg/dL (Negative) 10/21/17 Urine Blood Sm (Negative) 10/21/17 Urine Nitrite Neg (Negative) 10/21/17 Urine Bilirubin Neg (Negative) 10/21/17 Urine Urobilinogen < 2.0 mg/dL (<2.0) 10/21/17 Ur Leukocyte Esterase Neg (Negative) 10/21/17 Urine WBC (Auto) 1.0 /HPF (0.0-6.0) 10/21/17 Urine RBC (Auto) 1.0 /HPF (0.0-6.0) 10/21/17 U Epithel Cells (Auto) < 1.0 /HPF (0-13.0) 10/21/17 Urine Bacteria (Auto) 1+ /HPF (Negative) 10/21/17 Urine Mucus Few /HPF 10/21/17
[2017-10-28] MEDS ORDERED: LEVAQUIN 750MG/150ML 750 MG/150 ML BAG IV SCH (12:00)
[2017-10-28] MEDS ORDERED: ANUCORT-HC PR PRN (13:00)
[2017-10-28] MEDS: FLAGYL 500 MG/100 ML 500 MG/100 ML BAG IV SCH ×2 (17:03→21:22)
[2017-10-28] MEDS: NACL 0.9% 1000 ML 1,000 ML IV SCH (21:22)
[2017-10-29] MEDS ORDERED: LASIX IV ONE (01:08)
[2017-10-29] MEDS: PERCOCET 5/325 PO PRN ×4 (01:29→18:08)
[2017-10-29] MEDS: FLAGYL 500 MG/100 ML 500 MG/100 ML BAG IV SCH ×4 (05:45→22:47)
[2017-10-29] MEDS: NEURONTIN PO SCH ×4 (05:46→22:47)
[2017-10-29 05:59] LABS: Basophils % (Auto) 0.1 % (0.0-1.8); Eosinophils % (Auto) 0.5 % (0.0-4.3); Hematocrit 21.6 % (35.5-45.6); Hemoglobin 7.1 gm/dl (11.8-15.2); Lymphocytes # (Auto) 0.8 K/mm3 (1.2-5.4); Mean Corpuscular HGB Conc 33 % (32-34); Mean Corpuscular Hemoglobin 31 pg (28-32); Mean Corpuscular Volume 93 fl (84-94); Monocytes # (Auto) 0.7 K/mm3 (0.0-0.8); Monocytes % (Auto) 13.3 % (0.0-7.3); Red Blood Count 2.32 M/mm3 (3.65-5.03); Red Cell Distribution Width 15.2 % (13.2-15.2)
[2017-10-29 06:01] LABS: Platelet Count 79 K/mm3 (140-440)
[2017-10-29 06:14] LABS: Calcium 8.6 mg/dL (8.4-10.2)
[2017-10-29] MEDS: HumaLOG SUB-Q SCH ×4 (08:06→22:00)
[2017-10-29] MEDS: PEPCID PO SCH (09:08)
[2017-10-29] MEDS: NACL 0.9% 1000 ML 1,000 ML IV SCH (09:08)
[2017-10-29] MEDS: HALFPRIN EC PO SCH (09:08)
[2017-10-29] MEDS: TIVICAY (NF) PO SCH (09:09)
[2017-10-29] MEDS: ZIAGEN PO SCH (09:09)
[2017-10-29] MEDS: EPIVIR PO SCH (09:09)
[2017-10-29] MEDS: SODIUM CHLORIDE FLUSH SYRINGE 10 ML IV SCH ×2 (09:11→22:47)
--- NOTE | 2017-10-29 11:27 | Progress Note ---
Assessment and Plan Assessment and plan: Penile cellulitis. Initiate IV antibiotics of Levaquin daily. Consider ID consultation. Urology following. DKA - Patient was managed according to DKA protocol - DKA resolved Diabetes mellitus with hyperglycemia -On insulin 70/30 and SSI Acute kidney injury/ARF on CKD -Nephrology consultation - Continue to monitor creatinine. - Encourage increase fluid intake Gastroparesis - Symptomatic management HIV-AIDS with cachexia - Patient restarted with his home medications Bilateral lower extremity edema -Check echocardiogram -Check BNP -Check bilateral lower extremity Dopplers Severe malnutrition - Nutrition consult placed - We'll give him boost once he started mouth feeding History of chronic hep C and hep B Rectal bleeding -Transfuse 2 units PRBCs -pt reports recent colonoscopy at [place] approximately 2 weeks ago (results unavailable) -colonoscopy 12/2016 showed a perianal lesion (possible HPV, condyloma acuminatum, infectious) with bx results negative for malignancy and no obvious mucosal abnormalities in the colon -no plans for a repeat colonoscopy at this time -Continue hydrocortisone suppositories -continue supportive care -no further GI recommendations History Interval history: Patient complains of penile pain and bilateral lower extremity edema. Hospitalist Physical - Constitutional Vitals: Temp Pulse Resp BP Pulse Ox 98.3 F 91 H 16 111/57 98 10/29/17 06:55 10/29/17 06:55 10/29/17 06:55 10/29/17 06:55 10/29/17 06:55 General appearance: Present: no acute distress, well-nourished - EENT Eyes: Present: PERRL, EOM intact ENT: hearing intact, clear oral mucosa, dentition normal - Neck Neck: Present: supple, normal ROM - Respiratory Respiratory effort: normal Respiratory: bilateral: CTA - Cardiovascular Rhythm: regular Heart Sounds: Present: S1 & S2. Absent: gallop, rub - Extremities Extremities: no ischemia, Full ROM Extremity abnormal: edema (3+) - Abdominal General gastrointestinal: soft, non-tender, non-distended, normal bowel sounds - Integumentary Integumentary: Present: clear, warm, dry - Neurologic Neurologic: CNII-XII intact, moves all extremities Results - Labs CBC & Chem 7: 10/29/17 05:14 10/29/17 05:14 Labs: Laboratory Last Values WBC 5.5 K/mm3 (4.5-11.0) 10/29/17 05:14 RBC 2.32 M/mm3 (3.65-5.03) L 10/29/17 05:14 Hgb 7.1 gm/dl (11.8-15.2) L 10/29/17 05:14 Hct 21.6 % (35.5-45.6) L 10/29/17 05:14 MCV 93 fl (84-94) 10/29/17 05:14 MCH 31 pg (28-32) 10/29/17 05:14 MCHC 33 % (32-34) 10/29/17 05:14 RDW 15.2 % (13.2-15.2) 10/29/17 05:14 Plt Count 79 K/mm3 (140-440) L 10/29/17 05:14 Lymph % (Auto) 14.0 % (13.4-35.0) 10/29/17 05:14 [place] % (Auto) 13.3 % (0.0-7.3) H 10/29/17 05:14 Eos % (Auto) 0.5 % (0.0-4.3) 10/29/17 05:14 Baso % (Auto) 0.1 % (0.0-1.8) 10/29/17 05:14 Lymph # 0.8 K/mm3 (1.2-5.4) L 10/29/17 05:14 [place] # 0.7 K/mm3 (0.0-0.8) 10/29/17 05:14 Eos # 0.0 K/mm3 (0.0-0.4) 10/29/17 05:14 Baso # 0.0 K/mm3 (0.0-0.1) 10/29/17 05:14 Seg Neutrophils % 72.1 % (40.0-70.0) H 10/29/17 05:14 Seg Neutrophils # 4.0 K/mm3 (1.8-7.7) 10/29/17 05:14 VBG pH 7.243 (7.320-7.420) L 10/21/17 14:42 Sodium 138 mmol/L (137-145) 10/29/17 05:14 Potassium 4.4 mmol/L (3.6-5.0) 10/29/17 05:14 Chloride 109.2 mmol/L (98-107) H 10/29/17 05:14 Carbon Dioxide 15 mmol/L (22-30) L 10/29/17 05:14 Anion Gap 18 mmol/L 10/29/17 05:14 BUN 36 mg/dL (9-20) H 10/29/17 05:14 Creatinine 2.3 mg/dL (0.8-1.5) H 10/29/17 05:14 Estimated GFR 36 ml/min 10/29/17 05:14 BUN/Creatinine Ratio 16 % 10/29/17 05:14 Glucose 182 mg/dL (75-100) H 10/29/17 05:14 POC Glucose 203 (70-105) H 10/29/17 06:08 Hemoglobin A1c 16.3 % (4-6) H 10/21/17 21:20 Lactic Acid 1.20 mmol/L (0.7-2.0) 10/27/17 23:15 Calcium 8.6 mg/dL (8.4-10.2) 10/29/17 05:14 Phosphorus 2.50 mg/dL (2.5-4.5) D 10/23/17 09:07 Magnesium 2.00 mg/dL (1.7-2.3) 10/23/17 09:07 Total Bilirubin 0.50 mg/dL (0.1-1.2) 10/22/17 14:01 AST 80 units/L (5-40) H 10/22/17 14:01 ALT 51 units/L (7-56) 10/22/17 14:01 Alkaline Phosphatase 255 units/L (35-129) H 10/22/17 14:01 Total Protein 6.5 g/dL (6.3-8.2) 10/22/17 14:01 Albumin 3.5 g/dL (3.9-5) L 10/22/17 14:01 Albumin/Globulin Ratio 1.2 % 10/22/17 14:01 Triglycerides 193 mg/dL (2-149) H 10/21/17 21:29 Cholesterol 196 mg/dL (50-199) 10/21/17 21:29 LDL Cholesterol Direct 138 mg/dL (50-130) H 10/21/17 21:29 HDL Cholesterol 35 mg/dL (40-59) L 10/21/17 21:29 Cholesterol/HDL Ratio 5.60 % 10/21/17 21:29 Urine Color Yellow (Yellow) 10/21/17 17: Urine Turbidity Clear (Clear) 10/21/17 17: Urine pH 5.0 (5.0-7.0) 10/21/17 17: Ur Specific [place] 1.016 (1.003-1.030) 10/21/17: Urine Protein <15 mg/dl mg/dL (Negative) 10/21/17: Urine Glucose (UA) >=500 mg/dL (Negative) 10/21/17: Urine Ketones Tr mg/dL (Negative) 10/21/17: Urine Blood Sm (Negative) 10/21/17: Urine Nitrite Neg (Negative) 10/21/17: Urine Bilirubin Neg (Negative) 10/21/17: Urine Urobilinogen < 2.0 mg/dL (<2.0) 10/21/17: Ur Leukocyte Esterase Neg (Negative) 10/21/17: Urine WBC (Auto) 1.0 /HPF (0.0-6.0) 10/21/17: Urine RBC (Auto) 1.0 /HPF (0.0-6.0) 10/21/17: U Epithel Cells (Auto) < 1.0 /HPF (0-13.0) 10/21/17: Urine Bacteria (Auto) 1+ /HPF (Negative) 10/21/17: Urine Mucus Few /HPF 10/21/17: Blood Type A POSITIVE 10/29/17 08:50 Antibody Screen Negative 10/29/17 08:50 Crossmatch See Detail 10/29/17 08:50
[2017-10-29] MEDS ORDERED: NACL 0.9% 500 ML 500 ML IV ONE (12:00)
[2017-10-30] MEDS: PERCOCET 5/325 PO PRN ×4 (00:04→19:01)
[2017-10-30 06:37] LABS: Basophils % (Auto) 0.2 % (0.0-1.8); Eosinophils % (Auto) 0.6 % (0.0-4.3); Hematocrit 31.1 % (35.5-45.6); Hemoglobin 10.5 gm/dl (11.8-15.2); Lymphocytes % (Auto) 13.7 % (13.4-35.0); Mean Corpuscular HGB Conc 34 % (32-34); Mean Corpuscular Hemoglobin 31 pg (28-32); Mean Corpuscular Volume 91 fl (84-94); Monocytes # (Auto) 0.6 K/mm3 (0.0-0.8); Monocytes % (Auto) 8.6 % (0.0-7.3); Platelet Count 112 K/mm3 (140-440); Red Blood Count 3.41 M/mm3 (3.65-5.03); Red Cell Distribution Width 15.6 % (13.2-15.2)
[2017-10-30] MEDS: FLAGYL 500 MG/100 ML 500 MG/100 ML BAG IV SCH (06:40)
[2017-10-30] MEDS: NEURONTIN PO SCH ×2 (06:40→14:42)
[2017-10-30] MEDS: HumaLOG SUB-Q SCH ×4 (07:55→17:34)
--- NOTE | 2017-10-30 09:46 | Consultation ---
History of Present Illness - History of Present Illness Thank you for the consultation patient was evaluated today. Source of information; patient himself was an extremely poor historian and old records also reviewed which shows that patient does have history of chronic kidney disease baseline creatinine between 1.8-2.2 last year History of presenting illness; Patient is a 57-year-old -[place] male who has been admitted here with multiple health issues and also has been noted to be in renal failure with a creatinine close to 2. Patient is an extremely poor historian. Upon further questioning patient has no knowledge of prior kidney function but does not recall having any history of renal failure. Patient intermittently has been having diarrhea for nearly 3 months he also does have history of HIV. He is not taking any form of nonsteroidal drugs. No history of any lupus paraproteinemias or hepatitis B or C, currently his appetite were no complaints of any nausea or vomiting in outpatient setting patient was taking Flagyl he has also history of diabetes as well as neuropathy, doing resolved with hydration his creatinine was 1.6 which is currently 2.3 but stable in the last 24 hours patient was mildly hyperkalemic at 5.3 currently 4.3. Urinalysis shows evidence of less than 15 mg protein with no red blood cells hepatitis C positive however during this admission incidentally noted to be anemic hemoglobin is 10.5, Baseline creatinine has been in the range of 1.8-2.4 in January 2017 Past medical history chronic kidney disease Hypertension Diabetes HIV disease Hepatitis C Diarrhea Current allergies: None Home medication: Reviewed Social history: Reviewed Family history: Reviewed Labs and x-rays: Were reviewed from the current chart Review of system positive for chronic intermittent diarrhea approximately 3 month duration poor appetite all other review of system negative Physical examination General: No acute distress HEENT: Oral mucosa moist no pharyngeal erythema no pallor or icterus no uremic order Neck: Supple no evidence of any thyromegaly trachea midline no JVD Chest: Clear to auscultation no crackles are also wheezes anteriorly Heart: Regular rate and rhythm S1-S2 heard no S3-S4 Abdomen: Soft nontender no renal bruit no CVA tenderness no suprapubic fullness no organomegaly Extremity: Minimal edema dry skin no peripheral cyanosis pulses palpable Neurological: Alert awake follows command grossly nonfocal examination Back: Nontender thoracolumbar spine Musculoskeletal: No joint effusion noted Skin: No petechial rash/noted Assessment and plan Renal failure current creatinine stable around 2.3 for the last 24 hours patient doesn't multiple risk factor for underlying chronic kidney disease we' ll order labs and check ultrasonogram needs follow-up upon discharge no indication for renal replacement therapy at this time, hydration and follow up on renal function, GI currently following Metabolic acidosis appears to be multifactorial in a patient who has HIV treat with sodium bicarbonate tablets and follow-up to keep bicarbonate goal around 24 Upon admission his creatinine was 2.5 upon admission and lowest creatinine was 1.5 on October 23 Diabetes mellitus type II uncontrolled admitted with blood sugar of 650 Metabolic acidosis: Currently improving Anemia: Multifactorial Hyperkalemia mild 5.3 currently improved correct metabolic acidosis follow renal diet Diabetes mellitus type II we'll check the degree of proteinuria with renal failure Renal prognosis remains guarded at this time Patient receive adequate counseling and education regarding multiple renal related issues Advised to make an appointment office upon discharge for follow-up or else renal prognosis will be guarded to poor he will be high risk for progression of renal failure too end-stage renal disease Further education can be obtained from our website as well as related links for patient education, I do worry about his memory and cognition Nature and severity of renal-related issues were discussed with patient, all questions were answered and simple Danish Patient does have good understanding about renal-related issues. Counseled and educated to get further education from [facility] and related links, and upon discharge to make a follow-up appointment in the office We'll continue to follow and make recommendations from renal standpoint. If you have any questions please feel free to contact me at [phone] Thank you for the consultation. Past History Past Medical History: diabetes, hepatitis (C (no prior treatment)), other (HIV, prostate cancer, kidney stones) Past Surgical History: Other (back surgery) Social history: smoking, other ([facility] resident, alcohol use, substance abuse (cocaine, marijuana)) Family history: no significant family history Medications and Allergies Allergies Allergy/AdvReac Type Severity Reaction Status Date / Time No Known Allergies Allergy Unverified 12/14/16 03:43 Home Medications Medication Instructions Recorded Confirmed Last Taken Type Abacavir/Dolutegravir/Lamivudi 1 each PO DAILY 01/22/17 10/21/17 01/20/17 History [Triumeq Tablet] Aspirin [Adult Low Dose Aspirin EC] 81 mg PO DAILY #30 tablet. 02/07/17 Unknown Rx Doxycycline [Vibramycin CAP] 100 mg PO BID #42 capsule 02/07/17 10/21/17 Unknown Rx Gabapentin [Neurontin] 400 mg PO Q8HR #90 capsule 02/07/17 10/21/17 Unknown Rx metroNIDAZOLE [Flagyl TAB] 500 mg PO Q8HR #30 tablet 02/07/17 10/21/17 Unknown Rx Insulin Lispro [HumaLOG VIAL] 45 unit SQ AC 10/21/17 10/21/17 Unknown History Insulin NPH/Regular [NovoLIN 70/30] 25 unit SUB-Q BIDDIAB 10/21/17 10/21/17 Unknown History Active Meds: Active Medications Abacavir Sulfate (Ziagen) 600 mg PO DAILY [facility] Last Admin: 10/29/17 09:09 Dose: 600 mg Acetaminophen (Tylenol) 650 mg PO Q4H PRN PRN Reason: Pain MILD(1-3)/Fever >100.5/DUNN Aspirin (Halfprin Ec) 81 mg PO DAILY [facility] Last Admin: 10/29/17 09:08 Dose: 81 mg Dextrose (D50w (25gm) Syringe) 0 ml IV PRN PRN PRN Reason: Hypoglycemia Famotidine (Pepcid) 20 mg PO DAILY [facility] Last Admin: 10/29/17 09:08 Dose: 20 mg Gabapentin (Neurontin) 400 mg PO Q8HR [facility] Last Admin: 10/30/17 06:40 Dose: 400 mg Hydrocortisone Acetate (Anucort-Hc) 25 mg ME Q12H PRN PRN Reason: Hemorrhoids Sodium Chloride (Nacl 0.9% 1000 Ml) 1,000 mls @ 100 mls/hr IV DIRECT [facility] Last Admin: 10/29/17 09:08 Dose: 100 mls/hr Insulin Human Isoph/Insulin Regular (Humulin 70/30) 12 unit SUB-Q BIDDIAB [facility] Last Admin: 10/30/17 08:23 Dose: 12 unit Insulin Human Lispro (Humalog) 0 unit SUB-Q ACHS [facility]; Protocol Last Admin: 10/30/17 07:55 Dose: Not Given Lamivudine (Epivir) 150 mg PO DAILY [facility] Last Admin: 10/29/17 09:09 Dose: 150 mg Levofloxacin (Levaquin) 750 mg PO Q48HR [facility] Metoclopramide HCl (Reglan) 5 mg IV Q6H PRN PRN Reason: Nausea And Vomiting Metronidazole (Flagyl) 500 mg PO Q8HR [facility] Ondansetron HCl (Zofran) 4 mg IV Q8H PRN PRN Reason: Nausea And Vomiting Oxycodone/Acetaminophen (Percocet 5/325) 2 tab PO Q4H PRN PRN Reason: Pain, Moderate (4-6) Last Admin: 10/30/17 06:58 Dose: 2 tab Sodium Chloride (Sodium Chloride Flush Syringe 10 Ml) 10 ml IV BID [facility] Last Admin: 10/29/17 22:47 Dose: 10 ml Sodium Chloride (Sodium Chloride Flush Syringe 10 Ml) 10 ml IV PRN PRN PRN Reason: LINE FLUSH Exam - Vital Signs Vital signs: Vital Signs Temp Pulse Resp BP Pulse Ox 95.7 F L 72 16 122/74 100 10/21/17 14:00 10/21/17 14:00 10/21/17 14:00 10/21/17 14:00 10/21/17 14:00 Results - Lab Results 10/30/17 06:02 10/30/17 06:02 Most recent lab results Calcium 9.0 mg/dL (8.4-10.2) 10/30/17 06:02 Phosphorus 2.50 mg/dL (2.5-4.5) D 10/23/17 09:07 Magnesium 2.00 mg/dL (1.7-2.3) 10/23/17 09:07
[2017-10-30] MEDS ORDERED: REGLAN IV PRN (10:00)
[2017-10-30] MEDS ORDERED: LEVAQUIN PO SCH (10:00)
--- NOTE | 2017-10-30 10:38 | Progress Note ---
Assessment and Plan Assessment and plan: Penile cellulitis. Initiate IV antibiotics of Levaquin daily. Consider ID consultation. Urology following. DKA - Patient was managed according to DKA protocol - DKA resolved Diabetes mellitus with hyperglycemia -On insulin 70/30 and SSI Acute kidney injury/ARF on CKD -Nephrology consultation - Continue to monitor creatinine. - Encourage increase fluid intake Gastroparesis - Symptomatic management HIV-AIDS with cachexia - Patient restarted with his home medications Bilateral lower extremity edema -Check echocardiogram -Check BNP -Check bilateral lower extremity Dopplers Severe malnutrition - Nutrition consult placed - We'll give him boost once he started mouth feeding History of chronic hep C and hep B Rectal bleeding -s/p Transfusion 2 units PRBCs. H&H stable -pt reports recent colonoscopy at [place] approximately 2 weeks ago (results unavailable) -colonoscopy 12/2016 showed a perianal lesion (possible HPV, condyloma acuminatum, infectious) with bx results negative for malignancy and no obvious mucosal abnormalities in the colon -no plans for a repeat colonoscopy at this time -Continue hydrocortisone suppositories -continue supportive care -no further GI recommendations Anemia. Etiology is multifactorial likely secondary to acute blood loss from rectal bleeding from hemorrhoids/chronic disease associated with CKD/HIV and protein calorie malnutrition. Patient with no active bleeding. If H&H is stable in a.m., will likely discharge. Disposition. Likely discharge in a.m. History Interval history: Patient complains of penile pain and bilateral lower extremity edema. Hospitalist Physical - Constitutional Vitals: Temp Pulse Resp BP Pulse Ox 99.4 F 84 20 125/72 97 10/30/17 08:12 10/30/17 08:12 10/30/17 08:12 10/30/17 08:12 10/30/17 08:12 General appearance: Present: no acute distress, well-nourished - EENT Eyes: Present: PERRL, EOM intact ENT: hearing intact, clear oral mucosa, dentition normal - Neck Neck: Present: supple, normal ROM - Respiratory Respiratory effort: normal Respiratory: bilateral: CTA - Cardiovascular Rhythm: regular Heart Sounds: Present: S1 & S2. Absent: gallop, rub - Extremities Extremities: no ischemia, No edema, Full ROM - Abdominal General gastrointestinal: soft, non-tender, non-distended, normal bowel sounds - Integumentary Integumentary: Present: clear, warm, dry - Neurologic Neurologic: CNII-XII intact, moves all extremities Results - Labs CBC & Chem 7: 10/30/17 06:02 10/30/17 06:02 Labs: Laboratory Last Values WBC 7.0 K/mm3 (4.5-11.0) 10/30/17 06:02 RBC 3.41 M/mm3 (3.65-5.03) L 10/30/17 06:02 Hgb 10.5 gm/dl (11.8-15.2) L D 10/30/17 06:02 Hct 31.1 % (35.5-45.6) L D 10/30/17 06:02 MCV 91 fl (84-94) 10/30/17 06:02 MCH 31 pg (28-32) 10/30/17 06:02 MCHC 34 % (32-34) 10/30/17 06:02 RDW 15.6 % (13.2-15.2) H 10/30/17 06:02 Plt Count 112 K/mm3 (140-440) L 10/30/17 06:02 Lymph % (Auto) 13.7 % (13.4-35.0) 10/30/17 06:02 [place] % (Auto) 8.6 % (0.0-7.3) H 10/30/17 06:02 Eos % (Auto) 0.6 % (0.0-4.3) 10/30/17 06:02 Baso % (Auto) 0.2 % (0.0-1.8) 10/30/17 06:02 Lymph # 1.0 K/mm3 (1.2-5.4) L 10/30/17 06:02 [place] # 0.6 K/mm3 (0.0-0.8) 10/30/17 06:02 Eos # 0.0 K/mm3 (0.0-0.4) 10/30/17 06:02 Baso # 0.0 K/mm3 (0.0-0.1) 10/30/17 06:02 Seg Neutrophils % 76.9 % (40.0-70.0) H 10/30/17 06:02 Seg Neutrophils # 5.4 K/mm3 (1.8-7.7) 10/30/17 06:02 VBG pH 7.243 (7.320-7.420) L 10/21/17 14:42 Sodium 141 mmol/L (137-145) 10/30/17 06:02 Potassium 4.3 mmol/L (3.6-5.0) 10/30/17 06:02 Chloride 107.1 mmol/L (98-107) H 10/30/17 06:02 Carbon Dioxide 18 mmol/L (22-30) L 10/30/17 06:02 Anion Gap 20 mmol/L 10/30/17 06:02 BUN 38 mg/dL (9-20) H 10/30/17 06:02 Creatinine 2.3 mg/dL (0.8-1.5) H 10/30/17 06:02 Estimated GFR 36 ml/min 10/30/17 06:02 BUN/Creatinine Ratio 17 % 10/30/17 06:02 Glucose 153 mg/dL (75-100) H 10/30/17 06:02 POC Glucose 173 (70-105) H 10/30/17 06:12 Hemoglobin A1c 16.3 % (4-6) H 10/21/17 21:20 Lactic Acid 1.20 mmol/L (0.7-2.0) 10/27/17 23:15 Calcium 9.0 mg/dL (8.4-10.2) 10/30/17 06:02 Phosphorus 2.50 mg/dL (2.5-4.5) D 10/23/17 09:07 Magnesium 2.00 mg/dL (1.7-2.3) 10/23/17 09:07 Total Bilirubin 0.50 mg/dL (0.1-1.2) 10/22/17 14:01 AST 80 units/L (5-40) H 10/22/17 14:01 ALT 51 units/L (7-56) 10/22/17 14:01 Alkaline Phosphatase 255 units/L (35-129) H 10/22/17 14:01 Total Protein 6.5 g/dL (6.3-8.2) 10/22/17 14:01 Albumin 3.5 g/dL (3.9-5) L 10/22/17 14:01 Albumin/Globulin Ratio 1.2 % 10/22/17 14:01 Triglycerides 193 mg/dL (2-149) H 10/21/17 21: Cholesterol 196 mg/dL (50-199) 10/21/17 21: LDL Cholesterol Direct 138 mg/dL (50-130) H 10/21/17 21: HDL Cholesterol 35 mg/dL (40-59) L 10/21/17: Cholesterol/HDL Ratio 5.60 % 10/21/17 21: Urine Color Yellow (Yellow) 10/21/17 17: Urine Turbidity Clear (Clear) 10/21/17: Urine pH 5.0 (5.0-7.0) 10/21/17: Ur Specific [place] 1.016 (1.003-1.030) 10/21/17: Urine Protein <15 mg/dl mg/dL (Negative) 10/21/17: Urine Glucose (UA) >=500 mg/dL (Negative) 10/21/17: Urine Ketones Tr mg/dL (Negative) 10/21/17: Urine Blood Sm (Negative) 10/21/17: Urine Nitrite Neg (Negative) 10/21/17 17: Urine Bilirubin Neg (Negative) 10/21/17: Urine Urobilinogen < 2.0 mg/dL (<2.0) 10/21/17 17: Ur Leukocyte Esterase Neg (Negative) 10/21/17: Urine WBC (Auto) 1.0 /HPF (0.0-6.0) 10/21/17: Urine RBC (Auto) 1.0 /HPF (0.0-6.0) 10/21/17: U Epithel Cells (Auto) < 1.0 /HPF (0-13.0) 10/21/17: Urine Bacteria (Auto) 1+ /HPF (Negative) 10/21/17: Urine Mucus Few /HPF 10/21/17: Blood Type A POSITIVE 10/29/17 08:50 Antibody Screen Negative 10/29/17 08:50 Crossmatch See Detail 10/29/17 08:50
[2017-10-30] MEDS: PEPCID PO SCH (12:02)
[2017-10-30] MEDS: ZIAGEN PO SCH (12:03)
[2017-10-30] MEDS: TIVICAY (NF) PO SCH (12:03)
[2017-10-30] MEDS: HALFPRIN EC PO SCH (12:03)
[2017-10-30] MEDS: EPIVIR PO SCH (12:04)
[2017-10-30] MEDS: NACL 0.9% 1000 ML 1,000 ML IV SCH (12:21)
[2017-10-30] MEDS: SODIUM CHLORIDE FLUSH SYRINGE 10 ML IV SCH (12:27)
[2017-10-30 13:39] LABS: Hepatitis A Antibody IgM Non-Reactive (NonReactive); Hepatitis B Core IgM Non-Reactive (NonReactive); Hepatitis B Surface Antigen Non-Reactive (Negative); Hepatitis C Virus Antibody Reactive (NonReactive)
--- NOTE | 2017-10-30 13:53 | Ultrasound Report ---
ULTRASOUND RENAL BILATERAL HISTORY: Renal failure. TECHNIQUE: transabdominal ultrasound with color Doppler interrogation. FINDINGS: The right kidney measures 11 x 5 x 6cm. Right renal cortex: 1.6cm. The left kidney measures 11 x 5 x 6cm. Left renal cortex: 1.7cm. Both kidneys are echogenic consistent with nonspecific renal parenchymal disease or acute renal failure. No evidence for renal cystic disease, mass or calculus. There is moderate to severe bilateral hydronephrosis. The bladder is also distended but no focal wall abnormality or filling defect. IMPRESSION: Distended bladder and bilateral hydronephrosis. Correlate for urinary outlet obstruction. Echogenic kidneys consistent with nonspecific renal parenchymal disease or acute renal failure.
[2017-10-30] MEDS: FLAGYL PO SCH (14:43)
[2017-10-30 17:24] LABS: Bilirubin,Urine NEG (Negative); Blood,Urine NEG (Negative); Color,Urine Yellow (Yellow); Mucus,Urine FEW /HPF; Protein,Urine <15 mg/dL mg/dL (Negative); Urobilinogen,Urine < 2.0 mg/dL (<2.0)
[2017-10-30 17:34] LABS: Creatinine,Urine 38.5 mg/dL (0.1-20.0)
[2017-10-31] MEDS: SODIUM CHLORIDE FLUSH SYRINGE 10 ML IV SCH (00:15)
[2017-10-31] MEDS: FLAGYL PO SCH ×2 (00:15→07:09)
[2017-10-31] MEDS: NEURONTIN PO SCH ×2 (00:16→07:10)
[2017-10-31] MEDS: PERCOCET 5/325 PO PRN (00:36)
[2017-10-31] MEDS: HumaLOG SUB-Q SCH ×2 (00:54→08:04)
[2017-10-31 07:23] LABS: Basophils % (Auto) 0.2 % (0.0-1.8); Eosinophils # (Auto) 0.1 K/mm3 (0.0-0.4); Eosinophils % (Auto) 0.7 % (0.0-4.3); Hematocrit 28.3 % (35.5-45.6); Hemoglobin 9.5 gm/dl (11.8-15.2); Lymphocytes % (Auto) 13.6 % (13.4-35.0); Mean Corpuscular HGB Conc 34 % (32-34); Mean Corpuscular Hemoglobin 31 pg (28-32); Mean Corpuscular Volume 91 fl (84-94); Monocytes # (Auto) 0.7 K/mm3 (0.0-0.8); Monocytes % (Auto) 9.8 % (0.0-7.3); Platelet Count 105 K/mm3 (140-440); Red Blood Count 3.11 M/mm3 (3.65-5.03); Red Cell Distribution Width 15.9 % (13.2-15.2)
[2017-10-31 07:49] LABS: Calcium 8.9 mg/dL (8.4-10.2)
[2017-10-31 07:59] VITALS: BP 127/71
--- NOTE | 2017-10-31 08:57 | Discharge Summary ---
<JARED STEWART - Last Filed: 10/31/17 13:07> Providers - Providers Date of Admission: 10/21/17 16:59 Date of discharge: 10/31/17 Attending physician: DEEDEE WHITE 10/21/17 20:11 Consult to Dietitian/Nutrition [CONS] Routine Physician Instructions: Reason For Exam: DKA Reason for Consult: Nutrition Recommendations Reason for Consult: Diet education 10/22/17 06:15 Consult to Wound/ET Nurse [CONS] Routine Reason For Exam: wound eval 10/26/17 14:59 Consult to Physician [CONS] Routine Comment: Consulting Provider: CAROLINA HART Physician Instructions: Reason For Exam: Swelling of the penis, with some ulceration 10/27/17 12:12 Consult to Physician [CONS] Routine Comment: Consulting Provider: SHAHANA MURRAY Physician Instructions: Reason For Exam: rectal bleeding 10/29/17 11:28 Consult to Physician [CONS] Routine Comment: Consulting Provider: TRAVIS HYDE Physician Instructions: Reason For Exam: ARf on CKD Primary care physician: TRAINING ADMINISTRATOR Hospitalization Condition: Stable Hospital course: Patient is a 57-year-old man with history of HIV, hepatitis C and diabetes who presented to the emergency room for elevated glucose level, 650 on admission. Patient was initiated on DKA protocol with IV insulin and IV fluids after after which his glucose levels trended down. Patient was found to have acute kidney injury on admission and nephrology was consulted after which he improved with IV fluids. Patient's creatinine level appeared to be at baseline on admission and oral hydration was encouraged. During hospital stay, patient complained of penile swelling and rectal bleeding, urology and sociology adjunct instructor was consulted. Patient was diagnosed with mild penile cellulitis and was initiated on antibiotics. Patient received 2 units of PRBC for acute blood loss anemia. No active rectal bleed was noted by sociology adjunct instructor and patient was initiated on hydrocortisone suppositories for perianal lesion noted on colonoscopy from 2017. No further GI workup recommended and at this time. Patient improved clinically and was medically stable for discharge. Patient advised to follow-up with a primary care provider within 1 week of discharge. Discharge diagnoses DKA Diabetes mellitus with hyperglycemia Acute on chronic kidney disease Gastroparesis HIV/AIDS with cachexia Bilateral lower extremity edema Severe malnutrition History of chronic hepatitis C and hepatitis B Rectal bleeding Disposition: DC/TX-[facility] Time spent for discharge: 32 minutes Core Measure Documentation - Palliative Care Palliative Care/ Comfort Measures: Not Applicable - Core Measures Any of the following diagnoses?: none Exam - Constitutional Vitals: Temp Pulse Resp BP Pulse Ox 98.1 F 98 H 19 127/71 97 10/31/17 07:49 10/31/17 07:49 10/31/17 07:49 10/31/17 07:49 10/31/17 07:49 General appearance: Present: no acute distress, cachectic - EENT Eyes: Present: PERRL ENT: hearing intact, clear oral mucosa - Neck Neck: Present: supple, normal ROM - Respiratory Respiratory effort: normal Respiratory: bilateral: CTA - Cardiovascular Heart Sounds: Present: S1 & S2. Absent: rub, click - Extremities Extremities: pulses symmetrical, No edema Peripheral Pulses: within normal limits - Abdominal General gastrointestinal: Present: soft, non-tender, non-distended, normal bowel sounds - Integumentary Integumentary: Present: clear, warm, dry - Musculoskeletal Musculoskeletal: gait normal, strength equal bilaterally - Psychiatric Psychiatric: appropriate mood/affect, intact judgment & insight - Neurologic Neurologic: CNII-XII intact, moves all extremities Plan Diet: low fat, low cholesterol, low salt, diabetic Follow up with: PRIMARY CARE, [Primary Care Provider] - 3-5 Days TRAVIS HYDE MD [Staff Physician] - 14 Days Prescriptions: Insulin NPH/Regular [NovoLIN 70/30] 12 unit SUB-Q BIDDIAB #1 vial Oxycodone HCl/Acetaminophen [Percocet 10/325 mg] 1 each PO Q6HR PRN #10 tablet PRN Reason: Pain Levofloxacin [Levaquin TAB] 750 mg PO Q48HR #4 tablet <DEEDEE WHITE - Last Filed: 11/01/17 07:59> Providers - Providers Date of Admission: 10/21/17 16:59 Attending physician: DEEDEE WHITE 10/21/17 20:11 Consult to Dietitian/Nutrition [CONS] Routine Physician Instructions: Reason For Exam: DKA Reason for Consult: Nutrition Recommendations Reason for Consult: Diet education 10/22/17 06:15 Consult to Wound/ET Nurse [CONS] Routine Reason For Exam: wound eval 10/26/17 14:59 Consult to Physician [CONS] Routine Comment: Consulting Provider: CAROLINA HART Physician Instructions: Reason For Exam: Swelling of the penis, with some ulceration 10/27/17 12:12 Consult to Physician [CONS] Routine Comment: Consulting Provider: SHAHANA MURRAY Physician Instructions: Reason For Exam: rectal bleeding 10/29/17 11:28 Consult to Physician [CONS] Routine Comment: Consulting Provider: TRAVIS HYDE Physician Instructions: Reason For Exam: ARf on CKD Primary care physician: TRAINING ADMINISTRATOR Hospitalization Hospital course: I saw and evaluated the patient. I agree with the findings and the plan of care as documented in the Nurse Practitioner's~note, with the following corrections and additions. Core Measure Documentation - Palliative Care Palliative Care/ Comfort Measures: Not Applicable - Core Measures Any of the following diagnoses?: none Exam - Constitutional Vitals: Temp Pulse Resp BP Pulse Ox 98.1 F 98 H 19 127/71 97 10/31/17 07:49 10/31/17 07:49 10/31/17 07:49 10/31/17 07:49 10/31/17 07:49
[2017-10-31] MEDS: PEPCID PO SCH (09:59)
[2017-10-31] MEDS: ZIAGEN PO SCH (10:00)
[2017-10-31] MEDS: TIVICAY (NF) PO SCH (10:00)
[2017-10-31] MEDS: HALFPRIN EC PO SCH (10:01)
[2017-10-31] MEDS: EPIVIR PO SCH (10:02)
[2017-11-01 12:36] LABS: ANA Screen, IFA Negative (Negative)
[2017-11-01 20:42] LABS: Albumin 2.8 g/dL (3.8-4.8)
== END 2017-10-31 15:35 | DRG 682 ==
LOC: ED 13:15 → CC1 16:59 → 3A 10-24 15:30
PROVIDERS: ADMIT Internal Medicine; ATTEND Hospitalist
PROC: 30233N1 Transfusion of Nonautologous Red Blood Cells into Peripheral Vein, Percutaneous Approach (ICD-10-PCS; principal; 2017-10-29)
DX: N17.9 Acute kidney failure, unspecified (principal); B20 Human immunodeficiency virus [HIV] disease; E11.10 Type 2 diabetes mellitus with ketoacidosis without coma; E43 Unspecified severe protein-calorie malnutrition; K62.5 Hemorrhage of anus and rectum; D62 Acute posthemorrhagic anemia; B19.20 Unspecified viral hepatitis C without hepatic coma; E11.65 Type 2 diabetes mellitus with hyperglycemia; E11.22 Type 2 diabetes mellitus with diabetic chronic kidney disease; N18.9 Chronic kidney disease, unspecified; E11.43 Type 2 diabetes mellitus with diabetic autonomic (poly)neuropathy; K31.84 Gastroparesis; I95.9 Hypotension, unspecified; M79.606 Pain in leg, unspecified; F14.10 Cocaine abuse, uncomplicated; N48.22 Cellulitis of corpus cavernosum and penis; I12.9 Hypertensive chronic kidney disease with stage 1 through stage 4 chronic kidney disease, or unspecified chronic kidney disease; F17.200 Nicotine dependence, unspecified, uncomplicated; Z86.19 Personal history of other infectious and parasitic diseases; Z87.442 Personal history of urinary calculi; Z68.20 Body mass index [BMI] 20.0-20.9, adult; Z85.46 Personal history of malignant neoplasm of prostate; Z79.82 Long term (current) use of aspirin; Z79.899 Other long term (current) drug therapy; Z79.4 Long term (current) use of insulin; Z72.89 Other problems related to lifestyle
CPT/HCPCS: 36415; 71045; 71250; 76770; 80048; 80053; 80061; 80074; 81001; 82140; 82570; 82805; 82962; 83036; 83735; 84100; 84156; 84165; 84166; 84300; 84550; 85025; 86038; 86850; 86900; 86901; 86920; 87040; 93005; 93010; 93306; 93970; 93975; 96360; J1644; J1815; J1940; J1956; J2270; J7030; J7040; P9016

== ENCOUNTER 2017-11-13 15:44 | Emergency (ER) | payer SELFPAY ==
[2017-11-13 17:30] VITALS: BP 130/65
--- NOTE | 2017-11-13 18:12 | Emergency Department Report ---
ED General Adult HPI - General Chief complaint: Medical Clearance Stated complaint: POSSIBLE RENAL FAILURE Time Seen by Provider: 11/13/17 17:49 Source: patient Mode of arrival: Stretcher Limitations: No Limitations - History of Present Illness Initial comments: History obtained from the patient and the nurse. According to the patient, the care home sent him to the ER for medical evaluation. He was discharged from this hospital about 10 or 11 days ago. He was found to have ERIK and elevated blood sugar at that time. At time of presentation to the ER, patient has no complaints. According to the nurse, EMS had difficulty obtaining the report from the care home. It was unclear to EMS the exact reason for the patient's transport to the hospital. Severity scale (0 -10): 0 - Related Data Home Medications Medication Instructions Recorded Confirmed Last Taken Abacavir/Dolutegravir/Lamivudi 1 each PO DAILY 01/22/17 10/21/17 01/20/17 [Triumeq Tablet] Previous Rx's Medication Instructions Recorded Last Taken Type Aspirin [Adult Low Dose Aspirin EC] 81 mg PO DAILY #30 tablet. 02/07/17 Unknown Rx Doxycycline [Vibramycin CAP] 100 mg PO BID #42 capsule 02/07/17 Unknown Rx Gabapentin [Neurontin] 400 mg PO Q8HR #90 capsule 02/07/17 Unknown Rx metroNIDAZOLE [Flagyl TAB] 500 mg PO Q8HR #30 tablet 02/07/17 Unknown Rx Insulin NPH/Regular [NovoLIN 70/30] 12 unit SUB-Q BIDDIAB #1 vial 10/31/17 Unknown Rx Levofloxacin [Levaquin TAB] 750 mg PO Q48HR #4 tablet 10/31/17 Unknown Rx Oxycodone HCl/Acetaminophen 1 each PO Q6HR PRN #10 tablet 10/31/17 Unknown Rx [Percocet 10/325 mg] metroNIDAZOLE [Flagyl TAB] 500 mg PO Q8HR tablet 10/31/17 Unknown Rx Allergies Allergy/AdvReac Type Severity Reaction Status Date / Time No Known Allergies Allergy Unverified 12/14/16 03:43 ED Review of Systems ROS: Stated complaint: POSSIBLE RENAL FAILURE Other details as noted in HPI Constitutional: denies: chills, fever Eyes: denies: eye pain, eye discharge, vision change ENT: denies: ear pain, throat pain Respiratory: denies: cough, shortness of breath, wheezing Cardiovascular: denies: chest pain, palpitations Endocrine: no symptoms reported Gastrointestinal: denies: abdominal pain, nausea, diarrhea Genitourinary: denies: urgency, dysuria Musculoskeletal: denies: back pain, joint swelling, arthralgia Skin: denies: rash, lesions Neurological: denies: headache, weakness, paresthesias Psychiatric: denies: anxiety, depression Hematological/Lymphatic: denies: easy bleeding, easy bruising ED Past Medical Hx - Past Medical History Hx Congestive Heart Failure: No Hx Diabetes: Yes Hx Liver Disease: Yes (hep C, hepatomegaly) Hx Renal Disease: Yes (kidney stones) Hx Asthma: No Hx COPD: No Hx HIV: Yes Additional medical history: hydornephrosis renal failure - Surgical History Past Surgical History?: Yes Additional Surgical History: Back sx - Social History Smoking Status: Current Every Day Smoker Substance Use Type: Alcohol - Medications Home Medications: Home Medications Medication Instructions Recorded Confirmed Last Taken Type Abacavir/Dolutegravir/Lamivudi 1 each PO DAILY 01/22/17 10/21/17 01/20/17 History [Triumeq Tablet] Aspirin [Adult Low Dose Aspirin EC] 81 mg PO DAILY #30 tablet. 02/07/17 Unknown Rx Doxycycline [Vibramycin CAP] 100 mg PO BID #42 capsule 02/07/17 10/21/17 Unknown Rx Gabapentin [Neurontin] 400 mg PO Q8HR #90 capsule 02/07/17 10/21/17 Unknown Rx metroNIDAZOLE [Flagyl TAB] 500 mg PO Q8HR #30 tablet 02/07/17 10/21/17 Unknown Rx Insulin NPH/Regular [NovoLIN 70/30] 12 unit SUB-Q BIDDIAB #1 vial 10/31/17 Unknown Rx Levofloxacin [Levaquin TAB] 750 mg PO Q48HR #4 tablet 10/31/17 Unknown Rx Oxycodone HCl/Acetaminophen 1 each PO Q6HR PRN #10 tablet 10/31/17 Unknown Rx [Percocet 10/325 mg] metroNIDAZOLE [Flagyl TAB] 500 mg PO Q8HR tablet 10/31/17 Unknown Rx ED Physical Exam - General Limitations: No Limitations General appearance: alert, in no apparent distress - Head Head exam: Present: atraumatic, normocephalic - Eye Eye exam: Present: normal appearance - ENT ENT exam: Present: mucous membranes moist - Neck Neck exam: Present: normal inspection - Respiratory Respiratory exam: Present: normal lung sounds bilaterally. Absent: respiratory distress - Cardiovascular Cardiovascular Exam: Present: regular rate, normal rhythm. Absent: systolic murmur, diastolic murmur, rubs, gallop - GI/Abdominal GI/Abdominal exam: Present: soft. Absent: tenderness - Rectal Rectal exam: Present: deferred - Extremities Exam Extremities exam: Present: normal inspection - Back Exam Back exam: Present: normal inspection - Neurological Exam Neurological exam: Present: alert, oriented X3 - Psychiatric Psychiatric exam: Present: normal affect, normal mood - Skin Skin exam: Present: warm, dry, intact, normal color. Absent: rash ED Course Vital Signs 11/13/17 17:04 Temperature 97 F L Pulse Rate 82 Respiratory 18 Rate Blood Pressure 130/65 Blood Pressure 130/65 [Right] O2 Sat by Pulse 97 Oximetry ED Medical Decision Making - Medical Decision Making 57-year-old male with past medical history of HIV, hepatitis C, diabetes and presents to the ER for medical evaluation from the [facility]. From extensive chart review, patient was discharged on 10/31/2017 after being diagnosed with ERIK and hyperglycemia. At that time he had moderate to severe hydronephrosis with a creatinine of 2.5. He was given outpatient follow-up for his CKD. Routine lab work from the [facility] done on 11/07/2017. Creatinine 1.6, bicarbonate 18, hemoglobin 8.8. Repeat ultrasound at that time showed mild to moderate hydronephrosis bilaterally. I believe due to the isolated lab and ultrasound findings there concern for worsening renal failure and the patient. However, when looking at the trend of these numbers in comparing past ultrasounds, these results reaction improvement in the patient's condition. After the patient routine screening with repeat lab work. He is currently refusing. He is currently urinating. Low concern for urinary retention. The patient understands the risks. He says he has outpatient follow-up. I thought that this was appropriate. Vitals are stable. He is well-appearing. Clear for discharge. - Differential Diagnosis erik, ckd, dehydration, renal failure, electrolyte abnormalities Critical care attestation.: If time is entered above; I have spent that time in minutes in the direct care of this critically ill patient, excluding procedure time. ED Disposition Clinical Impression: Encounter for medical screening examination Disposition: TO HOME OR SELFCARE Is pt being admited?: No Condition: Stable Instructions: Normal Exam (ED) Additional Instructions: Please follow up with your out-patient follow up visit for repeat evaluation of your kidneys and other chronic medical conditions. Referrals: PRIMARY CARE, [Primary Care Provider] - 3-5 Days
[2017-11-13 18:29] LABS: Basophils % (Auto) 1.1 % (0.0-1.8); Eosinophils # (Auto) 0.1 K/mm3 (0.0-0.4); Eosinophils % (Auto) 3.7 % (0.0-4.3); Hematocrit 32.4 % (35.5-45.6); Hemoglobin 10.2 gm/dl (11.8-15.2); Lymphocytes % (Auto) 26.4 % (13.4-35.0); Mean Corpuscular HGB Conc 32 % (32-34); Mean Corpuscular Hemoglobin 31 pg (28-32); Mean Corpuscular Volume 97 fl (84-94); Monocytes # (Auto) 0.3 K/mm3 (0.0-0.8); Monocytes % (Auto) 9.2 % (0.0-7.3); Platelet Count 227 K/mm3 (140-440); Red Blood Count 3.36 M/mm3 (3.65-5.03); Red Cell Distribution Width 17.1 % (13.2-15.2)
[2017-11-13 18:32] LABS: Albumin 3.6 g/dL (3.9-5)
== END 2017-11-13 19:42 | disposition home or self-care (01) ==
LOC: ED 15:44
DX: Z02.89 Encounter for other administrative examinations (principal); E11.9 Type 2 diabetes mellitus without complications; F17.200 Nicotine dependence, unspecified, uncomplicated; Z79.82 Long term (current) use of aspirin; Z79.4 Long term (current) use of insulin
CPT/HCPCS: 36415; 80053; 85025; 99283

== ENCOUNTER 2017-11-29 23:15 | Inpatient (IN) | payer SELFPAY ==
[2017-11-30 00:15] LABS: Basophils % (Auto) 0.7 % (0.0-1.8); Eosinophils # (Auto) 0.1 K/mm3 (0.0-0.4); Eosinophils % (Auto) 1.3 % (0.0-4.3); Hematocrit 29.1 % (35.5-45.6); Hemoglobin 9.4 gm/dl (11.8-15.2); Lymphocytes # (Auto) 1.4 K/mm3 (1.2-5.4); Lymphocytes % (Auto) 20.8 % (13.4-35.0); Mean Corpuscular HGB Conc 32 % (32-34); Mean Corpuscular Hemoglobin 30 pg (28-32); Mean Corpuscular Volume 94 fl (84-94); Monocytes # (Auto) 0.5 K/mm3 (0.0-0.8); Monocytes % (Auto) 7.1 % (0.0-7.3); Platelet Count 121 K/mm3 (140-440); Red Blood Count 3.11 M/mm3 (3.65-5.03); Red Cell Distribution Width 17.6 % (13.2-15.2)
[2017-11-30 00:33] LABS: Calcium 8.9 mg/dL (8.4-10.2)
[2017-11-30 03:21] LABS: Bilirubin,Urine NEG (Negative); Blood,Urine NEG (Negative); Color,Urine Yellow (Yellow); Mucus,Urine FEW /HPF; Protein,Urine <15 mg/dL mg/dL (Negative); Urobilinogen,Urine < 2.0 mg/dL (<2.0)
[2017-11-30] MEDS ORDERED: NACL 0.9% 1000 ML 1,000 ML IV ONE ×4 (05:21→14:01)
[2017-11-30] MEDS ORDERED: D50W (25GM) Syringe IV PRN (07:27)
--- NOTE | 2017-11-30 07:27 | Emergency Department Report ---
ED General Adult HPI - General Chief complaint: Hyperglycemia Stated complaint: BLOOD SUGAR HIGH Time Seen by Provider: 11/30/17 07:25 Source: patient Mode of arrival: Ambulatory Limitations: No Limitations - History of Present Illness Initial comments: This is a 57-year-old man with AIDS who was recently admitted to the hospital for treatment of DKA. He states he was discharged and his ride never showed up. He simply sat in the waiting room. He did not take any insulin. He denies being homeless. He did not take any HIV medication. Eventually he felt ill again and checked into the emergency department. He was found to be again in DKA. -: Gradual, days(s) Quality: other (not currently complaining of pain just weakness) Associated Symptoms: nausea/vomiting (nausea no vomiting), weakness Treatments Prior to Arrival: none - Related Data Home Medications Medication Instructions Recorded Confirmed Last Taken Abacavir/Dolutegravir/Lamivudi 1 each PO DAILY 01/22/17 11/26/17 01/20/17 [Triumeq Tablet] Previous Rx's Medication Instructions Recorded Last Taken Type Aspirin [Adult Low Dose Aspirin EC] 81 mg PO DAILY #30 tablet. 02/07/17 Unknown Rx Gabapentin [Neurontin] 400 mg PO Q8HR #90 capsule 02/07/17 Unknown Rx Insulin NPH/Regular [NovoLIN 70/30] 25 unit SUB-Q BIDDIAB #1 vial 11/28/17 Unknown Rx oxyCODONE /ACETAMINOPHEN [Percocet 1 tab PO QHS #5 tablet 11/28/17 Unknown Rx 5/325] Allergies Allergy/AdvReac Type Severity Reaction Status Date / Time sulfamethoxazole Allergy Hives Verified 11/25/17 04:24 [From Bactrim] trimethoprim [From Bactrim] Allergy Hives Verified 11/25/17 04:24 ED Review of Systems ROS: Stated complaint: BLOOD SUGAR HIGH Other details as noted in HPI Constitutional: weakness. denies: chills, fever Eyes: denies: eye pain, eye discharge, vision change ENT: denies: ear pain, throat pain Respiratory: denies: cough, shortness of breath, wheezing Cardiovascular: denies: chest pain, palpitations Endocrine: see HPI, increased thirst Gastrointestinal: nausea. denies: abdominal pain, diarrhea Genitourinary: denies: urgency, dysuria Musculoskeletal: denies: back pain, joint swelling, arthralgia Skin: denies: rash, lesions Neurological: denies: headache, weakness, paresthesias Psychiatric: denies: anxiety, depression Hematological/Lymphatic: denies: easy bleeding, easy bruising ED Past Medical Hx - Past Medical History Previous Medical History?: Yes Hx Congestive Heart Failure: No Hx Diabetes: Yes Hx Liver Disease: Yes (hep C, hepatomegaly) Hx Renal Disease: Yes (kidney stones) Hx Asthma: No Hx COPD: No Hx HIV: Yes Additional medical history: hydornephrosis renal failure. AIDS - Surgical History Past Surgical History?: Yes Additional Surgical History: Back sx - Social History Smoking Status: Never Smoker Substance Use Type: None - Medications Home Medications: Home Medications Medication Instructions Recorded Confirmed Last Taken Type Abacavir/Dolutegravir/Lamivudi 1 each PO DAILY 01/22/17 11/26/17 01/20/17 History [Triumeq Tablet] Aspirin [Adult Low Dose Aspirin EC] 81 mg PO DAILY #30 tablet. 02/07/17 Unknown Rx Gabapentin [Neurontin] 400 mg PO Q8HR #90 capsule 02/07/17 11/26/17 Unknown Rx Insulin NPH/Regular [NovoLIN 70/30] 25 unit SUB-Q BIDDIAB #1 vial 11/28/17 Unknown Rx oxyCODONE /ACETAMINOPHEN [Percocet 1 tab PO QHS #5 tablet 11/28/17 Unknown Rx 5/325] ED Physical Exam - General Limitations: No Limitations General appearance: alert, in no apparent distress, cachectic - Head Head exam: Present: atraumatic, normocephalic - Eye Eye exam: Present: normal appearance. Absent: scleral icterus - ENT ENT exam: Present: mucous membranes moist - Neck Neck exam: Present: normal inspection - Respiratory Respiratory exam: Present: normal lung sounds bilaterally. Absent: respiratory distress - Cardiovascular Cardiovascular Exam: Present: regular rate, normal rhythm. Absent: systolic murmur, diastolic murmur, rubs, gallop - GI/Abdominal GI/Abdominal exam: Present: soft, normal bowel sounds. Absent: distended, tenderness, guarding, rebound, rigid - Rectal Rectal exam: Present: deferred - exam: Present: other (deferred) - Extremities Exam Extremities exam: Present: normal inspection - Back Exam Back exam: Present: other (healed scar left subscapular) - Neurological Exam Neurological exam: Present: alert, oriented X3, CN II-XII intact. Absent: motor sensory deficit - Psychiatric Psychiatric exam: Present: normal affect, normal mood - Skin Skin exam: Present: warm, dry, intact, normal color, other (I did not find any active ulcers. I did not inspect his gluteal region. He denied any problems there). Absent: rash ED Course Vital Signs 11/29/17 11/30/17 11/30/17 23:48 05:15 05:48 Temperature 98.0 F Pulse Rate 80 75 Respiratory 17 14 Rate Blood Pressure 117/71 Blood Pressure [Right] O2 Sat by Pulse 99 Oximetry 11/30/17 05:50 Temperature Pulse Rate 77 Respiratory 15 Rate Blood Pressure Blood Pressure 111/65 [Right] O2 Sat by Pulse 100 Oximetry - Reevaluation(s) Reevaluation #1: IV fluids. Insulin drip. Discussed with Dr. Segovia. He stated to admit the patient to Dr. Ly service ICU 11/30/17 08:32 ED Medical Decision Making - Lab Data Result diagrams: 11/30/17 00:02 11/30/17 00:02 Laboratory Results - last 24 hr 11/30/17 11/30/17 11/30/17 00:02 00:02 00:02 WBC 6.7 RBC 3.11 L Hgb 9.4 L Hct 29.1 L MCV 94 MCH 30 MCHC 32 RDW 17.6 H Plt Count 121 L Lymph % (Auto) 20.8 [place] % (Auto) 7.1 Eos % (Auto) 1.3 Baso % (Auto) 0.7 Lymph # 1.4 [place] # 0.5 Eos # 0.1 Baso # 0.0 Seg Neutrophils % 70.1 H Seg Neutrophils # 4.7 VBG pH 7.224 L Sodium 135 L Potassium 5.3 H D Chloride 103.2 Carbon Dioxide 16 L Anion Gap 21 BUN 58 H Creatinine 1.5 Estimated GFR 59 BUN/Creatinine Ratio 39 Glucose 511 H* POC Glucose Calcium 8.9 Urine Color Urine Turbidity Urine pH Ur Specific [place] Urine Protein Urine Glucose (UA) Urine Ketones Urine Blood Urine Nitrite Urine Bilirubin Urine Urobilinogen Ur Leukocyte Esterase Urine WBC (Auto) Urine RBC (Auto) U Epithel Cells (Auto) Urine Mucus 11/30/17 11/30/17 11/30/17 00:05 02:54 05:15 WBC RBC Hgb Hct MCV MCH MCHC RDW Plt Count Lymph % (Auto) [place] % (Auto) Eos % (Auto) Baso % (Auto) Lymph # [place] # Eos # Baso # Seg Neutrophils % Seg Neutrophils # VBG pH Sodium Potassium Chloride Carbon Dioxide Anion Gap BUN Creatinine Estimated GFR BUN/Creatinine Ratio Glucose POC Glucose 453 H 406 H Calcium Urine Color Yellow Urine Turbidity Clear Urine pH 5.0 Ur Specific [place] 1.009 Urine Protein <15 mg/dl Urine Glucose (UA) >=500 Urine Ketones Neg Urine Blood Neg Urine Nitrite Neg Urine Bilirubin Neg Urine Urobilinogen < 2.0 Ur Leukocyte Esterase Neg Urine WBC (Auto) 1.0 Urine RBC (Auto) 1.0 U Epithel Cells (Auto) < 1.0 Urine Mucus Few Critical Care Time: Yes Critical care time in (mins) excluding proc time.: 45 Critical care attestation.: If time is entered above; I have spent that time in minutes in the direct care of this critically ill patient, excluding procedure time. ED Disposition Clinical Impression: Cachexia associated with AIDS, Prerenal azotemia, HIV (human immunodeficiency virus infection) DKA, type 1 Qualifiers: Diabetes mellitus complication detail: without coma Qualified Code(s): E10.10 - Type 1 diabetes mellitus with ketoacidosis without coma Hepatitis C Qualifiers: Viral hepatitis chronicity: chronic Hepatic coma status: without hepatic coma Qualified Code(s): B18.2 - Chronic viral hepatitis C Disposition: OP ADMIT IP TO THIS HOSP Is pt being admited?: Yes Does the pt Need Aspirin: Yes Condition: Stable Instructions: Diabetic Ketoacidosis (ED) Referrals: PRIMARY CARE, [Primary Care Provider] - 3-5 Days Time of Disposition: 08:35
[2017-11-30] MEDS ORDERED: HumuLIN R 100 UNITS in NACL 0.9% 99 ML IV SCH (08:00)
--- NOTE | 2017-11-30 08:25 | XRay Report ---
FINAL REPORT EXAM: XR CHEST 1V AP HISTORY: Shortness of breath. TECHNIQUE: A single frontal portable radiograph of the chest was obtained. Comparison is made with prior exam 10/21/2017. FINDINGS: The cardiac silhouette and mediastinum are within normal limits. A 4 mm nodular density is again noted in the right upper lung field, overlying the right posterior 5th rib, also seen on prior study. The remainder of the lung ann are clear, without focal infiltrate or effusion. There is no pneumothorax. No significant osseous abnormalities are identified. IMPRESSION: 1. No focal infiltrate or effusion. 2. 4 mm nodular density overlying the right upper lung field, also seen on prior study 10/21/2017. Chest CT is suggested for further evaluation.
[2017-11-30] MEDS ORDERED: BABY ASPIRIN PO ONE (08:36)
--- NOTE | 2017-11-30 08:43 | Emergency Department Report ---
ED General Adult HPI - General Chief complaint: Hyperglycemia Stated complaint: BLOOD SUGAR HIGH Time Seen by Provider: 11/30/17 07:25 Source: patient Mode of arrival: Ambulatory Limitations: No Limitations - History of Present Illness Severity scale (0 -10): 6 Quality: other (not currently complaining of pain just weakness) Associated Symptoms: nausea/vomiting (nausea no vomiting), weakness Treatments Prior to Arrival: none - Related Data Home Medications Medication Instructions Recorded Confirmed Last Taken Abacavir/Dolutegravir/Lamivudi 1 each PO DAILY 01/22/17 11/26/17 01/20/17 [Triumeq Tablet] Previous Rx's Medication Instructions Recorded Last Taken Type Aspirin [Adult Low Dose Aspirin EC] 81 mg PO DAILY #30 tablet. 02/07/17 Unknown Rx Gabapentin [Neurontin] 400 mg PO Q8HR #90 capsule 02/07/17 Unknown Rx Insulin NPH/Regular [NovoLIN 70/30] 25 unit SUB-Q BIDDIAB #1 vial 11/28/17 Unknown Rx oxyCODONE /ACETAMINOPHEN [Percocet 1 tab PO QHS #5 tablet 11/28/17 Unknown Rx 5/325] Allergies Allergy/AdvReac Type Severity Reaction Status Date / Time sulfamethoxazole Allergy Hives Verified 11/25/17 04:24 [From Bactrim] trimethoprim [From Bactrim] Allergy Hives Verified 11/25/17 04:24 ED Review of Systems ROS: Stated complaint: BLOOD SUGAR HIGH Other details as noted in HPI Constitutional: weakness. denies: chills, fever Eyes: denies: eye pain, eye discharge, vision change ENT: denies: ear pain, throat pain Respiratory: denies: cough, shortness of breath, wheezing Cardiovascular: denies: chest pain, palpitations Endocrine: see HPI, increased thirst Gastrointestinal: nausea. denies: abdominal pain, diarrhea Genitourinary: denies: urgency, dysuria Musculoskeletal: denies: back pain, joint swelling, arthralgia Skin: denies: rash, lesions Neurological: denies: headache, weakness, paresthesias Psychiatric: denies: anxiety, depression Hematological/Lymphatic: denies: easy bleeding, easy bruising ED Past Medical Hx - Past Medical History Previous Medical History?: Yes Hx Congestive Heart Failure: No Hx Diabetes: Yes Hx Liver Disease: Yes (hep C, hepatomegaly) Hx Renal Disease: Yes (kidney stones) Hx Asthma: No Hx COPD: No Hx HIV: Yes Additional medical history: hydornephrosis renal failure. AIDS - Surgical History Past Surgical History?: Yes Additional Surgical History: Back sx - Social History Smoking Status: Never Smoker Substance Use Type: None - Medications Home Medications: Home Medications Medication Instructions Recorded Confirmed Last Taken Type Abacavir/Dolutegravir/Lamivudi 1 each PO DAILY 01/22/17 11/26/17 01/20/17 History [Triumeq Tablet] Aspirin [Adult Low Dose Aspirin EC] 81 mg PO DAILY #30 tablet. 02/07/17 Unknown Rx Gabapentin [Neurontin] 400 mg PO Q8HR #90 capsule 02/07/17 11/26/17 Unknown Rx Insulin NPH/Regular [NovoLIN 70/30] 25 unit SUB-Q BIDDIAB #1 vial 11/28/17 Unknown Rx oxyCODONE /ACETAMINOPHEN [Percocet 1 tab PO QHS #5 tablet 11/28/17 Unknown Rx 5/325] ED Physical Exam - General Limitations: No Limitations General appearance: alert, in no apparent distress, cachectic ED Course Vital Signs 11/29/17 11/30/17 11/30/17 23:48 05:15 05:48 Temperature 98.0 F Pulse Rate 80 75 Respiratory 17 14 Rate Blood Pressure 117/71 Blood Pressure [Right] O2 Sat by Pulse 99 Oximetry 11/30/17 05:50 Temperature Pulse Rate 77 Respiratory 15 Rate Blood Pressure Blood Pressure 111/65 [Right] O2 Sat by Pulse 100 Oximetry ED Medical Decision Making - Lab Data Result diagrams: 11/30/17 00:02 11/30/17 00:02 Laboratory Results - last 24 hr 11/30/17 11/30/17 11/30/17 00:02 00:02 00:02 WBC 6.7 RBC 3.11 L Hgb 9.4 L Hct 29.1 L MCV 94 MCH 30 MCHC 32 RDW 17.6 H Plt Count 121 L Lymph % (Auto) 20.8 [place] % (Auto) 7.1 Eos % (Auto) 1.3 Baso % (Auto) 0.7 Lymph # 1.4 Fisher # 0.5 Eos # 0.1 Baso # 0.0 Seg Neutrophils % 70.1 H Seg Neutrophils # 4.7 VBG pH 7.224 L Sodium 135 L Potassium 5.3 H D Chloride 103.2 Carbon Dioxide 16 L Anion Gap 21 BUN 58 H Creatinine 1.5 Estimated GFR 59 BUN/Creatinine Ratio 39 Glucose 511 H* POC Glucose Calcium 8.9 Urine Color Urine Turbidity Urine pH Ur Specific [place] Urine Protein Urine Glucose (UA) Urine Ketones Urine Blood Urine Nitrite Urine Bilirubin Urine Urobilinogen Ur Leukocyte Esterase Urine WBC (Auto) Urine RBC (Auto) U Epithel Cells (Auto) Urine Mucus 11/30/17 11/30/17 11/30/17 00:05 02:54 05:15 WBC RBC Hgb Hct MCV MCH MCHC RDW Plt Count Lymph % (Auto) [place] % (Auto) Eos % (Auto) Baso % (Auto) Lymph # [place] # Eos # Baso # Seg Neutrophils % Seg Neutrophils # VBG pH Sodium Potassium Chloride Carbon Dioxide Anion Gap BUN Creatinine Estimated GFR BUN/Creatinine Ratio Glucose POC Glucose 453 H 406 H Calcium Urine Color Yellow Urine Turbidity Clear Urine pH 5.0 Ur Specific [place] 1.009 Urine Protein <15 mg/dl Urine Glucose (UA) >=500 Urine Ketones Neg Urine Blood Neg Urine Nitrite Neg Urine Bilirubin Neg Urine Urobilinogen < 2.0 Ur Leukocyte Esterase Neg Urine WBC (Auto) 1.0 Urine RBC (Auto) 1.0 U Epithel Cells (Auto) < 1.0 Urine Mucus Few 11/30/17 07:20 WBC RBC Hgb Hct MCV MCH MCHC RDW Plt Count Lymph % (Auto) [place] % (Auto) Eos % (Auto) Baso % (Auto) Lymph # [place] # Eos # Baso # Seg Neutrophils % Seg Neutrophils # VBG pH Sodium Potassium Chloride Carbon Dioxide Anion Gap BUN Creatinine Estimated GFR BUN/Creatinine Ratio Glucose POC Glucose 409 H Calcium Urine Color Urine Turbidity Urine pH Ur Specific [place] Urine Protein Urine Glucose (UA) Urine Ketones Urine Blood Urine Nitrite Urine Bilirubin Urine Urobilinogen Ur Leukocyte Esterase Urine WBC (Auto) Urine RBC (Auto) U Epithel Cells (Auto) Urine Mucus - EKG Data -: EKG Interpreted by Me EKG shows normal: sinus rhythm, axis, intervals, QRS complexes, ST-T waves Rate: normal - EKG Data Interpretation: no acute changes - Radiology Data Radiology results: report reviewed interpreted by me: Lung nodule 4 mm nodular density in the right upper lung CT is suggested per radiologist for further evaluation. Critical Care Time: Yes Critical care time in (mins) excluding proc time.: 60 Critical care attestation.: If time is entered above; I have spent that time in minutes in the direct care of this critically ill patient, excluding procedure time. ED Disposition Clinical Impression: HIV (human immunodeficiency virus infection), Cachexia associated with AIDS, Acute renal insufficiency, Noncompliance with medication regimen DKA, type 1 Qualifiers: Diabetes mellitus complication detail: without coma Qualified Code(s): E10.10 - Type 1 diabetes mellitus with ketoacidosis without coma Disposition: 09 OP ADMIT IP TO THIS HOSP Is pt being admited?: Yes Does the pt Need Aspirin: Yes Condition: Stable Instructions: Diabetic Ketoacidosis (ED) Referrals: PRIMARY CARE, [Primary Care Provider] - 3-5 Days Time of Disposition: 08:42
--- NOTE | 2017-11-30 08:44 | History and Physical Report ---
History of Present Illness Date of examination: 11/30/17 Date of admission: 11/30/17 Chief complaint: Uncontrolled blood sugars/DKA History of present illness: 57-year-old -[place] male patient with significant history of type 2 diabetes mellitus hypertension HIV on antiretrovirals Was discharged yesterday after receiving management per DKA Patient was hemodynamically and clinically stable at discharge However his family did not come to pick him up yesterday evening, was waiting in the lobby Patient did not eat and did not take his evening insulin . Patient was taken to the ER , and initial workup revealed very high blood sugars and findings consistent with DKA At the time of my evaluation patient is very hungry and wants food Alert awake oriented 3 Severely dehydrated Denies chest pain or shortness of breath Denies nausea vomiting or abdominal pain Past History Past Medical History: diabetes, HIV/AIDS, other (neuropathy, hep C, kidney stones) Past Surgical History: No surgical history Social history: lives with family. denies: smoking, alcohol abuse, prescription drug abuse Family history: diabetes, hypertension Medications and Allergies Allergies Allergy/AdvReac Type Severity Reaction Status Date / Time sulfamethoxazole Allergy Hives Verified 11/25/17 04:24 [From Bactrim] trimethoprim [From Bactrim] Allergy Hives Verified 11/25/17 04:24 Home Medications Medication Instructions Recorded Confirmed Last Taken Type Abacavir/Dolutegravir/Lamivudi 1 each PO DAILY 01/22/17 11/26/17 01/20/17 History [Triumeq Tablet] Aspirin [Adult Low Dose Aspirin EC] 81 mg PO DAILY #30 tablet. 02/07/17 Unknown Rx Gabapentin [Neurontin] 400 mg PO Q8HR #90 capsule 02/07/17 11/26/17 Unknown Rx Insulin NPH/Regular [NovoLIN 70/30] 25 unit SUB-Q BIDDIAB #1 vial 11/28/17 Unknown Rx oxyCODONE /ACETAMINOPHEN [Percocet 1 tab PO QHS #5 tablet 11/28/17 Unknown Rx 5/325] Active Meds: Active Medications Dextrose (D50w (25gm) Syringe) 0 ml IV ONCE PRN PRN Reason: Hypoglycemia Insulin Human Regular 100 (units/ Sodium Chloride) 100 mls @ 1 mls/hr IV TITR LANCE; Protocol Review of Systems Constitutional: weight loss, malaise Ears, nose, mouth and throat: no nasal congestion, no nasal discharge Cardiovascular: no chest pain, no palpitations, no shortness of breath Respiratory: no cough, no shortness of breath Gastrointestinal: no abdominal pain, no nausea, no vomiting Genitourinary Male: kidney stones Musculoskeletal: no myalgias, no arthritis Integumentary: no rash, no lesions Neurological: weakness, no numbness, no tingling, no seizures Psychiatric: no anxiety, no depression Endocrine: no cold intolerance, no heat intolerance, no polydipsia, no polyuria Hematologic/Lymphatic: no easy bruising, no easy bleeding Allergic/Immunologic: no urticaria, no allergic rhinitis Exam - Constitutional Vitals: Temp Pulse Resp BP Pulse Ox 98.0 F 77 15 111/65 100 11/29/17 23:48 11/30/17 05:50 11/30/17 05:50 11/30/17 05:50 11/30/17 05:50 General appearance: Present: no acute distress, cachectic, disheveled, other ( dehydrated) - EENT Eyes: Present: PERRL, EOM intact - Neck Neck: Present: supple, normal ROM - Respiratory Respiratory effort: normal Respiratory: bilateral: diminished, negative: rales, rhonchi, wheezing - Cardiovascular Rhythm: regular Heart Sounds: Present: S1 & S2 - Extremities Extremities: no ischemia, No edema - Abdominal General gastrointestinal: Present: soft, non-tender, non-distended, normal bowel sounds - Integumentary Integumentary: Present: clear, warm - Musculoskeletal Musculoskeletal: strength equal bilaterally, generalized weakness - Psychiatric Psychiatric: appropriate mood/affect, cooperative - Neurologic Neurologic: moves all extremities Results - Labs CBC & Chem 7: 11/30/17 00:02 11/30/17 08:44 Labs: Abnormal lab results 11/30/17 11/30/17 11/30/17 Range/Units 00:02 00:02 00:02 RBC 3.11 L (3.65-5.03) M/mm3 Hgb 9.4 L (11.8-15.2) gm/dl Hct 29.1 L (35.5-45.6) % RDW 17.6 H (13.2-15.2) % Plt Count 121 L (140-440) K/mm3 Seg Neutrophils % 70.1 H (40.0-70.0) % VBG pH 7.224 L (7.320-7.420) Sodium 135 L (137-145) mmol/L Potassium 5.3 H D (3.6-5.0) mmol/L Carbon Dioxide 16 L (22-30) mmol/L BUN 58 H (9-20) mg/dL Glucose 511 H* (75-100) mg/dL POC Glucose (70-105) 11/30/17 11/30/17 11/30/17 Range/Units 00:05 05:15 07:20 RBC (3.65-5.03) M/mm3 Hgb (11.8-15.2) gm/dl Hct (35.5-45.6) % RDW (13.2-15.2) % Plt Count (140-440) K/mm3 Seg Neutrophils % (40.0-70.0) % VBG pH (7.320-7.420) Sodium (137-145) mmol/L Potassium (3.6-5.0) mmol/L Carbon Dioxide (22-30) mmol/L BUN (9-20) mg/dL Glucose (75-100) mg/dL POC Glucose 453 H 406 H 409 H (70-105) Assessment and Plan --Diabetic ketoacidosis/hyperglycemia; due to noncompliance Very minimal elevation of anion gap, and acidosis DC insulin drip, vigorous IV hydration, Accu-Chek sliding scale coverage Resume ADA diet, start Novolin 70/30 15 units now and 25 units twice a day HbA1c 16.3 last month Diabetic education, nutrition consult --Metabolic acidosis; due to DKA Vigorous IV hydration, closely monitor electrolytes --History of HIV/AIDS; Resume home medications /antiretrovirals --Hypomagnesemia; replace per protocol and monitor ----Incidental finding of 4 mm nodular density right upper lung field; no change since last month,chest CT as needed Patient will see pulmonary as outpatient upon discharge for further evaluation and management --DVT prophylaxis; Lovenox --DC planning; possible placement versus home with home health/nurse upon discharge Downgrade and admitted to medical floor Plan of care is reviewed with the patient and his nurse
[2017-11-30 09:04] LABS: BUN/Creatinine Ratio 37; Blood Urea Nitrogen 52 mg/dL (9-20); Calcium 8.7 mg/dL (8.4-10.2); Hemolysis Index 27
[2017-11-30] MEDS ORDERED: NON-FORMULARY (Abacavir/Dolutegravir/Lamivudi [Triumeq Tablet] 1 EACH) PO SCH (10:00)
[2017-11-30] MEDS ORDERED: MAGNESIUM SULFATE 2GM/50ML 2 GM/50 ML BAG IV ONE (10:17)
[2017-11-30] MEDS ORDERED: BABY ASPIRIN ONE (11:38)
[2017-11-30] MEDS: HALFPRIN EC PO SCH (11:47)
[2017-11-30] MEDS: HumaLOG SUB-Q SCH ×3 (12:09→23:25)
[2017-11-30] MEDS ORDERED: ZOFRAN ONE (12:55)
[2017-11-30] MEDS: NEURONTIN PO SCH ×2 (15:30→23:05)
[2017-11-30] MEDS ORDERED: LOVENOX SUB-Q SCH (22:00)
[2017-11-30] MEDS ORDERED: PERCOCET 5/325 PO SCH (22:00)
[2017-11-30 23:40] LABS: BUN/Creatinine Ratio 33; Blood Urea Nitrogen 43 mg/dL (9-20); Calcium 8.3 mg/dL (8.4-10.2); Hemolysis Index 56
[2017-12-01] MEDS: NEURONTIN PO SCH ×2 (05:43→13:24)
--- NOTE | 2017-12-01 07:19 | Progress Note ---
Assessment and Plan Assessment and plan: --Diabetic ketoacidosis/hyperglycemia; due to noncompliance Very minimal elevation of anion gap, and acidosis DC insulin drip, vigorous IV hydration, Accu-Chek sliding scale coverage Resume ADA diet, start Novolin 70/30 15 units now and 25 units twice a day HbA1c 16.3 last month Diabetic education, nutrition consult --Metabolic acidosis; due to DKA Vigorous IV hydration, closely monitor electrolytes --History of HIV/AIDS; Resume home medications /antiretrovirals --Hypomagnesemia; replace per protocol and monitor ----Incidental finding of 4 mm nodular density right upper lung field; no change since last month,chest CT as needed Patient will see pulmonary as outpatient upon discharge for further evaluation and management --DVT prophylaxis; Lovenox --DC planning; possible placement versus home with home health/nurse upon discharge Downgrade and admitted to medical floor Plan of care is reviewed with the patient and his nurse Hospitalist Physical - Constitutional Vitals: Temp Pulse Resp BP Pulse Ox 98.6 F 79 18 132/60 100 11/30/17 23:39 11/30/17 23:39 11/30/17 23:39 11/30/17 23:39 11/30/17 23:39 General appearance: Present: no acute distress, cachectic, disheveled, other ( dehydrated) Results - Labs CBC & Chem 7: 11/30/17 00:02 11/30/17 23:12 Labs: Laboratory Last Values WBC 6.7 K/mm3 (4.5-11.0) 11/30/17 00:02 RBC 3.11 M/mm3 (3.65-5.03) L 11/30/17 00:02 Hgb 9.4 gm/dl (11.8-15.2) L 11/30/17 00:02 Hct 29.1 % (35.5-45.6) L 11/30/17 00:02 MCV 94 fl (84-94) 11/30/17 00:02 MCH 30 pg (28-32) 11/30/17 00:02 MCHC 32 % (32-34) 11/30/17 00:02 RDW 17.6 % (13.2-15.2) H 11/30/17 00:02 Plt Count 121 K/mm3 (140-440) L 11/30/17 00:02 Lymph % (Auto) 20.8 % (13.4-35.0) 11/30/17 00:02 [place] % (Auto) 7.1 % (0.0-7.3) 11/30/17 00:02 Eos % (Auto) 1.3 % (0.0-4.3) 11/30/17 00:02 Baso % (Auto) 0.7 % (0.0-1.8) 11/30/17 00:02 Lymph # 1.4 K/mm3 (1.2-5.4) 11/30/17 00:02 [place] # 0.5 K/mm3 (0.0-0.8) 11/30/17 00:02 Eos # 0.1 K/mm3 (0.0-0.4) 11/30/17 00:02 Baso # 0.0 K/mm3 (0.0-0.1) 11/30/17 00:02 Seg Neutrophils % 70.1 % (40.0-70.0) H 11/30/17 00:02 Seg Neutrophils # 4.7 K/mm3 (1.8-7.7) 11/30/17 00:02 VBG pH 7.224 (7.320-7.420) L 11/30/17 00:02 Sodium 139 mmol/L (137-145) 11/30/17 23:12 Potassium 4.5 mmol/L (3.6-5.0) 11/30/17 23:12 Chloride 112.4 mmol/L (98-107) H 11/30/17 23:12 Carbon Dioxide 13 mmol/L (22-30) L 11/30/17 23:12 Anion Gap 18 mmol/L 11/30/17 23:12 BUN 43 mg/dL (9-20) H 11/30/17 23:12 Creatinine 1.3 mg/dL (0.8-1.5) 11/30/17 23:12 Estimated GFR > 60 ml/min 11/30/17 23:12 BUN/Creatinine Ratio 33 % 11/30/17 23:12 Glucose 113 mg/dL (75-100) H 11/30/17 23:12 POC Glucose 347 (70-105) H 12/01/17 05:39 Calcium 8.3 mg/dL (8.4-10.2) L 11/30/17 23:12 Phosphorus 3.30 mg/dL (2.5-4.5) 11/30/17 08:44 Magnesium 1.60 mg/dL (1.7-2.3) L 11/30/17 08:44 Urine Color Yellow (Yellow) 11/30/17 02:54 Urine Turbidity Clear (Clear) 11/30/17 02:54 Urine pH 5.0 (5.0-7.0) 11/30/17 02:54 Ur Specific [place] 1.009 (1.003-1.030) 11/30/17 02:54 Urine Protein <15 mg/dl mg/dL (Negative) 11/30/17 02:54 Urine Glucose (UA) >=500 mg/dL (Negative) 11/30/17 02:54 Urine Ketones Neg mg/dL (Negative) 11/30/17 02:54 Urine Blood Neg (Negative) 11/30/17 02:54 Urine Nitrite Neg (Negative) 11/30/17 02:54 Urine Bilirubin Neg (Negative) 11/30/17 02:54 Urine Urobilinogen < 2.0 mg/dL (<2.0) 11/30/17 02:54 Ur Leukocyte Esterase Neg (Negative) 11/30/17 02:54 Urine WBC (Auto) 1.0 /HPF (0.0-6.0) 11/30/17 02:54 Urine RBC (Auto) 1.0 /HPF (0.0-6.0) 11/30/17 02:54 U Epithel Cells (Auto) < 1.0 /HPF (0-13.0) 11/30/17 02:54 Urine Mucus Few /HPF 11/30/17 02:54
[2017-12-01] MEDS ORDERED: NACL 0.9% 500 ML 500 ML IV ONE (07:30)
[2017-12-01] MEDS: HumaLOG SUB-Q SCH ×2 (07:30→13:03)
[2017-12-01] MEDS ORDERED: NACL 0.9% 1000 ML 1,000 ML IV SCH (08:00)
[2017-12-01 08:01] LABS: Basophils % (Auto) 0.8 % (0.0-1.8); Eosinophils # (Auto) 0.2 K/mm3 (0.0-0.4); Eosinophils % (Auto) 3.6 % (0.0-4.3); Hematocrit 25.9 % (35.5-45.6); Hemoglobin 8.9 gm/dl (11.8-15.2); Lymphocytes # (Auto) 1.3 K/mm3 (1.2-5.4); Lymphocytes % (Auto) 30.9 % (13.4-35.0); Mean Corpuscular HGB Conc 34 % (32-34); Mean Corpuscular Hemoglobin 31 pg (28-32); Mean Corpuscular Volume 91 fl (84-94); Monocytes # (Auto) 0.3 K/mm3 (0.0-0.8); Monocytes % (Auto) 8.1 % (0.0-7.3); Platelet Count 85 K/mm3 (140-440); Red Blood Count 2.84 M/mm3 (3.65-5.03)
[2017-12-01 08:18] LABS: BUN/Creatinine Ratio 32; Blood Urea Nitrogen 42 mg/dL (9-20); Calcium 8.4 mg/dL (8.4-10.2); Hemolysis Index 12
[2017-12-01 08:55] VITALS: BP 146/68
[2017-12-01] MEDS: HALFPRIN EC PO SCH (09:20)
--- NOTE | 2017-12-01 16:17 | Discharge Summary ---
Providers - Providers Date of Admission: 11/30/17 08:36 Date of discharge: 12/01/17 Attending physician: JESU MOSS 11/30/17 07:27 Consult to Case Management [CONS] Routine Services Needed at Discharge: Other Notified:: belinda Primary care physician: [employer] [employer] [facility] Hospitalization Reason for admission: diabetic ketoacidosis Condition: Stable Pertinent studies: Chest x-ray; 4 mm nodular density on the right upper lung field Advised to follow with primary care physician for further evaluation Hospital course: 57-year-old -[place] male patient with significant past medical history of type 2 diabetes mellitus HIV on insulin was discharged recently, patient was not picked up by the family, stating the lobby, noted to be in DKA Readmitted to the hospital, started on DKA pathway Blood sugars reasonably controlled, on long-acting 7030 insulin 25 units twice a day as well as Accu-Cheks and sliding scale coverage Patient's symptoms significantly improved However patient is noncompliant eating a lot of outside food especially candy and cookies. Patient also has incidental finding of a lung nodule, advised to follow primary care physician for further evaluation upon discharge Today he is comfortable no new complaints Vital signs stable, Blood sugars 113, 317, 189 Physical examination prior to discharge is unremarkable HbA1c 16.3, advised to see private carbon grinder for close monitoring of blood sugars. Patient is hemodynamically and clinically stable for discharge Case management set up a usp and took care of transportation. Patient is stable at discharge Final diagnoses; --Diabetic ketoacidosis --Severe metabolic acidosis --History of HIV --Type 2 diabetes mellitus on insulin --Medical noncompliance --Incidental lung nodule on chest x-ray --Hypophosphatemia Disposition: DC/TX-70 ANOTHER TYPE HLTHCARE Time spent for discharge: 32 min Core Measure Documentation - Palliative Care Palliative Care/ Comfort Measures: Not Applicable - Core Measures Any of the following diagnoses?: none Exam - Constitutional Vitals: Temp Pulse Resp BP Pulse Ox 97.5 F L 63 16 146/68 100 12/01/17 08:49 12/01/17 08:49 12/01/17 08:49 12/01/17 08:49 12/01/17 08:49 General appearance: Present: no acute distress, well-nourished - EENT Eyes: Present: PERRL, EOM intact - Neck Neck: Present: supple, normal ROM - Respiratory Respiratory effort: normal Respiratory: bilateral: diminished, negative: rales, rhonchi, wheezing - Cardiovascular Rhythm: regular Heart Sounds: Present: S1 & S2 - Extremities Extremities: no ischemia, No edema - Abdominal General gastrointestinal: Present: soft, non-tender, non-distended, normal bowel sounds - Integumentary Integumentary: Present: clear, warm - Musculoskeletal Musculoskeletal: strength equal bilaterally - Psychiatric Psychiatric: appropriate mood/affect, cooperative - Neurologic Neurologic: CNII-XII intact, moves all extremities Plan Activity: advance as tolerated, fall precautions Diet: diabetic Additional Instructions: f/u Health dept for HIV needs. Chest x-ray; 4 mm nodular density on the right upper lung field. Advised to follow with primary care physician for further evaluation. See private endocrinology 1-2 weeks. advised compliance with meds and diet Follow up with: PRIMARY CARE, [Primary Care Provider] - 3-5 Days Prescriptions: Insulin NPH/Regular [NovoLIN 70/30] 25 unit SUB-Q BIDDIAB #1 vial Pot Phosphate/Na Phosphate [Phos-Nak] 1 each PO Q12HR #6 powd.pack
[2017-12-01] MEDS ORDERED: PHOS-NAK PO SCH (22:00)
== END 2017-12-01 17:42 | disposition home or self-care (01) | DRG 637 ==
LOC: ED 23:15 → CC1 11-30 08:36 → 3A 11-30 10:52
PROVIDERS: ADMIT Internal Medicine; ATTEND Internal Medicine
DX: E11.10 Type 2 diabetes mellitus with ketoacidosis without coma (principal); B20 Human immunodeficiency virus [HIV] disease; R64 Cachexia; Z68.1 Body mass index [BMI] 19.9 or less, adult; N28.9 Disorder of kidney and ureter, unspecified; E83.39 Other disorders of phosphorus metabolism; R91.1 Solitary pulmonary nodule; E83.42 Hypomagnesemia; B19.20 Unspecified viral hepatitis C without hepatic coma; E86.0 Dehydration; Z91.14 Patient's other noncompliance with medication regimen; Z79.4 Long term (current) use of insulin; Z83.3 Family history of diabetes mellitus; Z82.49 Family history of ischemic heart disease and other diseases of the circulatory system; Z87.442 Personal history of urinary calculi; Z88.2 Allergy status to sulfonamides; Z79.82 Long term (current) use of aspirin; Z79.899 Other long term (current) drug therapy
CPT/HCPCS: 36415; 71045; 80048; 81001; 82805; 82962; 83735; 84100; 85025; 93005; 93010; 96361; 96365; 96372; J1650; J1815; J2405; J3475; J7030; J7040

== ENCOUNTER 2018-01-23 14:46 | Outpatient (CLI) | payer OTHER ==
[2018-01-23 15:32] LABS: BUN/Creatinine Ratio 29; Blood Urea Nitrogen 35 mg/dL (9-20); Calcium 10.5 mg/dL (8.4-10.2); Hemolysis Index 8
== END 2018-01-23 14:47 | disposition home or self-care (01) ==
LOC: LAB 14:46
PROVIDERS: ATTEND Student in an Organized Health Care Education/Training Program
DX: E87.5 Hyperkalemia (principal); E10.10 Type 1 diabetes mellitus with ketoacidosis without coma; B20 Human immunodeficiency virus [HIV] disease; E10.65 Type 1 diabetes mellitus with hyperglycemia; D64.9 Anemia, unspecified; F32.9 Major depressive disorder, single episode, unspecified; Z91.14 Patient's other noncompliance with medication regimen; Z79.4 Long term (current) use of insulin
CPT/HCPCS: 36415; 80048